=== PATIENT | male | born 1945 | race Caucasian/White ===

== ENCOUNTER 2024-10-30 15:54 | Inpatient (IN) | payer MEDICARE, OTHER ==
[2024-10-30 16:33] LABS: ALT 24 U/L (4-49); AST 26 U/L (17-59); African American GFR (CKD) 24 (>60 ml/min/1.73 sqM); Albumin 3.1 g/dL (3.5-5.0); Alkaline Phosphatase 131 U/L (38-126); Anion Gap 7 mmol/L; Blood Urea Nitrogen 99 mg/dL (9-20); Calcium 7.9 mg/dL (8.4-10.2); Carbon Dioxide 37 mmol/L (22-30); Chloride 87 mmol/L (98-107); Glucose 122 mg/dL (74-99); Non-African American GFR(CKD) 21 (>60 ml/min/1.73 sqM); Potassium 3.8 mmol/L (3.5-5.1); Sodium 131 mmol/L (137-145); Total Bilirubin 2.2 mg/dL (0.2-1.3); Total Protein 5.8 g/dL (6.3-8.2)
[2024-10-30 16:37] LABS: Anisocytosis Moderate; Basophils % (A) 0 %; Eosinophils # (A) 0.1 k/uL (0-0.7); Eosinophils % (A) 0 %; HCT 29.3 % (39.0-53.0); Hypochromasia Moderate; Lymphocytes # (A) 0.4 k/uL (1.0-4.8); Lymphocytes % (A) 2 %; MCH 24.5 pg (25.0-35.0); MCHC 30.7 g/dL (31.0-37.0); MCV 79.9 fL (80.0-100.0); Microcytosis Moderate; Monocytes # (A) 0.9 k/uL (0-1.0); Monocytes % (A) 5 %; Neutrophils % (A) 92 %; Platelet Count 148 k/uL (150-450); Poikilocytosis Slight; RBC 3.67 m/uL (4.30-5.90); RDW 22.6 % (11.5-15.5); WBC 19.7 k/uL (3.8-10.6)
--- NOTE | 2024-10-30 16:50 | XR ---
EXAMINATION TYPE: XR chest 2V DATE OF EXAM: 10/30/2024 4:45 PM COMPARISON: None TECHNIQUE: XR chest 2V Frontal and lateral views of the chest. CLINICAL INDICATION:Male, 79 years old with history of weakness; FINDINGS: Lungs/Pleura: There is no evidence of pleural effusion, focal consolidation, or pneumothorax. Pulmonary vascularity: Central pulmonary vascular prominence. Heart/mediastinum: Cardiomediastinal silhouette is enlarged. Atherosclerotic calcifications are seen in the aorta. Three lead cardiac conduction device overlying the left hemithorax with lead tips proj ecting over the right ventricle, right atrium and coronary sinus. Two lead cardiac conduction device overlying the right hemithorax with lead tips projecting over the right ventricle and right atrium. Musculoskeletal: Multiple level degenerative disc disease changes seen throughout the spine. IMPRESSION: Cardiomegaly and central pulmonary vascular congestion. No focal consolidation. Correlate with BNP fo r congestive heart failure. [facility], , 10/30/2024 4:48 PM
--- NOTE | 2024-10-30 16:58 | ED ---
Weakness HPI - General Chief complaint: Weakness Stated complaint: Failure to thrive Time Seen by Provider: 10/30/24 16:16 Source: patient, EMS, RN notes reviewed Mode of arrival: EMS Limitations: no limitations - History of Present Illness Initial comments: 79-year-old male with history of CHF, CAD with stents, pacemaker, COPD, stage IV renal disease and diabetes presenting via EMS for "not feeling well". Son is at bedside who explains that patient was recently discharged from [facility] 2 days ago for admission for diffuse swelling. States since discharge patient has refused to take any of his medications. Patient recently moved here from [facility] in August and lives with his son. Son reports he has had increasing weakness since discharge from [facility] and today was not able to walk due to weakness. Patient denies chest pain, flank pain, urinary symptoms. He does admit to a cough. Review of Systems ROS Statement: Those systems with pertinent positive or pertinent negative responses have been documented in the HPI. ROS Other: All systems not noted in ROS Statement are negative. General Exam Limitations: no limitations General appearance: alert, in no apparent distress Head exam: Present: atraumatic, normocephalic, normal inspection Eye exam: Present: normal appearance, PERRL, EOMI. Absent: scleral icterus, conjunctival injection, periorbital swelling ENT exam: Present: normal exam, mucous membranes moist Respiratory exam: Present: normal lung sounds bilaterally, wheezes, rhonchi. Absent: respiratory distress, rales, stridor, accessory muscle use Cardiovascular Exam: Present: regular rate, normal rhythm, normal heart sounds. Absent: systolic murmur, diastolic murmur, rubs, gallop, clicks GI/Abdominal exam: Present: soft, normal bowel sounds. Absent: distended, tenderness, guarding, rebound, rigid Extremities exam: Present: full ROM, normal capillary refill, pedal edema (2+ pitting edema in bilateral lower extremities). Absent: normal inspection, tenderness, joint swelling, calf tenderness Neurological exam: Present: alert, oriented X3 Psychiatric exam: Present: normal affect, normal mood Skin exam: Present: warm, dry, intact, normal color. Absent: rash Course Vital Signs 10/30/24 15:56 Temperature 99.3 F Pulse Rate 75 Respiratory 26 H Rate Blood Pressure 120/70 O2 Sat by Pulse 97 Oximetry EKG Findings - EKG Results: EKG: interpreted by ERMD (EKG reveals paced rhythm normal with no ischemic changes. Ventricular rate 75 bpm, PA interval 148, QRS duration 201, QT/QTc 518/547) Medical Decision Making - Medical Decision Making Was pt. sent in by a medical professional or institution (, PA, [facility], urgent care, hospital, or prison...) When possible be specific @ -No Did you speak to anyone other than the patient for history (EMS, parent, family, police, friend...)? What history was obtained from this source @ -No Did you review nursing and triage notes (agree or disagree)? Why? @ -I reviewed and agree with nursing and triage notes Were old charts reviewed (outside hosp., previous admission, EMS record, old EKG, old radiological studies, urgent care reports/EKG's, prison records)? Report findings @ -No old charts were reviewed Differential Diagnosis (chest pain, altered mental status, abdominal pain women, abdominal pain men, vaginal bleeding, weakness, fever, dyspnea, syncope, headache, dizziness, GI bleed, back pain, seizure, CVA, palpatations, mental health, musculoskeletal)? @ -Differential Weakness: Hypoglycemia, shock, sepsis, hyponatremia, anemia, infection, MA, ETOH, adverse medicine reaction, overdose, stroke, this is not meant to be an all-inclusive list. EKG interpreted by me (3pts min.). @ -As above X-rays interpreted by me (1pt min.). @ -Referrals cardiomegaly and central pulmonary vascular congestion, no focal consolidation, correlate with BNP for CHF CT interpreted by me (1pt min.). @ -None done U/S interpreted by me (1pt. min.). @ -None done What testing was considered but not performed or refused? (CT, X-rays, U/S, labs)? Why? @ -None What meds were considered but not given or refused? Why? @ -None Did you discuss the management of the patient with other professionals ( professionals i.e. , DRE, [facility] [employer], lab, RT, psych nurse, protective services social worker, boring machine operator production, teacher, community resource officer, comp field case manager)? Give summary @ -I spoke with Amee from [facility] who accepts admission for CHF exacerbation Was smoking cessation discussed for >3mins.? @ -No Was critical care preformed (if so, how long)? @ -No Were there social determinants of health that impacted care today? How? (Homelessness, low income, unemployed, alcoholism, drug addiction, transportation, low edu. Level, literacy, decrease access to med. care, intermediate, rehab)? @ -No Was there de-escalation of care discussed even if they declined (Discuss DNR or withdrawal of care, Hospice)? DNR status @ -No What co-morbidities impacted this encounter? (DM, HTN, Smoking, COPD, CAD, Cancer, CVA, ARF, Chemo, Hep., AIDS, mental health diagnosis, sleep apnea, morbid obesity)? @ -CHF Was patient admitted / discharged? Hospital course, mention meds given and route, prescriptions, significant lab abnormalities, going to OR and other pertinent info. @ -Admitted. 79-year-old male with history of CHF, stage IV renal disease, diabetes, CAD with stents, and pacemaker presenting for generalized weakness x 2 days. He was admitted at [facility] and discharged Monday for CHF exacerbation/renal failure. Has not been taking meds since yesterday morning. He was tachypneic otherwise vitals within acceptable limits. Denies chest pain. 2+ edema in lower extremities bilaterally. EKG revealed paced rhythm with no acute ischemic changes. Lab work remarkable for BNP 30,500, leukocytosis of 20, creatinine 2.78, BUN 99, troponin 0.165. Patient is RSV positive. Chest x-ray reveals cardiomegaly and central pulmonary vascular congestion with no focal consolidation consistent with CHF exacerbation. Urinalysis reveals large white blood cells consistent with UTI. Patient denies flank pain. I spoke with Amee from [facility] who accepts admission for CHF exacerbation. Blood cultures were taken and patient was given a gram of IV Rocephin. Case was discussed with my ED attending Dr. Walden. Undiagnosed new problem with uncertain prognosis? @ -No Drug Therapy requiring intensive monitoring for toxicity (Heparin, Nitro, Insulin, Cardizem)? @ -No Were any procedures done? @ -No Diagnosis/symptom? @ -CHF exacerbation Acute, or Chronic, or Acute on Chronic? @ -Acute Uncomplicated (without systemic symptoms) or Complicated (systemic symptoms)? @ -Complicated Side effects of treatment? @ -No Exacerbation, Progression, or Severe Exacerbation? @ -No Poses a threat to life or bodily function? How? (Chest pain, USA, MA, pneumonia, PE, COPD, DKA, ARF, appy, cholecystitis, CVA, Diverticulitis, Homicidal, Suicidal, threat to staff... and all critical care pts) @ -Yes - Lab Data Result diagrams: 10/30/24 16:10 10/30/24 16:10 Lab Results 10/30/24 10/30/24 10/30/24 Range/Units 16:10 16:10 16:10 WBC 19.7 H (3.8-10.6) k/uL RBC 3.67 L (4.30-5.90) m/uL Hgb 9.0 L (13.0-17.5) gm/dL Hct 29.3 L (39.0-53.0) % MCV 79.9 L (80.0-100.0) fL MCH 24.5 L (25.0-35.0) pg MCHC 30.7 L (31.0-37.0) g/dL RDW 22.6 H (11.5-15.5) % Plt Count 148 L (150-450) k/uL MPV 9.0 Neutrophils % 92 % Lymphocytes % 2 % Monocytes % 5 % Eosinophils % 0 % Basophils % 0 % Neutrophils # 18.0 H (1.3-7.7) k/uL Lymphocytes # 0.4 L (1.0-4.8) k/uL Monocytes # 0.9 (0-1.0) k/uL Eosinophils # 0.1 (0-0.7) k/uL Basophils # 0.0 (0-0.2) k/uL Hypochromasia Moderate Poikilocytosis Slight Anisocytosis Moderate Microcytosis Moderate Sodium 131 L (137-145) mmol/L Potassium 3.8 (3.5-5.1) mmol/L Chloride 87 L (98-107) mmol/L Carbon Dioxide 37 H (22-30) mmol/L Anion Gap 7 mmol/L BUN 99 H (9-20) mg/dL Creatinine 2.78 H (0.66-1.25) mg/dL Est GFR (CKD-EPI)AfAm 24 (>60 ml/min/1.73 sqM) Est GFR (CKD-EPI)NonAf 21 (>60 ml/min/1.73 sqM) Glucose 122 H (74-99) mg/dL Calcium 7.9 L (8.4-10.2) mg/dL Magnesium (1.6-2.3) mg/dL Total Bilirubin 2.2 H (0.2-1.3) mg/dL AST 26 (17-59) U/L ALT 24 (4-49) U/L Alkaline Phosphatase 131 H (38-126) U/L Troponin I (0.000-0.034) ng/mL NT-Pro-B Natriuret Pep pg/mL Total Protein 5.8 L (6.3-8.2) g/dL Albumin 3.1 L (3.5-5.0) g/dL Urine Color Urine Appearance (Clear) Urine pH (5.0-8.0) Ur Specific Ellinger (1.001-1.035) Urine Protein (Negative) Urine Glucose (UA) (Negative) Urine Ketones (Negative) Urine Blood (Negative) Urine Nitrite (Negative) Urine Bilirubin (Negative) Urine Urobilinogen (<2.0) mg/dL Ur Leukocyte Esterase (Negative) Urine RBC (0-5) /hpf Urine WBC (0-5) /hpf Ur Squamous Epith Cells (0-4) /hpf Urine Bacteria (None) /hpf Hyaline Casts (0-2) /lpf Urine Mucus (None) /hpf Influenza Type A (PCR) Not Detected (Not Detectd) Influenza Type B (PCR) Not Detected (Not Detectd) RSV (PCR) Detected A (Not Detectd) SARS-CoV-2 (PCR) Not Detected (Not Detectd) 10/30/24 10/30/24 10/30/24 Range/Units 16:58 16:58 18:01 WBC (3.8-10.6) k/uL RBC (4.30-5.90) m/uL Hgb (13.0-17.5) gm/dL Hct (39.0-53.0) % MCV (80.0-100.0) fL MCH (25.0-35.0) pg MCHC (31.0-37.0) g/dL RDW (11.5-15.5) % Plt Count (150-450) k/uL MPV Neutrophils % % Lymphocytes % % Monocytes % % Eosinophils % % Basophils % % Neutrophils # (1.3-7.7) k/uL Lymphocytes # (1.0-4.8) k/uL Monocytes # (0-1.0) k/uL Eosinophils # (0-0.7) k/uL Basophils # (0-0.2) k/uL Hypochromasia Poikilocytosis Anisocytosis Microcytosis Sodium (137-145) mmol/L Potassium (3.5-5.1) mmol/L Chloride (98-107) mmol/L Carbon Dioxide (22-30) mmol/L Anion Gap mmol/L BUN (9-20) mg/dL Creatinine (0.66-1.25) mg/dL Est GFR (CKD-EPI)AfAm (>60 ml/min/1.73 sqM) Est GFR (CKD-EPI)NonAf (>60 ml/min/1.73 sqM) Glucose (74-99) mg/dL Calcium (8.4-10.2) mg/dL Magnesium 2.2 (1.6-2.3) mg/dL Total Bilirubin (0.2-1.3) mg/dL AST (17-59) U/L ALT (4-49) U/L Alkaline Phosphatase (38-126) U/L Troponin I 0.165 H* (0.000-0.034) ng/mL NT-Pro-B Natriuret Pep 03849 pg/mL Total Protein (6.3-8.2) g/dL Albumin (3.5-5.0) g/dL Urine Color Yellow Urine Appearance Cloudy (Clear) Urine pH 7.0 (5.0-8.0) Ur Specific Ellinger 1.011 (1.001-1.035) Urine Protein 1+ H (Negative) Urine Glucose (UA) 1+ H (Negative) Urine Ketones Negative (Negative) Urine Blood Trace H (Negative) Urine Nitrite Negative (Negative) Urine Bilirubin Negative (Negative) Urine Urobilinogen 8.0 (<2.0) mg/dL Ur Leukocyte Esterase Large H (Negative) Urine RBC 3 (0-5) /hpf Urine WBC 167 H (0-5) /hpf Ur Squamous Epith Cells <1 (0-4) /hpf Urine Bacteria Moderate H (None) /hpf Hyaline Casts 1 (0-2) /lpf Urine Mucus Rare H (None) /hpf Influenza Type A (PCR) (Not Detectd) Influenza Type B (PCR) (Not Detectd) RSV (PCR) (Not Detectd) SARS-CoV-2 (PCR) (Not Detectd) Disposition Clinical Impression: CHF exacerbation Disposition: ADMITTED IP TO THIS HOSP Condition: Fair Referrals: Prema Tinsley MD [Primary Care Provider] - 1-2 days Time of Disposition: 18:53
[2024-10-30 17:00] LABS: Influenza A Not Detected (Not Detectd); Influenza B Not Detected (Not Detectd); RSV Detected (Not Detectd)
[2024-10-30 17:26] LABS: Magnesium 2.2 mg/dL (1.6-2.3)
[2024-10-30 18:13] LABS: Appearance,Urine Cloudy (Clear); Bacteria,Urine Moderate /hpf; Bilirubin,Urine Negative (Negative); Blood,Urine Trace (Negative); Color,Urine Yellow; Glucose,Urine (UA) 1+ (Negative); Hyaline Casts,Urine 1 /lpf (0-2); Ketones,Urine Negative (Negative); Leukocyte Esterase,Urine Large (Negative); Mucus,Urine Rare /hpf; Nitrite,Urine Negative (Negative); Protein,Urine 1+ (Negative); RBC,Urine 3 /hpf (0-5); Specific Gravity,Urine 1.011 (1.001-1.035); Squamous Epithelial Cell,Urine <1 /hpf (0-4); WBC,Urine 167 /hpf (0-5)
[2024-10-30] MEDS ORDERED: MORPHINE SULFATE 4 MG/ML SYRINGE IV PRN (18:47)
[2024-10-30] MEDS ORDERED: NALOXONE 0.4 MG/ML 1 ML VIAL IV PRN (18:47)
[2024-10-30] MEDS: HYDROcodone/APAP 5-325MG 1 EACH TAB PO PRN (20:30)
[2024-10-30] MEDS: FUROSEMIDE 10 MG/ML 4 ML VIAL IV STA (20:31)
[2024-10-30] MEDS: cefTRIAXone IN SWFI 1,000 MG/10 ML SYRINGE IVP STA (20:32)
[2024-10-31] MEDS: FUROSEMIDE 10 MG/ML 4 ML VIAL IV STA (02:13)
[2024-10-31] MEDS: IPRATROPIUM-ALBUTEROL 3 ML NEB INHALATION PRN (02:45)
[2024-10-31] MEDS: ACETAMINOPHEN TAB 325 MG TAB PO PRN ×2 (04:50→22:40)
[2024-10-31] MEDS ORDERED: ALBUTEROL NEBULIZED 2.5 MG/3 ML INHALATION PRN (09:34)
--- NOTE | 2024-10-31 10:42 | US ---
EXAMINATION TYPE: US kidneys/renal and bladder DATE OF EXAM: 10/31/2024 COMPARISON: NONE CLINICAL INDICATION: Male, 79 years old with history of Jean Paul; JEAN PAUL TECHNIQUE: Grayscale imaging of the bilateral kidneys and urinary bladder: FINDINGS: EXAM MEASUREMENTS: Right Kidney: 11.4 x 4.8 x 5.4 cm Left Kidney: 9.5 x 5.1 x 4.3 cm Right Kidney: No evidence of hydro, possible double collecting system Left Kidney: No evidence of hydro, lower pole gassed out, limited views due to immobile pt Bladder: Pt has cath in place There is no evidence for hydronephrosis at this point in time. No nephrolithiasis is seen. No anjali s are identified. The urinary bladder is anechoic. IMPRESSION: No evidence for obstructive uropathy. [facility], , 10/31/2024 10:39 AM
[2024-10-31] MEDS: ATORVASTATIN 80 MG TAB PO SCH (10:45)
[2024-10-31] MEDS: BUMETANIDE 0.25 MG/ML 10 ML VIAL IV SCH (10:46)
--- NOTE | 2024-10-31 12:02 | P.NPCON ---
History of Present Illness - Reason for Consult chronic renal failure - History of Present Illness Reason for consultation: Chronic kidney disease History of present illness: Patient is a 79-year-old male seen in new consultation for chronic kidney disease. Patient has chronic kidney disease stage IV with recent baseline creatinine in the range of 2.5-3 secondary to cardiorenal syndrome. Patient has a history of diabetes. Patient's kidney ultrasound from August 2024 showed no evidence of hydronephrosis. Patient does have history of systolic CHF ejection fraction of 20 to 25% with moderate mitral and tricuspid regurgitation. Patient was recently discharged from [facility] and at that time was admitted with CHF exacerbation. Patient was sent to the hospital due to generalized weakness and not feeling well. It is noted in the chart that patient refused to take his medications upon discharge. He was weak and unable to walk. Patient is a poor historian. Creatinine this admission was 2.78. Chest x-ray suggestive of fluid overload. BNP elevated at 30,500. He is curren tly on IV Bumex. Has an external catheter and has been making urine. Hemodynamically stable. Noted to have a fever of 100.7 F this morning. Tested positive for RSV. Vital signs are stable. General: Resting in bed. No acute distress. HEENT: Head exam is unremarkable. On nasal cannula. LUNGS: Scattered rhonchi. HEART: Rate and Rhythm are regular. ABDOMEN: Nontender. EXTREMITITES: 1+ edema. Medications and Allergies Home Medications Medication Instructions Recorded Confirmed Type Acetaminophen Tab [Tylenol] 650 mg PO Q6H PRN 10/30/24 10/30/24 History Albuterol Inhaler [Ventolin Hfa 2 puff INHALATION RT-Q6H PRN 10/30/24 10/30/24 History Inhaler] Amiodarone [Cordarone] 200 mg PO BID 10/30/24 10/30/24 History Aspirin 81 mg PO DAILY 10/30/24 10/30/24 History Atorvastatin [Lipitor] 80 mg PO DAILY 10/30/24 10/30/24 History Bumetanide [BUMEX] 2 mg PO BID 10/30/24 10/30/24 History Clopidogrel [Plavix] 75 mg PO DAILY 10/30/24 10/30/24 History Docusate [Colace] 100 mg PO BID PRN 10/30/24 10/30/24 History Empagliflozin [Jardiance] 10 mg PO DAILY 10/30/24 10/30/24 History Famotidine [Pepcid] 20 mg PO BID 10/30/24 10/30/24 History Fluticasone Nasal [place] [Flonase 1 spray EA NOSTRIL DAILY 10/30/24 10/30/24 History Nasal [place]] Levothyroxine Sodium [Synthroid] 25 mcg PO AC-BRKFST 10/30/24 10/30/24 History Nystatin 100,000 Unit/ml Susp 500,000 ml PO QID 10/30/24 10/30/24 History [Mycostatin Oral Susp] Potassium Chloride ER [K-Dur 10] 10 meq PO DAILY 10/30/24 10/30/24 History Tamsulosin [Flomax] 0.4 mg PO BID 10/30/24 10/30/24 History carvediloL [Coreg] 6.25 mg PO BID-W/MEALS 10/30/24 10/30/24 History guaiFENesin [Mucinex] 600 mg PO Q12H 10/30/24 10/30/24 History metOLazone [Zaroxolyn] 2.5 mg PO DAILY 10/30/24 10/30/24 History polyethylene glycoL 3350 [Miralax] 17 gm PO DAILY PRN 10/30/24 10/30/24 History predniSONE See Taper PO DAILY 10/30/24 10/30/24 History Allergies Allergy/AdvReac Type Severity Reaction Status Date / Time No Known Allergies Allergy Verified 10/30/24 21:07 Physical Exam Vitals: Vital Signs Temp Pulse Resp BP Pulse Ox 10/31/24 11:00 75 18 113/67 98 10/31/24 05:00 99.4 F 84 18 105/50 95 10/31/24 04:49 100.7 F H 10/31/24 03:10 117 H 35 H 153/89 99 10/31/24 03:08 75 18 112/53 99 10/31/24 02:54 71 20 10/31/24 02:47 75 20 10/31/24 02:07 75 18 118/58 99 10/31/24 00:07 76 18 99 10/30/24 15:56 99.3 F 75 26 H 120/70 97 Intake and Output 10/30/24 10/31/24 10/31/24 22:59 06:59 14:59 Other: Weight 87.997 kg Results - Lab Results Most recent lab results Calcium 7.9 mg/dL (8.4-10.2) L 10/30/24 16:10 Magnesium 2.2 mg/dL (1.6-2.3) 10/30/24 16:58 10/30/24 16:10 10/30/24 16:10 Assessment and Plan Plan: Assessment: 1. Chronic kidney disease stage IV baseline creatinine recently in the range of 2.5-3 secondary to cardiorenal syndrome. GFR near baseline. No hydronephrosis noted on kidney ultrasound done this admission. 2. Acute RSV infection. 3. Acute on chronic systolic CHF ejection fraction of 20 to 25% with moderate mitral and tricuspid regurgitation. 4. Acute hypoxic respiratory failure. 5. Volume overload. 6. Diabetes mellitus. 7. History of urinary retention. 8. Anemia of chronic kidney disease. 9. Hypervolemic hyponatremia. Plan: Maintain IV Bumex. Add Aranesp. Avoid nephrotoxins. Continue to monitor renal function and urine output. Check bladder scan to rule out urinary retention. Thank you for the consultation. I will continue to follow the patient with you during his hospital stay.
[2024-10-31] MEDS ORDERED: MORPHINE SULFATE 2 MG/ML SYRINGE IVP PRN (12:21)
[2024-10-31] MEDS: ALPRAZolam 0.25 MG TAB PO PRN (12:33)
[2024-10-31] MEDS: guaiFENesin 600 MG TABLET.ER PO SCH (12:33)
[2024-10-31] MEDS: DARBEPOETIN ALFA 40 MCG/0.4 ML SYRINGE SQ SCH (12:40)
[2024-10-31] MEDS: MEROPENEM 500 MG in SODIUM CHLORIDE 0.9% 100 ML IVPB SCH (13:37)
--- NOTE | 2024-10-31 13:51 | P.HPIM ---
History of Present Illness H&P Date: 10/31/24 History of present illness; patient 79-year-old gentleman with past medical history significant for CHF, coronary disease, COPD presented the ER with complaint of not feeling well. Patient was discharged from [facility] on and stated that he has not been taking his medications. Patient is accompanied by his son according to him patient has been having swelling of lower extremities. Patient also complaining of lethargy and weakness. Patient gets short of breath with minimal exertion. There is no complaint of fever or chills. Patient denies any orthopnea or PND. There is no complaint of nausea, vomiting or abdominal pain. Because of the symptoms, patient brought to the ER Initial lab work done in the ER showed WBC 19.7, hemoglobin 9, platelet count 148, sodium 131, potassium 3.8, BUN 19, creatinine 2.78, glucose 122, calcium 7.9, total bilirubin 2.2 troponin 0.165, proBNP 305 100 protein 5.8 UA done showing large amount of leukocyte Estrace urine WBC 167 Influenza A not detected Influenza B not detected RSV detected COVID-19 not detected EKG done in the ER showed heart rate of 75, paced rhythm Chest x-ray done in the ER showed cardiomegaly and central pulmonary vascular congestion Patient admitted to internal medicine service REVIEW OF SYSTEMS: CONSTITUTIONAL: No fever, no malaise, no fatigue. HEENT: No recent visual problems or hearing problems. Denied any sore throat. CARDIOVASCULAR: As mentioned above. PULMONARY: As mentioned above GASTROINTESTINAL: No diarrhea, no nausea, no vomiting, no abdominal pain. NEUROLOGICAL: No headaches, no weakness, no numbness. HEMATOLOGICAL: Denies any bleeding or petechiae. GENITOURINARY: Denies any burning micturition, frequency, or urgency. MUSCULOSKELETAL/RHEUMATOLOGICAL: Denies any joint pain, swelling, or any muscle pain. ENDOCRINE: Denies any polyuria or polydipsia. The rest of the 14-point review of systems is negative. PHYSICAL EXAMINATION: GENERAL: The patient is alert and oriented x3, ill looking HEENT: Pupils are round and equally reacting to light. EOMI. No scleral icterus. No conjunctival pallor. Normocephalic, atraumatic. No pharyngeal erythema. No thyromegaly. CARDIOVASCULAR: S1 and S2 present. No murmurs, rubs, or gallops. PULMONARY: Tachypneic, coarse breath sound bilaterally, crackles audible ABDOMEN: Soft, nontender, nondistended, normoactive bowel sounds. No palpable organomegaly. MUSCULOSKELETAL: No joint swelling or deformity. EXTREMITIES: No cyanosis, clubbing,2 plus pitting edema lower extremities bilaterally NEUROLOGICAL: Gross neurological examination did not reveal any focal deficits. SKIN: No rashes. Assessment and plan Acute on chronic systolic CHF acute hypoxemic respiratory failure Generalized weakness UTI ESBL bacteremia RSV infection Acute on chronic kidney disease Volume overload. Diabetes mellitus. History of urinary retention. Anemia of chronic kidney disease. Hypervolemic hyponatremia. Monitor vital signs Monitor CBC Monitor CMP Continue telemetry monitoring Blood cultures ordered Ordered urine cultures Trend troponin Strict I's and O's Daily weights Avoid nephrotoxic agents Start meropenem Start IV Bumex 1 mg twice daily Resume home meds Consult cardiology Consult nephrology Labs and medication were reviewed.. Continue same treatment. Continue with symptomatic treatment. Resume home medication. Monitor labs and vitals. DVT and GI prophylaxis. Further recommendations as per clinical course of the patient Dictation was produced using [employer] dictation software. please excuse any grammatical, word or spelling errors. Medications and Allergies Home Medications Medication Instructions Recorded Confirmed Type Acetaminophen Tab [Tylenol] 650 mg PO Q6H PRN 10/30/24 10/30/24 History Albuterol Inhaler [Ventolin Hfa 2 puff INHALATION RT-Q6H PRN 10/30/24 10/30/24 History Inhaler] Amiodarone [Cordarone] 200 mg PO BID 10/30/24 10/30/24 History Aspirin 81 mg PO DAILY 10/30/24 10/30/24 History Atorvastatin [Lipitor] 80 mg PO DAILY 10/30/24 10/30/24 History Bumetanide [BUMEX] 2 mg PO BID 10/30/24 10/30/24 History Clopidogrel [Plavix] 75 mg PO DAILY 10/30/24 10/30/24 History Docusate [Colace] 100 mg PO BID PRN 10/30/24 10/30/24 History Empagliflozin [Jardiance] 10 mg PO DAILY 10/30/24 10/30/24 History Famotidine [Pepcid] 20 mg PO BID 10/30/24 10/30/24 History Fluticasone Nasal [place] [Flonase 1 spray EA NOSTRIL DAILY 10/30/24 10/30/24 History Nasal [place]] Levothyroxine Sodium [Synthroid] 25 mcg PO AC-BRKFST 10/30/24 10/30/24 History Nystatin 100,000 Unit/ml Susp 500,000 ml PO QID 10/30/24 10/30/24 History [Mycostatin Oral Susp] Potassium Chloride ER [K-Dur 10] 10 meq PO DAILY 10/30/24 10/30/24 History Tamsulosin [Flomax] 0.4 mg PO BID 10/30/24 10/30/24 History carvediloL [Coreg] 6.25 mg PO BID-W/MEALS 10/30/24 10/30/24 History guaiFENesin [Mucinex] 600 mg PO Q12H 10/30/24 10/30/24 History metOLazone [Zaroxolyn] 2.5 mg PO DAILY 10/30/24 10/30/24 History polyethylene glycoL 3350 [Miralax] 17 gm PO DAILY PRN 10/30/24 10/30/24 History predniSONE See Taper PO DAILY 10/30/24 10/30/24 History Allergies Allergy/AdvReac Type Severity Reaction Status Date / Time No Known Allergies Allergy Verified 10/30/24 21:07 Physical Exam Vitals: Vital Signs Temp Pulse Resp BP Pulse Ox 10/31/24 05:00 99.4 F 84 18 105/50 95 10/31/24 04:49 100.7 F H 10/31/24 03:10 117 H 35 H 153/89 99 10/31/24 03:08 75 18 112/53 99 10/31/24 02:54 71 20 10/31/24 02:47 75 20 10/31/24 02:07 75 18 118/58 99 10/31/24 00:07 76 18 99 10/30/24 15:56 99.3 F 75 26 H 120/70 97 Intake and Output 10/30/24 10/31/24 10/31/24 22:59 06:59 14:59 Other: Weight 87.997 kg Results CBC & Chem 7: 10/30/24 16:10 10/30/24 16:10 Labs: Abnormal Lab Results - Last 24 Hours (Table) 10/30/24 10/30/24 10/30/24 Range/Units 16:10 16:10 16:10 WBC 19.7 H (3.8-10.6) k/uL RBC 3.67 L (4.30-5.90) m/uL Hgb 9.0 L (13.0-17.5) gm/dL Hct 29.3 L (39.0-53.0) % MCV 79.9 L (80.0-100.0) fL MCH 24.5 L (25.0-35.0) pg MCHC 30.7 L (31.0-37.0) g/dL RDW 22.6 H (11.5-15.5) % Plt Count 148 L (150-450) k/uL Neutrophils # 18.0 H (1.3-7.7) k/uL Lymphocytes # 0.4 L (1.0-4.8) k/uL Sodium 131 L (137-145) mmol/L Chloride 87 L (98-107) mmol/L Carbon Dioxide 37 H (22-30) mmol/L BUN 99 H (9-20) mg/dL Creatinine 2.78 H (0.66-1.25) mg/dL Glucose 122 H (74-99) mg/dL Calcium 7.9 L (8.4-10.2) mg/dL Total Bilirubin 2.2 H (0.2-1.3) mg/dL Alkaline Phosphatase 131 H (38-126) U/L Troponin I (0.000-0.034) ng/mL Total Protein 5.8 L (6.3-8.2) g/dL Albumin 3.1 L (3.5-5.0) g/dL Urine Protein (Negative) Urine Glucose (UA) (Negative) Urine Blood (Negative) Ur Leukocyte Esterase (Negative) Urine WBC (0-5) /hpf Urine Bacteria (None) /hpf Urine Mucus (None) /hpf RSV (PCR) Detected A (Not Detectd) 10/30/24 10/30/24 Range/Units 16:58 18:01 WBC (3.8-10.6) k/uL RBC (4.30-5.90) m/uL Hgb (13.0-17.5) gm/dL Hct (39.0-53.0) % MCV (80.0-100.0) fL MCH (25.0-35.0) pg MCHC (31.0-37.0) g/dL RDW (11.5-15.5) % Plt Count (150-450) k/uL Neutrophils # (1.3-7.7) k/uL Lymphocytes # (1.0-4.8) k/uL Sodium (137-145) mmol/L Chloride (98-107) mmol/L Carbon Dioxide (22-30) mmol/L BUN (9-20) mg/dL Creatinine (0.66-1.25) mg/dL Glucose (74-99) mg/dL Calcium (8.4-10.2) mg/dL Total Bilirubin (0.2-1.3) mg/dL Alkaline Phosphatase (38-126) U/L Troponin I 0.165 H* (0.000-0.034) ng/mL Total Protein (6.3-8.2) g/dL Albumin (3.5-5.0) g/dL Urine Protein 1+ H (Negative) Urine Glucose (UA) 1+ H (Negative) Urine Blood Trace H (Negative) Ur Leukocyte Esterase Large H (Negative) Urine WBC 167 H (0-5) /hpf Urine Bacteria Moderate H (None) /hpf Urine Mucus Rare H (None) /hpf RSV (PCR) (Not Detectd)
[2024-10-31 15:43] LABS: Creatinine,Urine Random 58.7 mg/dL
[2024-10-31] MEDS: TAMSULOSIN 0.4 MG CAP.ER.24H PO SCH (21:20)
[2024-10-31] MEDS: carvediloL 6.25 MG TAB PO SCH (21:26)
--- NOTE | 2024-10-31 23:12 | P.CONS ---
History of Present Illness - Reason for Consult Consult date: 10/31/24 ESBL bacteremia Requesting physician: Lon Alston - Chief Complaint Weakness and shortness of breath x days - History of Present Illness Patient is a 79-year-old male with a past medical history significant for CHF coronary artery disease COPD presented to hospital for evaluation of not feeling well increasing shortness of breath that apparently has been getting worse over the last few days the patient did have a cough moderate intensity and bring up some sputum no pleuritic chest pain did have some nausea but no vomiting no abdominal pain or any diarrhea not medically report any urinary symptoms patient on presentation to hospital did have a low-grade fever of 99.3 subsequently spiked a temperature of 100.7 F patient was tachycardic at 1 point but not hypotensive mildly hypoxic requiring 2 L nasal cannula oxygen patient did have a white count of 19.7 with a left shift did have elevated BUN/creatinine liver enzymes abnormal urine has been positive tested positive for RSV patient did have a chest x-ray cardiomegaly and central pulmonary vascular congestion no focal consolidation correlate with BNP for congestive heart failure also have abdominal bladder ultrasound no evidence for obstructive uropathy patient blood cultures came back positive with ESBL E. coli prompting this consultation Review of Systems Positive point and negatives has been mentioned in the HPI, complete review of systems was performed and all other systems are negative Medications and Allergies Home Medications Medication Instructions Recorded Confirmed Type Acetaminophen Tab [Tylenol] 650 mg PO Q6H PRN 10/30/24 10/30/24 History Albuterol Inhaler [Ventolin Hfa 2 puff INHALATION RT-Q6H PRN 10/30/24 10/30/24 History Inhaler] Amiodarone [Cordarone] 200 mg PO BID 10/30/24 10/30/24 History Aspirin 81 mg PO DAILY 10/30/24 10/30/24 History Atorvastatin [Lipitor] 80 mg PO DAILY 10/30/24 10/30/24 History Bumetanide [BUMEX] 2 mg PO BID 10/30/24 10/30/24 History Clopidogrel [Plavix] 75 mg PO DAILY 10/30/24 10/30/24 History Docusate [Colace] 100 mg PO BID PRN 10/30/24 10/30/24 History Empagliflozin [Jardiance] 10 mg PO DAILY 10/30/24 10/30/24 History Famotidine [Pepcid] 20 mg PO BID 10/30/24 10/30/24 History Fluticasone Nasal [place] [Flonase 1 spray EA NOSTRIL DAILY 10/30/24 10/30/24 History Nasal [place]] Levothyroxine Sodium [Synthroid] 25 mcg PO AC-BRKFST 10/30/24 10/30/24 History Nystatin 100,000 Unit/ml Susp 500,000 ml PO QID 10/30/24 10/30/24 History [Mycostatin Oral Susp] Potassium Chloride ER [K-Dur 10] 10 meq PO DAILY 10/30/24 10/30/24 History Tamsulosin [Flomax] 0.4 mg PO BID 10/30/24 10/30/24 History carvediloL [Coreg] 6.25 mg PO BID-W/MEALS 10/30/24 10/30/24 History guaiFENesin [Mucinex] 600 mg PO Q12H 10/30/24 10/30/24 History metOLazone [Zaroxolyn] 2.5 mg PO DAILY 10/30/24 10/30/24 History polyethylene glycoL 3350 [Miralax] 17 gm PO DAILY PRN 10/30/24 10/30/24 History predniSONE See Taper PO DAILY 10/30/24 10/30/24 History Allergies Allergy/AdvReac Type Severity Reaction Status Date / Time No Known Allergies Allergy Verified 10/30/24 21:07 Physical Exam Vitals: Vital Signs Temp Pulse Resp BP Pulse Ox 10/31/24 11:00 75 18 113/67 98 10/31/24 05:00 99.4 F 84 18 105/50 95 10/31/24 04:49 100.7 F H 10/31/24 03:10 117 H 35 H 153/89 99 10/31/24 03:08 75 18 112/53 99 10/31/24 02:54 71 20 10/31/24 02:47 75 20 10/31/24 02:07 75 18 118/58 99 10/31/24 00:07 76 18 99 10/30/24 15:56 99.3 F 75 26 H 120/70 97 Intake and Output 10/30/24 10/31/24 10/31/24 22:59 06:59 14:59 Other: Weight 87.997 kg GENERAL DESCRIPTION: Elderly male lying in bed, no distress. No tachypnea or accessory muscle of respiration use. HEENT: Shows Pallor , no scleral icterus. Oral mucous membrane is dry. No pharyngeal erythema or thrush NECK: Trachea central, no thyromegaly. LUNGS: Unlabored breathing. Coarse breath sounds bilaterally HEART: S1, S2, regular rate and rhythm. No loud murmur ABDOMEN: Soft, no tenderness , guarding or rigidity, no organomegaly EXTREMITIES: No edema of feet. SKIN: No rash, no masses palpable. NEUROLOGICAL: The patient is awake, alert, oriented x3, mood and affect normal. Results CBC & Chem 7: 10/30/24 16:10 10/30/24 16:10 Labs: Abnormal Lab Results - Last 24 Hours (Table) 10/30/24 10/30/24 10/30/24 Range/Units 16:10 16:10 16:10 WBC 19.7 H (3.8-10.6) k/uL RBC 3.67 L (4.30-5.90) m/uL Hgb 9.0 L (13.0-17.5) gm/dL Hct 29.3 L (39.0-53.0) % MCV 79.9 L (80.0-100.0) fL MCH 24.5 L (25.0-35.0) pg MCHC 30.7 L (31.0-37.0) g/dL RDW 22.6 H (11.5-15.5) % Plt Count 148 L (150-450) k/uL Neutrophils # 18.0 H (1.3-7.7) k/uL Lymphocytes # 0.4 L (1.0-4.8) k/uL Sodium 131 L (137-145) mmol/L Chloride 87 L (98-107) mmol/L Carbon Dioxide 37 H (22-30) mmol/L BUN 99 H (9-20) mg/dL Creatinine 2.78 H (0.66-1.25) mg/dL Glucose 122 H (74-99) mg/dL Calcium 7.9 L (8.4-10.2) mg/dL Total Bilirubin 2.2 H (0.2-1.3) mg/dL Alkaline Phosphatase 131 H (38-126) U/L Troponin I (0.000-0.034) ng/mL C-Reactive Protein (<1.0) mg/dL Total Protein 5.8 L (6.3-8.2) g/dL Albumin 3.1 L (3.5-5.0) g/dL Urine Protein (Negative) Urine Glucose (UA) (Negative) Urine Blood (Negative) Ur Leukocyte Esterase (Negative) Urine WBC (0-5) /hpf Urine Bacteria (None) /hpf Urine Mucus (None) /hpf RSV (PCR) Detected A (Not Detectd) 10/30/24 10/30/24 10/31/24 Range/Units 16:58 18:01 11:16 WBC (3.8-10.6) k/uL RBC (4.30-5.90) m/uL Hgb (13.0-17.5) gm/dL Hct (39.0-53.0) % MCV (80.0-100.0) fL MCH (25.0-35.0) pg MCHC (31.0-37.0) g/dL RDW (11.5-15.5) % Plt Count (150-450) k/uL Neutrophils # (1.3-7.7) k/uL Lymphocytes # (1.0-4.8) k/uL Sodium (137-145) mmol/L Chloride (98-107) mmol/L Carbon Dioxide (22-30) mmol/L BUN (9-20) mg/dL Creatinine (0.66-1.25) mg/dL Glucose (74-99) mg/dL Calcium (8.4-10.2) mg/dL Total Bilirubin (0.2-1.3) mg/dL Alkaline Phosphatase (38-126) U/L Troponin I 0.165 H* (0.000-0.034) ng/mL C-Reactive Protein 32.8 H (<1.0) mg/dL Total Protein (6.3-8.2) g/dL Albumin (3.5-5.0) g/dL Urine Protein 1+ H (Negative) Urine Glucose (UA) 1+ H (Negative) Urine Blood Trace H (Negative) Ur Leukocyte Esterase Large H (Negative) Urine WBC 167 H (0-5) /hpf Urine Bacteria Moderate H (None) /hpf Urine Mucus Rare H (None) /hpf RSV (PCR) (Not Detectd) Microbiology - Last 24 Hours (Table) 10/30/24 19:38 Blood Culture Gram Stain - Preliminary Blood Blood Culture - Preliminary Molecular ID Assessment and Plan (1) Sepsis Current Visit: Yes Status: Acute Code(s): A41.9 - SEPSIS, UNSPECIFIED ORGANISM SNOMED Code(s): 93152791 (2) Bacteremia Current Visit: Yes Status: Acute Code(s): R78.81 - BACTEREMIA SNOMED Code(s): 5984601 (3) ESBL (extended spectrum beta-lactamase) producing bacteria infection Current Visit: Yes Status: Acute Code(s): A49.9 - BACTERIAL INFECTION, UNSPECIFIED; Z16.12 - EXTENDED SPECTRUM BETA LACTAMASE (ESBL) RESISTANCE SNOMED Code(s): 735472727 (4) UTI (urinary tract infection) Current Visit: Yes Status: Acute Code(s): N39.0 - URINARY TRACT INFECTION, SITE NOT SPECIFIED SNOMED Code(s): 24773153 Plan: 1patient presented hospital with sepsis in this patient who did have fever ta chycardia elevated white count meeting criteria for SIRS source is urinary with significantly positive UA likely from enteric gram-negative pathogen. 2patient with ESBL bacteremia source is likely urinary. 3elevated creatinine high risk of nephrotoxicity. 4patient to be treated with the meropenem dosages to the kidney function and discontinue Rocephin we will follow on clinical condition and cultures to further adjust medication if needed Thank you for this consultation we will follow the patient along with you Dictation was produced using [employer] dictation software. please excuse any gramma tical, word or spelling errors. Time with Patient: Greater than 30
[2024-11-01 07:44] LABS: Anisocytosis Moderate; Basophils % (A) 0 %; Eosinophils # (A) 0.1 k/uL (0-0.7); Eosinophils % (A) 1 %; HCT 29.9 % (39.0-53.0); HGB 9.1 gm/dL (13.0-17.5); Hypochromasia Moderate; Lymphocytes # (A) 0.3 k/uL (1.0-4.8); Lymphocytes % (A) 3 %; MCH 24.7 pg (25.0-35.0); MCHC 30.5 g/dL (31.0-37.0); Mean Platelet Volume 8.1; Microcytosis Slight; Monocytes # (A) 0.4 k/uL (0-1.0); Monocytes % (A) 4 %; Neutrophils # (A) 8.9 k/uL (1.3-7.7); Neutrophils % (A) 91 %; Platelet Count 105 k/uL (150-450); Poikilocytosis Slight; RBC 3.69 m/uL (4.30-5.90); RDW 22.7 % (11.5-15.5); WBC 9.8 k/uL (3.8-10.6)
[2024-11-01 07:53] LABS: ALT 31 U/L (4-49); AST 51 U/L (17-59); African American GFR (CKD) 21 (>60 ml/min/1.73 sqM); Alkaline Phosphatase 153 U/L (38-126); Anion Gap 10 mmol/L; Carbon Dioxide 36 mmol/L (22-30); Chloride 84 mmol/L (98-107); Glucose 135 mg/dL (74-99); Magnesium 2.2 mg/dL (1.6-2.3); Non-African American GFR(CKD) 19 (>60 ml/min/1.73 sqM); Potassium 3.7 mmol/L (3.5-5.1); Sodium 130 mmol/L (137-145); Total Bilirubin 2.5 mg/dL (0.2-1.3); Total Protein 5.9 g/dL (6.3-8.2)
[2024-11-01 08:04] LABS: Blood Urea Nitrogen 102 mg/dL (9-20)
[2024-11-01] MEDS: ASPIRIN 81 MG PO SCH (09:27)
[2024-11-01] MEDS: CLOPIDOGREL 75 MG TAB PO SCH (09:27)
[2024-11-01] MEDS ORDERED: HEPARIN SODIUM 1,000 UN/ML (10ML VL) IV PRN (10:08)
--- NOTE | 2024-11-01 10:21 | P.PN ---
Subjective Patient is seen in follow-up for chronic kidney disease. Renal function little worse compared to yesterday. Nonoliguric. On 2 L nasal cannula. H emodynamically stable. Denies chest pain. Vital signs are stable. General: No acute distress. HEENT: Head exam is unremarkable. On nasal cannula. LUNGS: No audible rhonchi or wheezes. HEART: Rate and Rhythm are regular. ABDOMEN: Nontender. EXTREMITITES: 1+ edema. Objective - Vital Signs Vital signs: Vital Signs Temp 97.5 F L 11/01/24 03:26 Pulse 77 11/01/24 06:01 Resp 22 11/01/24 03:26 BP 136/75 11/01/24 06:01 Pulse Ox 95 11/01/24 08:22 FiO2 Intake & Output 10/31/24 11/01/24 11/01/24 18:59 06:59 18:59 Intake Total 1007 Output Total 1700 Balance -693 Weight 87.5 kg Intake: Intake, IV Titration 100 Amount Meropenem 500 mg In 100 Sodium Chloride 0.9% 100 ml @ 33.333 mls/hr IVPB Q12HR [facility] [place] Rx#:[id number] Oral 907 Output: Urine 1700 Other: Voiding Method External Catheter # Voids 2 - Labs CBC & Chem 7: 11/01/24 07:13 11/01/24 07:13 Labs: Abnormal Lab Results - Last 24 Hours (Table) 10/31/24 10/31/24 10/31/24 Range/Units 11:16 11:16 13:00 RBC (4.30-5.90) m/uL Hgb (13.0-17.5) gm/dL Hct (39.0-53.0) % MCH (25.0-35.0) pg MCHC (31.0-37.0) g/dL RDW (11.5-15.5) % Plt Count (150-450) k/uL Neutrophils # (1.3-7.7) k/uL Lymphocytes # (1.0-4.8) k/uL Sodium (137-145) mmol/L Chloride (98-107) mmol/L Carbon Dioxide (22-30) mmol/L BUN (9-20) mg/dL Creatinine (0.66-1.25) mg/dL Glucose (74-99) mg/dL Osmolality 311 H (275-295) mOsm/kg Calcium (8.4-10.2) mg/dL Total Bilirubin (0.2-1.3) mg/dL Alkaline Phosphatase (38-126) U/L Troponin I (0.000-0.034) ng/mL C-Reactive Protein 32.8 H (<1.0) mg/dL Total Protein (6.3-8.2) g/dL Albumin (3.5-5.0) g/dL Urine Osmolality 359 L (400-1100) mOsm/kg 11/01/24 11/01/24 11/01/24 Range/Units 07:13 07:13 07:13 RBC 3.69 L (4.30-5.90) m/uL Hgb 9.1 L (13.0-17.5) gm/dL Hct 29.9 L (39.0-53.0) % MCH 24.7 L (25.0-35.0) pg MCHC 30.5 L (31.0-37.0) g/dL RDW 22.7 H (11.5-15.5) % Plt Count 105 L (150-450) k/uL Neutrophils # 8.9 H (1.3-7.7) k/uL Lymphocytes # 0.3 L (1.0-4.8) k/uL Sodium 130 L (137-145) mmol/L Chloride 84 L (98-107) mmol/L Carbon Dioxide 36 H (22-30) mmol/L BUN 102 H* (9-20) mg/dL Creatinine 3.05 H (0.66-1.25) mg/dL Glucose 135 H (74-99) mg/dL Osmolality (275-295) mOsm/kg Calcium 8.0 L (8.4-10.2) mg/dL Total Bilirubin 2.5 H (0.2-1.3) mg/dL Alkaline Phosphatase 153 H (38-126) U/L Troponin I 0.271 H* (0.000-0.034) ng/mL C-Reactive Protein (<1.0) mg/dL Total Protein 5.9 L (6.3-8.2) g/dL Albumin 3.0 L (3.5-5.0) g/dL Urine Osmolality (400-1100) mOsm/kg Microbiology - Last 24 Hours (Table) 10/30/24 19:38 Blood Culture Gram Stain - Preliminary Blood Blood Culture - Preliminary Molecular ID Assessment and Plan Plan: Assessment: 1. Chronic kidney disease stage IV baseline creatinine recently in the range of 2.5-3 secondary to cardiorenal syndrome. GFR near baseline. No hydronephrosis noted on kidney ultrasound done this admission. 2. Acute RSV infection. 3. Acute on chronic systolic CHF ejection fraction of 20 to 25% with moderate mitral and tricuspid regurgitation. 4. Acute hypoxic respiratory failure. 5. Volume overload. Improving with diuresis. 6. Diabetes mellitus. 7. History of urinary retention. 8. Anemia of chronic kidney disease. On Aranesp. 9. Hypervolemic hyponatremia. 10. Gram-negative bacteremia on antibiotics. Plan: Transition to oral Bumex 1 mg twice daily. Encouraged oral intake. Avoid nephrotoxins. Continue to monitor renal function and urine output.
[2024-11-01] MEDS: POTASSIUM CHLORIDE ER 20 MEQ TAB.ER PO STA (11:35)
[2024-11-01] MEDS: HEPARIN SOD,PORK IN 0.45% NACL 25,000 UNIT in 0.45% NACL 1 250ML.BAG IV SCH (11:37)
[2024-11-01 11:46] LABS: Anisocytosis Moderate; Basophils % (A) 0 %; Eosinophils % (A) 0 %; HCT 25.4 % (39.0-53.0); Hypochromasia Moderate; Lymphocytes # (A) 0.2 k/uL (1.0-4.8); Lymphocytes % (A) 3 %; MCH 25.3 pg (25.0-35.0); MCHC 31.6 g/dL (31.0-37.0); Mean Platelet Volume 7.8; Microcytosis Moderate; Monocytes # (A) 0.5 k/uL (0-1.0); Monocytes % (A) 6 %; Neutrophils # (A) 7.6 k/uL (1.3-7.7); Neutrophils % (A) 88 %; Poikilocytosis Slight; RBC 3.17 m/uL (4.30-5.90); RDW 22.6 % (11.5-15.5); WBC 8.6 k/uL (3.8-10.6)
[2024-11-01 11:48] LABS: Platelet Count 101 k/uL (150-450)
[2024-11-01 11:49] VITALS: BMI 26.2
[2024-11-01 11:52] LABS: INR 1.2 (<1.2); Partial Thromboplastin Time 28.4 sec (22.0-30.0); Prothrombin Time 13.2 sec (10.0-12.5)
--- NOTE | 2024-11-01 13:32 | P.PN ---
Subjective Progress Note Date: 11/01/24 patient 79-year-old gentleman with past medical history significant for CHF, coronary disease, COPD presented the ER with complaint of not feeling well. Patient was discharged from [facility] on and stated that he has not been taking his medications. Patient is accompanied by his son according to him patient has been having swelling of lower extremities. Patient also complaining of lethargy and weakness. Patient gets short of breath with minimal exertion. There is no complaint of fever or chills. Patient denies any orthopnea or PND. There is no complaint of nausea, vomiting or abdominal pain. Because of the symptoms, patient brought to the ER Initial lab work done in the ER showed WBC 19.7, hemoglobin 9, platelet count 148, sodium 131, potassium 3.8, BUN 19, creatinine 2.78, glucose 122, calcium 7.9, total bilirubin 2.2 troponin 0.165, proBNP 305 100 protein 5.8 UA done showing large amount of leukocyte Estrace urine WBC 167 Influenza A not detected Influenza B not detected RSV detected COVID-19 not detected EKG done in the ER showed heart rate of 75, paced rhythm Chest x-ray done in the ER showed cardiomegaly and central pulmonary vascular congestion Patient admitted to internal medicine service 11/01. Patient seen and examined. Blood work done this morning showed WBC 9 vancomycin 9.1, platelet count 105, sodium 130, potassium 3.7, BUN 102, creatinine 3.05, troponin 0.271. Complaining of chest congestion. States he gets short of breath on minimal exertion REVIEW OF SYSTEMS: CONSTITUTIONAL: No fever, no malaise,. CARDIOVASCULAR: No chest pain, no palpitations, no syncope. PULMONARY: As mentioned above GASTROINTESTINAL: No diarrhea, no nausea, no vomiting, no abdominal pain. NEUROLOGICAL: No headaches, no weakness, PHYSICAL EXAMINATION: GENERAL: The patient is alert and oriented x3, ill looking HEENT: Pupils are round and equally reacting to light. EOMI. No scleral icterus. No conjunctival pallor. Normocephalic, atraumatic. No pharyngeal erythema. No thyromegaly. CARDIOVASCULAR: S1 and S2 present. No murmurs, rubs, or gallops. PULMONARY: Coarse breath sound bilaterally, bilateral expiratory rhonchi audible ABDOMEN: Soft, nontender, nondistended, normoactive bowel sounds. No palpable organomegaly. MUSCULOSKELETAL: No joint swelling or deformity. EXTREMITIES: No cyanosis, clubbing, or pedal edema. NEUROLOGICAL: Gross neurological examination did not reveal any focal deficits. SKIN: No rashes. Assessment and plan Acute on chronic systolic CHF acute hypoxemic respiratory failure Generalized weakness UTI ESBL bacteremia RSV infection Elevated troponin Acute on chronic kidney disease Volume overload. Diabetes mellitus. History of urinary retention. Anemia of chronic kidney disease. Hypervolemic hyponatremia. Monitor vital signs Monitor CBC Monitor CMP Continue telemetry monitoring Blood cultures growing E. coli Follow-up on urine cultures Trend troponin Strict I's and O's Daily weights Avoid nephrotoxic agents Continue meropenem Continue Bumex 1 mg twice daily Start heparin pharmacy to dose 2D echo ordered Cardiology following Nephrology following Labs and medication were reviewed.. Continue same treatment. Continue with symptomatic treatment. Resume home medication. Monitor labs and vitals. DVT and GI prophylaxis. Further recommendations as per clinical course of the patient Dictation was produced using [employer] dictation software. please excuse any grammatical, word or spelling errors. Objective - Vital Signs Vital signs: Vital Signs Temp 97.5 F L 11/01/24 03:26 Pulse 77 11/01/24 06:01 Resp 22 11/01/24 03:26 BP 136/75 11/01/24 06:01 Pulse Ox 95 11/01/24 08:22 FiO2 Intake & Output 10/31/24 11/01/24 11/01/24 18:59 06:59 18:59 Intake Total 1007 Output Total 1700 Balance -693 Weight 87.5 kg Intake: Intake, IV Titration 100 Amount Meropenem 500 mg In 100 Sodium Chloride 0.9% 100 ml @ 33.333 mls/hr IVPB Q12HR [facility] Rx#:[id number] Oral 907 Output: Urine 1700 Other: Voiding Method External Catheter # Voids 2 - Labs CBC & Chem 7: 11/01/24 10:52 11/01/24 07:13 Labs: Abnormal Lab Results - Last 24 Hours (Table) 10/31/24 10/31/24 10/31/24 Range/Units 11:16 11:16 13:00 RBC (4.30-5.90) m/uL Hgb (13.0-17.5) gm/dL Hct (39.0-53.0) % MCH (25.0-35.0) pg MCHC (31.0-37.0) g/dL RDW (11.5-15.5) % Plt Count (150-450) k/uL Neutrophils # (1.3-7.7) k/uL Lymphocytes # (1.0-4.8) k/uL Sodium (137-145) mmol/L Chloride (98-107) mmol/L Carbon Dioxide (22-30) mmol/L BUN (9-20) mg/dL Creatinine (0.66-1.25) mg/dL Glucose (74-99) mg/dL Osmolality 311 H (275-295) mOsm/kg Calcium (8.4-10.2) mg/dL Total Bilirubin (0.2-1.3) mg/dL Alkaline Phosphatase (38-126) U/L Troponin I (0.000-0.034) ng/mL C-Reactive Protein 32.8 H (<1.0) mg/dL Total Protein (6.3-8.2) g/dL Albumin (3.5-5.0) g/dL Urine Osmolality 359 L (400-1100) mOsm/kg 11/01/24 11/01/24 11/01/24 Range/Units 07:13 07:13 07:13 RBC 3.69 L (4.30-5.90) m/uL Hgb 9.1 L (13.0-17.5) gm/dL Hct 29.9 L (39.0-53.0) % MCH 24.7 L (25.0-35.0) pg MCHC 30.5 L (31.0-37.0) g/dL RDW 22.7 H (11.5-15.5) % Plt Count 105 L (150-450) k/uL Neutrophils # 8.9 H (1.3-7.7) k/uL Lymphocytes # 0.3 L (1.0-4.8) k/uL Sodium 130 L (137-145) mmol/L Chloride 84 L (98-107) mmol/L Carbon Dioxide 36 H (22-30) mmol/L BUN 102 H* (9-20) mg/dL Creatinine 3.05 H (0.66-1.25) mg/dL Glucose 135 H (74-99) mg/dL Osmolality (275-295) mOsm/kg Calcium 8.0 L (8.4-10.2) mg/dL Total Bilirubin 2.5 H (0.2-1.3) mg/dL Alkaline Phosphatase 153 H (38-126) U/L Troponin I 0.271 H* (0.000-0.034) ng/mL C-Reactive Protein (<1.0) mg/dL Total Protein 5.9 L (6.3-8.2) g/dL Albumin 3.0 L (3.5-5.0) g/dL Urine Osmolality (400-1100) mOsm/kg Microbiology - Last 24 Hours (Table) 10/30/24 19:38 Blood Culture Gram Stain - Preliminary Blood Blood Culture - Preliminary Molecular ID
--- NOTE | 2024-11-01 13:42 | P.CRDCN ---
History of Present Illness Consult date: 11/01/24 Consult reason: congestive heart failure History of present illness: This is a 79-year-old male patient of Dr. Rodrigues with past medical history of coronary artery disease, ischemic cardiomyopathy status post biventricular ICD, chronic systolic heart failure, chronic renal disease stage IV. We have been asked to evaluate the patient for CHF exacerbation. Patient presented to the hospital with complaints of not feeling well. Patient was recently at [facility] for swelling and was discharged 2 days ago. Patient apparently refused to take any of his home medications. He recently moved from [place] to in August lives with his son. He has increasing generalized weakness and not able to walk. Patient denies having chest pain. No significant shortness of breath noted. Blood pressure 136/75, heart rate 77, pulse ox 95% on 2 L nasal cannula. Temperature max 100.7. Patient is followed by ID for ESBL bacteremia. Nephrology is also following for chronic kidney disease stage IV. -EKG: Paced rhythm. -Renal ultrasound: No obstructive uropathy. -Chest x-ray: Cardiomegaly with central pulmonary vascular congestion. No focal consolidation. -Laboratory studies: Initial WBC 19.7 now 9.8, hemoglobin 9.1, platelet count 105. Sodium 130, potassium 3.7, CO2 36, BUN 102, creatinine 3.05. Troponin 0.165 and 0.271. -Home cardiac medications: Amiodarone 200 mg twice daily, aspirin 81 mg daily, atorvastatin 80 mg daily, Bumex 2 mg twice daily, Coreg 6.25 mg twice daily, Plavix 75 mg daily, Jardiance 10 mg daily, metolazone 2.5 mg daily, also on levothyroxine Review Of Systems: At the time of my exam: CONSTITUTIONAL: Denies fever or chills. Reports generalized weakness and fatigue. HEENT: Denies blurred vision, vision changes, or eye pain. Denies hemoptysis CARDIOVASCULAR: Denies chest pain. Denies orthopnea. Denies PND. Denies palpitations RESPIRATORY: Denies shortness of breath. GASTROINTESTINAL: Denies abdominal pain. Denies nausea or vomiting. HEMATOLOGIC: Denies bleeding disorders. GENITOURINARY: Denies any blood in urine. SKIN: Denies puritis. Denies rash. Physical examination: Gen: This is a 79-year-old frail appearing male in no acute respiratory distress. VS: reviewed HEENT: Head is atraumatic, normocephalic. Pupils equal, round. Sclerae is anicteric. NECK: Supple. No JVD. LUNGS: Bilateral wheezing. No intercostal retractions. HEART: Regular rate and rhythm. No murmur. ABDOMEN: Soft No tenderness. EXTREMITIES: No pedal edema. No calf tenderness. NEUROLOGICAL: Patient is awake, alert. Assessment: RSV Acute hypoxic respiratory failure ESBL bacteremia Elevated troponins most likely secondary to sepsis and acute kidney injury, RSV and bacteremia Chronic kidney disease stage IV Acute on chronic systolic heart failure History of coronary artery disease History of ischemic cardiomyopathy status post AICD Plan: Resume the following home cardiac medications: Amiodarone 200 mg twice daily, aspirin, statin, Plavix Hold Bumex and metolazone Diuretics per nephrology Obtain 2-D echocardiogram and Doppler study to assess cardiac structure and function Further recommendations to follow based upon clinical course Thank you kindly for this consultation. Nurse practitioner note has been reviewed, I agree with documented findings and plan of care. Patient was seen and examined. Past Medical History Past Medical History: Coronary Artery Disease (CAD), Heart Failure, COPD, Diabetes Mellitus, Myocardial Infarction (GA) Additional Past Medical History / Comment(s): GA 2001 Last Myocardial Infarction Date:: 2001 History of Any Multi-Drug Resistant Organisms: ESBL Date of last positivie culture/infection: 10/30/24 MDRO Source:: blood Past Surgical History: Pacemaker Past Anesthesia/Blood Transfusion Reactions: No Reported Reaction, Unable to Obtain Type of Cardiac Device: Unknown Device Placement Date:: 2001 Past Psychological History: Unable to Obtain Smoking Status: Former smoker Past Alcohol Use History: None Reported Past Drug Use History: None Reported - Past Family History Father Family Medical History: Congestive Heart Failure (CHF) Mother Family Medical History: Congestive Heart Failure (CHF) Medications and Allergies Home Medications Medication Instructions Recorded Confirmed Type Acetaminophen Tab [Tylenol] 650 mg PO Q6H PRN 10/30/24 10/30/24 History Albuterol Inhaler [Ventolin Hfa 2 puff INHALATION RT-Q6H PRN 10/30/24 10/30/24 History Inhaler] Amiodarone [Cordarone] 200 mg PO BID 10/30/24 10/30/24 History Aspirin 81 mg PO DAILY 10/30/24 10/30/24 History Atorvastatin [Lipitor] 80 mg PO DAILY 10/30/24 10/30/24 History Bumetanide [BUMEX] 2 mg PO BID 10/30/24 10/30/24 History Clopidogrel [Plavix] 75 mg PO DAILY 10/30/24 10/30/24 History Docusate [Colace] 100 mg PO BID PRN 10/30/24 10/30/24 History Empagliflozin [Jardiance] 10 mg PO DAILY 10/30/24 10/30/24 History Famotidine [Pepcid] 20 mg PO BID 10/30/24 10/30/24 History Fluticasone Nasal [place] [Flonase 1 spray EA NOSTRIL DAILY 10/30/24 10/30/24 History Nasal [place]] Levothyroxine Sodium [Synthroid] 25 mcg PO AC-BRKFST 10/30/24 10/30/24 History Nystatin 100,000 Unit/ml Susp 500,000 ml PO QID 10/30/24 10/30/24 History [Mycostatin Oral Susp] Potassium Chloride ER [K-Dur 10] 10 meq PO DAILY 10/30/24 10/30/24 History Tamsulosin [Flomax] 0.4 mg PO BID 10/30/24 10/30/24 History carvediloL [Coreg] 6.25 mg PO BID-W/MEALS 10/30/24 10/30/24 History guaiFENesin [Mucinex] 600 mg PO Q12H 10/30/24 10/30/24 History metOLazone [Zaroxolyn] 2.5 mg PO DAILY 10/30/24 10/30/24 History polyethylene glycoL 3350 [Miralax] 17 gm PO DAILY PRN 10/30/24 10/30/24 History predniSONE See Taper PO DAILY 10/30/24 10/30/24 History Allergies Allergy/AdvReac Type Severity Reaction Status Date / Time No Known Allergies Allergy Verified 10/30/24 21:07 Physical Exam Vitals: Vital Signs Temp Pulse Pulse Resp BP BP Pulse Ox 11/01/24 06:01 77 136/75 11/01/24 03:26 97.5 F L 75 22 112/61 96 10/31/24 23:10 75 28 H 10/31/24 22:23 98.2 F 75 28 H 119/57 100 10/31/24 21:50 98.5 F 75 21 117/54 100 10/31/24 16:32 100/50 10/31/24 16:28 98.6 F 75 20 94 L 10/31/24 11:00 75 18 113/67 98 Intake and Output 10/31/24 11/01/24 11/01/24 22:59 06:59 14:59 Intake Total 367 640 Output Total 1100 600 Balance -733 40 Intake: Intake, IV Titration 100 Amount Meropenem 500 mg In 100 Sodium Chloride 0.9% 100 ml @ 33.333 mls/hr IVPB Q12HR [facility] Rx#:[id number] Oral 367 540 Output: Urine 1100 600 Other: Voiding Method External Catheter # Voids 2 Weight 87.997 kg 87.5 kg Results 11/01/24 10:52 11/01/24 07:13 Cardiac Enzymes 11/01/24 Range/Units 07:13 AST 51 (17-59) U/L CBC 11/01/24 Range/Units 07:13 WBC 9.8 (3.8-10.6) k/uL RBC 3.69 L (4.30-5.90) m/uL Hgb 9.1 L (13.0-17.5) gm/dL Hct 29.9 L (39.0-53.0) % Plt Count 105 L (150-450) k/uL Comprehensive Metabolic Panel 11/01/24 Range/Units 07:13 Sodium 130 L (137-145) mmol/L Potassium 3.7 (3.5-5.1) mmol/L Chloride 84 L (98-107) mmol/L Carbon Dioxide 36 H (22-30) mmol/L BUN 102 H* (9-20) mg/dL Creatinine 3.05 H (0.66-1.25) mg/dL Glucose 135 H (74-99) mg/dL Calcium 8.0 L (8.4-10.2) mg/dL AST 51 (17-59) U/L ALT 31 (4-49) U/L Alkaline Phosphatase 153 H (38-126) U/L Total Protein 5.9 L (6.3-8.2) g/dL Albumin 3.0 L (3.5-5.0) g/dL Current Medications Generic Name Dose Route Start Last Admin Trade Name Freq PRN Reason Stop Dose Admin Acetaminophen 650 mg 10/31/24 09:34 10/31/24 22:40 Acetaminophen Tab 325 Mg Tab PO 650 mg Q6H PRN Administration Mild Pain (Scale 1 to 3) Hydrocodone Bitart/Acetaminophen 1 each 10/30/24 18:47 10/30/24 20:30 Hydrocodone/Apap 5-325mg 1 Each Tab PO 1 each Q4HR PRN Administration Moderate Pain (Scale 4 to 6) Albuterol/Ipratropium 3 ml 10/31/24 12:40 Ipratropium-Albuterol 3 Ml Neb INHALATION RT-Q4H PRN Shortness Of Breath Or Wheezing Alprazolam 0.25 mg 10/31/24 12:22 10/31/24 12:33 Alprazolam 0.25 Mg Tab PO 0.25 mg Q8H PRN Administration Agitation Aspirin 81 mg 11/01/24 09:00 Aspirin 81 Mg PO DAILY JORDEN Atorvastatin Calcium 80 mg 10/31/24 09:45 10/31/24 10:45 Atorvastatin 80 Mg Tab PO 80 mg DAILY JORDEN Administration Bumetanide 1 mg 10/31/24 10:00 10/31/24 23:53 Bumetanide 0.25 Mg/Ml 10 Ml Vial IV 1 mg Q12H JORDEN Administration Carvedilol 6.25 mg 10/31/24 17:30 11/01/24 05:57 Carvedilol 6.25 Mg Tab PO 6.25 mg BID-W/MEALS JORDEN Administration Clopidogrel Bisulfate 75 mg 11/01/24 09:00 Clopidogrel 75 Mg Tab PO DAILY JORDEN Darbepoetin Reilly 40 mcg 10/31/24 12:00 10/31/24 12:40 Darbepoetin Reilly 40 Mcg/0.4 Ml Syringe SQ 40 mcg Q7D JORDEN Administration Guaifenesin 600 mg 10/31/24 12:30 10/31/24 21:20 Guaifenesin 600 Mg Tablet.Er PO 600 mg Q12HR JORDEN Administration Meropenem 500 mg/ Sodium 100 mls @ 33.333 mls/hr 10/31/24 13:00 10/31/24 21:19 Chloride IVPB 33.333 mls/hr Q12HR JORDEN Administration Morphine Sulfate 4 mg 10/30/24 18:47 Morphine Sulfate 4 Mg/Ml Syringe IV Q4HR PRN Severe Pain (Scale 7 to 10) Morphine Sulfate 1 mg 10/31/24 12:21 Morphine Sulfate 2 Mg/Ml Syringe IVP Q4HR PRN Tachypena Naloxone HCl 0.2 mg 10/30/24 18:47 Naloxone 0.4 Mg/Ml 1 Ml Vial IV Q2M PRN Opioid Reversal Tamsulosin HCl 0.4 mg 10/31/24 21:00 10/31/24 21:20 Tamsulosin 0.4 Mg Cap.Er.24h PO 0.4 mg BID JORDEN Administration Intake and Output 10/31/24 11/01/24 11/01/24 22:59 06:59 14:59 Intake Total 367 640 Output Total 1100 600 Balance -733 40 Intake: Intake, IV Titration 100 Amount Meropenem 500 mg In 100 Sodium Chloride 0.9% 100 ml @ 33.333 mls/hr IVPB Q12HR [facility] Rx#:[id number] Oral 367 540 Output: Urine 1100 600 Other: Voiding Method External Catheter # Voids 2 Weight 87.997 kg 87.5 kg 11/01/24 07:13 11/01/24 07:13
--- NOTE | 2024-11-01 15:16 | CDI ---
Documentation Clarification Form Date: 11/01/2024 02:59:54 PM From: Kendra Orlando RN, CCDS Phone: [phone] Admit Date: 10/30/2024 06:25:00 PM Patient Name: Susy Mendoza Visit Number: [id number] Discharge Date: ATTENTION: The Clinical Documentation Specialists (CDI) and [facility] Coding Staff appreciate your assistance in clarifying documentation. Please respond to the clarification below the line at the bottom and electronically sign. The CDI & [facility] Coding staff will review the response and follow-up if needed. Please note: Queries are made part of the Legal Health Record. If you have any questions, please contact the author of this message via ITS. Doctor. Lon Alston The patient has sepsis documented in the ID consult and subsequent progress mote. Based on this information and the findings below, is there an additional diagnosis that is clinically appropriate for this patient? History/Risk Factors: CHF, CAD with stents, pacemaker, COPD, stage IV renal disease and diabetes 10/31 ID Consult: patient presented hospital with sepsis in this patient who did have fever tachycardia elevated white count meeting criteria for SIRS source is urinary. Clinical Indicators: 79-year-old with SOB, have a low-grade fever of 99.3 subsequently spiked a temperature of 100.7 F / WBC 19.7 Neutrophils 18.0 Lactic acid: 10/30 Blood cultures: Preliminary: Escherichia coli 312 Vital signs: 30365 75 26 97% 4/L Treatment: Warehouse Freight Handler/Telemetry Meropenem 500 MG IVPB Q 12 HRS Is there an additional diagnosis that is clinically appropriate for this patient? [ x] Sepsis, present on admission [ ] Severe Sepsis with organ failure present on admission [ ] No additional diagnosis/not clinically significant [ ] Other, please specify [ ] Unable to determine SIRS Criteria: 2 or more of the following may indicate SIRS Temperature < 96.8F (36C) or > 101.0F (38.3C) Heart Rate > 90 bpm Respiratory Rate > 20 breaths/min or PaCO2 < 32 mmHg White Blood Cell Count > 12,000 or < 4,000 cells/mm3 or > 10% bands (Template Last Reviewed: August 2022) MTDD
--- NOTE | 2024-11-01 15:49 | P.PN ---
Subjective Progress Note Date: 11/01/24 Principal diagnosis: Reason for follow-up is ESBL E. coli UTI and bacteremia Patient is a 79-year-old male with a past medical history significant for CHF coronary artery disease COPD presented to hospital for evaluation of not feeling well increasing shortness of breath did have a positive blood culture with ESBL E. coli prompting this consultation. On today's evaluation that is 11/01/2024, the patient did have a temperature of 100.4 F this morning patient is breathing comfortably requiring 2 L nasal cannula oxygen no chest pain or shortness with any worsening cough no abdominal pain or diarrhea. Patient white count is 8.6 creatinine 3.05 blood culture with an E. coli Objective - Vital Signs Vital signs: Vital Signs Temp 98.5 F 11/01/24 11:34 Pulse 75 11/01/24 11:34 Resp 16 11/01/24 11:34 BP 103/60 11/01/24 11:34 Pulse Ox 92 L 11/01/24 11:34 FiO2 Intake & Output 10/31/24 11/01/24 11/01/24 18:59 06:59 18:59 Intake Total 1007 Output Total 1700 550 Balance -693 -550 Weight 87.5 kg 87.5 kg Intake: Intake, IV Titration 100 Amount Meropenem 500 mg In 100 Sodium Chloride 0.9% 100 ml @ 33.333 mls/hr IVPB Q12HR [facility] Rx#:[id number] Oral 907 Output: Urine 1700 550 Other: Voiding Method External Catheter # Voids 2 - Exam GENERAL DESCRIPTION: An elderly male up in bed in no distress RESPIRATORY SYSTEM: Unlabored breathing , coarse breath sounds bilaterally HEART: S1 S2 regular rate and rhythm , ABDOMEN: Soft , no tenderness EXTREMITIES: No edema feet - Labs CBC & Chem 7: 11/01/24 10:52 11/01/24 07:13 Labs: Abnormal Lab Results - Last 24 Hours (Table) 10/31/24 10/31/24 11/01/24 Range/Units 11:16 13:00 07:13 RBC 3.69 L (4.30-5.90) m/uL Hgb 9.1 L (13.0-17.5) gm/dL Hct 29.9 L (39.0-53.0) % MCH 24.7 L (25.0-35.0) pg MCHC 30.5 L (31.0-37.0) g/dL RDW 22.7 H (11.5-15.5) % Plt Count 105 L (150-450) k/uL Neutrophils # 8.9 H (1.3-7.7) k/uL Lymphocytes # 0.3 L (1.0-4.8) k/uL PT (10.0-12.5) sec INR (<1.2) Sodium (137-145) mmol/L Chloride (98-107) mmol/L Carbon Dioxide (22-30) mmol/L BUN (9-20) mg/dL Creatinine (0.66-1.25) mg/dL Glucose (74-99) mg/dL Osmolality 311 H (275-295) mOsm/kg Calcium (8.4-10.2) mg/dL Total Bilirubin (0.2-1.3) mg/dL Alkaline Phosphatase (38-126) U/L Troponin I (0.000-0.034) ng/mL Total Protein (6.3-8.2) g/dL Albumin (3.5-5.0) g/dL Urine Osmolality 359 L (400-1100) mOsm/kg 11/01/24 11/01/24 11/01/24 Range/Units 07:13 07:13 10:52 RBC 3.17 L (4.30-5.90) m/uL Hgb 8.0 L (13.0-17.5) gm/dL Hct 25.4 L (39.0-53.0) % MCH (25.0-35.0) pg MCHC (31.0-37.0) g/dL RDW 22.6 H (11.5-15.5) % Plt Count 101 L (150-450) k/uL Neutrophils # (1.3-7.7) k/uL Lymphocytes # 0.2 L (1.0-4.8) k/uL PT (10.0-12.5) sec INR (<1.2) Sodium 130 L (137-145) mmol/L Chloride 84 L (98-107) mmol/L Carbon Dioxide 36 H (22-30) mmol/L BUN 102 H* (9-20) mg/dL Creatinine 3.05 H (0.66-1.25) mg/dL Glucose 135 H (74-99) mg/dL Osmolality (275-295) mOsm/kg Calcium 8.0 L (8.4-10.2) mg/dL Total Bilirubin 2.5 H (0.2-1.3) mg/dL Alkaline Phosphatase 153 H (38-126) U/L Troponin I 0.271 H* (0.000-0.034) ng/mL Total Protein 5.9 L (6.3-8.2) g/dL Albumin 3.0 L (3.5-5.0) g/dL Urine Osmolality (400-1100) mOsm/kg 11/01/24 Range/Units 10:52 RBC (4.30-5.90) m/uL Hgb (13.0-17.5) gm/dL Hct (39.0-53.0) % MCH (25.0-35.0) pg MCHC (31.0-37.0) g/dL RDW (11.5-15.5) % Plt Count (150-450) k/uL Neutrophils # (1.3-7.7) k/uL Lymphocytes # (1.0-4.8) k/uL PT 13.2 H (10.0-12.5) sec INR 1.2 H (<1.2) Sodium (137-145) mmol/L Chloride (98-107) mmol/L Carbon Dioxide (22-30) mmol/L BUN (9-20) mg/dL Creatinine (0.66-1.25) mg/dL Glucose (74-99) mg/dL Osmolality (275-295) mOsm/kg Calcium (8.4-10.2) mg/dL Total Bilirubin (0.2-1.3) mg/dL Alkaline Phosphatase (38-126) U/L Troponin I (0.000-0.034) ng/mL Total Protein (6.3-8.2) g/dL Albumin (3.5-5.0) g/dL Urine Osmolality (400-1100) mOsm/kg Microbiology - Last 24 Hours (Table) 10/30/24 19:38 Blood Culture Gram Stain - Preliminary Blood Blood Culture - Preliminary Escherichia coli Molecular ID Assessment and Plan (1) Sepsis Current Visit: Yes Status: Acute Code(s): A41.9 - SEPSIS, UNSPECIFIED ORGANISM SNOMED Code(s): 04507597 (2) Bacteremia Current Visit: Yes Status: Acute Code(s): R78.81 - BACTEREMIA SNOMED Code(s): 0902131 (3) ESBL (extended spectrum beta-lactamase) producing bacteria infection Current Visit: Yes Status: Acute Code(s): A49.9 - BACTERIAL INFECTION, UNSPECIFIED; Z16.12 - EXTENDED SPECTRUM BETA LACTAMASE (ESBL) RESISTANCE SNOMED Code(s): 261275156 (4) UTI (urinary tract infection) Current Visit: Yes Status: Acute Code(s): N39.0 - URINARY TRACT INFECTION, SITE NOT SPECIFIED SNOMED Code(s): 02594107 Plan: 1patient presented hospital with sepsis in this patient who did have fever tachycardia elevated white count meeting criteria for SIRS source is urinary with significantly positive UA likely from enteric gram-negative pathogen. 2patient with ESBL bacteremia source is likely urinary. 3elevated creatinine high risk of nephrotoxicity. 4patient abdominal bladder ultrasound was negative for any obstructive uropathy is currently on meropenem to continue and monitor clinical course closely Dictation was produced using [employer] dictation software. please excuse any grammatical, word or spelling errors.
[2024-11-01] MEDS: BUMETANIDE 1 MG TAB PO SCH (16:45)
[2024-11-01] MEDS: AMIODARONE 200 MG TAB PO SCH (19:56)
--- NOTE | 2024-11-01 20:43 | CA ---
Transthoracic Echo Report Name: Susy Mendoza Age: 79 Gender: M : 1945 Exam Date: 11/01/2024 14:43 Exam Location: [facility] Ht (in): 72 Wt (lb): 192 Ordering Physician: Lon Alston MD Attending/Referring Phys: Stress Test Technician Seda Guerrero RDCS Procedure CPT: Indications: SHORTNESS OF BREATH Cardiac Hx: pacemaker Technical Quality: Good Contrast 1: Total Dose (mL): Contrast 2: Total Dose (mL): MEASUREMENTS (Male / Female) Normal Values 2D ECHO LV Diastolic Diameter PLAX 5.9 cm 4.2 - 5.9 / 3.9 - 5.3 cm LV Systolic Diameter PLAX 5.4 cm IVS Diastolic Thickness 1.2 cm 0.6 - 1.0 / 0.6 - 0.9 cm LVPW Diastolic Thickness 1.2 cm 0.6 - 1.0 / 0.6 - 0.9 cm LV Relative Wall Thickness 0.4 RV Internal Dim ED PLAX 4.7 cm LVOT Diameter 2.4 cm LA Systolic Diameter LX 4.7 cm 3.0 - 4.0 / 2.7 - 3.8 cm LV Diastolic Volume MOD 4C 206.8 cm??? LV Systolic Volume MOD 4C 155.3 cm??? LV Ejection Fraction MOD 4C 24.9 % LV Cardiac Index MOD 4C 2097.6 cm???/min???m??? LV Diastolic Length 4C 8.8 cm LV Systolic Length 4C 9.0 cm LV Diastolic Volume MOD 2C 143.3 cm??? LV Systolic Volume MOD 2C 101.1 cm??? LV Ejection Fraction MOD 2C 29.4 % LV Cardiac Index MOD 2C 1717.5 cm???/min???m??? LV Diastolic Length 2C 11.0 cm LV Systolic Length 2C 9.5 cm M-MODE Aortic Root Diameter MM 3.6 cm DOPPLER AV Peak Velocity 170.2 cm/s AV Peak Gradient 11.6 mmHg AV Mean Velocity 117.7 cm/s AV Mean Gradient 6.5 mmHg AV Velocity Time Integral 33.7 cm AI Peak Velocity 315.9 cm/s AI Peak Gradient 39.9 mmHg AI Pressure Half Time 603.2 ms Mitral E Point Velocity 97.5 cm/s Mitral A Point Velocity 102.7 cm/s Mitral E to A Ratio 0.9 MV Deceleration Time 286.3 ms MV E' Velocity 2.8 cm/s Mitral E to MV E' Ratio 34.8 TR Peak Velocity 349.2 cm/s TR Peak Gradient 48.8 mmHg Right Ventricular Systolic Press 58.8 mmHg FINDINGS Left Ventricle Left ventricular ejection fraction is estimated at 20-25 %. Mildly increased septal wall thickness. Left ventricular cavity size normal. Severely reduced global left ventricular systolic function. Right Ventricle Severe right ventricular dilatation. Severe pulmonary hypertension. Right ventricular systolic pressure estimated at 59 mm hg. Right Atrium Right atrial dilatation. No right atrial thrombus or mass seen. Left Atrium Moderately increased left atrial diameter. No left atrial thrombus or mass present. Mitral Valve Structurally normal mitral valve. Mild to moderate mitral regurgitation. Aortic Valve Trileaflet aortic valve. Thickened aortic valve without stenosis. Mild to moderate aortic regurgitation. Tricuspid Valve Structurally normal tricuspid valve. [id number] tricuspid regurgitation. Pulmonic Valve Structurally normal pulmonic valve. Trace pulmonic regurgitation. Pericardium No pericardial effusion. Aorta Normal size aortic root and proximal ascending aorta. CONCLUSIONS Dilated LV. Severely impaired LV systolic function with EF between 20 to 25% Mild to moderate aortic and mitral regurgitation Severe pulmonary hypertension Dilated RV Moderate to severe tricuspid regurgitation Previewed by: Dr. Navarro Stanley MD (Electronically Signed) Final Date: 01 November 2024 20:42
[2024-11-02 06:21] LABS: Anisocytosis Moderate; HCT 26.5 % (39.0-53.0); HGB 8.1 gm/dL (13.0-17.5); Hypochromasia Moderate; MCH 24.5 pg (25.0-35.0); MCHC 30.6 g/dL (31.0-37.0); Mean Platelet Volume 10.4; Microcytosis Moderate; Platelet Count 113 k/uL (150-450); Poikilocytosis Slight; RBC 3.32 m/uL (4.30-5.90); RDW 22.8 % (11.5-15.5); WBC 8.5 k/uL (3.8-10.6)
[2024-11-02 06:35] LABS: INR 1.1 (<1.2); Prothrombin Time 12.1 sec (10.0-12.5)
[2024-11-02 06:52] LABS: Anisocytosis (M) Present; Band Neutrophils % 12 %; Crenated RBC Present; Eosinophils # (M) 0.09 k/uL (0-0.7); Lymphocytes # (M) 0.34 k/uL (1.0-4.8); Monocytes # (M) 0.43 k/uL (0-1.0); Neutrophils % (M) 78 %; Nucleated Red Blood Cells 0 /100 WBC (0-0); Poikilocytosis (M) Present; RBC Fragments Present; Target Cells Present; Total Cells Counted 100
[2024-11-02 06:53] LABS: African American GFR (CKD) 24 (>60 ml/min/1.73 sqM); Anion Gap 7 mmol/L; Blood Urea Nitrogen 100 mg/dL (9-20); Calcium 7.4 mg/dL (8.4-10.2); Carbon Dioxide 35 mmol/L (22-30); Chloride 87 mmol/L (98-107); Glucose 148 mg/dL (74-99); Magnesium 2.2 mg/dL (1.6-2.3); Non-African American GFR(CKD) 21 (>60 ml/min/1.73 sqM); Potassium 3.4 mmol/L (3.5-5.1); Sodium 129 mmol/L (137-145)
[2024-11-02] MEDS: POTASSIUM CHLORIDE ER 20 MEQ TAB.ER PO ONE (09:22)
--- NOTE | 2024-11-02 10:05 | P.PN ---
Subjective Patient is seen in follow-up for chronic kidney disease. Renal function better. Nonoliguric. Denies chest pain or shortness of breath. Vital signs are stable. General: No acute distress. HEENT: Head exam is unremarkable. On nasal cannula. LUNGS: No audible rhonchi or wheezes. HEART: Rate and Rhythm are regular. ABDOMEN: Nontender. EXTREMITITES: 1+ edema. Objective - Vital Signs Vital signs: Vital Signs Temp 98.1 F 11/02/24 09:00 Pulse 75 11/02/24 09:00 Resp 19 11/02/24 09:00 BP 121/73 11/02/24 09:00 Pulse Ox 99 11/02/24 09:00 FiO2 Intake & Output 11/01/24 11/02/24 11/02/24 18:59 06:59 18:59 Intake Total 240 120 118 Output Total 1500 400 500 Balance -1260 -280 -382 Weight 87.5 kg 87.6 kg Intake: Oral 240 120 118 Output: Urine 1500 400 500 Other: Voiding Method External Catheter External Catheter External Catheter # Bowel Movements 2 3 - Labs CBC & Chem 7: 11/02/24 05:58 11/02/24 05:58 Labs: Abnormal Lab Results - Last 24 Hours (Table) 11/01/24 11/01/24 11/01/24 Range/Units 10:52 10:52 16:29 RBC 3.17 L (4.30-5.90) m/uL Hgb 8.0 L (13.0-17.5) gm/dL Hct 25.4 L (39.0-53.0) % MCH (25.0-35.0) pg MCHC (31.0-37.0) g/dL RDW 22.6 H (11.5-15.5) % Plt Count 101 L (150-450) k/uL Lymphocytes # 0.2 L (1.0-4.8) k/uL Lymphocytes # (Manual) (1.0-4.8) k/uL PT 13.2 H (10.0-12.5) sec INR 1.2 H (<1.2) APTT 44.9 H (22.0-30.0) sec Sodium (137-145) mmol/L Potassium (3.5-5.1) mmol/L Chloride (98-107) mmol/L Carbon Dioxide (22-30) mmol/L BUN (9-20) mg/dL Creatinine (0.66-1.25) mg/dL Glucose (74-99) mg/dL Calcium (8.4-10.2) mg/dL 11/02/24 11/02/24 11/02/24 Range/Units 05:58 05:58 05:58 RBC 3.32 L (4.30-5.90) m/uL Hgb 8.1 L (13.0-17.5) gm/dL Hct 26.5 L (39.0-53.0) % MCH 24.5 L (25.0-35.0) pg MCHC 30.6 L (31.0-37.0) g/dL RDW 22.8 H (11.5-15.5) % Plt Count 113 L (150-450) k/uL Lymphocytes # (1.0-4.8) k/uL Lymphocytes # (Manual) 0.34 L (1.0-4.8) k/uL PT (10.0-12.5) sec INR (<1.2) APTT 47.9 H (22.0-30.0) sec Sodium 129 L (137-145) mmol/L Potassium 3.4 L (3.5-5.1) mmol/L Chloride 87 L (98-107) mmol/L Carbon Dioxide 35 H (22-30) mmol/L BUN 100 H (9-20) mg/dL Creatinine 2.75 H (0.66-1.25) mg/dL Glucose 148 H (74-99) mg/dL Calcium 7.4 L (8.4-10.2) mg/dL Microbiology - Last 24 Hours (Table) 10/30/24 19:38 Blood Culture Gram Stain - Preliminary Blood Blood Culture - Preliminary Escherichia coli Molecular ID Assessment and Plan Plan: Assessment: 1. Chronic kidney disease stage IV baseline creatinine recently in the range of 2.5-3 secondary to cardiorenal syndrome. GFR near baseline. No hydronephrosis noted on kidney ultrasound done this admission. 2. Acute RSV infection. 3. Acute on chronic systolic CHF ejection fraction of 20 to 25% with moderate mitral and tricuspid regurgitation. 4. Acute hypoxic respiratory failure. 5. Volume overload. Improved with diuresis. 6. Diabetes mellitus. 7. History of urinary retention. 8. Anemia of chronic kidney disease. On Aranesp. 9. Hypervolemic hyponatremia. 10. E. coli bacteremia on antibiotics. 11. Hypokalemia from diuresis. Plan: Maintain oral Bumex. Encouraged oral intake. Add 1500 cc fluid restriction. Replace potassium. Avoid nephrotoxins. Continue to monitor renal function and urine output.
--- NOTE | 2024-11-02 11:20 | P.PN ---
Subjective Progress Note Date: 11/02/24 Consult reason: congestive heart failure History of present illness: This is a 79-year-old male patient of Dr. Rodrigues with past medical history of coronary artery disease, ischemic cardiomyopathy status post biventricular ICD, chronic systolic heart failure, chronic renal disease stage IV. We have been asked to evaluate the patient for CHF exacerbation. Patient presented to the hospital with complaints of not feeling well. Patient was recently at [facility] for swelling and was discharged 2 days ago. Patient apparently refused to take any of his home medications. He recently moved from [place] to in August lives with his son. He has increasing generalized weakness and not able to walk. Patient denies having chest pain. No significant shortness of breath noted. Blood pressure 136/75, heart rate 77, pulse ox 95% on 2 L nasal cannula. Temperature max 100.7. Patient is followed by ID for ESBL bacteremia. Nephrology is also following for chronic kidney disease stage IV. -EKG: Paced rhythm. -Renal ultrasound: No obstructive uropathy. -Chest x-ray: Cardiomegaly with central pulmonary vascular congestion. No focal consolidation. -Laboratory studies: Initial WBC 19.7 now 9.8, hemoglobin 9.1, platelet count 105. Sodium 130, potassium 3.7, CO2 36, BUN 102, creatinine 3.05. Troponin 0.165 and 0.271. -Home cardiac medications: Amiodarone 200 mg twice daily, aspirin 81 mg daily, atorvastatin 80 mg daily, Bumex 2 mg twice daily, Coreg 6.25 mg twice daily, Plavix 75 mg daily, Jardiance 10 mg daily, metolazone 2.5 mg daily, also on levothyroxine 11/02 Patient seen and examined. Patient states he is not feeling very well today but he denies any chest pain or chest pressure. No shortness of breath. Blood pressure 127/75, heart rate 75, pulse ox 97% on 2 L nasal cannula. Repeat blood work reveals WBC 8.5, hemoglobin 8.1, sodium 129, potassium 3.4, BUN 100 and creatinine 2.75. Echocardiogram reveals EF of 20 to 25%, dilated LV, mild to moderate aortic and mitral regurgitation, severe pulmonary hypertension, dilated RV, moderate to severe tricuspid regurgitation. Attending started patient on heparin drip yesterday. Physical examination: Gen: This is a 79-year-old frail appearing male in no acute respiratory distress. VS: reviewed HEENT: Head is atraumatic, normocephalic. Pupils equal, round. Sclerae is anicteric. NECK: Supple. No JVD. LUNGS: Bilateral wheezing. No intercostal retractions. HEART: Regular rate and rhythm. No murmur. ABDOMEN: Soft No tenderness. EXTREMITIES: No pedal edema. No calf tenderness. NEUROLOGICAL: Patient is awake, alert. Assessment: RSV Acute hypoxic respiratory failure ESBL bacteremia Elevated troponins most likely secondary to sepsis and acute kidney injury, RSV and bacteremia Chronic kidney disease stage IV Acute on chronic systolic heart failure History of coronary artery disease History of ischemic cardiomyopathy status post AICD Valvular heart disease with mild to moderate aortic and mitral regurgitation, moderate to severe tricuspid regurgitation Severe pulmonary hypertension Plan: Continue the following home cardiac medications: Amiodarone 200 mg twice daily, aspirin, statin, Plavix Hold Bumex and metolazone Diuretics per nephrology Further recommendations to follow based upon clinical course Nurse practitioner note has been reviewed, I agree with documented findings and plan of care. Patient was seen and examined. Objective - Vital Signs Vital signs: Vital Signs Temp 98.1 F 11/02/24 09:00 Pulse 75 11/02/24 09:00 Resp 19 11/02/24 09:00 BP 121/73 11/02/24 09:00 Pulse Ox 99 11/02/24 09:00 FiO2 Intake & Output 11/01/24 11/02/24 11/02/24 18:59 06:59 18:59 Intake Total 240 120 118 Output Total 1500 400 500 Balance -1260 280 -382 Weight 87.5 kg 87.6 kg Intake: Oral 240 120 118 Output: Urine 1500 400 500 Other: Voiding Method External Catheter External Catheter External Catheter # Bowel Movements 2 3 - Labs CBC & Chem 7: 11/02/24 05:58 11/02/24 05:58 Labs: Abnormal Lab Results - Last 24 Hours (Table) 11/01/24 11/01/24 11/01/24 Range/Units 10:52 10:52 16:29 RBC 3.17 L (4.30-5.90) m/uL Hgb 8.0 L (13.0-17.5) gm/dL Hct 25.4 L (39.0-53.0) % MCH (25.0-35.0) pg MCHC (31.0-37.0) g/dL RDW 22.6 H (11.5-15.5) % Plt Count 101 L (150-450) k/uL Lymphocytes # 0.2 L (1.0-4.8) k/uL Lymphocytes # (Manual) (1.0-4.8) k/uL PT 13.2 H (10.0-12.5) sec INR 1.2 H (<1.2) APTT 44.9 H (22.0-30.0) sec Sodium (137-145) mmol/L Potassium (3.5-5.1) mmol/L Chloride (98-107) mmol/L Carbon Dioxide (22-30) mmol/L BUN (9-20) mg/dL Creatinine (0.66-1.25) mg/dL Glucose (74-99) mg/dL Calcium (8.4-10.2) mg/dL 11/02/24 11/02/24 11/02/24 Range/Units 05:58 05:58 05:58 RBC 3.32 L (4.30-5.90) m/uL Hgb 8.1 L (13.0-17.5) gm/dL Hct 26.5 L (39.0-53.0) % MCH 24.5 L (25.0-35.0) pg MCHC 30.6 L (31.0-37.0) g/dL RDW 22.8 H (11.5-15.5) % Plt Count 113 L (150-450) k/uL Lymphocytes # (1.0-4.8) k/uL Lymphocytes # (Manual) 0.34 L (1.0-4.8) k/uL PT (10.0-12.5) sec INR (<1.2) APTT 47.9 H (22.0-30.0) sec Sodium 129 L (137-145) mmol/L Potassium 3.4 L (3.5-5.1) mmol/L Chloride 87 L (98-107) mmol/L Carbon Dioxide 35 H (22-30) mmol/L BUN 100 H (9-20) mg/dL Creatinine 2.75 H (0.66-1.25) mg/dL Glucose 148 H (74-99) mg/dL Calcium 7.4 L (8.4-10.2) mg/dL Microbiology - Last 24 Hours (Table) 10/30/24 19:38 Blood Culture Gram Stain - Preliminary Blood Blood Culture - Preliminary Escherichia coli Molecular ID
--- NOTE | 2024-11-02 16:30 | P.PN ---
Subjective Progress Note Date: 11/02/24 patient 79-year-old gentleman with past medical history significant for CHF, coronary disease, COPD presented the ER with complaint of not feeling well. Patient was discharged from [facility] on and stated that he has not been taking his medications. Patient is accompanied by his son according to him patient has been having swelling of lower extremities. Patient also complaining of lethargy and weakness. Patient gets short of breath with minimal exertion. There is no complaint of fever or chills. Patient denies any orthopnea or PND. There is no complaint of nausea, vomiting or abdominal pain. Because of the symptoms, patient brought to the ER Initial lab work done in the ER showed WBC 19.7, hemoglobin 9, platelet count 148, sodium 131, potassium 3.8, BUN 19, creatinine 2.78, glucose 122, calcium 7.9, total bilirubin 2.2 troponin 0.165, proBNP 305 100 protein 5.8 UA done showing large amount of leukocyte Estrace urine WBC 167 Influenza A not detected Influenza B not detected RSV detected COVID-19 not detected EKG done in the ER showed heart rate of 75, paced rhythm Chest x-ray done in the ER showed cardiomegaly and central pulmonary vascular congestion Patient admitted to internal medicine service 11/01. Patient seen and examined. Blood work done this morning showed WBC 9 vancomycin 9.1, platelet count 105, sodium 130, potassium 3.7, BUN 102, creatinine 3.05, troponin 0.271. Complaining of chest congestion. States he gets short of breath on minimal exertion 11/02/2024 Patient is evaluated in follow-up sitting up in the bed. He continues to report shortness of breath. His lungs are significantly diminished with scattered wheezing throughout. He remains on IV merropenem on for ESBL E. coli bacteremia. He is continued on oral Bumex twice daily currently. Echocardiogram reveals an EF of 20 to 25% with mild to moderate aortic and mitral regurgitation and severe pulmonary hypertension moderate to severe tricuspid regurgitation and dilated right ventricle. REVIEW OF SYSTEMS: CONSTITUTIONAL: No fever, no malaise,. CARDIOVASCULAR: No chest pain, no palpitations, no syncope. PULMONARY: As mentioned above GASTROINTESTINAL: No diarrhea, no nausea, no vomiting, no abdominal pain. NEUROLOGICAL: No headaches, no weakness, PHYSICAL EXAMINATION: GENERAL: The patient is alert and oriented x3, ill looking HEENT: Pupils are round and equally reacting to light. EOMI. No scleral icterus. No conjunctival pallor. Normocephalic, atraumatic. No pharyngeal erythema. No thyromegaly. CARDIOVASCULAR: S1 and S2 present. No murmurs, rubs, or gallops. PULMONARY: Coarse breath sound bilaterally, bilateral expiratory rhonchi audible ABDOMEN: Soft, nontender, nondistended, normoactive bowel sounds. No palpable organomegaly. MUSCULOSKELETAL: No joint swelling or deformity. EXTREMITIES: No cyanosis, clubbing, or pedal edema. NEUROLOGICAL: Gross neurological examination did not reveal any focal deficits. SKIN: No rashes. Assessment and plan Acute on chronic systolic CHF acute hypoxemic respiratory failure Generalized weakness UTI ESBL bacteremia RSV infection Elevated troponin Acute on chronic kidney disease Volume overload. Diabetes mellitus. History of urinary retention. Anemia of chronic kidney disease. Hypervolemic hyponatremia. Monitor vital signs Monitor CBC Monitor CMP Continue telemetry monitoring Blood cultures are growing ESBL E. coli ID following. Trend troponin Strict I's and O's Daily weights Avoid nephrotoxic agents Continue meropenem Continue Bumex 1 mg twice daily Cardiology following Nephrology following Labs and medication were reviewed.. Continue same treatment. Continue with symptomatic treatment. Resume home medication. Monitor labs and vitals. DVT and GI prophylaxis. Further recommendations as per clinical course of the patient Dictation was produced using [employer] dictation software. please excuse any grammatical, word or spelling errors. The impression and plan of care has been dictated by Eileen Walters Nurse Practitioner as directed. Dr. Vega MD I have performed a history and physical examination and medical decision making of this patient, discussed the same with the dictator, and agree with the dictators assessment and plan as written, documented as a scribe. Based on total visit time, I have performed more than 50% of this visit. Objective - Vital Signs Vital signs: Vital Signs Temp 98.1 F 11/02/24 11:07 Pulse 75 11/02/24 12:54 Resp 19 11/02/24 12:54 BP 127/75 11/02/24 11:07 Pulse Ox 97 11/02/24 11:07 FiO2 Intake & Output 11/01/24 11/02/24 11/02/24 18:59 06:59 18:59 Intake Total 240 120 618 Output Total 8927 008 9032 Balance -1260 -280 -707 Weight 87.5 kg 87.6 kg Intake: Oral 240 120 618 Output: Urine 2923 558 6497 Other: Voiding Method External Catheter External Catheter External Catheter # Bowel Movements 2 3 - Labs CBC & Chem 7: 11/02/24 05:58 11/02/24 05:58 Labs: Abnormal Lab Results - Last 24 Hours (Table) 11/01/24 11/02/24 11/02/24 Range/Units 16:29 05:58 05:58 RBC 3.32 L (4.30-5.90) m/uL Hgb 8.1 L (13.0-17.5) gm/dL Hct 26.5 L (39.0-53.0) % MCH 24.5 L (25.0-35.0) pg MCHC 30.6 L (31.0-37.0) g/dL RDW 22.8 H (11.5-15.5) % Plt Count 113 L (150-450) k/uL Lymphocytes # (Manual) 0.34 L (1.0-4.8) k/uL APTT 44.9 H (22.0-30.0) sec Sodium 129 L (137-145) mmol/L Potassium 3.4 L (3.5-5.1) mmol/L Chloride 87 L (98-107) mmol/L Carbon Dioxide 35 H (22-30) mmol/L BUN 100 H (9-20) mg/dL Creatinine 2.75 H (0.66-1.25) mg/dL Glucose 148 H (74-99) mg/dL Calcium 7.4 L (8.4-10.2) mg/dL 11/02/24 Range/Units 05:58 RBC (4.30-5.90) m/uL Hgb (13.0-17.5) gm/dL Hct (39.0-53.0) % MCH (25.0-35.0) pg MCHC (31.0-37.0) g/dL RDW (11.5-15.5) % Plt Count (150-450) k/uL Lymphocytes # (Manual) (1.0-4.8) k/uL APTT 47.9 H (22.0-30.0) sec Sodium (137-145) mmol/L Potassium (3.5-5.1) mmol/L Chloride (98-107) mmol/L Carbon Dioxide (22-30) mmol/L BUN (9-20) mg/dL Creatinine (0.66-1.25) mg/dL Glucose (74-99) mg/dL Calcium (8.4-10.2) mg/dL Microbiology - Last 24 Hours (Table) 10/30/24 19:38 Blood Culture Gram Stain - Final Blood Blood Culture - Final Escherichia coli ESBL Molecular ID 11/01/24 07:13 Blood Culture - Preliminary Blood Assessment and Plan Time with Patient: Less than 30
--- NOTE | 2024-11-02 16:39 | P.PN ---
Subjective Progress Note Date: 11/02/24 Principal diagnosis: Reason for follow-up is ESBL E. coli UTI and bacteremia Patient is a 79-year-old male with a past medical history significant for CHF coronary artery disease COPD presented to hospital for evaluation of not feeling well increasing shortness of breath did have a positive blood culture with ESBL E. coli prompting this consultation. On today's evaluation that is 11/02/2024, patient did not have any fever and denies any chills, patient is breathing comfortably on 2 L current oxygen patient with no chest pain or any worsening cough patient did not have any abdominal pain nausea vomiting or any loose stools. Patient white count is 8.5 creatinine is 2.75 blood culture repeat currently pending Objective - Vital Signs Vital signs: Vital Signs Temp 98.1 F 11/02/24 11:07 Pulse 75 11/02/24 12:54 Resp 19 11/02/24 12:54 BP 127/75 11/02/24 11:07 Pulse Ox 97 11/02/24 11:07 FiO2 Intake & Output 11/01/24 11/02/24 11/02/24 18:59 06:59 18:59 Intake Total 240 120 618 Output Total 8730 350 1498 Balance -2015 -560 -137 Weight 87.5 kg 87.6 kg Intake: Oral 240 120 618 Output: Urine 8003 854 6806 Other: Voiding Method External Catheter External Catheter External Catheter # Bowel Movements 2 3 - Exam GENERAL DESCRIPTION: An elderly male up in bed in no distress RESPIRATORY SYSTEM: Unlabored breathing , coarse breath sounds bilaterally HEART: S1 S2 regular rate and rhythm , ABDOMEN: Soft , no tenderness EXTREMITIES: No edema feet - Labs CBC & Chem 7: 11/02/24 05:58 11/02/24 05:58 Labs: Abnormal Lab Results - Last 24 Hours (Table) 11/01/24 11/02/24 11/02/24 Range/Units 16:29 05:58 05:58 RBC 3.32 L (4.30-5.90) m/uL Hgb 8.1 L (13.0-17.5) gm/dL Hct 26.5 L (39.0-53.0) % MCH 24.5 L (25.0-35.0) pg MCHC 30.6 L (31.0-37.0) g/dL RDW 22.8 H (11.5-15.5) % Plt Count 113 L (150-450) k/uL Lymphocytes # (Manual) 0.34 L (1.0-4.8) k/uL APTT 44.9 H (22.0-30.0) sec Sodium 129 L (137-145) mmol/L Potassium 3.4 L (3.5-5.1) mmol/L Chloride 87 L (98-107) mmol/L Carbon Dioxide 35 H (22-30) mmol/L BUN 100 H (9-20) mg/dL Creatinine 2.75 H (0.66-1.25) mg/dL Glucose 148 H (74-99) mg/dL Calcium 7.4 L (8.4-10.2) mg/dL 11/02/24 Range/Units 05:58 RBC (4.30-5.90) m/uL Hgb (13.0-17.5) gm/dL Hct (39.0-53.0) % MCH (25.0-35.0) pg MCHC (31.0-37.0) g/dL RDW (11.5-15.5) % Plt Count (150-450) k/uL Lymphocytes # (Manual) (1.0-4.8) k/uL APTT 47.9 H (22.0-30.0) sec Sodium (137-145) mmol/L Potassium (3.5-5.1) mmol/L Chloride (98-107) mmol/L Carbon Dioxide (22-30) mmol/L BUN (9-20) mg/dL Creatinine (0.66-1.25) mg/dL Glucose (74-99) mg/dL Calcium (8.4-10.2) mg/dL Microbiology - Last 24 Hours (Table) 10/30/24 19:38 Blood Culture Gram Stain - Final Blood Blood Culture - Final Escherichia coli ESBL Molecular ID 11/01/24 07:13 Blood Culture - Preliminary Blood Assessment and Plan (1) Sepsis Current Visit: Yes Status: Acute Code(s): A41.9 - SEPSIS, UNSPECIFIED ORGANISM SNOMED Code(s): 14291079 (2) Bacteremia Current Visit: Yes Status: Acute Code(s): R78.81 - BACTEREMIA SNOMED Code(s): 0202556 (3) ESBL (extended spectrum beta-lactamase) producing bacteria infection Current Visit: Yes Status: Acute Code(s): A49.9 - BACTERIAL INFECTION, UNSPECIFIED; Z16.12 - EXTENDED SPECTRUM BETA LACTAMASE (ESBL) RESISTANCE SNOMED Code(s): 573433018 (4) UTI (urinary tract infection) Current Visit: Yes Status: Acute Code(s): N39.0 - URINARY TRACT INFECTION, SITE NOT SPECIFIED SNOMED Code(s): 77607483 Plan: 1patient presented hospital with sepsis in this patient who did have fever tachycardia elevated white count meeting criteria for SIRS source is urinary with significantly positive UA likely from enteric gram-negative pathogen. 2patient with ESBL bacteremia source is likely urinary. 3patient abdominal bladder ultrasound was negative for any obstructive uropathy 4patient is slowly clinically improving and currently on meropenem to continue and will need a midline for outpatient IV antibiotic on discharge Dictation was produced using [email or web address] dictation software. please excuse any grammatical, word or spelling errors. Time with Patient: Less than 30
[2024-11-02] MEDS: HEPARIN SODIUM,PORCINE 5,000 UNIT/ML 1 ML VIAL SQ SCH (20:09)
[2024-11-03 07:46] LABS: African American GFR (CKD) 28 (>60 ml/min/1.73 sqM); Anion Gap 9 mmol/L; Blood Urea Nitrogen 89 mg/dL (9-20); Calcium 7.7 mg/dL (8.4-10.2); Carbon Dioxide 35 mmol/L (22-30); Chloride 89 mmol/L (98-107); Glucose 145 mg/dL (74-99); Non-African American GFR(CKD) 24 (>60 ml/min/1.73 sqM); Potassium 3.7 mmol/L (3.5-5.1); Sodium 133 mmol/L (137-145)
--- NOTE | 2024-11-03 10:06 | P.PN ---
Subjective Patient is seen in follow-up for chronic kidney disease. Renal function better. Nonoliguric. Denies chest pain or shortness of breath. Per RN, not abiding by fluid restriction. Vital signs are stable. General: No acute distress. HEENT: Head exam is unremarkable. On nasal cannula. LUNGS: No audible rhonchi or wheezes. HEART: Rate and Rhythm are regular. ABDOMEN: Nontender. EXTREMITITES: 1+ edema. Objective - Vital Signs Vital signs: Vital Signs Temp 98.2 F 11/03/24 08:53 Pulse 75 11/03/24 08:54 Resp 19 11/03/24 08:54 BP 125/76 11/03/24 08:53 Pulse Ox 96 11/03/24 08:53 FiO2 Intake & Output 11/02/24 11/03/24 11/03/24 18:59 06:59 18:59 Intake Total 736 720 240 Output Total 1575 520 Balance -839 200 240 Weight 87.4 kg Intake: Oral 736 720 240 Output: Urine 1575 520 Other: Voiding Method External Catheter External Catheter External Catheter # Voids 2 # Bowel Movements 2 - Labs CBC & Chem 7: 11/02/24 05:58 11/03/24 06:50 Labs: Abnormal Lab Results - Last 24 Hours (Table) 11/03/24 Range/Units 06:50 Sodium 133 L (137-145) mmol/L Chloride 89 L (98-107) mmol/L Carbon Dioxide 35 H (22-30) mmol/L BUN 89 H (9-20) mg/dL Creatinine 2.48 H (0.66-1.25) mg/dL Glucose 145 H (74-99) mg/dL Calcium 7.7 L (8.4-10.2) mg/dL Microbiology - Last 24 Hours (Table) 10/30/24 19:38 Blood Culture Gram Stain - Final Blood Blood Culture - Final Escherichia coli ESBL Molecular ID 11/01/24 07:13 Blood Culture - Preliminary Blood Assessment and Plan Plan: Assessment: 1. Chronic kidney disease stage IV baseline creatinine recently in the range of 2.5-3 secondary to cardiorenal syndrome. GFR near baseline. No hydronephrosis noted on kidney ultrasound done this admission. 2. Acute RSV infection. 3. Acute on chronic systolic CHF ejection fraction of 20 to 25% with moderate mitral and tricuspid regurgitation. 4. Acute hypoxic respiratory failure. 5. Volume overload. Improved with diuresis. 6. Diabetes mellitus. 7. History of urinary retention. 8. Anemia of chronic kidney disease. On Aranesp. 9. Hypervolemic hyponatremia. Improved. 10. E. coli bacteremia on antibiotics. 11. Hypokalemia from diuresis. Replaced. Better. Plan: Maintain oral Bumex. Encouraged oral intake. Maintain fluid restriction. Replace potassium. Avoid nephrotoxins. Continue to monitor renal function and urine output.
--- NOTE | 2024-11-03 11:54 | P.PN ---
Subjective Progress Note Date: 11/03/24 Consult reason: congestive heart failure History of present illness: This is a 79-year-old male patient of Dr. Rodrigues with past medical history of coronary artery disease, ischemic cardiomyopathy status post biventricular ICD, chronic systolic heart failure, chronic renal disease stage IV. We have been asked to evaluate the patient for CHF exacerbation. Patient presented to the hospital with complaints of not feeling well. Patient was recently at [facility] for swelling and was discharged 2 days ago. Patient apparently refused to take any of his home medications. He recently moved from [place] to in August lives with his son. He has increasing generalized weakness and not able to walk. Patient denies having chest pain. No significant shortness of breath noted. Blood pressure 136/75, heart rate 77, pulse ox 95% on 2 L nasal cannula. Temperature max 100.7. Patient is followed by ID for ESBL bacteremia. Nephrology is also following for chronic kidney disease stage IV. -EKG: Paced rhythm. -Renal ultrasound: No obstructive uropathy. -Chest x-ray: Cardiomegaly with central pulmonary vascular congestion. No focal consolidation. -Laboratory studies: Initial WBC 19.7 now 9.8, hemoglobin 9.1, platelet count 105. Sodium 130, potassium 3.7, CO2 36, BUN 102, creatinine 3.05. Troponin 0.165 and 0.271. -Home cardiac medications: Amiodarone 200 mg twice daily, aspirin 81 mg daily, atorvastatin 80 mg daily, Bumex 2 mg twice daily, Coreg 6.25 mg twice daily, Plavix 75 mg daily, Jardiance 10 mg daily, metolazone 2.5 mg daily, also on levothyroxine 11/02 Patient seen and examined. Patient states he is not feeling very well today but he denies any chest pain or chest pressure. No shortness of breath. Blood pressure 127/75, heart rate 75, pulse ox 97% on 2 L nasal cannula. Repeat blood work reveals WBC 8.5, hemoglobin 8.1, sodium 129, potassium 3.4, BUN 100 and creatinine 2.75. Echocardiogram reveals EF of 20 to 25%, dilated LV, mild to moderate aortic and mitral regurgitation, severe pulmonary hypertension, dilated RV, moderate to severe tricuspid regurgitation. Attending started patient on heparin drip yesterday. 11/03 Patient seen and examined. Patient's vital signs have been stable. Blood press ure 125/76, heart rate 75, pulse ox 96% on 2 L nasal cannula. Patient has had improvement of his renal function and repeat blood work reveals BUN 89, creatinine 2.48, sodium 133, potassium 3.7. Patient has been noncompliant and refusing some of his medications as well as refusing to follow the fluid restrictions. He has verbalized to the nurse that he will not take his medications once he leaves the hospital. Physical examination: Gen: This is a 79-year-old frail appearing male in no acute respiratory distress. VS: reviewed HEENT: Head is atraumatic, normocephalic. Pupils equal, round. Sclerae is anicteric. NECK: Supple. No JVD. LUNGS: Bilateral wheezing. No intercostal retractions. HEART: Regular rate and rhythm. No murmur. ABDOMEN: Soft No tenderness. EXTREMITIES: No pedal edema. No calf tenderness. NEUROLOGICAL: Patient is awake. Assessment: RSV Acute hypoxic respiratory failure ESBL bacteremia Elevated troponins most likely secondary to sepsis and acute kidney injury, RSV and bacteremia Chronic kidney disease stage IV Acute on chronic systolic heart failure History of coronary artery disease History of ischemic cardiomyopathy status post AICD Valvular heart disease with mild to moderate aortic and mitral regurgitation, moderate to severe tricuspid regurgitation Severe pulmonary hypertension Noncompliance Plan: Continue the following home cardiac medications: Amiodarone 200 mg twice daily, aspirin, statin, Plavix, Coreg 6.25 mg twice daily Diuretics per nephrology, currently on Bumex 1 mg twice daily Further recommendations to follow based upon clinical course Nurse practitioner note has been reviewed, I agree with documented findings and plan of care. Patient was seen and examined. Objective - Vital Signs Vital signs: Vital Signs Temp 98.2 F 11/03/24 08:53 Pulse 75 11/03/24 08:54 Resp 19 11/03/24 08:54 BP 125/76 11/03/24 08:53 Pulse Ox 96 11/03/24 08:53 FiO2 Intake & Output 11/02/24 11/03/24 11/03/24 18:59 06:59 18:59 Intake Total 736 720 240 Output Total 1575 520 Balance -839 200 240 Weight 87.4 kg Intake: Oral 736 720 240 Output: Urine 1575 520 Other: Voiding Method External Catheter External Catheter External Catheter # Voids 2 # Bowel Movements 2 - Labs CBC & Chem 7: 03/15/25 05:58 11/03/24 06:50 Labs: Abnormal Lab Results - Last 24 Hours (Table) 11/03/24 Range/Units 06:50 Sodium 133 L (137-145) mmol/L Chloride 89 L (98-107) mmol/L Carbon Dioxide 35 H (22-30) mmol/L BUN 89 H (9-20) mg/dL Creatinine 2.48 H (0.66-1.25) mg/dL Glucose 145 H (74-99) mg/dL Calcium 7.7 L (8.4-10.2) mg/dL Microbiology - Last 24 Hours (Table) 10/30/24 19:38 Blood Culture Gram Stain - Final Blood Blood Culture - Final Escherichia coli ESBL Molecular ID 11/01/24 07:13 Blood Culture - Preliminary Blood
[2024-11-03] MEDS: POTASSIUM CHLORIDE ER 20 MEQ TAB.ER PO STA (12:20)
[2024-11-03] MEDS ORDERED: ZINC OXIDE PASTE (Z-GUARD) 1 APPLIC TOPICAL PRN (13:51)
--- NOTE | 2024-11-03 14:29 | P.PN ---
Subjective Progress Note Date: 11/03/24 patient 79-year-old gentleman with past medical history significant for CHF, coronary disease, COPD presented the ER with complaint of not feeling well. Patient was discharged from [facility] on and stated that he has not been taking his medications. Patient is accompanied by his son according to him patient has been having swelling of lower extremities. Patient also complaining of lethargy and weakness. Patient gets short of breath with minimal exertion. There is no complaint of fever or chills. Patient denies any orthopnea or PND. There is no complaint of nausea, vomiting or abdominal pain. Because of the symptoms, patient brought to the ER Initial lab work done in the ER showed WBC 19.7, hemoglobin 9, platelet count 148, sodium 131, potassium 3.8, BUN 19, creatinine 2.78, glucose 122, calcium 7.9, total bilirubin 2.2 troponin 0.165, proBNP 305 100 protein 5.8 UA done showing large amount of leukocyte Estrace urine WBC 167 Influenza A not detected Influenza B not detected RSV detected COVID-19 not detected EKG done in the ER showed heart rate of 75, paced rhythm Chest x-ray done in the ER showed cardiomegaly and central pulmonary vascular congestion Patient admitted to internal medicine service 11/01. Patient seen and examined. Blood work done this morning showed WBC 9 vancomycin 9.1, platelet count 105, sodium 130, potassium 3.7, BUN 102, creatinine 3.05, troponin 0.271. Complaining of chest congestion. States he gets short of breath on minimal exertion 11/02/2024 Patient is evaluated in follow-up sitting up in the bed. He continues to report shortness of breath. His lungs are significantly diminished with scattered wheezing throughout. He remains on IV merropenem on for ESBL E. coli bacteremia. He is continued on oral Bumex twice daily currently. Echocardiogram reveals an EF of 20 to 25% with mild to moderate aortic and mitral regurgitation and severe pulmonary hypertension moderate to severe tricuspid regurgitation and dilated right ventricle. 11/03/2024 Patient is eval seen in follow-up in the cardiac unit. Patient is seen ambulat ing at the bedside with a walker he is mostly able to turn and pivot to the bedside commode. He continues on IV meropenem for an ESBL E. coli bacteremia. He continues on oral Bumex twice daily. Repeat blood cultures are pending so far. His labs today reveal a sodium level of 133 potassium 3.7, BUN of 89 creatinine of 2.48. Is 96% on oxygen via 2 L of nasal cannula. REVIEW OF SYSTEMS: CONSTITUTIONAL: No fever, no malaise,. CARDIOVASCULAR: No chest pain, no palpitations, no syncope. PULMONARY: As mentioned above GASTROINTESTINAL: No diarrhea, no nausea, no vomiting, no abdominal pain. NEUROLOGICAL: No headaches, no weakness, PHYSICAL EXAMINATION: GENERAL: The patient is alert and oriented x3, ill looking HEENT: Pupils are round and equally reacting to light. EOMI. No scleral icterus. No conjunctival pallor. Normocephalic, atraumatic. No pharyngeal erythema. No thyromegaly. CARDIOVASCULAR: S1 and S2 present. No murmurs, rubs, or gallops. PULMONARY: Coarse breath sound bilaterally, bilateral expiratory rhonchi audible ABDOMEN: Soft, nontender, nondistended, normoactive bowel sounds. No palpable organomegaly. MUSCULOSKELETAL: No joint swelling or deformity. EXTREMITIES: No cyanosis, clubbing, or pedal edema. NEUROLOGICAL: Gross neurological examination did not reveal any focal deficits. SKIN: No rashes. Assessment and plan Acute on chronic systolic CHF acute hypoxemic respiratory failure Generalized weakness UTI ESBL bacteremia RSV infection Elevated troponin Acute on chronic kidney disease Volume overload. Diabetes mellitus. History of urinary retention. Anemia of chronic kidney disease. Hypervolemic hyponatremia. Monitor vital signs Monitor CBC Monitor CMP Continue telemetry monitoring Blood cultures are growing ESBL E. coli ID following. Trend troponin Strict I's and O's Daily weights Avoid nephrotoxic agents Continue meropenem Continue Bumex 1 mg twice daily Cardiology following Nephrology following Home with home care for subacute rehab on discharge. PT OT to follow-up with the patient on Monday. Labs and medication were reviewed.. Continue same treatment. Continue with symptomatic treatment. Resume home medication. Monitor labs and vitals. DVT and GI prophylaxis. Further recommendations as per clinical course of the patient Dictation was produced using [employer] dictation software. please excuse any grammatical, word or spelling errors. The impression and plan of care has been dictated by Eileen Walters, Nurse Practitioner as directed. Dr. Vega MD I have performed a history and physical examination and medical decision making of this patient, discussed the same with the dictator, and agree with the dictators assessment and plan as written, documented as a scribe. Based on total visit time, I have performed more than 50% of this visit. Objective - Vital Signs Vital signs: Vital Signs Temp 98.2 F 11/03/24 08:53 Pulse 75 11/03/24 08:54 Resp 19 11/03/24 08:54 BP 125/76 11/03/24 08:53 Pulse Ox 96 11/03/24 08:53 FiO2 Intake & Output 11/02/24 11/03/24 11/03/24 18:59 06:59 18:59 Intake Total 736 720 Output Total 1575 520 Balance -839 200 Weight 87.4 kg Intake: Oral 736 720 Output: Urine 1575 520 Other: Voiding Method External Catheter External Catheter External Catheter # Voids 2 # Bowel Movements 2 - Labs CBC & Chem 7: 11/02/24 05:58 11/03/24 06:50 Labs: Abnormal Lab Results - Last 24 Hours (Table) 11/03/24 Range/Units 06:50 Sodium 133 L (137-145) mmol/L Chloride 89 L (98-107) mmol/L Carbon Dioxide 35 H (22-30) mmol/L BUN 89 H (9-20) mg/dL Creatinine 2.48 H (0.66-1.25) mg/dL Glucose 145 H (74-99) mg/dL Calcium 7.7 L (8.4-10.2) mg/dL Microbiology - Last 24 Hours (Table) 10/30/24 19:38 Blood Culture Gram Stain - Final Blood Blood Culture - Final Escherichia coli ESBL Molecular ID 11/01/24 07:13 Blood Culture - Preliminary Blood Assessment and Plan Time with Patient: Less than 30
--- NOTE | 2024-11-03 15:55 | P.PN ---
Subjective Progress Note Date: 11/03/24 Principal diagnosis: Reason for follow-up is ESBL E. coli UTI and bacteremia Patient is a 79-year-old male with a past medical history significant for CHF coronary artery disease COPD presented to hospital for evaluation of not feeling well increasing shortness of breath did have a positive blood culture with ESBL E. coli prompting this consultation. On today's evaluation that is 11/03/2024, Patient is afebrile patient is currently on 2 L nasal oxygen and denies having any shortness of breath, the patient denies any chest pain or any worsening cough, the patient denies any nausea vomiting did not have any abdominal pain and no diarrhea. Patient did have a creatinine 2.48 blood culture repeat has been negative Objective - Vital Signs Vital signs: Vital Signs Temp 98.2 F 11/03/24 08:53 Pulse 75 11/03/24 13:45 Resp 19 11/03/24 13:45 BP 125/76 11/03/24 08:53 Pulse Ox 96 11/03/24 08:53 FiO2 Intake & Output 11/02/24 11/03/24 11/03/24 18:59 06:59 18:59 Intake Total 736 720 462 Output Total 1575 520 Balance -839 200 462 Weight 87.4 kg Intake: Oral 736 720 462 Output: Urine 1575 520 Other: Voiding Method External Catheter External Catheter External Catheter # Voids 2 1 # Bowel Movements 2 1 - Exam GENERAL DESCRIPTION: An elderly male up in bed in no distress RESPIRATORY SYSTEM: Unlabored breathing , coarse breath sounds bilaterally HEART: S1 S2 regular rate and rhythm , ABDOMEN: Soft , no tenderness EXTREMITIES: No edema feet - Labs CBC & Chem 7: 11/02/24 05:58 11/03/24 06:50 Labs: Abnormal Lab Results - Last 24 Hours (Table) 11/03/24 Range/Units 06:50 Sodium 133 L (137-145) mmol/L Chloride 89 L (98-107) mmol/L Carbon Dioxide 35 H (22-30) mmol/L BUN 89 H (9-20) mg/dL Creatinine 2.48 H (0.66-1.25) mg/dL Glucose 145 H (74-99) mg/dL Calcium 7.7 L (8.4-10.2) mg/dL Microbiology - Last 24 Hours (Table) 11/01/24 07:13 Blood Culture - Preliminary Blood 10/30/24 19:38 Blood Culture Gram Stain - Final Blood Blood Culture - Final Escherichia coli ESBL Molecular ID Assessment and Plan (1) Sepsis Current Visit: Yes Status: Acute Code(s): A41.9 - SEPSIS, UNSPECIFIED ORGANISM SNOMED Code(s): 83310188 (2) Bacteremia Current Visit: Yes Status: Acute Code(s): R78.81 - BACTEREMIA SNOMED Code(s): 6385997 (3) ESBL (extended spectrum beta-lactamase) producing bacteria infection Current Visit: Yes Status: Acute Code(s): A49.9 - BACTERIAL INFECTION, UNSPECIFIED; Z16.12 - EXTENDED SPECTRUM BETA LACTAMASE (ESBL) RESISTANCE SNOMED Code(s): 610245902 (4) UTI (urinary tract infection) Current Visit: Yes Status: Acute Code(s): N39.0 - URINARY TRACT INFECTION, SITE NOT SPECIFIED SNOMED Code(s): 97981247 Plan: 1patient presented hospital with sepsis in this patient who did have fever tachycardia elevated white count meeting criteria for SIRS source is urinary w ith significantly positive UA likely from enteric gram-negative pathogen. 2patient with ESBL bacteremia source is likely urinary. 3patient abdominal bladder ultrasound was negative for any obstructive uropathy 4patient is afebrile repeat blood culture has been negative so far currently on meropenem plan will be for a midline and IV Invanz on discharge Dictation was produced using [employer] dictation software. please excuse any grammatical, word or spelling errors. Time with Patient: Less than 30
[2024-11-04 05:57] LABS: Anisocytosis Moderate; Basophils % (A) 0 %; Eosinophils # (A) 0.1 k/uL (0-0.7); Eosinophils % (A) 2 %; HCT 27.6 % (39.0-53.0); HGB 8.2 gm/dL (13.0-17.5); Hypochromasia Moderate; Lymphocytes # (A) 0.5 k/uL (1.0-4.8); Lymphocytes % (A) 8 %; MCH 23.9 pg (25.0-35.0); MCHC 29.5 g/dL (31.0-37.0); MCV 80.9 fL (80.0-100.0); Mean Platelet Volume 7.7; Microcytosis Moderate; Monocytes # (A) 0.4 k/uL (0-1.0); Monocytes % (A) 5 %; Neutrophils # (A) 5.8 k/uL (1.3-7.7); Neutrophils % (A) 81 %; Platelet Count 123 k/uL (150-450); Poikilocytosis Slight; RBC 3.41 m/uL (4.30-5.90); RDW 23.1 % (11.5-15.5); WBC 7.2 k/uL (3.8-10.6)
[2024-11-04 06:21] LABS: African American GFR (CKD) 29 (>60 ml/min/1.73 sqM); Anion Gap 7 mmol/L; Blood Urea Nitrogen 90 mg/dL (9-20); Calcium 8.1 mg/dL (8.4-10.2); Carbon Dioxide 37 mmol/L (22-30); Chloride 88 mmol/L (98-107); Glucose 152 mg/dL (74-99); Non-African American GFR(CKD) 25 (>60 ml/min/1.73 sqM); Potassium 3.9 mmol/L (3.5-5.1); Sodium 132 mmol/L (137-145)
--- NOTE | 2024-11-04 12:10 | P.PN ---
Subjective HISTORY OF PRESENT ILLNESS: This is a 79-year-old male patient of Dr. Rodrigues with past medical history of coronary artery disease, ischemic cardiomyopathy status post biventricular ICD, chronic systolic heart failure, chronic renal disease stage IV. We have been asked to evaluate the patient for CHF exacerbation. Patient presented to the hospital with complaints of not feeling well. Patient was recently at [facility] for swelling and was discharged 2 days ago. Patient apparently refused to take any of his home medications. He recently moved from [place] to in August lives with his son. He has increasing generalized weakness and not able to walk. Patient denies having chest pain. No significant shortness of breath noted. Blood pressure 136/75, heart rate 77, pulse ox 95% on 2 L nasal cannula. Temperature max 100.7. Patient is followed by ID for ESBL bacteremia. Nephrology is also following for chronic kidney disease stage IV. -EKG: Paced rhythm. -Renal ultrasound: No obstructive uropathy. -Chest x-ray: Cardiomegaly with central pulmonary vascular congestion. No focal consolidation. -Laboratory studies: Initial WBC 19.7 now 9.8, hemoglobin 9.1, platelet count 105. Sodium 130, potassium 3.7, CO2 36, BUN 102, creatinine 3.05. Troponin 0.165 and 0.271. -Home cardiac medications: Amiodarone 200 mg twice daily, aspirin 81 mg daily, atorvastatin 80 mg daily, Bumex 2 mg twice daily, Coreg 6.25 mg twice daily, Plavix 75 mg daily, Jardiance 10 mg daily, metolazone 2.5 mg daily, also on levothyroxine 11/02 Patient seen and examined. Patient states he is not feeling very well today but he denies any chest pain or chest pressure. No shortness of breath. Blood pressure 127/75, heart rate 75, pulse ox 97% on 2 L nasal cannula. Repeat blood work reveals WBC 8.5, hemoglobin 8.1, sodium 129, potassium 3.4, BUN 100 and creatinine 2.75. Echocardiogram reveals EF of 20 to 25%, dilated LV, mild to m oderate aortic and mitral regurgitation, severe pulmonary hypertension, dilated RV, moderate to severe tricuspid regurgitation. Attending started patient on heparin drip yesterday. 11/03 Patient seen and examined. Patient's vital signs have been stable. Blood pressure 125/76, heart rate 75, pulse ox 96% on 2 L nasal cannula. Patient has had improvement of his renal function and repeat blood work reveals BUN 89, creatinine 2.48, sodium 133, potassium 3.7. Patient has been noncompliant and refusing some of his medications as well as refusing to follow the fluid restrictions. He has verbalized to the nurse that he will not take his medications once he leaves the hospital. 11/04/2024 Patient examined this morning. Patient is sitting up in the chair. He denies chest pain or pressure. He denies shortness of breath. Vital signs are stable. PHYSICAL EXAM: VITAL SIGNS: Reviewed. GENERAL: Well-developed in no acute distress. NECK: Supple. No JVD or thyromegaly LUNGS: Respirations even and unlabored. Lungs essentially clear to auscultation bilaterally. HEART: Regular rate and rhythm. S1 and S2 heard. EXTREMITIES: Normal range of motion. No clubbing or cyanosis. Peripheral puls es intact. No lower extremity edema ASSESSMENT: RSV Acute hypoxic respiratory failure ESBL bacteremia Elevated troponins most likely secondary to sepsis and acute kidney injury, RSV and bacteremia Chronic kidney disease stage IV Acute on chronic systolic heart failure History of coronary artery disease History of ischemic cardiomyopathy status post AICD Valvular heart disease with mild to moderate aortic and mitral regurgitation, moderate to severe tricuspid regurgitation Severe pulmonary hypertension Noncompliance PLAN: Continue current cardiac medications including amiodarone, aspirin, Lipitor, Bumex, carvedilol, and Plavix Patient is currently stable from a cardiac standpoint with no further inpatient recommendations We will sign off. Please reconsult if needed. Nurse practitioner note has been reviewed by physician. Signing provider agrees with the documented findings, assessment, and plan of care documented by ELEVATOR TECHNICIAN as a scribe. Objective - Vital Signs Vital signs: Vital Signs Temp 97.7 F 11/04/24 11:17 Pulse 75 11/04/24 11:17 Resp 16 11/04/24 11:17 BP 113/76 11/04/24 11:17 Pulse Ox 96 11/04/24 11:17 FiO2 Intake & Output 11/03/24 11/04/24 11/04/24 18:59 06:59 18:59 Intake Total 702 118 Output Total 200 425 Balance 502 -425 118 Weight 80 kg Intake: Oral 702 118 Output: Urine 200 425 Other: Voiding Method External Catheter External Catheter External Catheter # Voids 1 2 # Bowel Movements 1 - Labs CBC & Chem 7: 11/04/24 05:26 11/04/24 05:26 Labs: Abnormal Lab Results - Last 24 Hours (Table) 11/04/24 11/04/24 Range/Units 05:26 05:26 RBC 3.41 L (4.30-5.90) m/uL Hgb 8.2 L (13.0-17.5) gm/dL Hct 27.6 L (39.0-53.0) % MCH 23.9 L (25.0-35.0) pg MCHC 29.5 L (31.0-37.0) g/dL RDW 23.1 H (11.5-15.5) % Plt Count 123 L (150-450) k/uL Lymphocytes # 0.5 L (1.0-4.8) k/uL Sodium 132 L (137-145) mmol/L Chloride 88 L (98-107) mmol/L Carbon Dioxide 37 H (22-30) mmol/L BUN 90 H (9-20) mg/dL Creatinine 2.35 H (0.66-1.25) mg/dL Glucose 152 H (74-99) mg/dL Calcium 8.1 L (8.4-10.2) mg/dL Microbiology - Last 24 Hours (Table) 11/01/24 07:13 Blood Culture - Preliminary Blood
--- NOTE | 2024-11-04 14:23 | P.PN ---
Subjective Patient is seen for follow-up for chronic kidney disease and acute kidney injury. Renal function has been improving with serum creatinine down to 2.3 today. Maintained on oral Bumex. No complaints of shortness of breath. Feeling tired today. Objective - Vital Signs Vital signs: Vital Signs Temp 97.7 F 11/04/24 11:17 Pulse 75 11/04/24 13:46 Resp 16 11/04/24 13:46 BP 113/76 11/04/24 11:17 Pulse Ox 88 L 11/04/24 12:08 FiO2 Intake & Output 11/03/24 11/04/24 11/04/24 18:59 06:59 18:59 Intake Total 702 118 Output Total 200 425 Balance 502 -425 118 Weight 80 kg Intake: Oral 702 118 Output: Urine 200 425 Other: Voiding Method External Catheter External Catheter External Catheter # Voids 1 2 # Bowel Movements 1 - Exam Patient is awake, comfortable, no acute distress. 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 - Labs CBC & Chem 7: 11/04/24 05:26 11/04/24 05:26 Labs: Abnormal Lab Results - Last 24 Hours (Table) 11/04/24 11/04/24 Range/Units 05:26 05:26 RBC 3.41 L (4.30-5.90) m/uL Hgb 8.2 L (13.0-17.5) gm/dL Hct 27.6 L (39.0-53.0) % MCH 23.9 L (25.0-35.0) pg MCHC 29.5 L (31.0-37.0) g/dL RDW 23.1 H (11.5-15.5) % Plt Count 123 L (150-450) k/uL Lymphocytes # 0.5 L (1.0-4.8) k/uL Sodium 132 L (137-145) mmol/L Chloride 88 L (98-107) mmol/L Carbon Dioxide 37 H (22-30) mmol/L BUN 90 H (9-20) mg/dL Creatinine 2.35 H (0.66-1.25) mg/dL Glucose 152 H (74-99) mg/dL Calcium 8.1 L (8.4-10.2) mg/dL Microbiology - Last 24 Hours (Table) 11/01/24 07:13 Blood Culture - Preliminary Blood Assessment and Plan Assessment: 1. Chronic kidney disease stage IV baseline creatinine recently in the range of 2.5-3 secondary to cardiorenal syndrome. GFR near baseline. No hydronephrosis noted on kidney ultrasound done this admission. 2. Acute RSV infection. 3. Acute on chronic systolic CHF ejection fraction of 20 to 25% with moderate mitral and tricuspid regurgitation. 4. Acute hypoxic respiratory failure. 5. Volume overload. Improved with diuresis. 6. Diabetes mellitus. 7. History of urinary retention. 8. Anemia of chronic kidney disease. On Aranesp. 9. Hypervolemic hyponatremia. Improved. 10. E. coli bacteremia on antibiotics. 11. Hypokalemia from diuresis. Replaced. Better. Plan: Continue with current dose of oral Bumex Encouraged increased oral intake Repeat labs in a.m.
[2024-11-04] MEDS: MEROPENEM 500 MG in SODIUM CHLORIDE 0.9% 100 ML IVPB SCH (15:15)
--- NOTE | 2024-11-04 17:14 | P.PN ---
Subjective Progress Note Date: 11/04/24 Principal diagnosis: Reason for follow-up is ESBL E. coli UTI and bacteremia Patient is a 79-year-old male with a past medical history significant for CHF coronary artery disease COPD presented to hospital for evaluation of not feeling well increasing shortness of breath did have a positive blood culture with ESBL E. coli prompting this consultation. On today's evaluation that is 11/04/2024, patient has been afebrile, patient is breathing comfortably and is currently on 2 L nasal oxygen, patient in no distress eating his lunch no choking no vomiting or diarrhea reported by the family at the bedside. Patient white count 7.2 creatinine is 2.35 blood culture repeat has been negative Objective - Vital Signs Vital signs: Vital Signs Temp 97.7 F 11/04/24 11:17 Pulse 75 11/04/24 11:17 Resp 16 11/04/24 11:17 BP 113/76 11/04/24 11:17 Pulse Ox 96 11/04/24 11:17 FiO2 Intake & Output 11/03/24 11/04/24 11/04/24 18:59 06:59 18:59 Intake Total 702 118 Output Total 200 425 Balance 502 -425 118 Weight 80 kg Intake: Oral 702 118 Output: Urine 200 425 Other: Voiding Method External Catheter External Catheter External Catheter # Voids 1 2 # Bowel Movements 1 - Exam GENERAL DESCRIPTION: An elderly male up in bed in no distress RESPIRATORY SYSTEM: Unlabored breathing , coarse breath sounds bilaterally HEART: S1 S2 regular rate and rhythm , ABDOMEN: Soft , no tenderness EXTREMITIES: No edema feet - Labs CBC & Chem 7: 11/04/24 05:26 11/04/24 05:26 Labs: Abnormal Lab Results - Last 24 Hours (Table) 11/04/24 11/04/24 Range/Units 05:26 05:26 RBC 3.41 L (4.30-5.90) m/uL Hgb 8.2 L (13.0-17.5) gm/dL Hct 27.6 L (39.0-53.0) % MCH 23.9 L (25.0-35.0) pg MCHC 29.5 L (31.0-37.0) g/dL RDW 23.1 H (11.5-15.5) % Plt Count 123 L (150-450) k/uL Lymphocytes # 0.5 L (1.0-4.8) k/uL Sodium 132 L (137-145) mmol/L Chloride 88 L (98-107) mmol/L Carbon Dioxide 37 H (22-30) mmol/L BUN 90 H (9-20) mg/dL Creatinine 2.35 H (0.66-1.25) mg/dL Glucose 152 H (74-99) mg/dL Calcium 8.1 L (8.4-10.2) mg/dL Microbiology - Last 24 Hours (Table) 11/01/24 07:13 Blood Culture - Preliminary Blood Assessment and Plan (1) Sepsis Current Visit: Yes Status: Acute Code(s): A41.9 - SEPSIS, UNSPECIFIED ORGANISM SNOMED Code(s): 85415586 (2) Bacteremia Current Visit: Yes Status: Acute Code(s): R78.81 - BACTEREMIA SNOMED Code(s): 7221521 (3) ESBL (extended spectrum beta-lactamase) producing bacteria infection Current Visit: Yes Status: Acute Code(s): A49.9 - BACTERIAL INFECTION, UNSPECIFIED; Z16.12 - EXTENDED SPECTRUM BETA LACTAMASE (ESBL) RESISTANCE SNOMED Code(s): 674384105 (4) UTI (urinary tract infection) Current Visit: Yes Status: Acute Code(s): N39.0 - URINARY TRACT INFECTION, SITE NOT SPECIFIED SNOMED Code(s): 58781402 Plan: 1patient [facility] with sepsis in this patient who did have fever tachycardia elevated white count meeting criteria for SIRS source is urinary with significantly positive UA likely from enteric gram-negative pathogen. 2patient with ESBL bacteremia source is likely urinary. 3patient abdominal bladder ultrasound was negative for any obstructive uropathy 4patient is afebrile repeat blood culture has been negative so far 5patient should be able to get a midline currently on meropenem will transition to IV Invanz on discharge total duration of antibiotic will be 2 weeks including days of antibiotic he has received here Dictation was produced using [employer] dictation software. please excuse any grammatical, word or spelling errors. Time with Patient: Less than 30
[2024-11-04] MEDS: IPRATROPIUM-ALBUTEROL 3 ML NEB INHALATION PRN (21:34)
--- NOTE | 2024-11-04 22:41 | PN ---
PROGRESS NOTE DATE OF SERVICE: 11/04/2024 SUBJECTIVE: This is a 79-year-old gentleman, who was admitted with CHF with acute exacerbation as well as ESBL E coli bacteremia. He is also being on meropenem. The patient is also being evaluated for ECF by PT and OT. Hemoglobin is 8.2. Creatinine is 2.35. PAST MEDICAL HISTORY: Reviewed. REVIEW OF SYSTEMS: Fourteen-point review of systems negative except as mentioned earlier. CURRENT MEDICATIONS: Reviewed. PHYSICAL EXAMINATION: VITAL SIGNS: Pulse is 75, blood pressure 113/76, respirations 16. CHEST: A few scattered rhonchi. ABDOMEN: Soft. LEGS: No edema. NERVOUS SYSTEM: Diffusely weak. LABORATORY DATA: Reviewed as mentioned earlier. ASSESSMENT: 1. Congestive heart failure with acute exacerbation. 2. Extended-Spectrum Beta-Lactamase Escherichia coli bacteremia. 3. History of respiratory syncytial virus infection. 4. Generalized weakness and gait dysfunction. 5. Diabetes mellitus type 2. 6. Multiple complex medical issues. RECOMMENDATIONS: Recommended to continue current management and continue symptomatic treatment. Continue with PT/OT evaluation. Nutrition supplements. I would also recommend repeat labs. Closely follow with the multiple consultants. Avoid nephrotoxic medications. Prognosis is guarded. Discussed with family. Discussed with staff. Further recommendations to follow. MMODL / IJN: [id number] /
[2024-11-04] MEDS: ALPRAZolam 0.25 MG TAB PO STA (23:31)
[2024-11-04] MEDS: BUMETANIDE 0.25 MG/ML 4 ML VIAL IVP STA (23:31)
[2024-11-05 08:25] LABS: ALT 33 U/L (4-49); AST 50 U/L (17-59); African American GFR (CKD) 24 (>60 ml/min/1.73 sqM); Albumin 2.7 g/dL (3.5-5.0); Alkaline Phosphatase 268 U/L (38-126); Anion Gap 9 mmol/L; Blood Urea Nitrogen 88 mg/dL (9-20); Calcium 7.7 mg/dL (8.4-10.2); Carbon Dioxide 36 mmol/L (22-30); Chloride 89 mmol/L (98-107); Glucose 165 mg/dL (74-99); Non-African American GFR(CKD) 21 (>60 ml/min/1.73 sqM); Potassium 3.8 mmol/L (3.5-5.1); Sodium 134 mmol/L (137-145); Total Protein 5.6 g/dL (6.3-8.2)
[2024-11-05 08:58] LABS: Anisocytosis Moderate; Basophils % (A) 0 %; Eosinophils # (A) 0.2 k/uL (0-0.7); Eosinophils % (A) 3 %; HCT 26.5 % (39.0-53.0); Hypochromasia Moderate; Lymphocytes # (A) 0.7 k/uL (1.0-4.8); Lymphocytes % (A) 12 %; MCH 24.5 pg (25.0-35.0); MCHC 30.2 g/dL (31.0-37.0); MCV 81.2 fL (80.0-100.0); Mean Platelet Volume 8.3; Microcytosis Moderate; Monocytes # (A) 0.4 k/uL (0-1.0); Monocytes % (A) 7 %; Neutrophils # (A) 4.7 k/uL (1.3-7.7); Neutrophils % (A) 75 %; Platelet Count 125 k/uL (150-450); Poikilocytosis Slight; RBC 3.26 m/uL (4.30-5.90); RDW 23.1 % (11.5-15.5); WBC 6.2 k/uL (3.8-10.6)
--- NOTE | 2024-11-05 13:56 | XR ---
EXAMINATION TYPE: XR chest 1V DATE OF EXAM: 11/05/2024 1:49 PM COMPARISON: 10/30/2024 CLINICAL INDICATION: Male, 79 years old with history of CHF, TECHNIQUE: XR chest 1V views of the chest are obtained. FINDINGS: Demonstrated are scattered senescent parenchymal change. Pulmonary venous congestion and scattered infiltrates, cardiomegaly and small effusions could be on t he basis of congestive failure and pulmonary edema. Correlate with BNP. Pneumonia not excluded. Hilar and mediastinal structures are within normal limits. Degenerative changes are seen of the dorsal spine. IMPRESSION: 1. Pulmonary venous congestion and scattered infiltrates, cardiomegaly and small effusions could be on the basis of congestive failure and pulmonary edema. Correlate with BNP. Pneumonia not excluded. [facility], , 11/05/2024 1:54 PM
--- NOTE | 2024-11-05 15:32 | P.PN ---
Subjective Progress Note Date: 11/05/24 Principal diagnosis: Reason for follow-up is ESBL E. coli UTI and bacteremia Patient is a 79-year-old male with a past medical history significant for CHF coronary artery disease COPD presented to hospital for evaluation of not feeling well increasing shortness of breath did have a positive blood culture with ESBL E. coli prompting this consultation. On today's evaluation that is 11/05/2024, Patient is afebrile this morning patient denies having any chest pain shortness of breath or cough, the patient is currently on 2 L nasal oxygen, patient denies any abdominal pain no diarrhea no nausea no vomiting for more water. Patient white count 6.2, creatinine is 2.73 blood cultures been negative chest x-ray pulmonary vascular congestion and scattered infiltrates Objective - Vital Signs Vital signs: Vital Signs Temp 98.2 F 11/05/24 08:00 Pulse 76 11/05/24 12:25 Resp 16 11/05/24 12:25 BP 106/55 11/05/24 12:25 Pulse Ox 95 11/05/24 12:25 FiO2 Intake & Output 11/04/24 11/05/24 11/05/24 18:59 06:59 18:59 Intake Total 1074 Output Total 300 Balance 1074 -300 Weight 83.8 kg Intake: Oral 1074 Output: Urine 300 Other: Voiding Method External Catheter External Catheter External Catheter # Voids 1 3 - Exam GENERAL DESCRIPTION: An elderly male up in bed in no distress RESPIRATORY SYSTEM: Unlabored breathing , coarse breath sounds bilaterally HEART: S1 S2 regular rate and rhythm , ABDOMEN: Soft , no tenderness EXTREMITIES: No edema feet - Labs CBC & Chem 7: 11/05/24 06:57 11/05/24 06:57 Labs: Abnormal Lab Results - Last 24 Hours (Table) 11/05/24 11/05/24 Range/Units 06:57 06:57 RBC 3.26 L (4.30-5.90) m/uL Hgb 8.0 L (13.0-17.5) gm/dL Hct 26.5 L (39.0-53.0) % MCH 24.5 L (25.0-35.0) pg MCHC 30.2 L (31.0-37.0) g/dL RDW 23.1 H (11.5-15.5) % Plt Count 125 L (150-450) k/uL Lymphocytes # 0.7 L (1.0-4.8) k/uL Sodium 134 L (137-145) mmol/L Chloride 89 L (98-107) mmol/L Carbon Dioxide 36 H (22-30) mmol/L BUN 88 H (9-20) mg/dL Creatinine 2.73 H (0.66-1.25) mg/dL Glucose 165 H (74-99) mg/dL Calcium 7.7 L (8.4-10.2) mg/dL Total Bilirubin 2.0 H (0.2-1.3) mg/dL Alkaline Phosphatase 268 H (38-126) U/L Total Protein 5.6 L (6.3-8.2) g/dL Albumin 2.7 L (3.5-5.0) g/dL Microbiology - Last 24 Hours (Table) 11/01/24 07:13 Blood Culture - Preliminary Blood Assessment and Plan (1) Sepsis Current Visit: Yes Status: Acute Code(s): A41.9 - SEPSIS, UNSPECIFIED ORGANISM SNOMED Code(s): 62692813 (2) Bacteremia Current Visit: Yes Status: Acute Code(s): R78.81 - BACTEREMIA SNOMED Code(s): 8192790 (3) ESBL (extended spectrum beta-lactamase) producing bacteria infection Current Visit: Yes Status: Acute Code(s): A49.9 - BACTERIAL INFECTION, UNSPECIFIED; Z16.12 - EXTENDED SPECTRUM BETA LACTAMASE (ESBL) RESISTANCE SNOMED Code(s): 862075959 (4) UTI (urinary tract infection) Current Visit: Yes Status: Acute Code(s): N39.0 - URINARY TRACT INFECTION, SITE NOT SPECIFIED SNOMED Code(s): 45747204 Plan: 1patient [facility] with sepsis in this patient who did have fever tachycardia elevated white count meeting criteria for SIRS source is urinary with significantly positive UA likely from enteric gram-negative pathogen. 2patient with ESBL bacteremia source is likely urinary. 3patient abdominal bladder ultrasound was negative for any obstructive uropathy 4patient is afebrile repeat blood culture has been negative so far 5patient currently being treated with the meropenem waiting for improving his kidney function plan will be for IV Invanz on discharge Dictation was produced using [employer] software. please excuse any grammatical, word or spelling errors. Time with Patient: Less than 30
--- NOTE | 2024-11-05 17:05 | P.PN ---
Subjective Patient is seen for follow-up for chronic kidney disease and acute kidney injury. Serum creatinine has been fluctuating. It was down to 2.3 yesterday and today it is at 2.7 Maintained on oral Bumex. No complaints of shortness of breath. Feeling tired. Objective - Vital Signs Vital signs: Vital Signs Temp 98.2 F 11/05/24 08:00 Pulse 75 11/05/24 16:15 Resp 16 11/05/24 16:15 BP 107/51 11/05/24 16:15 Pulse Ox 95 11/05/24 16:15 FiO2 Intake & Output 11/04/24 11/05/24 11/05/24 18:59 06:59 18:59 Intake Total 1074 Output Total 300 Balance 1074 -300 Weight 83.8 kg Intake: Oral 1074 Output: Urine 300 Other: Voiding Method External Catheter External Catheter External Catheter # Voids 1 3 - Exam Patient is awake, comfortable, no acute distress. 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 - Labs CBC & Chem 7: 11/05/24 06:57 11/05/24 06:57 Labs: Abnormal Lab Results - Last 24 Hours (Table) 11/05/24 11/05/24 Range/Units 06:57 06:57 RBC 3.26 L (4.30-5.90) m/uL Hgb 8.0 L (13.0-17.5) gm/dL Hct 26.5 L (39.0-53.0) % MCH 24.5 L (25.0-35.0) pg MCHC 30.2 L (31.0-37.0) g/dL RDW 23.1 H (11.5-15.5) % Plt Count 125 L (150-450) k/uL Lymphocytes # 0.7 L (1.0-4.8) k/uL Sodium 134 L (137-145) mmol/L Chloride 89 L (98-107) mmol/L Carbon Dioxide 36 H (22-30) mmol/L BUN 88 H (9-20) mg/dL Creatinine 2.73 H (0.66-1.25) mg/dL Glucose 165 H (74-99) mg/dL Calcium 7.7 L (8.4-10.2) mg/dL Total Bilirubin 2.0 H (0.2-1.3) mg/dL Alkaline Phosphatase 268 H (38-126) U/L Total Protein 5.6 L (6.3-8.2) g/dL Albumin 2.7 L (3.5-5.0) g/dL Assessment and Plan Assessment: 1. Chronic kidney disease stage IV baseline creatinine recently in the range of 2.5-3 secondary to cardiorenal syndrome. GFR near baseline. No hydronephrosis noted on kidney ultrasound done this admission. 2. Acute RSV infection. 3. Acute on chronic systolic CHF ejection fraction of 20 to 25% with moderate mitral and tricuspid regurgitation. 4. Acute hypoxic respiratory failure. 5. Volume overload. Improved with diuresis. 6. Diabetes mellitus. 7. History of urinary retention. 8. Anemia of chronic kidney disease. On Aranesp. 9. Hypervolemic hyponatremia. Improved. 10. E. coli bacteremia on antibiotics. 11. Hypokalemia from diuresis. Replaced. Better. Plan: Continue with current dose of oral Bumex Encouraged increased oral intake Repeat labs in a.m.
--- NOTE | 2024-11-06 06:13 | P.PN ---
Subjective Progress Note Date: 11/05/24 This is a 79-year-old male who was recently admitted with CHF exacerbation and also noted to have ESBL E. coli bacteremia likely urinary tract infection maintained on antibiotics with infectious disease following. Patient is currently maintained on meropenem and per infectious disease recommendations, w ill transition to [facility] on discharge. Kidney functions worsening at 2.7 today with nephrology following maintained on Bumex. Patient also being treated with supportive care for acute RSV infection. Wean FiO2 as tolerated and encourage incentive spirometer. Patient is somewhat resistive to care and needs constant reencouragement. Patient reports to feeling agitated that he remains hospitalized. Patient would like to go home and initially family thought of bringing him home although with significant weakness and possible IV antibiotics, patient's family now agreeable to ECF. Case management following and authorization will be required and has submitted referrals. Review of systems: Constitutional: No reports of fatigue, fever, or chills Cardiovascular: No reports of chest pain or palpitations Respiratory: No reports of shortness of breath or cough GI: No reports of nausea, no reports of of vomiting, : No reports of dysuria or retention Neurovascular: reports of generalized weakness All medications have been reviewed Active Medications Acetaminophen (Acetaminophen Tab 325 Mg Tab) 650 mg PO Q6H PRN PRN Reason: Mild Pain (Scale 1 to 3) Last Admin: 11/05/24 23:11 Dose: 650 mg Hydrocodone Bitart/Acetaminophen (Hydrocodone/Apap 5-325mg 1 Each Tab) 1 each PO Q4HR PRN PRN Reason: Moderate Pain (Scale 4 to 6) Last Admin: 11/05/24 20:17 Dose: 1 each Albuterol/Ipratropium (Ipratropium-Albuterol 3 Ml Neb) 3 ml INHALATION RT-Q4H PRN PRN Reason: Shortness Of Breath Or Wheezing Last Admin: 11/04/24 21:34 Dose: 3 ml Alprazolam (Alprazolam 0.25 Mg Tab) 0.25 mg PO Q8H PRN PRN Reason: Agitation Last Admin: 11/05/24 20:17 Dose: 0.25 mg Amiodarone HCl (Amiodarone 200 Mg Tab) 200 mg PO BID [facility] Last Admin: 11/05/24 20:31 Dose: Not Given Aspirin (Aspirin 81 Mg) 81 mg PO DAILY [facility] Last Admin: 11/05/24 09:01 Dose: 81 mg Atorvastatin Calcium (Atorvastatin 80 Mg Tab) 80 mg PO DAILY [facility] Last Admin: 11/05/24 09:00 Dose: 80 mg Bumetanide (Bumetanide 1 Mg Tab) 1 mg PO BID@0900,1600 [facility] Last Admin: 11/05/24 16:11 Dose: 1 mg Carvedilol (Carvedilol 6.25 Mg Tab) 6.25 mg PO BID-W/MEALS [facility] Last Admin: 11/06/24 05:09 Dose: Not Given Clopidogrel Bisulfate (Clopidogrel 75 Mg Tab) 75 mg PO DAILY [facility] Last Admin: 11/05/24 09:00 Dose: 75 mg Darbepoetin Reilly (Darbepoetin Reilly 40 Mcg/0.4 Ml Syringe) 40 mcg SQ Q7D [facility] Last Admin: 10/31/24 12:40 Dose: 40 mcg Guaifenesin (Guaifenesin 600 Mg Tablet.Er) 600 mg PO Q12HR [facility] Last Admin: 11/05/24 20:31 Dose: Not Given Heparin Sodium (Porcine) (Heparin Sodium,Porcine 5,000 Unit/Ml 1 Ml Vial) 5,000 unit SQ Q12HR [facility] Last Admin: 11/05/24 20:32 Dose: Not Given Meropenem 500 mg/ Sodium (Chloride) 100 mls @ 33.333 mls/hr IVPB Q8HR [facility] Last Admin: 11/05/24 22:49 Dose: 33.333 mls/hr Naloxone HCl (Naloxone 0.4 Mg/Ml 1 Ml Vial) 0.2 mg IV Q2M PRN PRN Reason: Opioid Reversal Petrolatum (Zinc Oxide Paste (Z-Guard) 1 Applic) 1 applic TOPICAL BID PRN; Protocol PRN Reason: Wound Healing Tamsulosin HCl (Tamsulosin 0.4 Mg Cap.Er.24h) 0.4 mg PO BID [facility] Last Admin: 11/05/24 20:31 Dose: Not Given PHYSICAL EXAMINATION: GENERAL: The patient is alert and oriented x2, baseline well developed, elderly appearing, ill-appearing HEENT: Pupils are round and equally reacting to light. EOMI. no scleral icterus. No conjunctival pallor. Normocephalic, atraumatic. No pharyngeal erythema. No thyromegaly. CARDIOVASCULAR: S1 and S2 muffled PULMONARY: diminished breath sounds bilaterally with no wheezing or rhonchi noted. ABDOMEN: soft. Nontender on exam. obese. non-distended, normoactive bowel sounds. No palpable organomegaly. MUSCULOSKELETAL: No joint swelling or deformity. EXTREMITIES: No cyanosis, clubbing, or pedal edema. NEUROLOGICAL: Gross neurological examination did not reveal any focal deficits. Diffuse weakness SKIN: No rashes. Assessment: Congestive heart failure with acute exacerbation ESBL, E. coli bacteremia Acute hypoxic respiratory failure secondary to acute on chronic CHF exacerbation, systolic dysfunction with an EF of 20 to 25% Acute on chronic kidney disease, stage IV secondary to cardiorenal syndrome Acute urinary tract infection, present on admission with ESBL Acute RSV infection Generalized weakness and gait dysfunction Diabetes mellitus, type II History of urinary retention requiring indwelling Sevilla catheter previously, patient is voiding in a urinal Anemia of chronic kidney disease GI prophylaxis DVT prophylaxis Full code Plan: Recommend to continue with current medications and management with multiple consultations following Nephrology following maintained on Bumex although kidney functions are worse at 2.7. Will follow-up on repeat labs Recent blood cultures have been negative for 24 hours thus far although initial blood cultures positive for ESBL with E. coli bacteremia likely urine as the source per infectious disease Patient currently on meropenem and will continue for now and transition to IV Invanz. Patient is requiring antibiotics on discharge and family is now agreeable to ECF for continued IV antibiotic therapy. Patient is persistent he would like to go home. Recommend PT/OT therapy evaluation Will discuss with infectious disease if patient is requiring midline or PICC line and given patient's kidney functions will need to ask for nephrology clearance if patient is requiring a PICC line. Case management following making arrangements for discharge planning to ECF and referrals have been placed. Patient will also require insurance authorization. Will follow-up on repeat labs and continue to monitor closely Due to multiple complex medical issues, overall prognosis is guarded The impression and plan of care has been dictated by Amee Harding, nurse practitioner as directed. Dr. Nicholas MD I have performed a history and examination and MDM of this patient, discussed the same with the dictator, and agree with the dictator's assessment and plan as written ,documented as a scribe. Based on total visit time, I have performed more than 50% of the visit. Any additional findings or plans will be noted. Objective - Vital Signs Vital signs: Vital Signs Temp 98.1 F 11/06/24 03:33 Pulse 75 11/06/24 03:33 Resp 16 11/06/24 03:33 BP 129/80 11/06/24 03:33 Pulse Ox 96 11/06/24 03:33 FiO2 Intake & Output 11/05/24 11/05/24 11/06/24 06:59 18:59 06:59 Intake Total 716 240 Output Total 300 450 75 Balance -300 266 165 Weight 83.8 kg 82.1 kg Intake: Oral 716 240 Output: Urine 300 450 75 Other: Voiding Method External Catheter External Catheter External Catheter # Voids 3 - Labs CBC & Chem 7: 11/05/24 06:57 11/05/24 06:57 Labs: Abnormal Lab Results - Last 24 Hours (Table) 11/05/24 11/05/24 Range/Units 06:57 06:57 RBC 3.26 L (4.30-5.90) m/uL Hgb 8.0 L (13.0-17.5) gm/dL Hct 26.5 L (39.0-53.0) % MCH 24.5 L (25.0-35.0) pg MCHC 30.2 L (31.0-37.0) g/dL RDW 23.1 H (11.5-15.5) % Plt Count 125 L (150-450) k/uL Lymphocytes # 0.7 L (1.0-4.8) k/uL Sodium 134 L (137-145) mmol/L Chloride 89 L (98-107) mmol/L Carbon Dioxide 36 H (22-30) mmol/L BUN 88 H (9-20) mg/dL Creatinine 2.73 H (0.66-1.25) mg/dL Glucose 165 H (74-99) mg/dL Calcium 7.7 L (8.4-10.2) mg/dL Total Bilirubin 2.0 H (0.2-1.3) mg/dL Alkaline Phosphatase 268 H (38-126) U/L Total Protein 5.6 L (6.3-8.2) g/dL Albumin 2.7 L (3.5-5.0) g/dL
[2024-11-06 06:29] LABS: African American GFR (CKD) 25 (>60 ml/min/1.73 sqM); Anion Gap 7 mmol/L; Anisocytosis Moderate; Blood Urea Nitrogen 99 mg/dL (9-20); Calcium 8.1 mg/dL (8.4-10.2); Carbon Dioxide 34 mmol/L (22-30); Chloride 90 mmol/L (98-107); Glucose 180 mg/dL (74-99); HCT 24.5 % (39.0-53.0); HGB 7.6 gm/dL (13.0-17.5); Hypochromasia Marked; MCH 24.3 pg (25.0-35.0); MCHC 31.1 g/dL (31.0-37.0); MCV 78.3 fL (80.0-100.0); Magnesium 1.9 mg/dL (1.6-2.3); Mean Platelet Volume 7.2; Microcytosis Moderate; Non-African American GFR(CKD) 22 (>60 ml/min/1.73 sqM); Platelet Count 132 k/uL (150-450); Poikilocytosis Slight; Potassium 3.9 mmol/L (3.5-5.1); RBC 3.14 m/uL (4.30-5.90); RDW 23.1 % (11.5-15.5); Sodium 131 mmol/L (137-145); WBC 5.9 k/uL (3.8-10.6)
[2024-11-06 08:01] LABS: Anisocytosis (M) Present; Crenated RBC Present; Lymphocytes # (M) 0.41 k/uL (1.0-4.8); Monocytes # (M) 0.24 k/uL (0-1.0); Neutrophils # (M) 4.96 k/uL (1.3-7.7); Neutrophils % (M) 84 %; Nucleated Red Blood Cells 0 /100 WBC (0-0); Poikilocytosis (M) Present; Total Cells Counted 100
--- NOTE | 2024-11-06 11:03 | P.PN ---
Subjective Patient is seen for follow-up for chronic kidney disease and acute kidney injury. Serum creatinine has been fluctuating. It was down to 2.3 2 days ago, increased to 2.7 yesterday and is 2.6 today. Dose of diuretics has not been changed. Maintained on oral Bumex. No complaints of shortness of breath. Feeling tired. Objective - Vital Signs Vital signs: Vital Signs Temp 98.4 F 11/06/24 08:00 Pulse 55 L 11/06/24 08:00 Resp 16 11/06/24 08:00 BP 127/66 11/06/24 08:00 Pulse Ox 94 L 11/06/24 08:00 FiO2 Intake & Output 11/05/24 11/06/24 11/06/24 18:59 06:59 18:59 Intake Total 716 240 118 Output Total 450 75 Balance 266 165 118 Weight 82.1 kg Intake: Oral 716 240 118 Output: Urine 450 75 Other: Voiding Method External Catheter External Catheter External Catheter - Exam Patient is awake, comfortable, no acute distress. Examination of the heart S1 and S2 Examination of the lungs bilateral breath sounds are heard Abdomen is soft nontender Examination of lower extremity shows chronic skin changes, 1+ edema noted TIMBER CRUISER exam grossly intact - Labs CBC & Chem 7: 11/06/24 05:43 11/06/24 05:43 Labs: Abnormal Lab Results - Last 24 Hours (Table) 11/06/24 11/06/24 Range/Units 05:43 05:43 RBC 3.14 L (4.30-5.90) m/uL Hgb 7.6 L (13.0-17.5) gm/dL Hct 24.5 L (39.0-53.0) % MCV 78.3 L (80.0-100.0) fL MCH 24.3 L (25.0-35.0) pg RDW 23.1 H (11.5-15.5) % Plt Count 132 L (150-450) k/uL Lymphocytes # (Manual) 0.41 L (1.0-4.8) k/uL Sodium 131 L (137-145) mmol/L Chloride 90 L (98-107) mmol/L Carbon Dioxide 34 H (22-30) mmol/L BUN 99 H (9-20) mg/dL Creatinine 2.66 H (0.66-1.25) mg/dL Glucose 180 H (74-99) mg/dL Calcium 8.1 L (8.4-10.2) mg/dL Microbiology - Last 24 Hours (Table) 11/01/24 07:13 Blood Culture - Preliminary Blood Assessment and Plan Assessment: 1. Chronic kidney disease stage IV baseline creatinine recently in the range of 2.5-3 secondary to cardiorenal syndrome. GFR near baseline. No hydronephrosis noted on kidney ultrasound done this admission. 2. Acute RSV infection. 3. Acute on chronic systolic CHF ejection fraction of 20 to 25% with moderate mitral and tricuspid regurgitation. 4. Acute hypoxic respiratory failure. 5. Volume overload. Improved with diuresis. 6. Diabetes mellitus. 7. History of urinary retention. 8. Anemia of chronic kidney disease. On Aranesp. 9. Hypervolemic hyponatremia. Improved. 10. E. coli bacteremia on antibiotics. 11. Hypokalemia from diuresis. Replaced. Better. Plan: Continue with current dose of oral Bumex Encouraged increased oral intake Repeat labs in a.m.
--- NOTE | 2024-11-06 17:08 | P.PN ---
Subjective Progress Note Date: 11/06/24 Principal diagnosis: Reason for follow-up is ESBL E. coli UTI and bacteremia Patient is a 79-year-old male with a past medical history significant for CHF coronary artery disease COPD presented to hospital for evaluation of not feeling well increasing shortness of breath did have a positive blood culture with ESBL E. coli prompting this consultation. On today's evaluation that is 11/06/2024,the patient denies any fever or any chills, patient is breathing comfortably on 2 L nasal oxygen no chest pain occasional cough no abdominal pain or diarrhea. Patient white count is 5.9, creatinine is 2.66 blood culture from 314 came back positive as well Objective - Vital Signs Vital signs: Vital Signs Temp 98.4 F 11/06/24 08:00 Pulse 58 L 11/06/24 11:32 Resp 16 11/06/24 11:32 BP 108/53 11/06/24 11:32 Pulse Ox 91 L 11/06/24 11:32 FiO2 Intake & Output 11/05/24 11/06/24 11/06/24 18:59 06:59 18:59 Intake Total 716 240 118 Output Total 450 75 300 Balance 266 165 -182 Weight 82.1 kg Intake: Oral 716 240 118 Output: Urine 450 75 300 Other: Voiding Method External Catheter External Catheter External Catheter # Voids 2 - Exam GENERAL DESCRIPTION: An elderly male up in bed in no distress RESPIRATORY SYSTEM: Unlabored breathing , coarse breath sounds bilaterally HEART: S1 S2 regular rate and rhythm , ABDOMEN: Soft , no tenderness EXTREMITIES: No edema feet - Labs CBC & Chem 7: 11/06/24 05:43 11/06/24 05:43 Labs: Abnormal Lab Results - Last 24 Hours (Table) 11/06/24 11/06/24 Range/Units 05:43 05:43 RBC 3.14 L (4.30-5.90) m/uL Hgb 7.6 L (13.0-17.5) gm/dL Hct 24.5 L (39.0-53.0) % MCV 78.3 L (80.0-100.0) fL MCH 24.3 L (25.0-35.0) pg RDW 23.1 H (11.5-15.5) % Plt Count 132 L (150-450) k/uL Lymphocytes # (Manual) 0.41 L (1.0-4.8) k/uL Sodium 131 L (137-145) mmol/L Chloride 90 L (98-107) mmol/L Carbon Dioxide 34 H (22-30) mmol/L BUN 99 H (9-20) mg/dL Creatinine 2.66 H (0.66-1.25) mg/dL Glucose 180 H (74-99) mg/dL Calcium 8.1 L (8.4-10.2) mg/dL Microbiology - Last 24 Hours (Table) 11/01/24 07:13 Blood Culture - Preliminary Blood Assessment and Plan (1) Sepsis Current Visit: Yes Status: Acute Code(s): A41.9 - SEPSIS, UNSPECIFIED ORGANISM SNOMED Code(s): 60057401 (2) Bacteremia Current Visit: Yes Status: Acute Code(s): R78.81 - BACTEREMIA SNOMED Code(s): 3294929 (3) ESBL (extended spectrum beta-lactamase) producing bacteria infection Current Visit: Yes Status: Acute Code(s): A49.9 - BACTERIAL INFECTION, UNSPECIFIED; Z16.12 - EXTENDED SPECTRUM BETA LACTAMASE (ESBL) RESISTANCE SNOMED Code(s): 948305591 (4) UTI (urinary tract infection) Current Visit: Yes Status: Acute Code(s): N39.0 - URINARY TRACT INFECTION, SITE NOT SPECIFIED SNOMED Code(s): 69148651 Plan: 1patient [facility] with sepsis in this patient who did have fever tachycardia elevated white count meeting criteria for SIRS source is urinary with significantly positive UA likely from enteric gram-negative pathogen. 2patient with ESBL bacteremia source is likely urinary. 3patient abdominal bladder ultrasound was negative for any obstructive uropathy 4patient is afebrile however repeat blood culture from 11/01/2024 also came back positive to slightly concerning we will repeat his blood culture also check a CT of abdominal pelvis patient evidence of any abscess for now continue with the meropenem Dictation was produced using [employer] dictation software. please excuse any grammatical, word or spelling errors. Time with Patient: Less than 30
[2024-11-06] MEDS: MEROPENEM 500 MG in SODIUM CHLORIDE 0.9% 100 ML IVPB SCH (20:28)
--- NOTE | 2024-11-07 06:02 | P.PN ---
Subjective Progress Note Date: 11/06/24 This is a 79-year-old male who was recently admitted with CHF exacerbation and also noted to have ESBL E. coli bacteremia likely urinary tract infection maintained on antibiotics with infectious disease following. Patient is currently maintained on meropenem and per infectious disease recommendations, w ill transition to Invanz on discharge. Kidney functions worsening at 2.7 today with nephrology following maintained on Bumex. Patient also being treated with supportive care for acute RSV infection. Wean FiO2 as tolerated and encourage incentive spirometer. Patient is somewhat resistive to care and needs constant reencouragement. Patient reports to feeling agitated that he remains hospitalized. Patient would like to go home and initially family thought of bringing him home although with significant weakness and possible IV antibiotics, patient's family now agreeable to ECF. Case management following and authorization will be required and has submitted referrals. 11/07/2024 Patient is seen in follow-up today slightly more lethargic than yesterday currently sitting up in the chair. Apparently per nursing staff patient has been spitting his medications out. Patient reports he felt he was choking on them and spit them out. Patient is afebrile white count is normal hemoglobin is stable above 7.5 with no active bleeding noted. Kidney function slightly improved at 2.6 today creatinine with nephrology following. Infectious disease following and patient is maintained on antibiotics as blood cultures remain positive for ESBL. Awaiting clearance of bacteremia to determine appropriate antibiotics on discharge. Family will be unable to care for the patient with antibiotics and case management following making arrangements for discharge planning to ECF for continued IV antibiotic therapy. Patient is significantly weak and would recommend physical therapy daily is sitting in the chair more frequently. Review of systems: Constitutional: No reports of fatigue, fever, or chills Cardiovascular: No reports of chest pain or palpitations Respiratory: No reports of shortness of breath or cough GI: No reports of nausea, no reports of of vomiting, : No reports of dysuria or retention Neurovascular: reports of generalized weakness All medications have been reviewed PHYSICAL EXAMINATION: GENERAL: The patient is alert and oriented x2, baseline well developed, elderly appearing, ill-appearing HEENT: Pupils are round and equally reacting to light. EOMI. no scleral icterus. No conjunctival pallor. Normocephalic, atraumatic. No pharyngeal erythema. No thyromegaly. CARDIOVASCULAR: S1 and S2 muffled PULMONARY: diminished breath sounds bilaterally with no wheezing or rhonchi noted. ABDOMEN: soft. Nontender on exam. obese. non-distended, normoactive bowel soun ds. No palpable organomegaly. MUSCULOSKELETAL: No joint swelling or deformity. EXTREMITIES: No cyanosis, clubbing, or pedal edema. NEUROLOGICAL: Gross neurological examination did not reveal any focal deficits. Diffuse weakness SKIN: No rashes. Assessment: Congestive heart failure with acute exacerbation ESBL, E. coli bacteremia, persistent as repeat cultures remain positive Acute hypoxic respiratory failure secondary to acute on chronic CHF exacerbation, systolic dysfunction with an EF of 20 to 25% Acute on chronic kidney disease, stage IV secondary to cardiorenal syndrome Acute urinary tract infection, present on admission with ESBL Acute RSV infection Generalized weakness and gait dysfunction Diabetes mellitus, type II History of urinary retention requiring indwelling Sevilla catheter previously, patient is voiding in a urinal Anemia of chronic kidney disease GI prophylaxis DVT prophylaxis Full code Plan: Recommend to continue with current medications and management with multiple consultations following Nephrology following maintained on Bumex although kidney functions remain elevated, slightly improved today at 2.6 creatinine. Will follow-up on repeat labs Recent repeat blood cultures are now positive and new cultures ordered and pending Patient currently on meropenem and will continue for now and transition to IV Invanz. Patient is requiring antibiotics on discharge and family is now agreeable to ECF for continued IV antibiotic therapy. Patient is persistent he would like to go home although somewhat agreeable to rehab for IV antibiotics. Recommend PT/OT therapy evaluation Case management following making arrangements for discharge planning to ECF and referrals have been placed. Patient will also require insurance authorization. Will follow-up on repeat labs and continue to monitor closely Due to multiple complex medical issues, overall prognosis is guarded The impression and plan of care has been dictated by Amee Harding nurse pr actitioner as directed. Dr. Nicholas MD I have performed a history and examination and MDM of this patient, discussed the same with the dictator, and agree with the dictator's assessment and plan as written ,documented as a scribe. Based on total visit time, I have performed more than 50% of the visit. Any additional findings or plans will be noted. Objective - Vital Signs Vital signs: Vital Signs Temp 98.4 F 11/06/24 08:00 Pulse 55 L 11/06/24 08:00 Resp 16 11/06/24 08:00 BP 127/66 11/06/24 08:00 Pulse Ox 94 L 11/06/24 08:00 FiO2 Intake & Output 11/05/24 11/06/24 11/06/24 18:59 06:59 18:59 Intake Total 716 240 118 Output Total 450 75 Balance 266 165 118 Weight 82.1 kg Intake: Oral 716 240 118 Output: Urine 450 75 Other: Voiding Method External Catheter External Catheter - Labs CBC & Chem 7: 11/06/24 05:43 11/06/24 05:43 Labs: Abnormal Lab Results - Last 24 Hours (Table) 11/06/24 11/06/24 Range/Units 05:43 05:43 RBC 3.14 L (4.30-5.90) m/uL Hgb 7.6 L (13.0-17.5) gm/dL Hct 24.5 L (39.0-53.0) % MCV 78.3 L (80.0-100.0) fL MCH 24.3 L (25.0-35.0) pg RDW 23.1 H (11.5-15.5) % Plt Count 132 L (150-450) k/uL Lymphocytes # (Manual) 0.41 L (1.0-4.8) k/uL Sodium 131 L (137-145) mmol/L Chloride 90 L (98-107) mmol/L Carbon Dioxide 34 H (22-30) mmol/L BUN 99 H (9-20) mg/dL Creatinine 2.66 H (0.66-1.25) mg/dL Glucose 180 H (74-99) mg/dL Calcium 8.1 L (8.4-10.2) mg/dL
[2024-11-07 07:56] LABS: African American GFR (CKD) 24 (>60 ml/min/1.73 sqM); Anion Gap 10 mmol/L; Calcium 8.1 mg/dL (8.4-10.2); Carbon Dioxide 30 mmol/L (22-30); Chloride 89 mmol/L (98-107); Glucose 138 mg/dL (74-99); Magnesium 1.8 mg/dL (1.6-2.3); Non-African American GFR(CKD) 21 (>60 ml/min/1.73 sqM); Potassium 4.6 mmol/L (3.5-5.1); Sodium 129 mmol/L (137-145)
[2024-11-07 08:08] LABS: Blood Urea Nitrogen 113 mg/dL (9-20)
[2024-11-07 08:14] LABS: Anisocytosis Moderate; Basophils % (A) 0 %; Eosinophils # (A) 0.2 k/uL (0-0.7); Eosinophils % (A) 2 %; HCT 23.7 % (39.0-53.0); HGB 7.1 gm/dL (13.0-17.5); Hypochromasia Moderate; Lymphocytes # (A) 0.6 k/uL (1.0-4.8); Lymphocytes % (A) 9 %; MCHC 30.1 g/dL (31.0-37.0); MCV 79.6 fL (80.0-100.0); Mean Platelet Volume 7.6; Microcytosis Moderate; Monocytes # (A) 0.4 k/uL (0-1.0); Monocytes % (A) 5 %; Neutrophils % (A) 80 %; Platelet Count 160 k/uL (150-450); Poikilocytosis Slight; RBC 2.98 m/uL (4.30-5.90); RDW 23.5 % (11.5-15.5); WBC 7.5 k/uL (3.8-10.6)
[2024-11-07] MEDS: IOPAMIDOL CONTRAST (ORAL USE) VIAL PO PRN (10:24)
--- NOTE | 2024-11-07 13:27 | CT ---
EXAMINATION TYPE: CT abdomen pelvis wo con CT DLP: 584.5 mGycm, Automated exposure control for dose reduction was used. DATE OF EXAM: 11/07/2024 1:14 PM COMPARISON: Chest radiograph 11/05/2024, renal ultrasound 10/31/2024. CLINICAL INDICATION:Male, 79 years old with history of bacteremia; Bacteremia TECHNIQUE: Standard CT of the abdomen and pelvis following the administration of oral contrast. Cor onal and sagittal reformats were performed. FINDINGS: Evaluation is limited due to lack of intravenous contrast. LOWER CHEST: Small right pleural effusion. Patchy consolidative opacities within the visualized right lower lobe with some calcified granulomas. Additional scattered patchy groundglass opacities within the visualized left lower lobe, lingula and right middle lobe. Cardiomegaly with partial visualizatio n of cardiac pacemaking leads. No pericardial effusion. ABDOMEN LIVER: Unremarkable noncontrast appearance. GALLBLADDER AND BILE DUCTS: Unremarkable noncontrast appearance. PANCREAS: Unremarkable noncontrast appearance. SPLEEN: Unremarkable noncontrast appearance. ADRENAL GLANDS: Unremarkable noncontrast appearance.. KIDNEYS AND URETERS: No evidence of hydronephrosis or renal calculus. Mild bilateral nonspecific manuel nephric fat stranding. PELVIS BLADDER: Underdistended which limits evaluation. No surrounding inflammatory changes. REPRODUCTIVE: Unremarkable. ABDOMEN & PELVIS STOMACH AND BOWEL: Stomach and duodenum are unremarkable. Enteric contrast reaches the mid to distal small bowel. The appendix is within normal limits. No focal bowel wall thickening or surrounding infl ammatory changes. No evidence of bowel obstruction. PERITONEUM: No evidence of pneumoperitoneum. Small amount of ascites within the pelvis and left parac olic gutter. VASCULATURE: Mild atherosclerotic calcifications are present throughout the abdominal aorta and its b ranches. No evidence of aortic aneurysm. Right superficial femoral artery stent. MUSCULOSKELETAL: No acute osseous abnormalities. Advance multilevel degenerative disc disease of the visualized thoracolumbar spine. No significant paraspinal edema. LYMPH NODES: No pathologically enlarged lymph nodes greater than 1 cm short axis. SOFT TISSUE/ABDOMINAL WALL: Diffuse anasarca. IMPRESSION: Evaluation is limited due to lack of intravenous contrast. 1. Small volume ascites with mild diffuse anasarca suggesting volume overload. 2. Small right pleural effusion with right basilar patchy consolidative opacities and scattered groun dglass opacities throughout the visualized lower lungs. Findings may relate to pneumonia and/or pulmo nary edema. [facility], , 11/07/2024 1:24 PM
--- NOTE | 2024-11-07 15:26 | P.PN ---
Subjective Progress Note Date: 11/07/24 Principal diagnosis: Reason for follow-up is ESBL E. coli UTI and bacteremia Patient is a 79-year-old male with a past medical history significant for CHF coronary artery disease COPD presented to hospital for evaluation of not feeling well increasing shortness of breath did have a positive blood culture with ESBL E. coli prompting this consultation. On today's evaluation that is 11/07/2024,the patient remains to be afebrile, patient is on room air not requiring supplemental oxygen patient seen to be slightly weak and lethargic but denies any active symptom no other changes reported. Patient white count 7.5, creatinine is 2.[address] did not show any evidence of hydronephrosis or renal calculus or any acute abnormality to the abdominal Objective - Vital Signs Vital signs: Vital Signs Temp 98.6 F 11/07/24 12:00 Pulse 120 H 11/07/24 12:00 Resp 18 11/07/24 12:00 BP 117/65 11/07/24 12:00 Pulse Ox 98 11/07/24 12:00 FiO2 Intake & Output 11/06/24 11/07/24 11/07/24 18:59 06:59 18:59 Intake Total 336 296 Output Total 300 100 100 Balance 36 -100 196 Weight 82.4 kg Intake: Intake, IV Titration 100 Amount Meropenem 500 mg In 100 Sodium Chloride 0.9% 100 ml @ 33.333 mls/hr IVPB Q12H [facility] Rx#:[id number] Oral 236 296 Output: Urine 300 100 100 Other: Voiding Method External Catheter Bedside Commode Bedside Commode External Catheter External Catheter # Voids 2 1 # Bowel Movements 1 2 - Exam GENERAL DESCRIPTION: An elderly male up in bed in no distress RESPIRATORY SYSTEM: Unlabored breathing , coarse breath sounds bilaterally HEART: S1 S2 regular rate and rhythm , ABDOMEN: Soft , no tenderness EXTREMITIES: No edema feet - Labs CBC & Chem 7: 11/07/24 07:06 11/07/24 07:06 Labs: Abnormal Lab Results - Last 24 Hours (Table) 11/07/24 11/07/24 Range/Units 07:06 07:06 RBC 2.98 L (4.30-5.90) m/uL Hgb 7.1 L (13.0-17.5) gm/dL Hct 23.7 L (39.0-53.0) % MCV 79.6 L (80.0-100.0) fL MCH 24.0 L (25.0-35.0) pg MCHC 30.1 L (31.0-37.0) g/dL RDW 23.5 H (11.5-15.5) % Lymphocytes # 0.6 L (1.0-4.8) k/uL Sodium 129 L (137-145) mmol/L Chloride 89 L (98-107) mmol/L BUN 113 H* (9-20) mg/dL Creatinine 2.78 H (0.66-1.25) mg/dL Glucose 138 H (74-99) mg/dL Calcium 8.1 L (8.4-10.2) mg/dL Microbiology - Last 24 Hours (Table) 11/01/24 07:13 Blood Culture Gram Stain - Preliminary Blood Blood Culture - Preliminary Escherichia coli Molecular ID Assessment and Plan (1) Sepsis Current Visit: Yes Status: Acute Code(s): A41.9 - SEPSIS, UNSPECIFIED ORGANISM SNOMED Code(s): 86960409 (2) Bacteremia Current Visit: Yes Status: Acute Code(s): R78.81 - BACTEREMIA SNOMED Code(s): 0126059 (3) ESBL (extended spectrum beta-lactamase) producing bacteria infection Current Visit: Yes Status: Acute Code(s): A49.9 - BACTERIAL INFECTION, UNSPECIFIED; Z16.12 - EXTENDED SPECTRUM BETA LACTAMASE (ESBL) RESISTANCE SNOMED Code(s): 842904435 (4) UTI (urinary tract infection) Current Visit: Yes Status: Acute Code(s): N39.0 - URINARY TRACT INFECTION, SITE NOT SPECIFIED SNOMED Code(s): 33612958 Plan: 1patient [facility] with sepsis in this patient who did have fever tachycardia elevated white count meeting criteria for SIRS source is urinary with significantly positive UA likely from enteric gram-negative pathogen. 2patient with ESBL bacteremia source is likely urinary. 3patient abdominal bladder ultrasound was negative for any obstructive uropathy 4patient CT abdominal pelvis did not show any hydronephrosis or colitis patient remained to be switched over to Invanz if the blood cultures obtained yesterday are negative by tomorrow he can get a midline and recommended 10-day course of Invanz on discharge Dictation was produced using dragon dictation software. please excuse any g rammatical, word or spelling errors. Time with Patient: Less than 30
--- NOTE | 2024-11-07 17:01 | P.PN ---
Subjective Patient is seen for follow-up for chronic kidney disease and acute kidney injury. Serum creatinine has been fluctuating. It has increased over the last 2 days. Dose of diuretics has not been changed. Maintained on oral Bumex. No complaints of shortness of breath. Feeling tired. Objective - Vital Signs Vital signs: Vital Signs Temp 98.6 F 11/07/24 12:00 Pulse 120 H 11/07/24 12:00 Resp 18 11/07/24 12:00 BP 117/65 11/07/24 12:00 Pulse Ox 98 11/07/24 12:00 FiO2 Intake & Output 11/06/24 11/07/24 11/07/24 18:59 06:59 18:59 Intake Total 336 296 Output Total 300 100 100 Balance 36 -100 196 Weight 82.4 kg Intake: Intake, IV Titration 100 Amount Meropenem 500 mg In 100 Sodium Chloride 0.9% 100 ml @ 33.333 mls/hr IVPB Q12H [facility] Rx#:[id number] Oral 236 296 Output: Urine 300 100 100 Other: Voiding Method External Catheter Bedside Commode Bedside Commode External Catheter External Catheter # Voids 2 1 # Bowel Movements 1 2 - Exam Patient is awake, comfortable, no acute distress. Examination of the heart S1 and S2 Examination of the lungs bilateral breath sounds are heard Abdomen is soft nontender Examination of lower extremity shows chronic skin changes, 1+ edema noted, legs are wrapped PLASTIC MOLDER exam grossly intact - Labs CBC & Chem 7: 11/07/24 07:06 11/07/24 07:06 Labs: Abnormal Lab Results - Last 24 Hours (Table) 11/07/24 11/07/24 Range/Units 07:06 07:06 RBC 2.98 L (4.30-5.90) m/uL Hgb 7.1 L (13.0-17.5) gm/dL Hct 23.7 L (39.0-53.0) % MCV 79.6 L (80.0-100.0) fL MCH 24.0 L (25.0-35.0) pg MCHC 30.1 L (31.0-37.0) g/dL RDW 23.5 H (11.5-15.5) % Lymphocytes # 0.6 L (1.0-4.8) k/uL Sodium 129 L (137-145) mmol/L Chloride 89 L (98-107) mmol/L BUN 113 H* (9-20) mg/dL Creatinine 2.78 H (0.66-1.25) mg/dL Glucose 138 H (74-99) mg/dL Calcium 8.1 L (8.4-10.2) mg/dL Microbiology - Last 24 Hours (Table) 11/01/24 07:13 Blood Culture Gram Stain - Preliminary Blood Blood Culture - Preliminary Escherichia coli Molecular ID Assessment and Plan Assessment: 1. Chronic kidney disease stage IV baseline creatinine recently in the range of 2.5-3 secondary to cardiorenal syndrome. GFR near baseline. No hydronephrosis noted on kidney ultrasound done this admission. BUN disproportionately elevated. No active bleeding noted although hemoglobin has dropped slightly. Bumex dose will be decreased. 2. Acute RSV infection. 3. Acute on chronic systolic CHF ejection fraction of 20 to 25% with moderate mitral and tricuspid regurgitation. 4. Acute hypoxic respiratory failure. 5. Volume overload. Improved with diuresis. 6. Diabetes mellitus. 7. History of urinary retention. 8. Anemia of chronic kidney disease. On Aranesp. 9. Hypervolemic hyponatremia. Improved. 10. E. coli bacteremia on antibiotics. 11. Hypokalemia from diuresis. Replaced. Better. Plan: Decrease Bumex Check stool for occult blood Encouraged increased oral intake Repeat labs in a.m.
[2024-11-07] MEDS: ERTAPENEM 0.5 GM in SODIUM CHLORIDE 0.9% 50 ML IVPB SCH (17:08)
--- NOTE | 2024-11-08 06:16 | P.PN ---
Subjective Progress Note Date: 11/07/24 This is a 79-year-old male who was recently admitted with CHF exacerbation and also noted to have ESBL E. coli bacteremia likely urinary tract infection maintained on antibiotics with infectious disease following. Patient is currently maintained on meropenem and per infectious disease recommendations, w ill transition to Invanz on discharge. Kidney functions worsening at 2.7 today with nephrology following maintained on Bumex. Patient also being treated with supportive care for acute RSV infection. Wean FiO2 as tolerated and encourage incentive spirometer. Patient is somewhat resistive to care and needs constant reencouragement. Patient reports to feeling agitated that he remains hospitalized. Patient would like to go home and initially family thought of bringing him home although with significant weakness and possible IV antibiotics, patient's family now agreeable to ECF. Case management following and authorization will be required and has submitted referrals. 11/06/2024 Patient is seen in follow-up today slightly more lethargic than yesterday currently sitting up in the chair. Apparently per nursing staff patient has been spitting his medications out. Patient reports he felt he was choking on them and spit them out. Patient is afebrile white count is normal hemoglobin is stable above 7.5 with no active bleeding noted. Kidney function slightly improved at 2.6 today creatinine with nephrology following. Infectious disease following and patient is maintained on antibiotics as blood cultures remain positive for ESBL. Awaiting clearance of bacteremia to determine appropriate antibiotics on discharge. Family will be unable to care for the patient with antibiotics and case management following making arrangements for discharge planning to ECF for continued IV antibiotic therapy. Patient is significantly weak and would recommend physical therapy daily is sitting in the chair more frequently. 11/07/2024 Patient is seen in follow-up today continues to be significantly weak although has been getting up with a walker and assistance. Patient continues to have brandin teremia and repeat cultures have been ordered per infectious disease to determine clearance. Patient will require a midline and IV antibiotics in the form of Invanz on discharge. CT abdomen ordered at this time and pending for this afternoon. Will await report. Patient is afebrile and denies chest pain or shortness of breath. Patient is extremely high risk for readmission given significant comorbidities. Review of systems: Constitutional: No reports of fatigue, fever, or chills Cardiovascular: No reports of chest pain or palpitations Respiratory: No reports of shortness of breath or cough GI: No reports of nausea, no reports of vomiting, reports not much of an appetite : No reports of dysuria or retention Neurovascular: reports of generalized weakness All medications have been reviewed PHYSICAL EXAMINATION: GENERAL: The patient is alert and oriented x2, baseline well developed, elderly appearing, ill-appearing HEENT: Pupils are round and equally reacting to light. EOMI. no scleral icterus. No conjunctival pallor. Normocephalic, atraumatic. No pharyngeal erythema. No thyromegaly. CARDIOVASCULAR: S1 and S2 muffled PULMONARY: diminished breath sounds bilaterally with no wheezing or rhonchi noted. ABDOMEN: soft. Nontender on exam. obese. non-distended, normoactive bowel sounds. No palpable organomegaly. MUSCULOSKELETAL: No joint swelling or deformity. EXTREMITIES: No cyanosis, clubbing, or pedal edema. NEUROLOGICAL: Gross neurological examination did not reveal any focal deficits. Diffuse weakness SKIN: No rashes. Assessment: Congestive heart failure with acute exacerbation ESBL, E. coli bacteremia, persistent as repeat cultures remain positive Acute hypoxic respiratory failure secondary to acute on chronic CHF exacerbation, systolic dysfunction with an EF of 20 to 25% Acute on chronic kidney disease, stage IV secondary to cardiorenal syndrome Acute urinary tract infection, present on admission with ESBL Acute RSV infection Generalized weakness and gait dysfunction Diabetes mellitus, type II History of urinary retention requiring indwelling Sevilla catheter previously, patient is voiding in a urinal Anemia of chronic kidney disease GI prophylaxis DVT prophylaxis Full code Plan: Recommend to continue with current medications and management with multiple consultations following Nephrology following maintained on Bumex although kidney functions remain elevated, with no significant improvement. Will follow-up on repeat labs Recent repeat blood cultures were positive and new cultures ordered and pending and will await clearance from midline and IV Invanz on discharge CT abdomen pelvis ordered per infectious disease and pending at this time. Patient currently on IV Invanz. Patient is requiring antibiotics on discharge and family is now agreeable to ECF for continued IV antibiotic therapy. Patient is persistent he would like to go home although somewhat agreeable to rehab for IV antibiotics. Recommend PT/OT therapy evaluation Case management following making arrangements for discharge planning to ECF and referrals have been placed. Patient will also require insurance authorization. Will follow-up on repeat labs and continue to monitor closely Due to multiple complex medical issues, overall prognosis is guarded The impression and plan of care has been dictated by Amee Harding, nurse practitioner as directed. Dr. Nicholas MD I have performed a history and examination and MDM of this patient, discussed the same with the dictator, and agree with the dictator's assessment and plan as written ,documented as a scribe. Based on total visit time, I have performed more than 50% of the visit. Any additional findings or plans will be noted. Objective - Vital Signs Vital signs: Vital Signs Temp 98.6 F 11/07/24 12:00 Pulse 120 H 11/07/24 12:00 Resp 18 11/07/24 12:00 BP 117/65 11/07/24 12:00 Pulse Ox 98 11/07/24 12:00 FiO2 Intake & Output 11/06/24 11/07/24 11/07/24 18:59 06:59 18:59 Intake Total 336 296 Output Total 300 100 100 Balance 36 -100 196 Weight 82.4 kg Intake: Intake, IV Titration 100 Amount Meropenem 500 mg In 100 Sodium Chloride 0.9% 100 ml @ 33.333 mls/hr IVPB Q12H [facility] Rx#:[id number] Oral 236 296 Output: Urine 300 100 100 Other: Voiding Method External Catheter Bedside Commode Bedside Commode External Catheter External Catheter # Voids 2 1 # Bowel Movements 1 2 - Labs CBC & Chem 7: 11/07/24 07:06 11/07/24 07:06 Labs: Abnormal Lab Results - Last 24 Hours (Table) 11/07/24 11/07/24 Range/Units 07:06 07:06 RBC 2.98 L (4.30-5.90) m/uL Hgb 7.1 L (13.0-17.5) gm/dL Hct 23.7 L (39.0-53.0) % MCV 79.6 L (80.0-100.0) fL MCH 24.0 L (25.0-35.0) pg MCHC 30.1 L (31.0-37.0) g/dL RDW 23.5 H (11.5-15.5) % Lymphocytes # 0.6 L (1.0-4.8) k/uL Sodium 129 L (137-145) mmol/L Chloride 89 L (98-107) mmol/L BUN 113 H* (9-20) mg/dL Creatinine 2.78 H (0.66-1.25) mg/dL Glucose 138 H (74-99) mg/dL Calcium 8.1 L (8.4-10.2) mg/dL Microbiology - Last 24 Hours (Table) 11/01/24 07:13 Blood Culture Gram Stain - Preliminary Blood Blood Culture - Preliminary Escherichia coli Molecular ID
[2024-11-08 06:48] LABS: African American GFR (CKD) 23 (>60 ml/min/1.73 sqM); Anion Gap 12 mmol/L; Calcium 8.5 mg/dL (8.4-10.2); Carbon Dioxide 28 mmol/L (22-30); Chloride 91 mmol/L (98-107); Glucose 142 mg/dL (74-99); Non-African American GFR(CKD) 20 (>60 ml/min/1.73 sqM); Potassium 3.8 mmol/L (3.5-5.1); Sodium 131 mmol/L (137-145)
[2024-11-08 07:06] LABS: Blood Urea Nitrogen 116 mg/dL (9-20)
[2024-11-08] MEDS: BUMETANIDE 0.5 MG TABLET PO SCH (10:07)
--- NOTE | 2024-11-08 11:23 | XR ---
EXAMINATION TYPE: XR chest 1V portable DATE OF EXAM: 11/08/2024 11:19 AM COMPARISON: 11/05/2024 CLINICAL INDICATION: Male, 79 years old with history of chf, TECHNIQUE: XR chest 1V portable views of the chest are obtained. FINDINGS: Demonstrated are scattered senescent parenchymal change. Increasing pulmonary venous congestion with scattered interstitial and alveolar infiltrates compatibl e with congestive failure. Small effusions are present. Hilar and mediastinal structures are within n ormal limits. Degenerative changes are seen of the dorsal spine. IMPRESSION: 1. Increasing pulmonary venous congestion with scattered interstitial and alveolar infiltrates dexter tible with congestive failure. Small effusions are present. [facility], , 11/08/2024 11:20 AM
[2024-11-08 11:40] LABS: Anisocytosis Marked; Basophils % (A) 0 %; Eosinophils # (A) 0.2 k/uL (0-0.7); Eosinophils % (A) 3 %; HCT 23.2 % (39.0-53.0); Hypochromasia Moderate; Lymphocytes # (A) 0.6 k/uL (1.0-4.8); Lymphocytes % (A) 9 %; MCH 24.5 pg (25.0-35.0); MCHC 30.3 g/dL (31.0-37.0); MCV 81.1 fL (80.0-100.0); Mean Platelet Volume 9.7; Microcytosis Moderate; Monocytes # (A) 0.3 k/uL (0-1.0); Monocytes % (A) 4 %; Neutrophils # (A) 5.5 k/uL (1.3-7.7); Neutrophils % (A) 80 %; Platelet Count 195 k/uL (150-450); Poikilocytosis Slight; RBC 2.86 m/uL (4.30-5.90); WBC 6.9 k/uL (3.8-10.6)
[2024-11-08 11:50] LABS: ALT 24 U/L (4-49); AST 30 U/L (17-59); African American GFR (CKD) 23 (>60 ml/min/1.73 sqM); Albumin 2.8 g/dL (3.5-5.0); Alkaline Phosphatase 198 U/L (38-126); Anion Gap 11 mmol/L; Calcium 8.6 mg/dL (8.4-10.2); Carbon Dioxide 29 mmol/L (22-30); Chloride 92 mmol/L (98-107); Glucose 153 mg/dL (74-99); Non-African American GFR(CKD) 20 (>60 ml/min/1.73 sqM); Potassium 4.2 mmol/L (3.5-5.1); Sodium 132 mmol/L (137-145); Total Bilirubin 1.5 mg/dL (0.2-1.3); Total Protein 5.8 g/dL (6.3-8.2)
[2024-11-08 11:54] LABS: Blood Urea Nitrogen 115 mg/dL (9-20)
--- NOTE | 2024-11-08 14:55 | P.PN ---
Subjective Progress Note Date: 11/08/24 Principal diagnosis: Reason for follow-up is ESBL E. coli UTI and bacteremia Patient is a 79-year-old male with a past medical history significant for CHF coronary artery disease COPD presented to hospital for evaluation of not feeling well increasing shortness of breath did have a positive blood culture with ESBL E. coli prompting this consultation. On today's evaluation that is 11/08/2024, the patient continues to be afebrile, the patient is on 3 L nasal oxygen and breathing comfortably, the Pt sleepy today not a very good historian had vomiting diarrhea and the changes reported by the sitter at the bedside. Patient white count 6.9, creatinine is 2.91 blood culture repeat has been negative so far Objective - Vital Signs Vital signs: Vital Signs Temp 98.1 F 11/08/24 11:25 Pulse 79 11/08/24 11:25 Resp 16 11/08/24 11:25 BP 94/58 11/08/24 11:25 Pulse Ox 97 11/08/24 11:25 FiO2 Intake & Output 11/07/24 11/08/24 11/08/24 18:59 06:59 18:59 Intake Total 296 120 Output Total 100 300 Balance 196 -180 Intake: Oral 296 120 Output: Urine 100 300 Other: Voiding Method Bedside Commode Bedside Commode External Catheter External Catheter # Voids 2 # Bowel Movements 3 5 - Exam GENERAL DESCRIPTION: An elderly male up in bed in no distress RESPIRATORY SYSTEM: Unlabored breathing , coarse breath sounds bilaterally HEART: S1 S2 regular rate and rhythm , ABDOMEN: Soft , no tenderness EXTREMITIES: No edema feet - Labs CBC & Chem 7: 11/08/24 10:58 11/08/24 10:58 Labs: Abnormal Lab Results - Last 24 Hours (Table) 11/08/24 11/08/24 11/08/24 Range/Units 06:03 06:03 10:58 RBC (4.30-5.90) m/uL Hgb (13.0-17.5) gm/dL Hct (39.0-53.0) % MCH (25.0-35.0) pg MCHC (31.0-37.0) g/dL RDW (11.5-15.5) % Lymphocytes # (1.0-4.8) k/uL ESR 63 H (0-20) mm/Hr Sodium 131 L (137-145) mmol/L Chloride 91 L (98-107) mmol/L BUN 116 H* (9-20) mg/dL Creatinine 2.90 H (0.66-1.25) mg/dL Glucose 142 H (74-99) mg/dL Total Bilirubin (0.2-1.3) mg/dL Alkaline Phosphatase (38-126) U/L C-Reactive Protein 17.0 H (<1.0) mg/dL Total Protein (6.3-8.2) g/dL Albumin (3.5-5.0) g/dL Crossmatch See Detail 11/08/24 11/08/24 Range/Units 10:58 10:58 RBC 2.86 L (4.30-5.90) m/uL Hgb 7.0 L (13.0-17.5) gm/dL Hct 23.2 L (39.0-53.0) % MCH 24.5 L (25.0-35.0) pg MCHC 30.3 L (31.0-37.0) g/dL RDW 24.0 H (11.5-15.5) % Lymphocytes # 0.6 L (1.0-4.8) k/uL ESR (0-20) mm/Hr Sodium 132 L (137-145) mmol/L Chloride 92 L (98-107) mmol/L BUN 115 H* (9-20) mg/dL Creatinine 2.91 H (0.66-1.25) mg/dL Glucose 153 H (74-99) mg/dL Total Bilirubin 1.5 H (0.2-1.3) mg/dL Alkaline Phosphatase 198 H (38-126) U/L C-Reactive Protein (<1.0) mg/dL Total Protein 5.8 L (6.3-8.2) g/dL Albumin 2.8 L (3.5-5.0) g/dL Crossmatch Microbiology - Last 24 Hours (Table) 11/01/24 07:13 Blood Culture Gram Stain - Final Blood Blood Culture - Final Escherichia coli ESBL Molecular ID 11/06/24 18:35 Blood Culture - Preliminary Blood Assessment and Plan (1) Sepsis Current Visit: Yes Status: Acute Code(s): A41.9 - SEPSIS, UNSPECIFIED ORGANISM SNOMED Code(s): 34266831 (2) Bacteremia Current Visit: Yes Status: Acute Code(s): R78.81 - BACTEREMIA SNOMED Code(s): 3386371 (3) ESBL (extended spectrum beta-lactamase) producing bacteria infection Current Visit: Yes Status: Acute Code(s): A49.9 - BACTERIAL INFECTION, UNSPECIFIED; Z16.12 - EXTENDED SPECTRUM BETA LACTAMASE (ESBL) RESISTANCE SNOME D Code(s): 055183145 (4) UTI (urinary tract infection) Current Visit: Yes Status: Acute Code(s): N39.0 - URINARY TRACT INFECTION, SITE NOT SPECIFIED SNOMED Code(s): 40721244 Plan: 1patient presented hospital with sepsis in this patient who did have fever tachycardia elevated white count meeting criteria for SIRS source is urinary with significantly positive UA likely from enteric gram-negative pathogen. 2patient with ESBL bacteremia source is likely urinary. 3patient abdominal bladder ultrasound was negative for any obstructive uropathy 4patient CT abdominal pelvis did not show any hydronephrosis or colitis 5patient currently being treated with Invanz but the blood culture remains to be negative will be able to get a midline for outpatient IV Invanz on discharge Dictation was produced using [employer] dictation software. please excuse any grammatical, word or spelling errors.
[2024-11-08] MEDS: THIAMINE 100 MG TAB PO SCH (15:17)
[2024-11-08] MEDS: MULTIVITAMINS, THERA 1 EACH TAB PO SCH (15:17)
[2024-11-08] MEDS: FOLIC ACID 1 MG TAB PO SCH (15:17)
[2024-11-08] MEDS: FUROSEMIDE 10 MG/ML 2 ML VIAL IV ONE (18:37)
--- NOTE | 2024-11-08 18:59 | P.PN ---
Subjective Patient is seen for follow-up for chronic kidney disease and acute kidney injury. Serum creatinine has been fluctuating. It has increased over the last 2 days.Creatinine stable at 2.9 today. Bumex was decreased yesterday. No complaints of shortness of breath. Feeling tired. Objective - Vital Signs Vital signs: Vital Signs Temp 98.1 F 11/08/24 18:43 Pulse 74 11/08/24 18:41 Resp 18 11/08/24 18:41 BP 120/72 11/08/24 18:41 Pulse Ox 98 11/08/24 18:41 FiO2 Intake & Output 11/07/24 11/08/24 11/08/24 18:59 06:59 18:59 Intake Total 296 670 Output Total 100 700 Balance 196 -30 Intake: Oral 296 360 Blood Product 310 Rc As-1 Unit 310 [id number] Output: Urine 100 700 Other: Voiding Method Bedside Commode Bedside Commode Bedside Commode External Catheter External Catheter External Catheter # Voids 2 2 # Bowel Movements 3 5 - Exam Patient is awake, comfortable, no acute distress. Examination of the heart S1 and S2 Examination of the lungs bilateral breath sounds are heard Abdomen is soft nontender Examination of lower extremity shows chronic skin changes, 2+ edema noted, legs are wrapped EXPANDER exam grossly intact - Labs CBC & Chem 7: 11/08/24 10:58 11/08/24 10:58 Labs: Abnormal Lab Results - Last 24 Hours (Table) 11/08/24 11/08/24 11/08/24 Range/Units 06:03 06:03 10:58 RBC (4.30-5.90) m/uL Hgb (13.0-17.5) gm/dL Hct (39.0-53.0) % MCH (25.0-35.0) pg MCHC (31.0-37.0) g/dL RDW (11.5-15.5) % Lymphocytes # (1.0-4.8) k/uL ESR 63 H (0-20) mm/Hr Sodium 131 L (137-145) mmol/L Chloride 91 L (98-107) mmol/L BUN 116 H* (9-20) mg/dL Creatinine 2.90 H (0.66-1.25) mg/dL Glucose 142 H (74-99) mg/dL Total Bilirubin (0.2-1.3) mg/dL Alkaline Phosphatase (38-126) U/L C-Reactive Protein 17.0 H (<1.0) mg/dL Total Protein (6.3-8.2) g/dL Albumin (3.5-5.0) g/dL Crossmatch See Detail 11/08/24 11/08/24 Range/Units 10:58 10:58 RBC 2.86 L (4.30-5.90) m/uL Hgb 7.0 L (13.0-17.5) gm/dL Hct 23.2 L (39.0-53.0) % MCH 24.5 L (25.0-35.0) pg MCHC 30.3 L (31.0-37.0) g/dL RDW 24.0 H (11.5-15.5) % Lymphocytes # 0.6 L (1.0-4.8) k/uL ESR (0-20) mm/Hr Sodium 132 L (137-145) mmol/L Chloride 92 L (98-107) mmol/L BUN 115 H* (9-20) mg/dL Creatinine 2.91 H (0.66-1.25) mg/dL Glucose 153 H (74-99) mg/dL Total Bilirubin 1.5 H (0.2-1.3) mg/dL Alkaline Phosphatase 198 H (38-126) U/L C-Reactive Protein (<1.0) mg/dL Total Protein 5.8 L (6.3-8.2) g/dL Albumin 2.8 L (3.5-5.0) g/dL Crossmatch Microbiology - Last 24 Hours (Table) 11/01/24 07:13 Blood Culture Gram Stain - Final Blood Blood Culture - Final Escherichia coli ESBL Molecular ID 11/06/24 18:35 Blood Culture - Preliminary Blood Assessment and Plan Assessment: 1. Chronic kidney disease stage IV baseline creatinine recently in the range of 2.5-3 secondary to cardiorenal syndrome. GFR near baseline. No hydronephrosis noted on kidney ultrasound done this admission. BUN disproportionately elevated. No active bleeding noted although hemoglobin has dropped slightly. Bumex dose decreased. 2. Acute RSV infection. 3. Acute on chronic systolic CHF ejection fraction of 20 to 25% with moderate mitral and tricuspid regurgitation. 4. Acute hypoxic respiratory failure. 5. Volume overload. Improved with diuresis. 6. Diabetes mellitus. 7. History of urinary retention. 8. Anemia of chronic kidney disease. On Aranesp. 9. Hypervolemic hyponatremia. Improved. 10. E. coli bacteremia on antibiotics. 11. Hypokalemia from diuresis. Replaced. Better. Plan: Continue current dose of diuretics Follow-up on stool for occult blood Briefly discussed renal replacement therapy if renal function worsens and volume status does not improve. However patient is not an ideal candidate for outpatient renal replacement therapy. Encouraged increased oral intake Repeat labs in a.m.
[2024-11-08] MEDS: QUEtiapine 25 MG TAB PO SCH (19:52)
--- NOTE | 2024-11-09 07:25 | P.PN ---
Subjective Progress Note Date: 11/08/24 This is a 79-year-old male who was recently admitted with CHF exacerbation and also noted to have ESBL E. coli bacteremia likely urinary tract infection maintained on antibiotics with infectious disease following. Patient is currently maintained on meropenem and per infectious disease recommendations, w ill transition to Invanz on discharge. Kidney functions worsening at 2.7 today with nephrology following maintained on Bumex. Patient also being treated with supportive care for acute RSV infection. Wean FiO2 as tolerated and encourage incentive spirometer. Patient is somewhat resistive to care and needs constant reencouragement. Patient reports to feeling agitated that he remains hospitalized. Patient would like to go home and initially family thought of bringing him home although with significant weakness and possible IV antibiotics, patient's family now agreeable to ECF. Case management following and authorization will be required and has submitted referrals. 11/06/2024 Patient is seen in follow-up today slightly more lethargic than yesterday currently sitting up in the chair. Apparently per nursing staff patient has been spitting his medications out. Patient reports he felt he was choking on them and spit them out. Patient is afebrile white count is normal hemoglobin is stable above 7.5 with no active bleeding noted. Kidney function slightly improved at 2.6 today creatinine with nephrology following. Infectious disease following and patient is maintained on antibiotics as blood cultures remain positive for ESBL. Awaiting clearance of bacteremia to determine appropriate antibiotics on discharge. Family will be unable to care for the patient with antibiotics and case management following making arrangements for discharge planning to ECF for continued IV antibiotic therapy. Patient is significantly weak and would recommend physical therapy daily is sitting in the chair more frequently. 11/07/2024 Patient is seen in follow-up today continues to be significantly weak although has been getting up with a walker and assistance. Patient continues to have brandin teremia and repeat cultures have been ordered per infectious disease to determine clearance. Patient will require a midline and IV antibiotics in the form of Invanz on discharge. CT abdomen ordered at this time and pending for this afternoon. Will await report. Patient is afebrile and denies chest pain or shortness of breath. Patient is extremely high risk for readmission given significant comorbidities. 11/08/2024 Patient is seen in follow-up today multiple consultations following. Patient is maintained on IV antibiotics with infectious disease following blood cultures have been positive. Most recent repeat blood cultures positive for 48 hours and if remaining negative may be able to get a midline as patient will require IV antibiotics on discharge. Plan is for discharge for continued strength and mobility as well as IV antibiotic therapy. Patient is afebrile with no reports of chest pain or palpitations. Patient is maintained on diuretics and kidney functions showing a creatinine of 2.9 and nephrology following. Hemoglobin is 7.0 and will give 1 unit today. Recommend Lasix post infusion. Review of systems: Constitutional: No reports of fatigue, fever, or chills Cardiovascular: No reports of chest pain or palpitations Respiratory: No reports of shortness of breath or cough GI: No reports of nausea, no reports of vomiting, reports not much of an appetite although is eating : No reports of dysuria or retention Neurovascular: reports of generalized weakness All medications have been reviewed PHYSICAL EXAMINATION: GENERAL: The patient is alert and oriented x2, baseline well developed, elderly appearing, ill-appearing HEENT: Pupils are round and equally reacting to light. EOMI. no scleral icterus. No conjunctival pallor. Normocephalic, atraumatic. No pharyngeal erythema. No thyromegaly. CARDIOVASCULAR: S1 and S2 muffled PULMONARY: diminished breath sounds bilaterally with no wheezing or rhonchi noted. ABDOMEN: soft. Nontender on exam. Thin. non-distended, normoactive bowel sounds. No palpable organomegaly. MUSCULOSKELETAL: No joint swelling or deformity. EXTREMITIES: No cyanosis, clubbing, or pedal edema. NEUROLOGICAL: Gross neurological examination did not reveal any focal deficits. Diffuse weakness SKIN: No rashes. Assessment: Congestive heart failure with acute exacerbation ESBL, E. coli bacteremia, source is likely urinary, persistent repeat blood cultures thus far negative Acute hypoxic respiratory failure secondary to acute on chronic CHF exacerbation, systolic dysfunction with an EF of 20 to 25% Acute on chronic kidney disease, stage IV secondary to cardiorenal syndrome Acute urinary tract infection, present on admission with ESBL Acute RSV infection Generalized weakness and gait dysfunction Diabetes mellitus, type II History of urinary retention requiring indwelling Sevilla catheter previously, patient is voiding in a urinal Anemia of chronic kidney disease, hemoglobin is 7.0 today and will give 1 unit of PRBC GI prophylaxis DVT prophylaxis Full code Plan: Recommend to continue with current medications and management with multiple consultations following Nephrology following maintained on Bumex although kidney functions remain elevated, with no significant improvement. Will follow-up on repeat labs, c reatinine is 2.9 today per nephrology continue current regimen Hemoglobin noted to be 7.0 today and will transfuse 1 unit of PRBC. Recommend IV Lasix post transfusion Recent repeat blood cultures are negative for 48 hours and will need a midline and will be going with IV Invanz on discharge CT abdomen pelvis ordered per infectious disease and showing no hydronephrosis or abdominal source Patient currently on IV Invanz. Patient is requiring antibiotics on discharge and family is now agreeable to ECF for continued IV antibiotic therapy. Patient is persistent he would like to go home although somewhat agreeable to rehab for IV antibiotics. Recommend PT/OT therapy daily for continued strength and mobility. Patient has had prolonged hospitalization and will benefit from aggressive PT as well as continued IV antibiotics at [facility]. Patient will require insurance authorization with case management following Will follow-up on repeat labs and continue to monitor closely Due to multiple complex medical issues, overall prognosis is guarded The impression and plan of care has been dictated by Amee Harding, nurse practitioner as directed. Dr. Nicholas MD I have performed a history and examination and MDM of this patient, discussed the same with the dictator, and agree with the dictator's assessment and plan as written ,documented as a scribe. Based on total visit time, I have performed more than 50% of the visit. Any additional findings or plans will be noted. Objective - Vital Signs Vital signs: Vital Signs Temp 98.1 F 11/08/24 11:25 Pulse 79 11/08/24 11:25 Resp 16 11/08/24 11:25 BP 94/58 11/08/24 11:25 Pulse Ox 97 11/08/24 11:25 FiO2 Intake & Output 11/07/24 11/08/24 11/08/24 18:59 06:59 18:59 Intake Total 296 120 Output Total 100 300 Balance 196 -180 Intake: Oral 296 120 Output: Urine 100 300 Other: Voiding Method Bedside Commode Bedside Commode External Catheter External Catheter # Voids 2 # Bowel Movements 3 5 - Labs CBC & Chem 7: 11/08/24 10:58 11/08/24 10:58 Labs: Abnormal Lab Results - Last 24 Hours (Table) 11/08/24 11/08/24 11/08/24 Range/Units 06:03 06:03 10:58 RBC (4.30-5.90) m/uL Hgb (13.0-17.5) gm/dL Hct (39.0-53.0) % MCH (25.0-35.0) pg MCHC (31.0-37.0) g/dL RDW (11.5-15.5) % Lymphocytes # (1.0-4.8) k/uL ESR 63 H (0-20) mm/Hr Sodium 131 L (137-145) mmol/L Chloride 91 L (98-107) mmol/L BUN 116 H* (9-20) mg/dL Creatinine 2.90 H (0.66-1.25) mg/dL Glucose 142 H (74-99) mg/dL Total Bilirubin (0.2-1.3) mg/dL Alkaline Phosphatase (38-126) U/L C-Reactive Protein 17.0 H (<1.0) mg/dL Total Protein (6.3-8.2) g/dL Albumin (3.5-5.0) g/dL Crossmatch See Detail 11/08/24 11/08/24 Range/Units 10:58 10:58 RBC 2.86 L (4.30-5.90) m/uL Hgb 7.0 L (13.0-17.5) gm/dL Hct 23.2 L (39.0-53.0) % MCH 24.5 L (25.0-35.0) pg MCHC 30.3 L (31.0-37.0) g/dL RDW 24.0 H (11.5-15.5) % Lymphocytes # 0.6 L (1.0-4.8) k/uL ESR (0-20) mm/Hr Sodium 132 L (137-145) mmol/L Chloride 92 L (98-107) mmol/L BUN 115 H* (9-20) mg/dL Creatinine 2.91 H (0.66-1.25) mg/dL Glucose 153 H (74-99) mg/dL Total Bilirubin 1.5 H (0.2-1.3) mg/dL Alkaline Phosphatase 198 H (38-126) U/L C-Reactive Protein (<1.0) mg/dL Total Protein 5.8 L (6.3-8.2) g/dL Albumin 2.8 L (3.5-5.0) g/dL Crossmatch Microbiology - Last 24 Hours (Table) 11/01/24 07:13 Blood Culture Gram Stain - Final Blood Blood Culture - Final Escherichia coli ESBL Molecular ID 11/06/24 18:35 Blood Culture - Preliminary Blood
[2024-11-09 11:08] LABS: Anisocytosis Moderate; Basophils % (A) 0 %; Eosinophils # (A) 0.1 k/uL (0-0.7); Eosinophils % (A) 2 %; HCT 25.8 % (39.0-53.0); Hypochromasia Marked; Lymphocytes # (A) 0.6 k/uL (1.0-4.8); Lymphocytes % (A) 7 %; MCH 25.5 pg (25.0-35.0); MCHC 30.9 g/dL (31.0-37.0); MCV 82.4 fL (80.0-100.0); Mean Platelet Volume 9.2; Microcytosis Slight; Monocytes # (A) 0.4 k/uL (0-1.0); Monocytes % (A) 5 %; Neutrophils # (A) 6.3 k/uL (1.3-7.7); Neutrophils % (A) 83 %; Platelet Count 199 k/uL (150-450); Poikilocytosis Slight; RBC 3.14 m/uL (4.30-5.90); RDW 23.2 % (11.5-15.5); WBC 7.6 k/uL (3.8-10.6)
[2024-11-09 11:36] LABS: ALT 23 U/L (4-49); AST 30 U/L (17-59); African American GFR (CKD) 24 (>60 ml/min/1.73 sqM); Albumin 2.9 g/dL (3.5-5.0); Alkaline Phosphatase 190 U/L (38-126); Anion Gap 10 mmol/L; Calcium 8.7 mg/dL (8.4-10.2); Carbon Dioxide 28 mmol/L (22-30); Chloride 94 mmol/L (98-107); Glucose 140 mg/dL (74-99); Non-African American GFR(CKD) 21 (>60 ml/min/1.73 sqM); Sodium 132 mmol/L (137-145); Total Bilirubin 1.5 mg/dL (0.2-1.3); Total Protein 5.7 g/dL (6.3-8.2)
--- NOTE | 2024-11-09 11:45 | P.PN ---
Subjective Patient is seen for follow-up for chronic kidney disease and acute kidney injury. Serum creatinine has been fluctuating. It has increased over the last 2 days. Creatinine stable at 2.9 yesterday. Baseline creatinine 2.5 to 3 mg/dL No complaints of shortness of breath. Feeling tired. Objective - Vital Signs Vital signs: Vital Signs Temp 98.5 F 11/09/24 08:43 Pulse 75 11/09/24 08:43 Resp 19 11/09/24 08:43 BP 132/81 11/09/24 08:43 Pulse Ox 96 11/09/24 08:43 FiO2 Intake & Output 11/08/24 11/09/24 11/09/24 18:59 06:59 18:59 Intake Total 670 Output Total 700 Balance -30 Weight 82.5 kg Intake: Oral 360 Blood Product 310 Rc As-1 Unit 310 [id number] Output: Urine 700 Other: Voiding Method Bedside Commode Bedside Commode Bedside Commode External Catheter # Voids 2 2 2 # Bowel Movements 2 2 - Exam Patient is awake, comfortable, no acute distress. 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 - Labs CBC & Chem 7: 11/09/24 10:41 11/08/24 10:58 Labs: Abnormal Lab Results - Last 24 Hours (Table) 11/08/24 11/08/24 11/09/24 Range/Units 10:58 10:58 10:41 RBC 3.14 L (4.30-5.90) m/uL Hgb 8.0 L (13.0-17.5) gm/dL Hct 25.8 L (39.0-53.0) % MCHC 30.9 L (31.0-37.0) g/dL RDW 23.2 H (11.5-15.5) % Lymphocytes # 0.6 L (1.0-4.8) k/uL Sodium 132 L (137-145) mmol/L Chloride 92 L (98-107) mmol/L BUN 115 H* (9-20) mg/dL Creatinine 2.91 H (0.66-1.25) mg/dL Glucose 153 H (74-99) mg/dL Total Bilirubin 1.5 H (0.2-1.3) mg/dL Alkaline Phosphatase 198 H (38-126) U/L Total Protein 5.8 L (6.3-8.2) g/dL Albumin 2.8 L (3.5-5.0) g/dL Crossmatch See Detail Microbiology - Last 24 Hours (Table) 11/06/24 18:35 Blood Culture - Preliminary Blood 11/01/24 07:13 Blood Culture Gram Stain - Final Blood Blood Culture - Final Escherichia coli ESBL Molecular ID Assessment and Plan Assessment: 1. Chronic kidney disease stage IV baseline creatinine recently in the range of 2.5-3 secondary to cardiorenal syndrome. GFR near baseline. No hydronephrosis noted on kidney ultrasound done this admission. BUN disproportionately elevated. No active bleeding noted although hemoglobin has dropped slightly. Bumex dose decreased to 0.5 mg twice daily. It will be increased back to 1 mg twice daily today. 2. Acute RSV infection. 3. Acute on chronic systolic CHF ejection fraction of 20 to 25% with moderate mitral and tricuspid regurgitation. 4. Acute hypoxic respiratory failure. 5. Volume overload. Improved with diuresis. 6. Diabetes mellitus. 7. History of urinary retention. 8. Anemia of chronic kidney disease. On Aranesp. 9. Hypervolemic hyponatremia. Improved. 10. E. coli bacteremia on antibiotics. 11. Hypokalemia from diuresis. Replaced. Better. Plan: Change Bumex back to 1 mg twice a day Follow-up on stool for occult blood Briefly discussed renal replacement therapy if renal function worsens and volume status does not improve. However patient is not an ideal candidate for outpatient renal replacement therapy. Overall poor prognosis Encouraged increased oral intake Repeat labs in a.m.
[2024-11-09 11:54] LABS: Blood Urea Nitrogen 117 mg/dL (9-20)
[2024-11-09] MEDS: BUMETANIDE 1 MG TAB PO SCH (16:44)
--- NOTE | 2024-11-09 19:53 | PN ---
PROGRESS NOTE DATE OF SERVICE: 11/09/2024 SUBJECTIVE: This is a 79-year-old gentleman, who was admitted with CHF and ESBL bacteremia, is awaiting for the ECF rehab. Mildly confused. No chest pain. No palpitation. PHYSICAL EXAMINATION: VITAL SIGNS: Pulse 75, blood pressure 110/70, respirations 17. CHEST: A few scattered rhonchi. ABDOMEN: Soft. NERVOUS SYSTEM: Diffusely weak. LABORATORY DATA: Reviewed. Hemoglobin 8. ASSESSMENT: 1. Congestive heart failure with acute exacerbation. 2. Extended-Spectrum Beta-Lactamase Escherichia coli bacteremia. 3. Acute on chronic kidney disease. 4. Multiple complex medical issues. 5. Gait dysfunction. RECOMMENDATIONS: Recommended to continue current management and continue symptomatic treatment. Otherwise, I would recommend repeat labs. Continue the antibiotics. Possible ECF rehab on Monday. Prognosis guarded. CAROLL / ROBERTN: [id number] /
[2024-11-10 11:00] LABS: Anisocytosis Marked; Basophils % (A) 0 %; Eosinophils # (A) 0.1 k/uL (0-0.7); Eosinophils % (A) 2 %; HCT 27.3 % (39.0-53.0); HGB 8.3 gm/dL (13.0-17.5); Hypochromasia Moderate; Lymphocytes # (A) 0.8 k/uL (1.0-4.8); Lymphocytes % (A) 10 %; MCH 25.6 pg (25.0-35.0); MCHC 30.3 g/dL (31.0-37.0); MCV 84.4 fL (80.0-100.0); Mean Platelet Volume 9.3; Microcytosis Slight; Monocytes # (A) 0.4 k/uL (0-1.0); Monocytes % (A) 6 %; Neutrophils # (A) 6.4 k/uL (1.3-7.7); Neutrophils % (A) 80 %; Platelet Count 229 k/uL (150-450); Poikilocytosis Slight; RBC 3.24 m/uL (4.30-5.90); RDW 24.1 % (11.5-15.5); WBC 7.9 k/uL (3.8-10.6)
[2024-11-10 11:10] LABS: African American GFR (CKD) 24 (>60 ml/min/1.73 sqM); Anion Gap 10 mmol/L; Calcium 8.6 mg/dL (8.4-10.2); Carbon Dioxide 29 mmol/L (22-30); Chloride 94 mmol/L (98-107); Glucose 165 mg/dL (74-99); Non-African American GFR(CKD) 20 (>60 ml/min/1.73 sqM); Sodium 133 mmol/L (137-145)
[2024-11-10 11:18] LABS: Blood Urea Nitrogen 115 mg/dL (9-20)
--- NOTE | 2024-11-10 12:05 | P.PN ---
Subjective Patient is seen for follow-up for chronic kidney disease and acute kidney injury. Serum creatinine has been fluctuating at 2.7 to 2.9 mg/dL. Baseline creatinine 2.5 to 3 mg/dL No complaints of shortness of breath. Feeling tired. Objective - Vital Signs Vital signs: Vital Signs Temp 98.2 F 11/10/24 08:20 Pulse 75 11/10/24 08:20 Resp 18 11/10/24 08:20 BP 116/63 11/10/24 08:20 Pulse Ox 96 11/10/24 08:20 FiO2 Intake & Output 11/09/24 11/10/24 11/10/24 18:59 06:59 18:59 Intake Total 240 540 Balance 240 540 Intake: Oral 240 540 Other: Voiding Method Bedside Commode Bedside Commode Bedside Commode # Voids 3 5 # Bowel Movements 3 4 - Exam Patient is awake, comfortable, no acute distress. 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 - Labs CBC & Chem 7: 11/10/24 10:36 11/10/24 10:36 Labs: Abnormal Lab Results - Last 24 Hours (Table) 11/10/24 11/10/24 Range/Units 10:36 10:36 RBC 3.24 L (4.30-5.90) m/uL Hgb 8.3 L (13.0-17.5) gm/dL Hct 27.3 L (39.0-53.0) % MCHC 30.3 L (31.0-37.0) g/dL RDW 24.1 H (11.5-15.5) % Lymphocytes # 0.8 L (1.0-4.8) k/uL Sodium 133 L (137-145) mmol/L Chloride 94 L (98-107) mmol/L BUN 115 H* (9-20) mg/dL Creatinine 2.81 H (0.66-1.25) mg/dL Glucose 165 H (74-99) mg/dL Microbiology - Last 24 Hours (Table) 11/06/24 18:35 Blood Culture - Preliminary Blood 11/08/24 10:58 Blood Culture - Preliminary Blood Assessment and Plan Assessment: 1. Chronic kidney disease stage IV baseline creatinine recently in the range of 2.5-3 secondary to cardiorenal syndrome. GFR near baseline. No hydronephrosis noted on kidney ultrasound done this admission. BUN disproportionately elevated. No active bleeding noted although hemoglobin has dropped slightly. Bumex dose decreased to 0.5 mg twice daily. It will be increased back to 1 mg twice daily today. 2. Acute RSV infection. 3. Acute on chronic systolic CHF ejection fraction of 20 to 25% with moderate mitral and tricuspid regurgitation. 4. Acute hypoxic respiratory failure. 5. Volume overload. Improved with diuresis. 6. Diabetes mellitus. 7. History of urinary retention. 8. Anemia of chronic kidney disease. On Aranesp. 9. Hypervolemic hyponatremia. Improved. 10. E. coli bacteremia on antibiotics. 11. Hypokalemia from diuresis. Replaced. Better. Plan: Continue with current dose of Bumex Stool for occult blood is positive Briefly discussed renal replacement therapy if renal function worsens and volume status does not improve. However patient is not an ideal candidate for outpatient renal replacement therapy. Overall poor prognosis Encouraged increased oral intake Repeat labs in a.m.
--- NOTE | 2024-11-10 15:46 | P.PN ---
Subjective Progress Note Date: 11/09/24 Principal diagnosis: Reason for follow-up is ESBL E. coli UTI and bacteremia Patient is a 79-year-old male with a past medical history significant for CHF coronary artery disease COPD presented to hospital for evaluation of not feeling well increasing shortness of breath did have a positive blood culture with ESBL E. coli prompting this consultation. On today's evaluation that is 11/09/2024 patient has been afebrile seem to be breathing comfortably currently on 3 L nasal oxygen in no distress and elevated good historian no vomiting diarrhea changes reported. Patient white count 7.6 creatinine 2.74 Objective - Vital Signs Vital signs: Vital Signs Temp 98.2 F 11/09/24 12:00 Pulse 75 11/09/24 12:00 Resp 17 11/09/24 12:00 BP 126/70 11/09/24 12:00 Pulse Ox 98 11/09/24 12:00 FiO2 Intake & Output 11/08/24 11/09/24 11/09/24 18:59 06:59 18:59 Intake Total 670 Output Total 700 Balance -30 Weight 82.5 kg Intake: Oral 360 Blood Product 310 Rc As-1 Unit 310 [id number] Output: Urine 700 Other: Voiding Method Bedside Commode Bedside Commode Bedside Commode External Catheter # Voids 2 2 2 # Bowel Movements 2 2 - Exam GENERAL DESCRIPTION: An elderly male up in bed in no distress RESPIRATORY SYSTEM: Unlabored breathing , coarse breath sounds bilaterally HEART: S1 S2 regular rate and rhythm , ABDOMEN: Soft , no tenderness EXTREMITIES: No edema feet - Labs CBC & Chem 7: 11/10/24 10:36 11/10/24 10:36 Labs: Abnormal Lab Results - Last 24 Hours (Table) 11/08/24 11/09/24 11/09/24 Range/Units 10:58 10:41 10:41 RBC 3.14 L (4.30-5.90) m/uL Hgb 8.0 L (13.0-17.5) gm/dL Hct 25.8 L (39.0-53.0) % MCHC 30.9 L (31.0-37.0) g/dL RDW 23.2 H (11.5-15.5) % Lymphocytes # 0.6 L (1.0-4.8) k/uL Sodium 132 L (137-145) mmol/L Chloride 94 L (98-107) mmol/L BUN 117 H* (9-20) mg/dL Creatinine 2.74 H (0.66-1.25) mg/dL Glucose 140 H (74-99) mg/dL Total Bilirubin 1.5 H (0.2-1.3) mg/dL Alkaline Phosphatase 190 H (38-126) U/L Total Protein 5.7 L (6.3-8.2) g/dL Albumin 2.9 L (3.5-5.0) g/dL Crossmatch See Detail Microbiology - Last 24 Hours (Table) 11/06/24 18:35 Blood Culture - Preliminary Blood 11/01/24 07:13 Blood Culture Gram Stain - Final Blood Blood Culture - Final Escherichia coli ESBL Molecular ID Assessment and Plan (1) Sepsis Current Visit: Yes Status: Acute Code(s): A41.9 - SEPSIS, UNSPECIFIED ORGANISM SNOMED Code(s): 19023534 (2) Bacteremia Current Visit: Yes Status: Acute Code(s): R78.81 - BACTEREMIA SNOMED Code(s): 2866415 (3) ESBL (extended spectrum beta-lactamase) producing bacteria infection Current Visit: Yes Status: Acute Code(s): A49.9 - BACTERIAL INFECTION, UNSPECIFIED; Z16.12 - EXTENDED SPECTRUM BETA LACTAMASE (ESBL) RESISTANCE SNOMED Code(s): 626864274 (4) UTI (urinary tract infection) Current Visit: Yes Status: Acute Code(s): N39.0 - URINARY TRACT INFECTION, SITE NOT SPECIFIED SNOMED Code(s): 92983269 Plan: 1patient presented hospital with sepsis in this patient who did have fever tachycardia elevated white count meeting criteria for SIRS source is urinary with significantly positive UA likely from enteric gram-negative pathogen. 2patient with ESBL bacteremia source is likely urinary. 3patient abdominal bladder ultrasound was negative for any obstructive uropathy 4patient CT abdominal pelvis did not show any hydronephrosis or colitis 5patient has cleared his bacteremic continue with Invanz Dictation was produced using [employer] dictation software. please excuse any grammatical, word or spelling errors. Time with Patient: Less than 30
--- NOTE | 2024-11-10 15:47 | P.PN ---
Subjective Progress Note Date: 11/10/24 Principal diagnosis: Reason for follow-up is ESBL E. coli UTI and bacteremia Patient is a 79-year-old male with a past medical history significant for CHF coronary artery disease COPD presented to hospital for evaluation of not feeling well increasing shortness of breath did have a positive blood culture with ESBL E. coli prompting this consultation. On today's evaluation that is 11/10/2024, Patient is afebrile patient is currently on 2 L nasal oxygen and breathing comfortably patient is up in the chair covered with a sheet did not answer any question no significant changes reported by the sitter at the bedside. Patient white count 7.9, platelets 2.81 blood culture repeat has been negative Objective - Vital Signs Vital signs: Vital Signs Temp 98.2 F 11/10/24 08:20 Pulse 75 11/10/24 08:20 Resp 18 11/10/24 08:20 BP 116/63 11/10/24 08:20 Pulse Ox 96 11/10/24 08:20 FiO2 Intake & Output 11/09/24 11/10/24 11/10/24 18:59 06:59 18:59 Intake Total 240 540 Balance 240 540 Intake: Oral 240 540 Other: Voiding Method Bedside Commode Bedside Commode Bedside Commode # Voids 3 5 # Bowel Movements 3 4 - Exam GENERAL DESCRIPTION: An elderly male up in bed in no distress RESPIRATORY SYSTEM: Unlabored breathing , coarse breath sounds bilaterally HEART: S1 S2 regular rate and rhythm , ABDOMEN: Soft , no tenderness EXTREMITIES: No edema feet - Labs CBC & Chem 7: 11/10/24 10:36 11/10/24 10:36 Labs: Abnormal Lab Results - Last 24 Hours (Table) 11/10/24 11/10/24 Range/Units 10:36 10:36 RBC 3.24 L (4.30-5.90) m/uL Hgb 8.3 L (13.0-17.5) gm/dL Hct 27.3 L (39.0-53.0) % MCHC 30.3 L (31.0-37.0) g/dL RDW 24.1 H (11.5-15.5) % Lymphocytes # 0.8 L (1.0-4.8) k/uL Sodium 133 L (137-145) mmol/L Chloride 94 L (98-107) mmol/L BUN 115 H* (9-20) mg/dL Creatinine 2.81 H (0.66-1.25) mg/dL Glucose 165 H (74-99) mg/dL Microbiology - Last 24 Hours (Table) 11/06/24 18:35 Blood Culture - Preliminary Blood 11/08/24 10:58 Blood Culture - Preliminary Blood Assessment and Plan (1) Sepsis Current Visit: Yes Status: Acute Code(s): A41.9 - SEPSIS, UNSPECIFIED ORGANISM SNOMED Code(s): 26325057 (2) Bacteremia Current Visit: Yes Status: Acute Code(s): R78.81 - BACTEREMIA SNOMED Code(s): 6875298 (3) ESBL (extended spectrum beta-lactamase) producing bacteria infection Current Visit: Yes Status: Acute Code(s): A49.9 - BACTERIAL INFECTION, UNSPECIFIED; Z16.12 - EXTENDED SPECTRUM BETA LACTAMASE (ESBL) RESISTANCE SNOMED Code(s): 240095709 (4) UTI (urinary tract infection) Current Visit: Yes Status: Acute Code(s): N39.0 - URINARY TRACT INFECTION, SITE NOT SPECIFIED SNOMED Code(s): 05397830 Plan: 1patient [facility] with sepsis in this patient who did have fever tachycardia elevated white count meeting criteria for SIRS source is urinary with significantly positive UA likely from enteric gram-negative pathogen. 2patient with ESBL bacteremia source is likely urinary. 3patient abdominal bladder ultrasound was negative for any obstructive uropathy 4patient CT abdominal pelvis did not show any hydronephrosis or colitis 5patient has cleared his bacteremic and is currently being treated with Invanz, plan will be a total of 2 weeks from his negative blood culture Dictation was produced using [employer] dictation software. please excuse any grammatical, word or spelling errors. Time with Patient: Less than 30
--- NOTE | 2024-11-10 22:38 | PN ---
PROGRESS NOTE DATE OF SERVICE: 11/10/2024 SUBJECTIVE: This is a 79-year-old gentleman, admitted with CHF acute exacerbation, also had ESBL bacteremia. No chest pain. No palpitation. The patient is confused. OBJECTIVE: VITAL SIGNS: Pulse 75, blood pressure 116/63, respirations 18. CHEST: A few scattered rhonchi and crackles. ABDOMEN: Soft. NERVOUS SYSTEM: Diffusely weak. LABORATORY DATA: Hemoglobin 8.3, rest of the labs are noted. ASSESSMENT: 1. Congestive heart failure acute exacerbation. 2. Extended-Spectrum Beta-Lactamase Escherichia coli bacteremia. 3. Acute on chronic kidney disease. 4. Multiple complex medical issues. RECOMMENDATIONS: Recommend to continue current management and continue symptomatic treatment. Continue with antibiotics. PT, OT evaluation. I would recommend repeat labs. Once the patient is stable, could be sent to F. AARON / SARA: [id number] /
[2024-11-11 10:04] LABS: African American GFR (CKD) 24 (>60 ml/min/1.73 sqM); Anion Gap 12 mmol/L; Anisocytosis Marked; Basophils % (A) 0 %; Calcium 8.3 mg/dL (8.4-10.2); Carbon Dioxide 29 mmol/L (22-30); Chloride 94 mmol/L (98-107); Eosinophils # (A) 0.1 k/uL (0-0.7); Eosinophils % (A) 1 %; Glucose 150 mg/dL (74-99); HCT 25.8 % (39.0-53.0); HGB 7.9 gm/dL (13.0-17.5); Hypochromasia Marked; Lymphocytes # (A) 0.7 k/uL (1.0-4.8); Lymphocytes % (A) 8 %; MCH 25.3 pg (25.0-35.0); MCHC 30.5 g/dL (31.0-37.0); MCV 82.7 fL (80.0-100.0); Mean Platelet Volume 9.7; Microcytosis Moderate; Monocytes # (A) 0.5 k/uL (0-1.0); Monocytes % (A) 5 %; Neutrophils # (A) 7.6 k/uL (1.3-7.7); Neutrophils % (A) 83 %; Non-African American GFR(CKD) 20 (>60 ml/min/1.73 sqM); Platelet Count 249 k/uL (150-450); Potassium 4.3 mmol/L (3.5-5.1); RBC 3.12 m/uL (4.30-5.90); RDW 24.2 % (11.5-15.5); Sodium 135 mmol/L (137-145); WBC 9.1 k/uL (3.8-10.6)
[2024-11-11 10:13] LABS: Blood Urea Nitrogen 115 mg/dL (9-20)
[2024-11-11] MEDS: HALOPERIDOL LACTATE 5 MG/ML 1 ML VIAL IM STA (11:16)
--- NOTE | 2024-11-11 11:26 | P.PN ---
Subjective Patient is seen in follow-up for chronic kidney disease. Renal function stable. Nonoliguric. Denies chest pain or shortness of breath. Vital signs are stable. General: No acute distress. HEENT: Head exam is unremarkable. On nasal cannula. LUNGS: No audible rhonchi or wheezes. HEART: Rate and Rhythm are regular. ABDOMEN: Nontender. EXTREMITITES: 1+ edema. Objective - Vital Signs Vital signs: Vital Signs Temp 98.0 F 11/11/24 07:30 Pulse 75 11/11/24 07:30 Resp 16 11/11/24 07:30 BP 124/57 11/11/24 07:30 Pulse Ox 94 L 11/11/24 07:30 FiO2 Intake & Output 11/10/24 11/11/24 11/11/24 18:59 06:59 18:59 Intake Total 500 Balance 500 Intake: Oral 500 Other: Voiding Method Bedside Commode Bedside Commode # Voids 3 1 1 # Bowel Movements 3 - Labs CBC & Chem 7: 11/11/24 08:45 11/11/24 08:45 Labs: Abnormal Lab Results - Last 24 Hours (Table) 11/11/24 11/11/24 Range/Units 08:45 08:45 RBC 3.12 L (4.30-5.90) m/uL Hgb 7.9 L (13.0-17.5) gm/dL Hct 25.8 L (39.0-53.0) % MCHC 30.5 L (31.0-37.0) g/dL RDW 24.2 H (11.5-15.5) % Lymphocytes # 0.7 L (1.0-4.8) k/uL Sodium 135 L (137-145) mmol/L Chloride 94 L (98-107) mmol/L BUN 115 H* (9-20) mg/dL Creatinine 2.81 H (0.66-1.25) mg/dL Glucose 150 H (74-99) mg/dL Calcium 8.3 L (8.4-10.2) mg/dL Microbiology - Last 24 Hours (Table) 11/08/24 10:58 Blood Culture - Preliminary Blood Assessment and Plan Plan: Assessment: 1. Chronic kidney disease stage IV baseline creatinine recently in the range of 2.5-3 secondary to cardiorenal syndrome. GFR near baseline. No hydronephrosis noted on kidney ultrasound done this admission. 2. Acute RSV infection. 3. Acute on chronic systolic CHF ejection fraction of 20 to 25% with moderate mitral and tricuspid regurgitation. 4. Acute hypoxic respiratory failure. 5. Volume overload. Improved with diuresis. 6. Diabetes mellitus. 7. History of urinary retention. Currently does not have a Sevilla catheter. 8. Anemia of chronic kidney disease. On Aranesp. Stool for occult blood positive. 9. Hypervolemic hyponatremia. Improved. 10. E. coli bacteremia on antibiotics. 11. Hypokalemia from diuresis. Replaced. Better. Plan: Maintain oral Bumex. Encouraged oral intake. Maintain fluid restriction. Avoid nephrotoxins. Continue to monitor renal function and urine output. Prognosis guarded. Poor candidate for long-term renal replacement therapy.
--- NOTE | 2024-11-11 15:30 | P.DS ---
Providers Date of admission: 10/30/24 18:25 Expected date of discharge: 11/11/24 Attending physician: Orlando Peterson Consults: 10/31/24 09:36 Consult Physician Routine Consulting Provider: Tiffanie Peoples Consult Reason/Comments: Acute on chronic kidney disease Do you want consulting provider notified?: Yes 10/31/24 13:46 Consult Physician Routine Consulting Provider: Aquiles Walker Consult Reason/Comments: ESBL bacteremia Do you want consulting provider notified?: Yes Primary care physician: Prema Tinsley [facility] Course: Final diagnosis Congestive heart failure with acute exacerbation ESBL, E. coli bacteremia, source is likely urinary, persistent repeat blood cultures thus far negative Acute hypoxic respiratory failure secondary to acute on chronic CHF exacerbation, systolic dysfunction with an EF of 20 to 25% Acute on chronic kidney disease, stage IV secondary to cardiorenal syndrome Acute urinary tract infection, present on admission with ESBL Acute RSV infection Generalized weakness and gait dysfunction Diabetes mellitus, type II History of urinary retention requiring indwelling Sevilla catheter previously, patient is voiding Anemia of chronic kidney disease GI prophylaxis DVT prophylaxis Full code Discharge disposition Patient is being discharged in a stable condition with guarded prognosis to [facility]. Patient will follow-up with Dr. Jorge Peterson in the outpatient setting upon discharge. Patient is to continue with IV Invanz daily for the next 10 days to complete the course. Patient to follow-up with cardiology as well as nephrology outpatient as scheduled. Recommend repeat CBC, CMP, magnesium in 2 to 3 days. Total time taken is greater than 35 minutes. Hospital course This is a 79-year-old male who was recently admitted with CHF exacerbation and also noted to have ESBL E. coli bacteremia likely urinary tract infection maintained on antibiotics with infectious disease following. Patient is currently maintained on meropenem and per infectious disease recommendations, will transition to Invanz on discharge. Kidney functions worsening at 2.7 today with nephrology following maintained on Bumex. Patient also being treated with supportive care for acute RSV infection. Wean FiO2 as tolerated and encourage incentive spirometer. Patient is somewhat resistive to care and needs constant reencouragement. Patient reports to feeling agitated that he remains hospitalized. Patient would like to go home and initially family thought of bringing him home although with significant weakness and possible IV antibiotics, patient's family now agreeable to ECF. Case management following and authorization will be required and has submitted referrals. 11/06/2024 Patient is seen in follow-up today slightly more lethargic than yesterday currently sitting up in the chair. Apparently per nursing staff patient has been spitting his medications out. Patient reports he felt he was choking on them and spit them out. Patient is afebrile white count is normal hemoglobin is stable above 7.5 with no active bleeding noted. Kidney function slightly improved at 2.6 today creatinine with nephrology following. Infectious disease following and patient is maintained on antibiotics as blood cultures remain positive for ESBL. Awaiting clearance of bacteremia to determine appropriate antibiotics on discharge. Family will be unable to care for the patient with antibiotics and case management following making arrangements for discharge planning to [facility] for continued IV antibiotic therapy. Patient is significantly weak and would recommend physical therapy daily is sitting in the chair more frequently. 11/07/2024 Patient is seen in follow-up today continues to be significantly weak although has been getting up with a walker and assistance. Patient continues to have bacteremia and repeat cultures have been ordered per infectious disease to determine clearance. Patient will require a midline and IV antibiotics in the form of Invanz on discharge. CT abdomen ordered at this time and pending for this afternoon. Will await report. Patient is afebrile and denies chest pain or shortness of breath. Patient is extremely high risk for readmission given significant comorbidities. 11/08/2024 Patient is seen in follow-up today multiple consultations following. Patient is maintained on IV antibiotics with infectious disease following blood cultures have been positive. Most recent repeat blood cultures positive for 48 hours and if remaining negative may be able to get a midline as patient will require IV antibiotics on discharge. Plan is for discharge for continued strength and mobility as well as IV antibiotic therapy. Patient is afebrile with no reports of chest pain or palpitations. Patient is maintained on diuretics and kidney functions showing a creatinine of 2.9 and nephrology following. Hemoglobin is 7.0 and will give 1 unit today. Recommend Lasix post infusion. 11/11/2024 Patient is seen in follow-up today has been maintained on IV antibiotics with infectious disease following. Repeat blood cultures from 06 November are negative and patient has received a midline and will continue on 10 more days of Invanz for ID recommendations to complete the course. Patient with chronic kidney disease with cardiorenal syndrome being evaluated by nephrology recommend to continue with fluid restrictions and Bumex 1 mg twice daily. Patient with worsening kidney functions although somewhat stable. Patient was having some urinary retention requiring indwelling Sevilla catheter and is voiding post although it is a concern for ongoing retention. Patient did have kidney ultrasound as well as repeat CT abdomen showing no hydronephrosis noted. Patient did have persistent bacteremia with ESBL E. coli with urinary tract being the source. Most recent blood cultures have been negative and patient has been cleared by consultations for discharge. Patient is quite weak and has had prolonged hospitalization and will require IV antibiotic maintenance which family cannot help within the home and is being discharged to [facility] for continued IV antibiotic therapy. Please refer to other [facility] notes for further HPI. Currently no reports of chest pain, shortness of breath, or palpitations. Patient is afebrile. No reports of nausea or vomiting and patient is tolerating diet. Patient will be going to [facility] today. PHYSICAL EXAMINATION: GENERAL: The patient is alert and oriented x2, baseline well developed, elderly appearing, ill-appearing HEENT: Pupils are round and equally reacting to light. EOMI. no scleral icterus. No conjunctival pallor. Normocephalic, atraumatic. No pharyngeal erythema. No thyromegaly. CARDIOVASCULAR: S1 and S2 muffled PULMONARY: diminished breath sounds bilaterally with no wheezing or rhonchi noted. ABDOMEN: soft. Nontender on exam. Thin. non-distended, normoactive bowel sounds. No palpable organomegaly. MUSCULOSKELETAL: No joint swelling or deformity. EXTREMITIES: No cyanosis, clubbing, or pedal edema. NEUROLOGICAL: Gross neurological examination did not reveal any focal deficits. Diffuse weakness SKIN: No rashes. Please refer to medication reconciliation sheet for a list of medications. The impression and plan of care has been dictated by Amee Harding, Nurse Practitioner as directed. Dr. Marek MD I have performed a history and examination and MDM of this patient, discussed the same with the dictator, and agree with the dictator's assessment and plan as written ,documented as a scribe. Based on total visit time, I have performed more than 50% of the visit Patient Condition at Discharge: Fair Plan - Discharge Summary Discharge Rx Participant: No New Discharge Prescriptions: New Bumetanide [BUMEX] 1 mg PO BID@0900,1600 tab Folic Acid 1 mg PO DAILY #0 tab HYDROcodone/APAP 5-325MG [Enterprise 5-325] 1 each PO Q6H PRN #4 tab PRN Reason: Moderate Pain (Scale 4 To 6) QUEtiapine [SEROquel] 12.5 mg PO HS tab Thiamine [Vitamin B-1] 100 mg PO DAILY tab Darbepoetin Reilly [Aranesp] 40 mcg SQ Q7D each Ipratropium-Albuterol Nebulize [Duoneb 0.5 mg-3 mg/3 ml Soln] 3 ml INHALATION RT-Q4H PRN each PRN Reason: Shortness Of Breath Or Wheezing Heparin Sodium,Porcine (1 ml) [Heparin Sodium] 5,000 unit SQ Q12HR each Ertapenem [INVanz] 0.5 gm IVPB DAILY 10 Days #10 each guaiFENesin [Mucinex] 600 mg PO Q12HR tab Multivitamins, Thera [Multivitamin (formulary)] 1 each PO DAILY tab ALPRAZolam [Xanax] 0.25 mg PO Q8H PRN #4 tab PRN Reason: Agitation Continue Atorvastatin [Lipitor] 80 mg PO DAILY Aspirin 81 mg PO DAILY Amiodarone [Cordarone] 200 mg PO BID Tamsulosin [Flomax] 0.4 mg PO BID Albuterol Inhaler [Ventolin Hfa Inhaler] 2 puff INHALATION RT-Q6H PRN PRN Reason: Wheezing Potassium Chloride ER [K-Dur 10] 10 meq PO DAILY Acetaminophen Tab [Tylenol] 650 mg PO Q6H PRN PRN Reason: Mild Pain (Scale 1 To 3) Levothyroxine Sodium [Synthroid] 25 mcg PO AC-BRKFST Fluticasone Nasal Edwards [Flonase Nasal Edwards] 1 spray EA NOSTRIL DAILY carvediloL [Coreg] 6.25 mg PO BID-W/MEALS Clopidogrel [Plavix] 75 mg PO DAILY polyethylene glycoL 3350 [Miralax] 17 gm PO DAILY PRN PRN Reason: Constipation Nystatin 100,000 Unit/ml Susp [Mycostatin Oral Susp] 500,000 ml PO QID Docusate [Colace] 100 mg PO BID PRN PRN Reason: Constipation Discontinued Famotidine [Pepcid] 20 mg PO BID Bumetanide [BUMEX] 2 mg PO BID metOLazone [Zaroxolyn] 2.5 mg PO DAILY predniSONE See Taper PO DAILY guaiFENesin [Mucinex] 600 mg PO Q12H Empagliflozin [Jardiance] 10 mg PO DAILY Discharge Medication List Acetaminophen Tab [Tylenol] 650 mg PO Q6H PRN 10/30/24 [History] Albuterol Inhaler [Ventolin Hfa Inhaler] 2 puff INHALATION RT-Q6H PRN 10/30/24 [History] Amiodarone [Cordarone] 200 mg PO BID 10/30/24 [History] Aspirin 81 mg PO DAILY 10/30/24 [History] Atorvastatin [Lipitor] 80 mg PO DAILY 10/30/24 [History] Clopidogrel [Plavix] 75 mg PO DAILY 10/30/24 [History] Docusate [Colace] 100 mg PO BID PRN 10/30/24 [History] Fluticasone Nasal Edwards [Flonase Nasal Edwards] 1 spray EA NOSTRIL DAILY 10/30/24 [History] Levothyroxine Sodium [Synthroid] 25 mcg PO AC-BRKFST 10/30/24 [History] Nystatin 100,000 Unit/ml Susp [Mycostatin Oral Susp] 500,000 ml PO QID 10/30/24 [History] Potassium Chloride ER [K-Dur 10] 10 meq PO DAILY 10/30/24 [History] Tamsulosin [Flomax] 0.4 mg PO BID 10/30/24 [History] carvediloL [Coreg] 6.25 mg PO BID-W/MEALS 10/30/24 [History] polyethylene glycoL 3350 [Miralax] 17 gm PO DAILY PRN 10/30/24 [History] ALPRAZolam [Xanax] 0.25 mg PO Q8H PRN #4 tab 11/11/24 [Rx] Bumetanide [BUMEX] 1 mg PO BID@0900,1600 tab 11/11/24 [Rx] Darbepoetin Reilly [Aranesp] 40 mcg SQ Q7D each 11/11/24 [Rx] Ertapenem [INVanz] 0.5 gm IVPB DAILY 10 Days #10 each 11/11/24 [Rx] Folic Acid 1 mg PO DAILY #0 tab 11/11/24 [Rx] HYDROcodone/APAP 5-325MG [Enterprise 5-325] 1 each PO Q6H PRN #4 tab 11/11/24 [Rx] Heparin Sodium,Porcine (1 ml) [Heparin Sodium] 5,000 unit SQ Q12HR each 11/11/24 [Rx] Ipratropium-Albuterol Nebulize [Duoneb 0.5 mg-3 mg/3 ml Soln] 3 ml INHALATION RT-Q4H PRN each 11/11/24 [Rx] Multivitamins, Thera [Multivitamin (formulary)] 1 each PO DAILY tab 11/11/24 [Rx] QUEtiapine [SEROquel] 12.5 mg PO HS tab 11/11/24 [Rx] Thiamine [Vitamin B-1] 100 mg PO DAILY tab 11/11/24 [Rx] guaiFENesin [Mucinex] 600 mg PO Q12HR tab 11/11/24 [Rx] Follow up Appointment(s)/Referral(s): Prema Tinsley MD [Primary Care Provider] - 1-2 days Maximo Stallings DO [STAFF PHYSICIAN] - 1 Week Robert Mariano MD [STAFF PHYSICIAN] - 1 Week Activity/Diet/Wound Care/Special Instructions: Patient is going to [facility] [facility] as tolerated Patient will continue on IV antibiotics in the form of Invanz daily for the next 10 days to complete the course Follow-up with cardiology outpatient Patient to continue with 1 mg of Bumex twice daily and close outpatient follow- up with nephrology in 1 week Patient to continue a renal diet with low potassium, low phosphorus, low sodium with fluid restrictions of 2000 mL daily and Ensure compact supplements 3 times daily between meals Recommend repeat CBC, CMP, magnesium in 2 to 3 days Discharge Disposition: TRANSFER TO SNF/ECF
--- NOTE | 2024-11-11 17:06 | P.PN ---
Subjective Progress Note Date: 11/11/24 Principal diagnosis: Reason for follow-up is ESBL E. coli UTI and bacteremia Patient is a 79-year-old male with a past medical history significant for CHF coronary artery disease COPD presented to hospital for evaluation of not feeling well increasing shortness of breath did have a positive blood culture with ESBL E. coli prompting this consultation. On today's evaluation that is 11/11/2024, patient has been afebrile, patient is breathing comfortably and is currently on 2 L nasal cannula oxygen the patient is sleepy in no distress no issues reported by the sitter at the bedside patient did not provide any history. Patient white count is 9.1, creatinine is 2.81 blood culture repeat has been negative Objective - Vital Signs Vital signs: Vital Signs Temp 98.0 F 11/11/24 07:30 Pulse 75 11/11/24 07:30 Resp 16 11/11/24 07:30 BP 124/57 11/11/24 07:30 Pulse Ox 94 L 11/11/24 07:30 FiO2 Intake & Output 11/10/24 11/11/24 11/11/24 18:59 06:59 18:59 Intake Total 500 Balance 500 Intake: Oral 500 Other: Voiding Method Bedside Commode Bedside Commode # Voids 3 1 1 # Bowel Movements 3 - Exam GENERAL DESCRIPTION: An elderly male up in bed in no distress RESPIRATORY SYSTEM: Unlabored breathing , coarse breath sounds bilaterally HEART: S1 S2 regular rate and rhythm , ABDOMEN: Soft , no tenderness EXTREMITIES: No edema feet - Labs CBC & Chem 7: 11/11/24 08:45 11/11/24 08:45 Labs: Abnormal Lab Results - Last 24 Hours (Table) 11/11/24 11/11/24 Range/Units 08:45 08:45 RBC 3.12 L (4.30-5.90) m/uL Hgb 7.9 L (13.0-17.5) gm/dL Hct 25.8 L (39.0-53.0) % MCHC 30.5 L (31.0-37.0) g/dL RDW 24.2 H (11.5-15.5) % Lymphocytes # 0.7 L (1.0-4.8) k/uL Sodium 135 L (137-145) mmol/L Chloride 94 L (98-107) mmol/L BUN 115 H* (9-20) mg/dL Creatinine 2.81 H (0.66-1.25) mg/dL Glucose 150 H (74-99) mg/dL Calcium 8.3 L (8.4-10.2) mg/dL Microbiology - Last 24 Hours (Table) 11/08/24 10:58 Blood Culture - Preliminary Blood Assessment and Plan (1) Sepsis Current Visit: Yes Status: Acute Code(s): A41.9 - SEPSIS, UNSPECIFIED ORGANISM SNOMED Code(s): 84359278 (2) Bacteremia Current Visit: Yes Status: Acute Code(s): R78.81 - BACTEREMIA SNOMED Code(s): 9678614 (3) ESBL (extended spectrum beta-lactamase) producing bacteria infection Current Visit: Yes Status: Acute Code(s): A49.9 - BACTERIAL INFECTION, UNSPECIFIED; Z16.12 - EXTENDED SPECTRUM BETA LACTAMASE (ESBL) RESISTANCE SNOMED Code(s): 264619115 (4) UTI (urinary tract infection) Current Visit: Yes Status: Acute Code(s): N39.0 - URINARY TRACT INFECTION, SITE NOT SPECIFIED SNOMED Code(s): 39826373 Plan: 1patient presented hospital with sepsis in this patient who did have fever tachycardia elevated white count meeting criteria for SIRS source is urinary with significantly positive UA likely from enteric gram-negative pathogen. 2patient with ESBL bacteremia source is likely urinary. 3patient abdominal bladder ultrasound was negative for any obstructive uropathy 4patient CT abdominal pelvis did not show any hydronephrosis or colitis 5patient has cleared his bacteremic and is currently being treated with Invanz, 6plan is to finish a total of 2 weeks course of Invanz 500 mg daily from his negative blood cultures were discussed with CATTLE SORTER for admitting team Dictation was produced using [employer] dictation software. please excuse any grammatical, word or spelling errors. Time with Patient: Less than 30
[2024-11-12 08:46] LABS: BUN/Creat Ratio 35.26 Ratio (12.00-20.00); Blood Urea Nitrogen 95.2 mg/dL (9.0-27.0); Calcium 8.2 mg/dL (8.7-10.3); Carbon Dioxide 27.7 mmol/L (21.6-31.8); Chloride 102 mmol/L (96-109); Glucose 100 mg/dL (70-110); Magnesium 1.9 mg/dL (1.5-2.4); Potassium 3.7 mmol/L (3.5-5.5); Sodium 140 mmol/L (135-145)
--- NOTE | 2024-11-12 10:54 | P.PN ---
Subjective Patient is seen in follow-up for chronic kidney disease. Renal function stable. Nonoliguric. Denies chest pain or shortness of breath. Vital signs are stable. General: No acute distress. HEENT: Head exam is unremarkable. On nasal cannula. LUNGS: No audible rhonchi or wheezes. HEART: Rate and Rhythm are regular. ABDOMEN: Nontender. EXTREMITITES: 1+ edema. Lower extremities wrapped. Objective - Vital Signs Vital signs: Vital Signs Temp 99.3 F 11/12/24 07:53 Pulse 75 11/12/24 07:53 Resp 17 11/12/24 07:53 BP 118/63 11/12/24 07:53 Pulse Ox 94 L 11/12/24 07:53 FiO2 Intake & Output 11/11/24 11/12/24 11/12/24 18:59 06:59 18:59 Intake Total 500 Output Total 900 700 Balance -400 -700 Intake: Oral 500 Output: Urine 900 700 Straight 700 Other: Voiding Method Bedside Commode # Voids 2 # Bowel Movements 1 2 1 - Labs CBC & Chem 7: 11/11/24 08:45 11/12/24 03:33 Labs: Abnormal Lab Results - Last 24 Hours (Table) 11/12/24 Range/Units 03:33 BUN 95.2 H (9.0-27.0) mg/dL Creatinine 2.7 H (0.6-1.5) mg/dL Est GFR (CKD-EPI) 23 L (>=60) BUN/Creatinine Ratio 35.26 H (12.00-20.00) Ratio Calcium 8.2 L (8.7-10.3) mg/dL Microbiology - Last 24 Hours (Table) 11/06/24 18:35 Blood Culture - Final Blood 11/08/24 10:58 Blood Culture - Preliminary Blood Assessment and Plan Plan: Assessment: 1. Chronic kidney disease stage IV baseline creatinine recently in the range of 2.5-3 secondary to cardiorenal syndrome. GFR near baseline. No hydronephrosis noted on kidney ultrasound done this admission. 2. Acute RSV infection. 3. Acute on chronic systolic CHF ejection fraction of 20 to 25% with moderate mitral and tricuspid regurgitation. 4. Acute hypoxic respiratory failure. 5. Volume overload. Improved with diuresis. 6. Diabetes mellitus. 7. History of urinary retention. Currently does not have a Sevilla catheter. 8. Anemia of chronic kidney disease. On Aranesp. Stool for occult blood positive. 9. Hypervolemic hyponatremia. Improved. 10. E. coli bacteremia on antibiotics. 11. Hypokalemia from diuresis. Replaced. Plan: Maintain oral Bumex. Replace potassium. Encouraged oral intake. Maintain fluid restriction. Avoid nephrotoxins. Continue to monitor renal function and urine output. Prognosis guarded. Poor candidate for long-term renal replacement therapy.
[2024-11-12] MEDS: POTASSIUM CHLORIDE ER 20 MEQ TAB.ER PO STA (11:25)
--- NOTE | 2024-11-12 15:11 | P.PN ---
Subjective Progress Note Date: 11/12/24 Principal diagnosis: Reason for follow-up is ESBL E. coli UTI and bacteremia Patient is a 79-year-old male with a past medical history significant for CHF coronary artery disease COPD presented to hospital for evaluation of not feeling well increasing shortness of breath did have a positive blood culture with ESBL E. coli prompting this consultation. On today's evaluation that is 11/12/2024, Patient is afebrile this morning patient seen to be slightly awake up in the chair currently on 2 L current oxygen has been complaining of not feeling well but no other symptoms reported. Patient white count normal as of yesterday creatinine is 2.7, blood culture from 11/06/2024 has been negative Objective - Vital Signs Vital signs: Vital Signs Temp 97.7 F 11/12/24 14:00 Pulse 75 11/12/24 14:00 Resp 17 11/12/24 14:00 BP 107/55 11/12/24 14:00 Pulse Ox 95 11/12/24 14:00 FiO2 Intake & Output 11/11/24 11/12/24 11/12/24 18:59 06:59 18:59 Intake Total 500 Output Total 900 700 200 Balance -400 -700 -200 Intake: Oral 500 Output: Urine 900 700 200 Straight 700 100 Other: Voiding Method Bedside Commode # Voids 2 # Bowel Movements 1 2 1 - Exam GENERAL DESCRIPTION: An elderly male up in bed in no distress RESPIRATORY SYSTEM: Unlabored breathing , coarse breath sounds bilaterally HEART: S1 S2 regular rate and rhythm , ABDOMEN: Soft , no tenderness EXTREMITIES: No edema feet - Labs CBC & Chem 7: 11/11/24 08:45 11/12/24 03:33 Labs: Abnormal Lab Results - Last 24 Hours (Table) 11/12/24 Range/Units 03:33 BUN 95.2 H (9.0-27.0) mg/dL Creatinine 2.7 H (0.6-1.5) mg/dL Est GFR (CKD-EPI) 23 L (>=60) BUN/Creatinine Ratio 35.26 H (12.00-20.00) Ratio Calcium 8.2 L (8.7-10.3) mg/dL Microbiology - Last 24 Hours (Table) 11/06/24 18:35 Blood Culture - Final Blood 11/08/24 10:58 Blood Culture - Preliminary Blood Assessment and Plan (1) Sepsis Current Visit: Yes Status: Acute Code(s): A41.9 - SEPSIS, UNSPECIFIED ORGANISM SNOMED Code(s): 02231687 (2) Bacteremia Current Visit: Yes Status: Acute Code(s): R78.81 - BACTEREMIA SNOMED Code(s): 7355715 (3) ESBL (extended spectrum beta-lactamase) producing bacteria infection Current Visit: Yes Status: Acute Code(s): A49.9 - BACTERIAL INFECTION, UNSPECIFIED; Z16.12 - EXTENDED SPECTRUM BETA LACTAMASE (ESBL) RESISTANCE SNOMED Code(s): 911832263 (4) UTI (urinary tract infection) Current Visit: Yes Status: Acute Code(s): N39.0 - URINARY TRACT INFECTION, SITE NOT SPECIFIED SNOMED Code(s): 99182656 Plan: 1patient presented hospital with sepsis in this patient who did have fever tachycardia elevated white count meeting criteria for SIRS source is urinary with significantly positive UA likely from enteric gram-negative pathogen. 2patient with ESBL bacteremia source is likely urinary. 3patient abdominal bladder ultrasound was negative for any obstructive uropathy 4patient CT abdominal pelvis did not show any hydronephrosis or colitis 5patient has cleared his bacteremic and is currently being treated with Invanz, 6plan is to finish a total of 2 weeks course of Invanz 500 mg daily from his negative blood cultures, last day of antibiotic should be November 20, 2024 Dictation was produced using [employer] dictation software. please excuse any grammatical, word or spelling errors. Time with Patient: Less than 30
--- NOTE | 2024-11-13 07:24 | P.PN ---
Subjective Progress Note Date: 11/12/24 This is a 79-year-old male who was recently admitted with CHF exacerbation and also noted to have ESBL E. coli bacteremia likely urinary tract infection maintained on antibiotics with infectious disease following. Patient is currently maintained on meropenem and per infectious disease recommendations, w ill transition to Invanz on discharge. Kidney functions worsening at 2.7 today with nephrology following maintained on Bumex. Patient also being treated with supportive care for acute RSV infection. Wean FiO2 as tolerated and encourage incentive spirometer. Patient is somewhat resistive to care and needs constant reencouragement. Patient reports to feeling agitated that he remains hospitalized. Patient would like to go home and initially family thought of bringing him home although with significant weakness and possible IV antibiotics, patient's family now agreeable to ECF. Case management following and authorization will be required and has submitted referrals. 11/06/2024 Patient is seen in follow-up today slightly more lethargic than yesterday currently sitting up in the chair. Apparently per nursing staff patient has been spitting his medications out. Patient reports he felt he was choking on them and spit them out. Patient is afebrile white count is normal hemoglobin is stable above 7.5 with no active bleeding noted. Kidney function slightly improved at 2.6 today creatinine with nephrology following. Infectious disease following and patient is maintained on antibiotics as blood cultures remain positive for ESBL. Awaiting clearance of bacteremia to determine appropriate antibiotics on discharge. Family will be unable to care for the patient with antibiotics and case management following making arrangements for discharge planning to ECF for continued IV antibiotic therapy. Patient is significantly weak and would recommend physical therapy daily is sitting in the chair more frequently. 11/07/2024 Patient is seen in follow-up today continues to be significantly weak although has been getting up with a walker and assistance. Patient continues to have brandin teremia and repeat cultures have been ordered per infectious disease to determine clearance. Patient will require a midline and IV antibiotics in the form of Invanz on discharge. CT abdomen ordered at this time and pending for this afternoon. Will await report. Patient is afebrile and denies chest pain or shortness of breath. Patient is extremely high risk for readmission given significant comorbidities. 11/08/2024 Patient is seen in follow-up today multiple consultations following. Patient is maintained on IV antibiotics with infectious disease following blood cultures have been positive. Most recent repeat blood cultures positive for 48 hours and if remaining negative may be able to get a midline as patient will require IV antibiotics on discharge. Plan is for discharge for continued strength and mobility as well as IV antibiotic therapy. Patient is afebrile with no reports of chest pain or palpitations. Patient is maintained on diuretics and kidney functions showing a creatinine of 2.9 and nephrology following. Hemoglobin is 7.0 and will give 1 unit today. Recommend Lasix post infusion. 11/11/2024 Patient is seen in follow-up today has been maintained on IV antibiotics with infectious disease following. Repeat blood cultures from 06 November are negative and patient has received a midline and will continue on 10 more days of Invanz for ID recommendations to complete the course. Patient with chronic kidney disease with cardiorenal syndrome being evaluated by nephrology recommend to continue with fluid restrictions and Bumex 1 mg twice daily. Patient with wors ening kidney functions although somewhat stable. Patient was having some urinary retention requiring indwelling Sevilla catheter and is voiding post although it is a concern for ongoing retention. Patient did have kidney ultrasound as well as repeat CT abdomen showing no hydronephrosis noted. Patie nt did have persistent bacteremia with ESBL E. coli with urinary tract being the source. Most recent blood cultures have been negative and patient has been cleared by consultations for discharge. Patient is quite weak and has had prolonged hospitalization and will require IV antibiotic maintenance which family cannot help within the home and is being discharged to [facility] for continued IV antibiotic therapy. Please refer to other consultation notes for further HPI. Currently no reports of chest pain, shortness of breath, or palpitations. Patient is afebrile. No reports of nausea or vomiting and patient is tolerating diet. Patient will be going to [facility] today. 11/12/2024 Patient is seen in follow-up this morning as apparently patient was scheduled to go to [facility] although sitter was left at bedside and needs to be 24 hours without a sitter before discharging to [facility]. Sitter is for safety as patient is extremely independent and feels he can get up and walk although is unsteady hence the reason going to [facility] for continued PT/OT therapy as well as IV antibiotic therapy. Patient retaining per nursing staff and initially refusing Sevilla catheter although was agreeable and urine is clear and yellow. Patient needs encouragement with avoiding fidgeting with the Sevilla catheter. Patient is afebrile denies chest pain or shortness of breath. Patient is maintained on oral Bumex with nephrology following. Kidney functions remain elevated and will continue to monitor. Review of systems: Constitutional: No reports of fatigue, fever, or chills Cardiovascular: No reports of chest pain or palpitations Respiratory: No reports of shortness of breath or cough GI: No reports of nausea, no reports of vomiting, reports not much of an appetite although is eating : No reports of dysuria or retention Neurovascular: reports of generalized weakness All medications have been reviewed PHYSICAL EXAMINATION: GENERAL: The patient is alert and oriented x2, baseline well developed, elderly appearing, ill-appearing HEENT: Pupils are round and equally reacting to light. EOMI. no scleral icterus. No conjunctival pallor. Normocephalic, atraumatic. No pharyngeal erythema. No thyromegaly. CARDIOVASCULAR: S1 and S2 muffled PULMONARY: diminished breath sounds bilaterally with no wheezing or rhonchi noted. ABDOMEN: soft. Nontender on exam. Thin. non-distended, normoactive bowel sounds. No palpable organomegaly. MUSCULOSKELETAL: No joint swelling or deformity. EXTREMITIES: No cyanosis, clubbing, or pedal edema. NEUROLOGICAL: Gross neurological examination did not reveal any focal deficits. Diffuse weakness SKIN: No rashes. Assessment: Congestive heart failure with acute exacerbation ESBL, E. coli bacteremia, source is likely urinary, persistent repeat blood cultures thus far negative Acute hypoxic respiratory failure secondary to acute on chronic CHF exacerbation, systolic dysfunction with an EF of 20 to 25% Acute on chronic kidney disease, stage IV secondary to cardiorenal syndrome Acute urinary tract infection, present on admission with ESBL Acute RSV infection Generalized weakness and gait dysfunction Diabetes mellitus, type II History of urinary retention requiring indwelling Sevilla catheter previously, patient is retaining again and will require indwelling Sevilla catheter 11/12/2024 Anemia of chronic kidney disease, hemoglobin is 7.0 today and will give 1 unit of PRBC GI prophylaxis DVT prophylaxis Full code Plan: Recommend to continue with current medications and management with multiple consultations following Nephrology following maintained on Bumex although kidney functions remain elevated, with no significant improvement. Will follow-up on repeat labs, creatinine is 2.9 today per nephrology continue current regimen Patient requiring indwelling Sevilla catheter due to retention and there is some p enile swelling noted although patient is needing reencouragement on avoiding touching and pulling on the Sevilla catheter Recent repeat blood cultures are negative for 48 hours and has received a midlin e and will be going with IV Invanz on discharge Recommend PT/OT therapy daily for continued strength and mobility. Patient has had prolonged hospitalization and will benefit from aggressive PT as well as continued IV antibiotics at ECF. Patient will require insurance authorization with case management following Will follow-up on repeat labs and continue to monitor closely Patient has a sitter for safety as he likes to get up frequently and is somewhat unsteady although per ECF needs to be without a sitter for over 24 hours. Patient was scheduled to be discharged and will remove sitter and monitor closely Possible discharge planning to [facility] in 24 hours Due to multiple complex medical issues, overall prognosis is guarded The impression and plan of care has been dictated by Amee Harding, nurse practitioner as directed. Dr. Marek MD I have performed a history and examination and MDM of this patient, discussed the same with the dictator, and agree with the dictator's assessment and plan as written ,documented as a scribe. Based on total visit time, I have performed more than 50% of the visit. Any additional findings or plans will be noted. Objective - Vital Signs Vital signs: Vital Signs Temp 99.3 F 11/12/24 07:53 Pulse 75 11/12/24 07:53 Resp 17 11/12/24 07:53 BP 118/63 11/12/24 07:53 Pulse Ox 94 L 11/12/24 07:53 FiO2 Intake & Output 11/11/24 11/12/24 11/12/24 18:59 06:59 18:59 Intake Total 500 Output Total 900 700 Balance -400 -700 Intake: Oral 500 Output: Urine 900 700 Straight 700 Other: Voiding Method Bedside Commode # Voids 2 # Bowel Movements 1 2 1 - Labs CBC & Chem 7: 11/11/24 08:45 11/12/24 03:33 Labs: Abnormal Lab Results - Last 24 Hours (Table) 11/12/24 Range/Units 03:33 BUN 95.2 H (9.0-27.0) mg/dL Creatinine 2.7 H (0.6-1.5) mg/dL Est GFR (CKD-EPI) 23 L (>=60) BUN/Creatinine Ratio 35.26 H (12.00-20.00) Ratio Calcium 8.2 L (8.7-10.3) mg/dL Microbiology - Last 24 Hours (Table) 11/06/24 18:35 Blood Culture - Final Blood 11/08/24 10:58 Blood Culture - Preliminary Blood
[2024-11-13 08:30] VITALS: PULSE 86; RESP 17
[2024-11-13 08:40] LABS: BUN/Creat Ratio 33.48 Ratio (12.00-20.00); Blood Urea Nitrogen 83.7 mg/dL (9.0-27.0); Calcium 8.4 mg/dL (8.7-10.3); Carbon Dioxide 27.3 mmol/L (21.6-31.8); Chloride 102 mmol/L (96-109); Glucose 134 mg/dL (70-110); Potassium 3.8 mmol/L (3.5-5.5); Sodium 140 mmol/L (135-145)
--- NOTE | 2024-11-13 10:23 | P.PN ---
Subjective Patient is seen in follow-up for chronic kidney disease. Renal function slightly better. Nonoliguric. Denies chest pain or shortness of breath. States he wants to go home today and refusing to take meds. Vital signs are stable. General: No acute distress. HEENT: Head exam is unremarkable. On nasal cannula. LUNGS: No audible rhonchi or wheezes. HEART: Rate and Rhythm are regular. ABDOMEN: Nontender. EXTREMITITES: 1+ edema. Lower extremities wrapped. Objective - Vital Signs Vital signs: Vital Signs Temp 97.6 F 11/13/24 07:05 Pulse 86 11/13/24 07:05 Resp 17 11/13/24 07:05 BP 124/53 11/13/24 07:05 Pulse Ox 96 11/13/24 07:05 FiO2 Intake & Output 11/12/24 11/13/24 11/13/24 18:59 06:59 18:59 Intake Total 500 300 Output Total 900 Balance -400 300 Weight 85.5 kg Intake: Oral 500 300 Output: Urine 900 Straight 100 Other: # Bowel Movements 1 1 - Labs CBC & Chem 7: 11/11/24 08:45 11/13/24 05:33 Labs: Abnormal Lab Results - Last 24 Hours (Table) 11/13/24 Range/Units 05:33 BUN 83.7 H (9.0-27.0) mg/dL Creatinine 2.5 H (0.6-1.5) mg/dL Est GFR (CKD-EPI) 26 L (>=60) BUN/Creatinine Ratio 33.48 H (12.00-20.00) Ratio Glucose 134 H (70-110) mg/dL Calcium 8.4 L (8.7-10.3) mg/dL Assessment and Plan Plan: Assessment: 1. Chronic kidney disease stage IV baseline creatinine recently in the range of 2.5-3 secondary to cardiorenal syndrome. GFR near baseline. No hydronephrosis noted on kidney ultrasound done this admission. 2. Acute RSV infection. 3. Acute on chronic systolic CHF ejection fraction of 20 to 25% with moderate mitral and tricuspid regurgitation. 4. Acute hypoxic respiratory failure. 5. Volume overload. Improved with diuresis. 6. Diabetes mellitus. 7. History of urinary retention. Currently does not have a Sevilla catheter. 8. Anemia of chronic kidney disease. On Aranesp. Stool for occult blood positive. 9. Hypervolemic hyponatremia. Improved. 10. E. coli bacteremia on antibiotics. 11. Hypokalemia from diuresis. Replaced. Plan: Maintain oral Bumex. Add maintenance potassium supplementation. Encouraged oral intake. Maintain fluid restriction. Avoid nephrotoxins. Continue to monitor renal function and urine output. Prognosis guarded. Poor candidate for long-term renal replacement therapy. Repeat BMP and magnesium level 2 to 3 days postdischarge. Follow-up outpatient 1 week postdischarge.
[2024-11-13] MEDS: POTASSIUM CHLORIDE ER 20 MEQ TAB.ER PO SCH (11:20)
[2024-11-13 14:29] VITALS: BP 119/68; TEMP 98
--- NOTE | 2024-11-13 14:40 | P.DS ---
Providers Date of admission: 10/30/24 18:25 Expected date of discharge: 11/13/24 Attending physician: Orlando Peterson Consults: 10/31/24 09:36 Consult Physician Routine Consulting Provider: Tiffanie Peoples Consult Reason/Comments: Acute on chronic kidney disease Do you want consulting provider notified?: Yes 10/31/24 13:46 Consult Physician Routine Consulting Provider: Aquiles Walker Consult Reason/Comments: ESBL bacteremia Do you want consulting provider notified?: Yes Primary care physician: Prema Tinsley [facility] Course: Final diagnosis Congestive heart failure with acute exacerbation ESBL, E. coli bacteremia, source is likely urinary, persistent repeat blood cultures thus far negative Acute hypoxic respiratory failure secondary to acute on chronic CHF exacerbatio n, systolic dysfunction with an EF of 20 to 25% Acute on chronic kidney disease, stage IV secondary to cardiorenal syndrome Acute urinary tract infection, present on admission with ESBL Acute RSV infection Generalized weakness and gait dysfunction Diabetes mellitus, type II History of urinary retention requiring indwelling [place] catheter previously, patient is retaining requiring indwelling Sevilla catheter and will need outpatient follow-up with urology Anemia of chronic kidney disease GI prophylaxis DVT prophylaxis Full code Discharge disposition Patient is being discharged in a stable condition with guarded prognosis to [facility]. Patient will follow-up with Dr. Jorge Peterson in the outpatient setting upon discharge. Patient is to continue with IV Invanz daily for the next 10 days to complete the course. Patient to follow-up with cardiology as well as nephrology outpatient as scheduled. Recommend repeat CBC, CMP, magnesium in 2 to 3 days. Total time taken is greater than 35 minutes. Hospital course This is a 79-year-old male who was recently admitted with CHF exacerbation and also noted to have ESBL E. coli bacteremia likely urinary tract infection maintained on antibiotics with infectious disease following. Patient is currently maintained on meropenem and per infectious disease recommendations, will transition to Invanz on discharge. Kidney functions worsening at 2.7 today with nephrology following maintained on Bumex. Patient also being treated with supportive care for acute RSV infection. Wean FiO2 as tolerated and encourage incentive spirometer. Patient is somewhat resistive to care and needs constant reencouragement. Patient reports to feeling agitated that he remains hospitalized. Patient would like to go home and initially family thought of bringing him home although with significant weakness and possible IV antibiotics, patient's family now agreeable to ECF. Case management following and authorization will be required and has submitted referrals. 11/06/2024 Patient is seen in follow-up today slightly more lethargic than yesterday currently sitting up in the chair. Apparently per nursing staff patient has been spitting his medications out. Patient reports he felt he was choking on them and spit them out. Patient is afebrile white count is normal hemoglobin is stable above 7.5 with no active bleeding noted. Kidney function slightly improved at 2.6 today creatinine with nephrology following. Infectious disease following and patient is maintained on antibiotics as blood cultures remain positive for ESBL. Awaiting clearance of bacteremia to determine appropriate antibiotics on discharge. Family will be unable to care for the patient with antibiotics and case management following making arrangements for discharge planning to ECF for continued IV antibiotic therapy. Patient is significantly weak and would recommend physical therapy daily is sitting in the chair more frequently. 11/07/2024 Patient is seen in follow-up today continues to be significantly weak although has been getting up with a walker and assistance. Patient continues to have bacteremia and repeat cultures have been ordered per infectious disease to determine clearance. Patient will require a midline and IV antibiotics in the form of Invanz on discharge. CT abdomen ordered at this time and pending for this afternoon. Will await report. Patient is afebrile and denies chest pain or shortness of breath. Patient is extremely high risk for readmission given significant comorbidities. 11/08/2024 Patient is seen in follow-up today multiple consultations following. Patient is maintained on IV antibiotics with infectious disease following blood cultures have been positive. Most recent repeat blood cultures positive for 48 hours and if remaining negative may be able to get a midline as patient will require IV antibiotics on discharge. Plan is for discharge for continued strength and mobility as well as IV antibiotic therapy. Patient is afebrile with no reports of chest pain or palpitations. Patient is maintained on diuretics and kidney functions showing a creatinine of 2.9 and nephrology following. Hemoglobin is 7.0 and will give 1 unit today. Recommend Lasix post infusion. 11/11/2024 Patient is seen in follow-up today has been maintained on IV antibiotics with infectious disease following. Repeat blood cultures from 06 November are negative and patient has received a midline and will continue on 10 more days of Invanz for ID recommendations to complete the course. Patient with chronic kidney disease with cardiorenal syndrome being evaluated by nephrology recommend to continue with fluid restrictions and Bumex 1 mg twice daily. Patient with worsening kidney functions although somewhat stable. Patient was having some urinary retention requiring indwelling Sevilla catheter and is voiding post although it is a concern for ongoing retention. Patient did have kidney ultrasound as well as repeat CT abdomen showing no hydronephrosis noted. Patient did have persistent bacteremia with ESBL E. coli with urinary tract being the source. Most recent blood cultures have been negative and patient has been cleared by consultations for discharge. Patient is quite weak and has had prolonged hospitalization and will require IV antibiotic maintenance which family cannot help within the home and is being discharged to [facility] for continued IV antibiotic therapy. Please refer to other consultation notes for further HPI. Currently no reports of chest pain, shortness of breath, or palpitations. Patient is afebrile. No reports of nausea or vomiting and patient is tolerating diet. Patient will be going to [facility] today. 11/13/2024 Patient is seen in follow-up today continues on the same current regimen with nephrology following recommend to continue with indwelling Sevilla catheter as patient was retaining and is maintained on Flomax. Patient to follow-up with urology outpatient and trial void in the outpatient setting. Patient has been accepted at [facility] and has received insurance authorization and will be discharging today. Patient is afebrile with no reports of chest pain or shortness of breath. Patient's potassium today is 3.8 and recommend following up closely with repeat labs in the next few days of BMP and magnesium as well as CBC. Creatinine today is 2.5 which is improved from previous. Patient to follow-up with nephrology outpatient as well. Patient has been cleared by consultations and will be discharged today. PHYSICAL EXAMINATION: GENERAL: The patient is alert and oriented x2, baseline well developed, elderly appearing, ill-appearing HEENT: Pupils are round and equally reacting to light. EOMI. no scleral icterus. No conjunctival pallor. Normocephalic, atraumatic. No pharyngeal erythema. No thyromegaly. CARDIOVASCULAR: S1 and S2 muffled PULMONARY: diminished breath sounds bilaterally with no wheezing or rhonchi noted. ABDOMEN: soft. Nontender on exam. Thin. non-distended, normoactive bowel sounds. No palpable organomegaly. MUSCULOSKELETAL: No joint swelling or deformity. EXTREMITIES: No cyanosis, clubbing, or pedal edema. NEUROLOGICAL: Gross neurological examination did not reveal any focal deficits. Diffuse weakness SKIN: No rashes. Please refer to medication reconciliation sheet for a list of medications. The impression and plan of care has been dictated by Amee Harding, Nurse Practitioner as directed. Dr. Marek MD I have performed a history and examination and MDM of this patient, discussed the same with the dictator, and agree with the dictator's assessment and plan as written ,documented as a scribe. Based on total visit time, I have performed more than 50% of the visit Patient Condition at Discharge: Fair Plan - Discharge Summary Discharge Rx Participant: No New Discharge Prescriptions: New Bumetanide [BUMEX] 1 mg PO BID@0900,1600 tab Folic Acid 1 mg PO DAILY #0 tab HYDROcodone/APAP 5-325MG [[place] 5-325] 1 each PO Q6H PRN #4 tab PRN Reason: Moderate Pain (Scale 4 To 6) QUEtiapine [SEROquel] 12.5 mg PO HS tab Thiamine [Vitamin B-1] 100 mg PO DAILY tab Potassium Chloride ER [K-Dur 20] 20 meq PO DAILY tab Darbepoetin Reilly [Aranesp] 40 mcg SQ Q7D each Ipratropium-Albuterol Nebulize [Duoneb 0.5 mg-3 mg/3 ml Soln] 3 ml INHALATION RT-Q4H PRN each PRN Reason: Shortness Of Breath Or Wheezing Heparin Sodium,Porcine (1 ml) [Heparin Sodium] 5,000 unit SQ Q12HR each Ertapenem [INVanz] 0.5 gm IVPB DAILY 10 Days #10 each guaiFENesin [Mucinex] 600 mg PO Q12HR tab Multivitamins, Thera [Multivitamin (formulary)] 1 each PO DAILY tab ALPRAZolam [Xanax] 0.25 mg PO Q8H PRN #4 tab PRN Reason: Agitation Continue Atorvastatin [Lipitor] 80 mg PO DAILY Aspirin 81 mg PO DAILY Amiodarone [Cordarone] 200 mg PO BID Tamsulosin [Flomax] 0.4 mg PO BID Albuterol Inhaler [Ventolin Hfa Inhaler] 2 puff INHALATION RT-Q6H PRN PRN Reason: Wheezing Acetaminophen Tab [Tylenol] 650 mg PO Q6H PRN PRN Reason: Mild Pain (Scale 1 To 3) Levothyroxine Sodium [Synthroid] 25 mcg PO AC-BRKFST Fluticasone Nasal [place] [Flonase Nasal [place]] 1 spray EA NOSTRIL DAILY carvediloL [Coreg] 6.25 mg PO BID-W/MEALS Clopidogrel [Plavix] 75 mg PO DAILY polyethylene glycoL 3350 [Miralax] 17 gm PO DAILY PRN PRN Reason: Constipation Nystatin 100,000 Unit/ml Susp [Mycostatin Oral Susp] 500,000 ml PO QID Docusate [Colace] 100 mg PO BID PRN PRN Reason: Constipation Discontinued Famotidine [Pepcid] 20 mg PO BID Bumetanide [BUMEX] 2 mg PO BID Potassium Chloride ER [K-Dur 10] 10 meq PO DAILY metOLazone [Zaroxolyn] 2.5 mg PO DAILY predniSONE See Taper PO DAILY guaiFENesin [Mucinex] 600 mg PO Q12H Empagliflozin [Jardiance] 10 mg PO DAILY Discharge Medication List Acetaminophen Tab [Tylenol] 650 mg PO Q6H PRN 10/30/24 [History] Albuterol Inhaler [Ventolin Hfa Inhaler] 2 puff INHALATION RT-Q6H PRN 10/30/24 [History] Amiodarone [Cordarone] 200 mg PO BID 10/30/24 [History] Aspirin 81 mg PO DAILY 10/30/24 [History] Atorvastatin [Lipitor] 80 mg PO DAILY 10/30/24 [History] Clopidogrel [Plavix] 75 mg PO DAILY 10/30/24 [History] Docusate [Colace] 100 mg PO BID PRN 10/30/24 [History] Fluticasone Nasal [place] [Flonase Nasal [place]] 1 spray EA NOSTRIL DAILY 10/30/24 [History] Levothyroxine Sodium [Synthroid] 25 mcg PO AC-BRKFST 10/30/24 [History] Nystatin 100,000 Unit/ml Susp [Mycostatin Oral Susp] 500,000 ml PO QID 10/30/24 [History] Tamsulosin [Flomax] 0.4 mg PO BID 10/30/24 [History] carvediloL [Coreg] 6.25 mg PO BID-W/MEALS 10/30/24 [History] polyethylene glycoL 3350 [Miralax] 17 gm PO DAILY PRN 10/30/24 [History] ALPRAZolam [Xanax] 0.25 mg PO Q8H PRN #4 tab 11/11/24 [Rx] Bumetanide [BUMEX] 1 mg PO BID@0900,1600 tab 11/11/24 [Rx] Darbepoetin Reilly [Aranesp] 40 mcg SQ Q7D each 11/11/24 [Rx] Ertapenem [INVanz] 0.5 gm IVPB DAILY 10 Days #10 each 11/11/24 [Rx] Folic Acid 1 mg PO DAILY #0 tab 11/11/24 [Rx] HYDROcodone/APAP 5-325MG [[place] 5-325] 1 each PO Q6H PRN #4 tab 11/11/24 [Rx] Heparin Sodium,Porcine (1 ml) [Heparin Sodium] 5,000 unit SQ Q12HR each 11/11/24 [Rx] Ipratropium-Albuterol Nebulize [Duoneb 0.5 mg-3 mg/3 ml Soln] 3 ml INHALATION RT-Q4H PRN each 11/11/24 [Rx] Multivitamins, Thera [Multivitamin (formulary)] 1 each PO DAILY tab 11/11/24 [Rx] QUEtiapine [SEROquel] 12.5 mg PO HS tab 11/11/24 [Rx] Thiamine [Vitamin B-1] 100 mg PO DAILY tab 11/11/24 [Rx] guaiFENesin [Mucinex] 600 mg PO Q12HR tab 11/11/24 [Rx] Potassium Chloride ER [K-Dur 20] 20 meq PO DAILY tab 11/13/24 [Rx] Follow up Appointment(s)/Referral(s): Iain Singh MD [STAFF PHYSICIAN] - 1 Week Prema Tinsley MD [Primary Care Provider] - 1-2 days Maximo Stallings DO [STAFF PHYSICIAN] - 1 Week Robert Mariano MD [STAFF PHYSICIAN] - 1 Week Activity/Diet/Wound Care/Special Instructions: Patient is going to [facility] as tolerated Patient will continue on IV antibiotics in the form of Invanz daily for the next 10 days to complete the course Follow-up with cardiology outpatient Patient to continue with 1 mg of Bumex twice daily and close outpatient follow- up with nephrology in 1 week Patient to continue a renal diet with low potassium, low phosphorus, low sodium with fluid restrictions of 2000 mL daily and Ensure compact supplements 3 times daily between meals Recommend repeat CBC, CMP, magnesium in 2 to 3 days Discharge Disposition: TRANSFER TO SNF/ECF
--- NOTE | 2024-11-14 13:08 | P.PN ---
Subjective Progress Note Date: 11/13/24 Principal diagnosis: Reason for follow-up is ESBL E. coli UTI and bacteremia Patient is a 79-year-old male with a past medical history significant for CHF coronary artery disease COPD presented to hospital for evaluation of not feeling well increasing shortness of breath did have a positive blood culture with ESBL E. coli prompting this consultation. On today's evaluation that is 11/13/2024,the patient denies any fever or any chills, patient is breathing comfortably on room air, the patient denies chest pain shortness of breath and no significant cough, patient denies abdominal pain, no nausea vomiting or diarrhea. Patient did have a creatinine 2.5 no CBC was done today Objective - Vital Signs Vital signs: Vital Signs Temp 97.6 F 11/13/24 07:05 Pulse 86 11/13/24 07:05 Resp 17 11/13/24 07:05 BP 124/53 11/13/24 07:05 Pulse Ox 96 11/13/24 07:05 FiO2 Intake & Output 11/12/24 11/13/24 11/13/24 18:59 06:59 18:59 Intake Total 500 300 Output Total 900 Balance -400 300 Weight 85.5 kg Intake: Oral 500 300 Output: Urine 900 Straight 100 Other: # Bowel Movements 1 1 - Exam GENERAL DESCRIPTION: An elderly male up in bed in no distress RESPIRATORY SYSTEM: Unlabored breathing , coarse breath sounds bilaterally HEART: S1 S2 regular rate and rhythm , ABDOMEN: Soft , no tenderness EXTREMITIES: No edema feet - Labs CBC & Chem 7: 11/11/24 08:45 11/13/24 05:33 Labs: Abnormal Lab Results - Last 24 Hours (Table) 11/13/24 Range/Units 05:33 BUN 83.7 H (9.0-27.0) mg/dL Creatinine 2.5 H (0.6-1.5) mg/dL Est GFR (CKD-EPI) 26 L (>=60) BUN/Creatinine Ratio 33.48 H (12.00-20.00) Ratio Glucose 134 H (70-110) mg/dL Calcium 8.4 L (8.7-10.3) mg/dL Assessment and Plan (1) Sepsis Status: Acute Code(s): A41.9 - SEPSIS, UNSPECIFIED ORGANISM SNOMED Code(s): 69055127 (2) Bacteremia Status: Acute Code(s): R78.81 - BACTEREMIA SNOMED Code(s): 8589703 (3) ESBL (extended spectrum beta-lactamase) producing bacteria infection Status: Acute Code(s): A49.9 - BACTERIAL INFECTION, UNSPECIFIED; Z16.12 - EXTENDED SPECTRUM BETA LACTAMASE (ESBL) RESISTANCE SNOMED Code(s): 467330675 (4) UTI (urinary tract infection) Status: Acute Code(s): N39.0 - URINARY TRACT INFECTION, SITE NOT SPECIFIED SNOMED Code(s): 60264910 Plan: 1patient presented hospital with sepsis in this patient who did have fever tachycardia elevated white count meeting criteria for SIRS source is urinary with significantly positive UA likely from enteric gram-negative pathogen. 2patient with ESBL bacteremia source is likely urinary. 3patient abdominal bladder ultrasound was negative for any obstructive uropathy 4patient CT abdominal pelvis did not show any hydronephrosis or colitis 5patient has cleared his bacteremic and is currently being treated with Invanz, 6patient to continue with Invanz for having updated daily November 20, 2024 to finish his course of therapy Dictation was produced using [employer] dictation software. please excuse any grammatical, word or spelling errors. Time with Patient: Less than 30
== END 2024-11-13 16:38 | DRG 871 ==
LOC: EC 15:54 → 4SSUR 18:25 → 3SCARD 21:34 → 4SSUR 11-09 22:51
PROVIDERS: ADMIT Hospitalist; ATTEND Hospitalist
PROC: 05HD33Z Insertion of Infusion Device into Right Cephalic Vein, Percutaneous Approach (ICD-10-PCS; principal; 2024-11-06 17:25)
PROC: 30233N1 Transfusion of Nonautologous Red Blood Cells into Peripheral Vein, Percutaneous Approach (ICD-10-PCS; 2024-11-08)
DX: A41.51 Sepsis due to Escherichia coli [E. coli] (principal); I50.23 Acute on chronic systolic (congestive) heart failure; J96.01 Acute respiratory failure with hypoxia; I27.20 Pulmonary hypertension, unspecified; D63.1 Anemia in chronic kidney disease; R62.7 Adult failure to thrive; I13.0 Hypertensive heart and chronic kidney disease with heart failure and stage 1 through stage 4 chronic kidney disease, or unspecified chronic kidney disease; N18.4 Chronic kidney disease, stage 4 (severe); E11.22 Type 2 diabetes mellitus with diabetic chronic kidney disease; J44.9 Chronic obstructive pulmonary disease, unspecified; I08.3 Combined rheumatic disorders of mitral, aortic and tricuspid valves; N17.9 Acute kidney failure, unspecified; Z16.12 Extended spectrum beta lactamase (ESBL) resistance; E87.1 Hypo-osmolality and hyponatremia; N39.0 Urinary tract infection, site not specified; R65.20 Severe sepsis without septic shock; I25.5 Ischemic cardiomyopathy; R79.89 Other specified abnormal findings of blood chemistry; R26.9 Unspecified abnormalities of gait and mobility; R45.1 Restlessness and agitation; R33.9 Retention of urine, unspecified; B97.4 Respiratory syncytial virus as the cause of diseases classified elsewhere; E87.6 Hypokalemia; I25.2 Old myocardial infarction; Z20.822 Contact with and (suspected) exposure to COVID-19; I25.10 Atherosclerotic heart disease of native coronary artery without angina pectoris; Z79.02 Long term (current) use of antithrombotics/antiplatelets; Z79.82 Long term (current) use of aspirin; Z79.84 Long term (current) use of oral hypoglycemic drugs; Z79.890 Hormone replacement therapy; Z79.899 Other long term (current) drug therapy; Z87.891 Personal history of nicotine dependence; Z91.148 Patient's other noncompliance with medication regimen for other reason; Z91.199 Patient's noncompliance with other medical treatment and regimen due to unspecified reason; Z95.5 Presence of coronary angioplasty implant and graft; Z95.810 Presence of automatic (implantable) cardiac defibrillator
CPT/HCPCS: 36410; 36415; 51798; 71045; 71046; 74176; 76770; 76937; 80048; 80053; 81001; 82272; 82570; 83735; 83880; 83930; 83935; 84300; 84484; 85025; 85610; 85652; 85730; 86140; 86850; 86900; 86901; 86920; 87040; 87077; 87186; 87636; 93005; 93306; 94640; 94760; 96365; 96366; 96367; 96372; 96375; 96376; 99285

== ENCOUNTER 2025-03-08 02:16 | Inpatient (IN) | payer MEDICARE, OTHER ==
--- NOTE | 2025-03-08 02:28 | ED ---
SOB HPI - General Chief Complaint: Shortness of Breath Stated Complaint: VU Time Seen by Provider: 03/08/25 02:20 Source: patient, EMS Mode of arrival: EMS - History of Present Illness Initial Comments: 79-year-old male with past medical history of COPD, CHF who presents emergency department reporting shortness of breath. Patient has been short of breath for the past couple of days. He called EMS who found him to be saturating in the 80s with significant work of breathing. He does not have oxygen at home. He was given 324 mg of aspirin, CPAP. Patient takes Bumex as a diuretic. Denies any fevers. Does admit to some chest pain. No calf pain or swelling. No other alleviating, precipitating modifying factors - Related Data Home Medications Medication Instructions Recorded Confirmed Acetaminophen Tab [Tylenol] 650 mg PO Q6H PRN 10/30/24 03/08/25 Albuterol Inhaler [Ventolin Hfa 2 puff INHALATION RT-Q6H PRN 10/30/24 03/08/25 Inhaler] Aspirin 81 mg PO DAILY 10/30/24 03/08/25 Atorvastatin [Lipitor] 80 mg PO DAILY 10/30/24 03/08/25 Docusate [Colace] 100 mg PO BID PRN 10/30/24 03/08/25 Fluticasone Nasal [place] [Flonase 1 spray EA NOSTRIL DAILY 10/30/24 03/08/25 Nasal [place]] Levothyroxine Sodium [Synthroid] 25 mcg PO AC-BRKFST 10/30/24 03/08/25 Tamsulosin [Flomax] 0.4 mg PO BID 10/30/24 03/08/25 polyethylene glycoL 3350 [Miralax] 17 gm PO DAILY PRN 10/30/24 03/08/25 Famotidine 20 mg PO BID 03/08/25 03/08/25 Multivitamins, Thera [Multivitamin 1 tab PO DAILY 03/08/25 03/08/25 (formulary)] Previous Rx's Medication Instructions Recorded ALPRAZolam [Xanax] 0.25 mg PO Q8H PRN #4 tab 11/11/24 Darbepoetin Reilly [Aranesp] 40 mcg SQ Q7D each 11/11/24 Folic Acid 1 mg PO DAILY #0 tab 11/11/24 Potassium Chloride ER [K-Dur 20] 20 meq PO DAILY tab 11/13/24 Amiodarone [Cordarone] 200 mg PO DAILY #0 03/17/25 Dapagliflozin Propanediol [Farxiga] 10 mg PO DAILY #30 tab 03/17/25 Furosemide [Lasix] 40 mg PO DAILY #30 tab 03/17/25 Ipratropium-Albuterol Nebulize 3 ml INHALATION RT-Q4H PRN #100 03/17/25 [Duoneb 0.5 mg-3 mg/3 ml Soln] each Isosorbide Dinitrate [Isordil] 20 mg PO TID #90 tab 03/17/25 Pantoprazole [Protonix] 40 mg PO AC-BRKFST #15 tab 03/17/25 carvediloL [Coreg] 6.25 mg PO BID-W/MEALS #60 tab 03/17/25 cefuroxime axetiL [Ceftin] 500 mg PO BID 3 Days #6 tab 03/17/25 metFORMIN HCL [Glucophage] 500 mg PO BID-W/MEALS #60 tab 03/17/25 metroNIDAZOLE [Flagyl] 500 mg PO TID 3 Days #9 tab 03/17/25 Allergies Allergy/AdvReac Type Severity Reaction Status Date / Time No Known Allergies Allergy Verified 03/08/25 13:48 Review of Systems ROS Statement: Those systems with pertinent positive or pertinent negative responses have been documented in the HPI. ROS Other: All systems not noted in ROS Statement are negative. Past Medical History Past Medical History: Coronary Artery Disease (CAD), Heart Failure, COPD, Diabetes Mellitus, Myocardial Infarction ([place]) Additional Past Medical History / Comment(s): [place] 2001 Last Myocardial Infarction Date:: 2001 History of Any Multi-Drug Resistant Organisms: ESBL Date of last positivie culture/infection: 10/30/24 MDRO Source:: blood Past Surgical History: Pacemaker Past Anesthesia/Blood Transfusion Reactions: No Reported Reaction, Unable to Ob tain Type of Cardiac Device: Unknown Device Placement Date:: 2001 Past Psychological History: Unable to Obtain Smoking Status: Former smoker Past Alcohol Use History: None Reported Past Drug Use History: None Reported - Past Family History Father Family Medical History: Congestive Heart Failure (CHF) Mother Family Medical History: Congestive Heart Failure (CHF) General Exam General appearance: alert, in distress Head exam: Present: atraumatic, normocephalic, normal inspection Eye exam: Present: normal appearance, PERRL, EOMI. Absent: scleral icterus, conjunctival injection, periorbital swelling ENT exam: Present: normal exam, mucous membranes moist Neck exam: Present: normal inspection. Absent: tenderness, meningismus, lymphadenopathy Respiratory exam: Present: respiratory distress, accessory muscle use, decreased breath sounds. Absent: wheezes, rales, rhonchi, stridor Cardiovascular Exam: Present: regular rate, normal rhythm, normal heart sounds. Absent: systolic murmur, diastolic murmur, rubs, gallop, clicks GI/Abdominal exam: Present: soft, normal bowel sounds. Absent: distended, tenderness, guarding, rebound, rigid Extremities exam: Present: normal inspection, full ROM, normal capillary refill. Absent: tenderness, pedal edema, joint swelling, calf tenderness Back exam: Present: normal inspection Neurological exam: Present: alert, oriented X3, CN II-XII intact Psychiatric exam: Present: normal affect, normal mood Skin exam: Present: warm, dry, intact, normal color. Absent: rash Course Vital Signs 03/08/25 03/08/25 03/08/25 02:19 02:29 02:44 Temperature 97.6 F Pulse Rate 62 65 Respiratory 22 24 Rate Blood Pressure 184/95 99/69 O2 Sat by Pulse 100 100 Oximetry Fraction of 35 Inspired Oxygen (FIO2) 03/08/25 03/08/25 03/08/25 04:50 05:00 07:48 Temperature Pulse Rate 64 60 Respiratory 16 Rate Blood Pressure 128/71 O2 Sat by Pulse 100 99 Oximetry Fraction of Inspired Oxygen (FIO2) 03/08/25 03/08/25 03/08/25 07:49 07:53 07:57 Temperature 97.8 F Pulse Rate 60 60 Respiratory 18 Rate Blood Pressure 115/53 O2 Sat by Pulse 100 98 Oximetry Fraction of Inspired Oxygen (FIO2) Medical Decision Making - Medical Decision Making Was pt. sent in by a medical professional or institution (DRE Barajas, FENCE MACHINE OPERATOR, urgent care, hospital, or detention...) When possible be specific @ -No Did you speak to anyone other than the patient for history (EMS, parent, family, police, friend...)? What history was obtained from this source @ -Spoke with EMS for history Did you review nursing and triage notes (agree or disagree)? Why? @ -I reviewed and agree with nursing and triage notes Were old charts reviewed (outside hosp., previous admission, EMS record, old EKG, old radiological studies, urgent care reports/EKG's, detention records)? Report findings @ -No old charts were reviewed Differential Diagnosis (chest pain, altered mental status, abdominal pain women, abdominal pain men, vaginal bleeding, weakness, fever, dyspnea, syncope, headache, dizziness, GI bleed, back pain, seizure, CVA, palpatations, mental health, musculoskeletal)? @ -Differential Dyspnea: Coronary syndrome, arrhythmia, tamponade, asthma, COPD, pulmonary embolism, pneumonia, pneumothorax, pulmonary effusion, anaphylaxis, diabetic ketoacidosis, flailed chest, pulmonary contusion, diaphragmatic rupture, anemia, neuromuscular, this is not meant to be an all-inclusive list. EKG interpreted by me (3pts min.). @ -Yes which demonstrates electronic AV pacemaker with a rate of 61. OR interval 144. QRS 216. QTc of 518. No acute ST segment elevations or depressions X-rays interpreted by me (1pt min.). @ -Yes which demonstrate congestive heart failure CT interpreted by me (1pt min.). @ -None done U/S interpreted by me (1pt. min.). @ -None done What testing was considered but not performed or refused? (CT, X-rays, U/S, labs)? Why? @ -None What meds were considered but not given or refused? Why? @ -None Did you discuss the management of the patient with other professionals (professionals i.e. , PA, FENCE MACHINE OPERATOR, lab, RT, psych nurse, social staff worker, supervisor files, teacher, space operations officer, case resource manager)? Give summary @ -Spoke with Eileen from [facility] for admission Was smoking cessation discussed for >3mins.? @ -No Was critical care preformed (if so, how long)? @ -Yes, 40 minutes for management of BiPAP respiratory failure Were there social determinants of health that impacted care today? How? (Homelessness, low income, unemployed, alcoholism, drug addiction, transportatio n, low edu. Level, literacy, decrease access to med. care, fci, rehab)? @ -No Was there de-escalation of care discussed even if they declined (Discuss DNR or withdrawal of care, Hospice)? DNR status @ -No What co-morbidities impacted this encounter? (DM, HTN, Smoking, COPD, CAD, Cancer, CVA, ARF, Chemo, Hep., AIDS, mental health diagnosis, sleep apnea, morbid obesity)? @ -Congestive heart failure, COPD Was patient admitted / discharged? Hospital course, mention meds given and route, prescriptions, significant lab abnormalities, going to OR and other pertinent info. @ -Upon arrival patient seen and evaluated in trauma 2. He is changed from EMS CPAP to a BiPAP. Laboratory studies were conducted. Chest x-ray was performed which demonstrates volume overload. Patient was given a dose of diuretics. He is weaned off of the BiPAP. I recommended admission for which the patient was agreeable. Spoke with Eileen from [facility] for the admission Undiagnosed new problem with uncertain prognosis? @ -No Drug Therapy requiring intensive monitoring for toxicity (Heparin, Nitro, Insulin, Cardizem)? @ -No Were any procedures done? @ -No Diagnosis/symptom? @ -Acute BiPAP dependent respiratory failure, acute exacerbation of CHF Acute, or Chronic, or Acute on Chronic? @ -Acute on chronic Uncomplicated (without systemic symptoms) or Complicated (systemic symptoms)? @ -Complicated Side effects of treatment? @ -No Exacerbation, Progression, or Severe Exacerbation? @ -Yes Poses a threat to life or bodily function? How? (Chest pain, [place], [place], pneumonia, PE, COPD, DKA, ARF, appy, cholecystitis, CVA, Diverticulitis, Homicidal, Suicidal, threat to staff... and all critical care pts) @ -Yes this patient required BiPAP for respiratory failure - Lab Data Result diagrams: 03/17/25 06:42 03/17/25 06:42 Lab Results 03/08/25 03/08/25 03/08/25 Range/Units 02:28 02:28 02:28 WBC 11.32 H (4.50-10.00) 10*3/uL RBC 4.23 L (4.40-5.60) 10*6/uL Hgb 12.5 L (13.0-17.0) g/dL Hct 39.9 (39.6-50.0) % MCV 94.3 (80.0-97.0) fL MCH 29.6 (27.0-32.0) pg MCHC 31.3 L (32.0-37.0) g/dL Plt Count 253 (140-440) 10*3/uL MPV 10.3 (9.5-12.2) fL Immature Gran % (Auto) 0.4 % Neutrophils % 77.3 % Lymphocytes % 13.8 % Monocytes % 7.6 % Eosinophils % 0.5 % Basophils % 0.4 % Immature Gran # 0.04 (0.00-0.04) 10*3/uL Neutrophils # 8.75 H (1.80-7.70) 10*3/uL Lymphocytes # 1.56 (0.90-5.00) 10*3/uL Monocytes # 0.86 (0.20-1.00) 10*3/uL Eosinophils # 0.06 (0.04-0.35) 10*3/uL Basophils # 0.05 (0.00-0.10) 10*3/uL PT 11.4 (10.0-12.5) sec INR 1.0 (<1.2) APTT 22.3 (22.0-30.0) sec Sodium 139 (137-145) mmol/L Potassium 4.9 (3.5-5.1) mmol/L Chloride 101 (98-107) mmol/L Carbon Dioxide 24 (22-30) mmol/L Anion Gap 14 mmol/L BUN 33 H (9-20) mg/dL Creatinine 2.01 H (0.66-1.25) mg/dL Est GFR (CKD-EPI)AfAm 35 (>60 ml/min/1.73 sqM) Est GFR (CKD-EPI)NonAf 31 (>60 ml/min/1.73 sqM) Glucose 257 H (74-99) mg/dL Plasma Lactic Acid Jj (0.7-2.0) mmol/L Calcium 9.6 (8.4-10.2) mg/dL Magnesium (1.6-2.3) mg/dL Total Bilirubin 1.2 (0.2-1.3) mg/dL AST 20 (17-59) U/L ALT 14 (4-49) U/L Alkaline Phosphatase 114 (38-126) U/L Troponin I (0.000-0.034) ng/mL NT-Pro-B Natriuret Pep 92468 pg/mL Total Protein 7.7 (6.3-8.2) g/dL Albumin 4.5 (3.5-5.0) g/dL 03/08/25 03/08/25 03/08/25 Range/Units 02:28 02:28 02:28 WBC (4.50-10.00) 10*3/uL RBC (4.40-5.60) 10*6/uL Hgb (13.0-17.0) g/dL Hct (39.6-50.0) % MCV (80.0-97.0) fL MCH (27.0-32.0) pg MCHC (32.0-37.0) g/dL Plt Count (140-440) 10*3/uL MPV (9.5-12.2) fL Immature Gran % (Auto) % Neutrophils % % Lymphocytes % % Monocytes % % Eosinophils % % Basophils % % Immature Gran # (0.00-0.04) 10*3/uL Neutrophils # (1.80-7.70) 10*3/uL Lymphocytes # (0.90-5.00) 10*3/uL Monocytes # (0.20-1.00) 10*3/uL Eosinophils # (0.04-0.35) 10*3/uL Basophils # (0.00-0.10) 10*3/uL PT (10.0-12.5) sec INR (<1.2) APTT (22.0-30.0) sec Sodium (137-145) mmol/L Potassium (3.5-5.1) mmol/L Chloride (98-107) mmol/L Carbon Dioxide (22-30) mmol/L Anion Gap mmol/L BUN (9-20) mg/dL Creatinine (0.66-1.25) mg/dL Est GFR (CKD-EPI)AfAm (>60 ml/min/1.73 sqM) Est GFR (CKD-EPI)NonAf (>60 ml/min/1.73 sqM) Glucose (74-99) mg/dL Plasma Lactic Acid Jj 3.3 H* (0.7-2.0) mmol/L Calcium (8.4-10.2) mg/dL Magnesium 2.0 (1.6-2.3) mg/dL Total Bilirubin (0.2-1.3) mg/dL AST (17-59) U/L ALT (4-49) U/L Alkaline Phosphatase (38-126) U/L Troponin I 0.069 H* (0.000-0.034) ng/mL NT-Pro-B Natriuret Pep pg/mL Total Protein (6.3-8.2) g/dL Albumin (3.5-5.0) g/dL Disposition Clinical Impression: CHF exacerbation, BiPAP (biphasic positive airway pressure) dependence Disposition: ADMITTED IP TO THIS HOSP Condition: Stable Is patient prescribed a controlled substance at d/c from ED?: No Time of Disposition: 04:06 Decision to Admit Reason: Admit from EC Decision Date: 03/08/25 Decision Time: 04:06
[2025-03-08 03:04] LABS: Basophils # (A) 0.05 10*3/uL (0.00-0.10); Basophils % (A) 0.4 %; Eosinophils # (A) 0.06 10*3/uL (0.04-0.35); Eosinophils % (A) 0.5 %; HCT 39.9 % (39.6-50.0); HGB 12.5 g/dL (13.0-17.0); Lymphocytes # (A) 1.56 10*3/uL (0.90-5.00); Lymphocytes % (A) 13.8 %; MCH 29.6 pg (27.0-32.0); MCHC 31.3 g/dL (32.0-37.0); MCV 94.3 fL (80.0-97.0); Monocytes # (A) 0.86 10*3/uL (0.20-1.00); Monocytes % (A) 7.6 %; Neutrophils # (A) 8.75 10*3/uL (1.80-7.70); Neutrophils % (A) 77.3 %; Platelet Count 253 10*3/uL (140-440); RBC 4.23 10*6/uL (4.40-5.60); RDW 15.8 % (11.5-14.5); WBC 11.32 10*3/uL (4.50-10.00)
[2025-03-08 03:17] LABS: INR 1.0 (<1.2); Partial Thromboplastin Time 22.3 sec (22.0-30.0); Prothrombin Time 11.4 sec (10.0-12.5)
[2025-03-08 03:18] LABS: ALT 14 U/L (4-49); AST 20 U/L (17-59); African American GFR (CKD) 35 (>60 ml/min/1.73 sqM); Albumin 4.5 g/dL (3.5-5.0); Alkaline Phosphatase 114 U/L (38-126); Anion Gap 14 mmol/L; Blood Urea Nitrogen 33 mg/dL (9-20); Calcium 9.6 mg/dL (8.4-10.2); Carbon Dioxide 24 mmol/L (22-30); Chloride 101 mmol/L (98-107); Glucose 257 mg/dL (74-99); Non-African American GFR(CKD) 31 (>60 ml/min/1.73 sqM); Potassium 4.9 mmol/L (3.5-5.1); Sodium 139 mmol/L (137-145); Total Protein 7.7 g/dL (6.3-8.2)
[2025-03-08 03:27] LABS: NT-Pro-B-Type Natriuretic Pept 16200 pg/mL
--- NOTE | 2025-03-08 03:36 | XR ---
EXAM: XR Chest, 1 View CLINICAL HISTORY: ITS.REASON XR Reason: syncope TECHNIQUE: Frontal view of the chest. COMPARISON: No relevant prior studies available. IMPRESSION: Cardiomegaly. Mild vascular congestion.
[2025-03-08] MEDS ORDERED: NALOXONE 0.4 MG/ML 1 ML VIAL IV PRN (04:06)
[2025-03-08] MEDS: FUROSEMIDE 10 MG/ML 10 ML VIAL IV STA (04:50)
[2025-03-08] MEDS: methylPREDNISolone SOD SUCCI 125 MG/2 ML VIAL IV STA (04:51)
[2025-03-08] MEDS: IPRATROPIUM-ALBUTEROL 3 ML NEB INHALATION SCH (07:48)
[2025-03-08] MEDS: ASPIRIN 81 MG PO SCH (09:14)
[2025-03-08] MEDS: DAPAGLIFLOZIN PROPANEDIOL 10 MG TABLET PO SCH (09:14)
[2025-03-08] MEDS: CLOPIDOGREL 75 MG TAB PO SCH (09:14)
[2025-03-08] MEDS: ATORVASTATIN 80 MG TAB PO SCH (09:14)
[2025-03-08] MEDS: FUROSEMIDE 10 MG/ML 4 ML VIAL IV SCH (09:14)
[2025-03-08] MEDS: AMIODARONE 200 MG TAB PO SCH (09:49)
[2025-03-08 11:25] LABS: Glucose,Whole Blood 290 mg/dL (70-110)
[2025-03-08] MEDS: ISOSORBIDE DINITRATE 20 MG TAB PO SCH (11:26)
--- NOTE | 2025-03-08 11:27 | P.CRDCN ---
History of Present Illness History of present illness: HISTORY OF PRESENT ILLNESS: This is a 79-year-old male with a past medical history significant for coronary artery disease, ischemic cardiomyopathy, AICD implantation, ventricular tachyca rdia, congestive heart failure, hyperlipidemia, and hypothyroidism. Patient follows in the office with Dr. Rodrigues. We have been asked to see the patient in consultation for congestive heart failure. Patient examined at the bedside. Patient presented to the hospital for chief complaint of shortness of breath. Patient states he has been feeling short of breath for the past 24 to 48 hours. He denied having any chest pain or pressure. He denies having any weight gain and states he actually has lost weight recently. He states he is not able to walk very far without being short of breath. He does report a history of COPD as well. He states he smokes about 5 cigarettes/day. It is noted that the patient was here in October 2024 for congestive heart failure. Additionally he was hospitalized at [facility] in November for congestive heart failure. He was found to have pleural effusion at that time and underwent thoracentesis during that admission. DIAGNOSTICS: - EKG reveals paced rhythm. - Chest xray cardiomegaly. Mild vascular congestion. - Laboratory data: WBC 11.32. Hemoglobin 12.5. Platelet count 253. Sodium 139. Potassium 4.9. BUN 33. Creatinine 2.01. Troponin 0.069. proBNP 16,200. - Current home cardiac medication list has not been updated at the time of dictation - Most recent echocardiogram obtained in October 2024 revealing ejection fraction 20 to 25%, severe pulmonary hypertension, mild to moderate aortic and mitral regurgitation, moderate to severe tricuspid regurgitation - Cardiac catheterization history: Unknown REVIEW OF SYSTEMS: At the time of my exam: CONSTITUTIONAL: Denies fever or chills. HEENT: Denies blurred vision, vision changes, or eye pain. Denies hemoptysis CARDIOVASCULAR: Denies chest pain. Reports orthopnea. Denies PND. Denies palpitations RESPIRATORY: Reports shortness of breath. GASTROINTESTINAL: Denies abdominal pain. Denies nausea or vomiting. HEMATOLOGIC: Denies bleeding disorders. GENITOURINARY: Denies any blood in urine. SKIN: Denies pruitis. Denies rash. PHYSICAL EXAM: VITAL SIGNS: Reviewed. GENERAL: Well-developed in no acute distress. HEENT: Head is normocephalic. Pupils are equal, round. Sclerae anicteric. Mucous membranes of the mouth are moist. Neck supple. No JVD or thyromegaly LUNGS: Respirations even and unlabored. Lungs essentially clear to auscultation bilaterally. HEART: Regular rate and rhythm. S1 and S2 heard. ABDOMEN: Soft. Nondistended. Nontender. EXTREMITIES: Normal range of motion. No clubbing or cyanosis. Peripheral pulses intact. Trace bilateral lower extremity edema NEUROLOGIC: Awake and alert. Oriented x 3. ASSESSMENT: Shortness of breath Acute on chronic heart failure with reduced EF, 20 to 25% Recurrent hospitalizations for congestive heart failure Elevated troponin secondary to chronic kidney disease, no evidence of myocardial injury or ischemia Coronary artery disease Ischemic cardiomyopathy status post AICD implantation Chronic kidney disease Severe pulmonary hypertension Valvular heart disease including mild to moderate aortic and mitral regurgitati on, moderate to severe tricuspid regurgitation History of ventricular tachycardia Hyperlipidemia Hypothyroidism PLAN: No need to repeat echocardiogram as this was performed in October 2024 Begin IV Lasix 40 mg every 12 hours Daily weights, accurate intake and output, monitoring of kidney function Resume home cardiac medications Increase carvedilol to 12.5 mg twice a day Add hydralazine 25 mg twice a day Add Isordil 20 mg 3 times daily Decrease amiodarone to 200 mg daily Reinforced low-sodium diet with patient who verbalized understanding Smoking cessation recommended Further recommendations pending patient course Nurse practitioner note has been reviewed by physician. Signing provider agrees with the documented findings, assessment, and plan of care documented by ORTHO RN as a scribe. Past Medical History Past Medical History: Coronary Artery Disease (CAD), Heart Failure, COPD, Diabetes Mellitus, Myocardial Infarction ([place]) Additional Past Medical History / Comment(s): [place] 2001 Last Myocardial Infarction Date:: 2001 History of Any Multi-Drug Resistant Organisms: C-DIFF, ESBL Date of last positivie culture/infection: 10/30/24 MDRO Source:: blood Past Surgical History: Pacemaker Additional Past Surgical History / Comment(s): pacemaker and optimizer. Pacer battery changed in july Past Anesthesia/Blood Transfusion Reactions: No Reported Reaction, Unable to Obtain Type of Cardiac Device: Unknown Device Placement Date:: 2001 Past Psychological History: Unable to Obtain Smoking Status: Former smoker Past Alcohol Use History: None Reported Past Drug Use History: None Reported - Past Family History Father Family Medical History: Congestive Heart Failure (CHF) Mother Family Medical History: Congestive Heart Failure (CHF) Medications and Allergies Home Medications Medication Instructions Recorded Confirmed Type Acetaminophen Tab [Tylenol] 650 mg PO Q6H PRN 10/30/24 10/30/24 History Albuterol Inhaler [Ventolin Hfa 2 puff INHALATION RT-Q6H PRN 10/30/24 10/30/24 History Inhaler] Amiodarone [Cordarone] 200 mg PO BID 10/30/24 10/30/24 History Aspirin 81 mg PO DAILY 10/30/24 10/30/24 History Atorvastatin [Lipitor] 80 mg PO DAILY 10/30/24 10/30/24 History Clopidogrel [Plavix] 75 mg PO DAILY 10/30/24 10/30/24 History Docusate [Colace] 100 mg PO BID PRN 10/30/24 10/30/24 History Fluticasone Nasal [place] [Flonase 1 spray EA NOSTRIL DAILY 10/30/24 10/30/24 History Nasal [place]] Levothyroxine Sodium [Synthroid] 25 mcg PO AC-BRKFST 10/30/24 10/30/24 History Nystatin 100,000 Unit/ml Susp 500,000 ml PO QID 10/30/24 10/30/24 History [Mycostatin Oral Susp] Tamsulosin [Flomax] 0.4 mg PO BID 10/30/24 10/30/24 History carvediloL [Coreg] 6.25 mg PO BID-W/MEALS 10/30/24 10/30/24 History polyethylene glycoL 3350 [Miralax] 17 gm PO DAILY PRN 10/30/24 10/30/24 History ALPRAZolam [Xanax] 0.25 mg PO Q8H PRN #4 tab 11/11/24 Rx Bumetanide [BUMEX] 1 mg PO BID@0900,1600 tab 11/11/24 Rx Darbepoetin Reilly [Aranesp] 40 mcg SQ Q7D each 11/11/24 Rx Ertapenem [INVanz] 0.5 gm IVPB DAILY 10 Days #10 each 11/11/24 Rx Folic Acid 1 mg PO DAILY #0 tab 11/11/24 Rx HYDROcodone/APAP 5-325MG [[place] 1 each PO Q6H PRN #4 tab 11/11/24 Rx 5-325] Heparin Sodium,Porcine (1 ml) 5,000 unit SQ Q12HR each 11/11/24 Rx [Heparin Sodium] Ipratropium-Albuterol Nebulize 3 ml INHALATION RT-Q4H PRN each 11/11/24 Rx [Duoneb 0.5 mg-3 mg/3 ml Soln] Multivitamins, Thera [Multivitamin 1 each PO DAILY tab 11/11/24 Rx (formulary)] QUEtiapine [SEROquel] 12.5 mg PO HS tab 11/11/24 Rx Thiamine [Vitamin B-1] 100 mg PO DAILY tab 11/11/24 Rx guaiFENesin [Mucinex] 600 mg PO Q12HR tab 11/11/24 Rx Potassium Chloride ER [K-Dur 20] 20 meq PO DAILY tab 11/13/24 Rx Allergies Allergy/AdvReac Type Severity Reaction Status Date / Time No Known Allergies Allergy Verified 03/08/25 02:24 Physical Exam Vitals: Vital Signs Temp Pulse Pulse Resp BP BP Pulse Ox 03/08/25 08:33 98.0 F 60 16 134/61 98 03/08/25 08:30 98.2 F 60 16 134/61 98 03/08/25 07:57 60 03/08/25 07:53 98 03/08/25 07:49 97.8 F 60 18 115/53 100 03/08/25 07:48 60 03/08/25 05:00 99 03/08/25 04:50 64 16 128/71 100 03/08/25 02:44 65 24 99/69 100 03/08/25 02:29 03/08/25 02:19 97.6 F 62 22 184/95 100 FiO2 03/08/25 08:33 03/08/25 08:30 03/08/25 07:57 03/08/25 07:53 03/08/25 07:49 03/08/25 07:48 03/08/25 05:00 03/08/25 04:50 03/08/25 02:44 03/08/25 02:29 35 03/08/25 02:19 Intake and Output 03/07/25 03/08/25 03/08/25 22:59 06:59 14:59 Other: Voiding Method Toilet Urinal Weight 75.75 kg 75.75 kg Results 03/08/25 02:28 03/08/25 02:28 Cardiac Enzymes 03/08/25 03/08/25 Range/Units 02:28 02:28 AST 20 (17-59) U/L Troponin I 0.069 H* (0.000-0.034) ng/mL Coagulation 03/08/25 Range/Units 02:28 PT 11.4 (10.0-12.5) sec APTT 22.3 (22.0-30.0) sec CBC 03/08/25 Range/Units 02:28 WBC 11.32 H (4.50-10.00) 10*3/uL RBC 4.23 L (4.40-5.60) 10*6/uL Hgb 12.5 L (13.0-17.0) g/dL Hct 39.9 (39.6-50.0) % Plt Count 253 (140-440) 10*3/uL Comprehensive Metabolic Panel 03/08/25 Range/Units 02:28 Sodium 139 (137-145) mmol/L Potassium 4.9 (3.5-5.1) mmol/L Chloride 101 (98-107) mmol/L Carbon Dioxide 24 (22-30) mmol/L BUN 33 H (9-20) mg/dL Creatinine 2.01 H (0.66-1.25) mg/dL Glucose 257 H (74-99) mg/dL Calcium 9.6 (8.4-10.2) mg/dL AST 20 (17-59) U/L ALT 14 (4-49) U/L Alkaline Phosphatase 114 (38-126) U/L Total Protein 7.7 (6.3-8.2) g/dL Albumin 4.5 (3.5-5.0) g/dL Current Medications Generic Name Dose Route Start Last Admin Trade Name Freq PRN Reason Stop Dose Admin Albuterol/Ipratropium 3 ml 03/08/25 08:00 03/08/25 07:48 Ipratropium-Albuterol 3 Ml Neb INHALATION 3 ml RT-Q4H JORDEN Administration Amiodarone HCl 200 mg 03/08/25 09:01 Amiodarone 200 Mg Tab PO DAILY JORDEN Aspirin 81 mg 03/08/25 09:00 03/08/25 09:14 Aspirin 81 Mg PO 81 mg DAILY JORDEN Administration Atorvastatin Calcium 80 mg 03/08/25 09:00 03/08/25 09:14 Atorvastatin 80 Mg Tab PO 80 mg DAILY JORDEN Administration Carvedilol 12.5 mg 03/08/25 17:30 Carvedilol 6.25 Mg Tab PO BID-W/MEALS [facility] Clopidogrel Bisulfate 75 mg 03/08/25 09:00 03/08/25 09:14 Clopidogrel 75 Mg Tab PO 75 mg DAILY [facility] Administration Dapagliflozin 10 mg 03/08/25 09:00 03/08/25 09:14 Dapagliflozin Propanediol 10 Mg Tablet PO 10 mg DAILY [facility] Administration Furosemide 40 mg 03/08/25 09:00 03/08/25 09:14 Furosemide 10 Mg/Ml 4 Ml Vial IV 40 mg Q12HR [facility] Administration Hydralazine HCl 25 mg 03/08/25 09:15 Hydralazine Hcl 25 Mg Tab PO BID [facility] Isosorbide Dinitrate 20 mg 03/08/25 09:15 Isosorbide Dinitrate 20 Mg Tab PO TID [facility] Naloxone HCl 0.2 mg 03/08/25 04:06 Naloxone 0.4 Mg/Ml 1 Ml Vial IV Q2M PRN Opioid Reversal Intake and Output 03/07/25 03/08/25 03/08/25 22:59 06:59 14:59 Other: Voiding Method Toilet Urinal Weight 75.75 kg 75.75 kg Patient Weight 03/09/25 06:59 Weight 75.75 kg 03/08/25 02:28 03/08/25 02:28
[2025-03-08] MEDS: INSULIN LISPRO (HumaLOG) 100 UNIT/ML 10 mL VL SQ SCH (12:12)
[2025-03-08] MEDS ORDERED: IPRATROPIUM-ALBUTEROL 3 ML NEB INHALATION PRN (16:09)
[2025-03-08] MEDS ORDERED: ALPRAZolam 0.25 MG TAB PO PRN (16:09)
[2025-03-08] MEDS ORDERED: NON FORMULARY DRUG (Albuterol Inhaler 90 MCG Puff) INHALATION PRN (16:09)
--- NOTE | 2025-03-08 16:15 | P.HPIM ---
History of Present Illness H&P Date: 03/08/25 Chief Complaint: Shortness of breath 79-year-old male with past medical history of COPD, CHF who presents emergency department reporting shortness of breath. Patient has been short of breath for the past couple of days. He called EMS who found him to be saturating in the 80s with significant work of breathing. He does not have oxygen at home. He was given 324 mg of aspirin, CPAP. Patient takes Bumex as a diuretic. Denies any fevers. Does admit to some chest pain. No calf pain or swelling. No other alleviating, precipitating modifying factors Review of Systems REVIEW OF SYSTEMS: CONSTITUTIONAL: No fever, no malaise, no fatigue. HEENT: No recent visual problems or hearing problems. Denied any sore throat. CARDIOVASCULAR: No chest pain, orthopnea, PND, no palpitations, no syncope. PULMONARY: Complains shortness of breath, no cough, no hemoptysis. GASTROINTESTINAL: No diarrhea, no nausea, no vomiting, no abdominal pain. NEUROLOGICAL: No headaches, no weakness, no numbness. HEMATOLOGICAL: Denies any bleeding or petechiae. GENITOURINARY: Denies any burning micturition, frequency, or urgency. MUSCULOSKELETAL/RHEUMATOLOGICAL: Denies any joint pain, swelling, or any muscle pain. ENDOCRINE: Denies any polyuria or polydipsia. The rest of the 14-point review of systems is negative. Past Medical History Past Medical History: Coronary Artery Disease (CAD), Heart Failure, COPD, Diabetes Mellitus, Myocardial Infarction ([place]) Additional Past Medical History / Comment(s): [place] 2001 Last Myocardial Infarction Date:: 2001 History of Any Multi-Drug Resistant Organisms: C-DIFF, ESBL Date of last positivie culture/infection: 10/30/24 MDRO Source:: blood Past Surgical History: Pacemaker Additional Past Surgical History / Comment(s): pacemaker and optimizer. Pacer battery changed in july Past Anesthesia/Blood Transfusion Reactions: No Reported Reaction, Unable to Obtain Type of Cardiac Device: Unknown Device Placement Date:: 2001 Past Psychological History: Unable to Obtain Smoking Status: Former smoker Past Alcohol Use History: None Reported Past Drug Use History: None Reported - Past Family History Father Family Medical History: Congestive Heart Failure (CHF) Mother Family Medical History: Congestive Heart Failure (CHF) Medications and Allergies Home Medications Medication Instructions Recorded Confirmed Type Acetaminophen Tab [Tylenol] 650 mg PO Q6H PRN 10/30/24 03/08/25 History Albuterol Inhaler [Ventolin Hfa 2 puff INHALATION RT-Q6H PRN 10/30/24 03/08/25 History Inhaler] Amiodarone [Cordarone] 200 mg PO BID 10/30/24 03/08/25 History Aspirin 81 mg PO DAILY 10/30/24 03/08/25 History Atorvastatin [Lipitor] 80 mg PO DAILY 10/30/24 03/08/25 History Clopidogrel [Plavix] 75 mg PO DAILY 10/30/24 03/08/25 History Docusate [Colace] 100 mg PO BID PRN 10/30/24 03/08/25 History Fluticasone Nasal [place] [Flonase 1 spray EA NOSTRIL DAILY 10/30/24 03/08/25 History Nasal [place]] Levothyroxine Sodium [Synthroid] 25 mcg PO AC-BRKFST 10/30/24 03/08/25 History Tamsulosin [Flomax] 0.4 mg PO BID 10/30/24 03/08/25 History polyethylene glycoL 3350 [Miralax] 17 gm PO DAILY PRN 10/30/24 03/08/25 History ALPRAZolam [Xanax] 0.25 mg PO Q8H PRN #4 tab 11/11/24 03/08/25 Rx Darbepoetin Reilly [Aranesp] 40 mcg SQ Q7D each 11/11/24 03/08/25 Rx Folic Acid 1 mg PO DAILY #0 tab 11/11/24 03/08/25 Rx Ipratropium-Albuterol Nebulize 3 ml INHALATION RT-Q4H PRN each 11/11/24 03/08/25 Rx [Duoneb 0.5 mg-3 mg/3 ml Soln] Potassium Chloride ER [K-Dur 20] 20 meq PO DAILY tab 11/13/24 03/08/25 Rx Bumetanide [BUMEX] 1 mg PO TID 03/08/25 03/08/25 History Famotidine 20 mg PO BID 03/08/25 03/08/25 History Multivitamins, Thera [Multivitamin 1 tab PO DAILY 03/08/25 03/08/25 History (formulary)] carvediloL [Coreg] 12.5 mg PO BID-W/MEALS 03/08/25 03/08/25 History Allergies Allergy/AdvReac Type Severity Reaction Status Date / Time No Known Allergies Allergy Verified 03/08/25 13:48 Physical Exam Vitals: Vital Signs Temp Pulse Pulse Resp BP BP Pulse Ox 03/08/25 08:33 98.0 F 60 16 134/61 98 03/08/25 08:30 98.2 F 60 16 134/61 98 03/08/25 07:57 60 03/08/25 07:53 98 03/08/25 07:49 97.8 F 60 18 115/53 100 03/08/25 07:48 60 03/08/25 05:00 99 03/08/25 04:50 64 16 128/71 100 03/08/25 02:44 65 24 99/69 100 03/08/25 02:29 03/08/25 02:19 97.6 F 62 22 184/95 100 FiO2 03/08/25 08:33 03/08/25 08:30 03/08/25 07:57 03/08/25 07:53 03/08/25 07:49 03/08/25 07:48 03/08/25 05:00 03/08/25 04:50 03/08/25 02:44 03/08/25 02:29 35 03/08/25 02:19 Intake and Output 03/07/25 03/08/25 03/08/25 22:59 06:59 14:59 Other: Voiding Method Toilet Urinal Weight 75.75 kg 75.75 kg VITAL SIGNS: Reviewed. GENERAL: Well-developed in no acute distress. HEENT: Head is normocephalic. Pupils are equal, round. Sclerae anicteric. Mucous membranes of the mouth are moist. Neck supple. No JVD or thyromegaly LUNGS: Respirations even and unlabored. Lungs essentially clear to auscultation bilaterally. HEART: Regular rate and rhythm. S1 and S2 heard. ABDOMEN: Soft. Nondistended. Nontender. EXTREMITIES: Normal range of motion. No clubbing or cyanosis. Peripheral pulses intact. Trace bilateral lower extremity edema NEUROLOGIC: Awake and alert. Oriented x 3. Results CBC & Chem 7: 03/08/25 02:28 03/08/25 02:28 Labs: Abnormal Lab Results - Last 24 Hours (Table) 03/08/25 03/08/25 03/08/25 Range/Units 02:28 02:28 02:28 WBC 11.32 H (4.50-10.00) 10*3/uL RBC 4.23 L (4.40-5.60) 10*6/uL Hgb 12.5 L (13.0-17.0) g/dL MCHC 31.3 L (32.0-37.0) g/dL Neutrophils # 8.75 H (1.80-7.70) 10*3/uL BUN 33 H (9-20) mg/dL Creatinine 2.01 H (0.66-1.25) mg/dL Glucose 257 H (74-99) mg/dL Plasma Lactic Acid Jj 3.3 H* (0.7-2.0) mmol/L Troponin I (0.000-0.034) ng/mL 03/08/25 Range/Units 02:28 WBC (4.50-10.00) 10*3/uL RBC (4.40-5.60) 10*6/uL Hgb (13.0-17.0) g/dL MCHC (32.0-37.0) g/dL Neutrophils # (1.80-7.70) 10*3/uL BUN (9-20) mg/dL Creatinine (0.66-1.25) mg/dL Glucose (74-99) mg/dL Plasma Lactic Acid Jj (0.7-2.0) mmol/L Troponin I 0.069 H* (0.000-0.034) ng/mL Thrombosis Risk Factor Assmnt - Choose All That Apply Any of the Below Risk Factors Present?: Yes Each Risk Factor Represents 3 Points: Age 75 years or older Thrombosis Risk Factor Assessment Total Risk Factor Score: 3 Thrombosis Risk Factor Assessment Level: Moderate Risk Assessment and Plan Assessment: Acute hypoxic respiratory failure; related to acute on chronic CHF - Patient placed on BiPAP upon arrival to ED - Patient is currently on O2 at 3 L per nasal cannula; plan to titrate or wean as able Acute on chronic CHF; LVEF of 20 to 25% on last echo - Patient has been placed on Lasix 40 mg IV every 12 hours; will monitor strict TANYA's, daily weights, low-salt and fluid restricted diet - Patient has been recommended to be placed on Farxiga - 2D echo Elevated troponin; likely related to chronic kidney disease; rule out acute coronary syndrome -We will trend to rule out acute coronary syndrome - 2D echo showed; await further recommendations from etiology Hyperglycemia; likely new onset diabetes mellitus - Blood glucose markedly elevated upon arrival to ED; monitor Accu-Cheks q. CHS with insulin sliding scale; change diet to a consistent carbohydrate diet - Patient has been placed on Farxi; will make further recommendations pending clinical course - Will order HbA1c Ischemic cardiomyopathy; patient is status post AICD implantation Valvular heart disease; patient has mild to moderate aortic and mitral regurgitation with severe tricuspid regurgitation - Follow-up with valvular disease clinic Hypertension; cardiology recommending to increase Coreg up to 12.5 mg twice daily; add hydralazine 25 mg twice daily; add Isordil 20 mg 3 times daily Hyperlipidemia; Lipitor 80 mg p.o. nightly Hypothyroidism; levothyroxine 25 mcg daily Anxiety; Xanax 0.5 mg every 8 hours as needed BPH; Flomax 0.4 mg daily
[2025-03-08 16:27] LABS: Glucose,Whole Blood 312 mg/dL (70-110)
--- NOTE | 2025-03-08 18:00 | P.CNPUL ---
History of Present Illness Consult date: 03/08/25 Reason for consult: dyspnea History of present illness: This is a 79-year-old male patient, hospitalized for shortness of breath. The patient is a chronic smoker is known to have COPD. At the same time, the patient is known to have coronary artery disease, chronic systolic heart failure with impaired LV function and the patient has an AICD in place. The patient has been followed up with cardiology on outpatient basis. Patient presented with worsening shortness of breath over 48 hours. Limited cough. No significant sputum production. He has exertional dyspnea without any chest pain. He continues to smoke about 5 cigarettes a day. No pleurisy. No hemoptysis. No significant edema lower extremities. EKG showed a paced rhythm and the patient's chest x-ray showed cardiomegaly with mild pulm vascular ingestion. The white cell count was 11.3 with a hemoglobin 12.5 with a platelet count of 253. The rest of the blood work showed a sodium level of 139 with a potassium level of 4.9, BUN is 33 with a creatinine of 2.01. proBNP level was 16,200 and troponin was at 0.06 The patient's most recent echocardiogram from October 2024 showed systolic heart failure with an ejection fraction of 2024% with severe pulm hypertension and m ild to moderate aortic regurgitation and mitral regurgitation with moderate to severe tricuspid regurgitation. The patient was started on diuretics. The patient is currently on IV Lasix 40 mg every 12 hours. The patient remains on aspirin and Plavix. The patient remains on Coreg 12.5 mg p.o. twice a day, amiodarone 200 mg p.o. daily and hydralazine 25 mg 3 times daily and Imdur 20 mg p.o. 3 times daily. Fluid balance has been negative. The patient is currently off the BiPAP and he has been transitioned to 3 L of oxygen by nasal cannula. He states that utilization of BiPAP overnight has helped quite a bit. Currently, feeling better. Free of any chest pain. Lactic acid level initially was at 3.3, dropped to one 1.2. Review of Systems Constitutional: Reports as per HPI Eyes: denies as per HPI, denies blurred vision, denies bulging eye, denies decreased vision, denies diplopia, denies discharge, denies dry eye, denies irritation, denies itching, denies pain, denies photophobia, denies loss of peripheral vision, denies loss of vision, denies tunnel vision/blind spots Ears: deny: decreased hearing, ear discharge, earache, tinnitus Ears, nose, mouth and throat: Reports as per HPI Breasts: absent: as per HPI, gynecomastia Cardiovascular: Reports decreased exercise tolerance, Reports dyspnea on exertion, Reports shortness of breath Respiratory: Reports dyspnea Gastrointestinal: Reports as per HPI Genitourinary: Reports as per HPI Musculoskeletal: Reports as per HPI Musculoskeletal: absent: ankle pain, ankle stiffness, ankle swelling, as per HPI, elbow pain, elbow stiffness, elbow swelling, foot pain, foot stiffness, foot swelling, hand pain, hand stiffness, hand swelling, hip pain, hip stiffness, hip swelling, knee pain, knee stiffness, knee swelling, shoulder pain, shoulder stiffness, shoulder swelling, wrist pain, wrist stiffness, wrist swelling Integumentary: Reports as per HPI Neurological: Reports aphasia Psychiatric: Reports as per HPI Hematologic/Lymphatic: Reports as per HPI Allergic/Immunologic: Reports as per HPI Past Medical History Past Medical History: Coronary Artery Disease (CAD), Heart Failure, COPD, Diabetes Mellitus, Myocardial Infarction ([place]) Additional Past Medical History / Comment(s): [place] 2001 Last Myocardial Infarction Date:: 2001 History of Any Multi-Drug Resistant Organisms: C-DIFF, ESBL Date of last positivie culture/infection: 10/30/24 MDRO Source:: blood Past Surgical History: Pacemaker Additional Past Surgical History / Comment(s): pacemaker and optimizer. Pacer battery changed in july Past Anesthesia/Blood Transfusion Reactions: No Reported Reaction, Unable to Obtain Type of Cardiac Device: Unknown Device Placement Date:: 2001 Past Psychological History: Unable to Obtain Smoking Status: Former smoker Past Alcohol Use History: None Reported Past Drug Use History: None Reported - Past Family History Father Family Medical History: Congestive Heart Failure (CHF) Mother Family Medical History: Congestive Heart Failure (CHF) Medications and Allergies Home Medications Medication Instructions Recorded Confirmed Type Acetaminophen Tab [Tylenol] 650 mg PO Q6H PRN 10/30/24 03/08/25 History Albuterol Inhaler [Ventolin Hfa 2 puff INHALATION RT-Q6H PRN 10/30/24 03/08/25 History Inhaler] Amiodarone [Cordarone] 200 mg PO BID 10/30/24 03/08/25 History Aspirin 81 mg PO DAILY 10/30/24 03/08/25 History Atorvastatin [Lipitor] 80 mg PO DAILY 10/30/24 03/08/25 History Clopidogrel [Plavix] 75 mg PO DAILY 10/30/24 03/08/25 History Docusate [Colace] 100 mg PO BID PRN 10/30/24 03/08/25 History Fluticasone Nasal [place] [Flonase 1 spray EA NOSTRIL DAILY 10/30/24 03/08/25 History Nasal [place]] Levothyroxine Sodium [Synthroid] 25 mcg PO AC-BRKFST 10/30/24 03/08/25 History Tamsulosin [Flomax] 0.4 mg PO BID 10/30/24 03/08/25 History polyethylene glycoL 3350 [Miralax] 17 gm PO DAILY PRN 10/30/24 03/08/25 History ALPRAZolam [Xanax] 0.25 mg PO Q8H PRN #4 tab 11/11/24 03/08/25 Rx Darbepoetin [place] [Aranesp] 40 mcg SQ Q7D each 11/11/24 03/08/25 Rx Folic Acid 1 mg PO DAILY #0 tab 11/11/24 03/08/25 Rx Ipratropium-Albuterol Nebulize 3 ml INHALATION RT-Q4H PRN each 11/11/24 03/08/25 Rx [Duoneb 0.5 mg-3 mg/3 ml Soln] Potassium Chloride ER [K-Dur 20] 20 meq PO DAILY tab 11/13/24 03/08/25 Rx Bumetanide [BUMEX] 1 mg PO TID 03/08/25 03/08/25 History Famotidine 20 mg PO BID 03/08/25 03/08/25 History Multivitamins, Thera [Multivitamin 1 tab PO DAILY 03/08/25 03/08/25 History (formulary)] carvediloL [Coreg] 12.5 mg PO BID-W/MEALS 03/08/25 03/08/25 History Allergies Allergy/AdvReac Type Severity Reaction Status Date / Time No Known Allergies Allergy Verified 03/08/25 13:48 Physical Exam Vitals: Vital Signs Temp Pulse Pulse Resp BP BP Pulse Ox 03/08/25 08:33 98.0 F 60 16 134/61 98 03/08/25 08:30 98.2 F 60 16 134/61 98 03/08/25 07:57 60 03/08/25 07:53 98 03/08/25 07:49 97.8 F 60 18 115/53 100 03/08/25 07:48 60 03/08/25 05:00 99 03/08/25 04:50 64 16 128/71 100 03/08/25 02:44 65 24 99/69 100 03/08/25 02:29 03/08/25 02:19 97.6 F 62 22 184/95 100 FiO2 03/08/25 08:33 03/08/25 08:30 03/08/25 07:57 03/08/25 07:53 03/08/25 07:49 03/08/25 07:48 03/08/25 05:00 03/08/25 04:50 03/08/25 02:44 03/08/25 02:29 35 03/08/25 02:19 Intake and Output 03/07/25 03/08/25 03/08/25 22:59 06:59 14:59 Other: Voiding Method Toilet Urinal Weight 75.75 kg 75.75 kg The patient appeared well nourished and normally developed. Vital signs as documented. Body mass index is 22.7. The patient is currently on 2 L of oxygen by nasal cannula. Head exam is unremarkable. No scleral icterus or corneal arcus noted. Neck is without jugular venous distension, thyromegaly, or carotid bruits. Carotid upstrokes are brisk bilaterally. Lungs reveal diminished breath sounds bilaterally along with some diminished breath sounds lung bases on through crackles and rales in the lung bases. Patient has a pacemaker/AICD generator over the anterior chest. Cardiac exam reveals the PMI to be normally sized and situated. Rhythm is regular. First and second heart sounds normal. No murmurs, rubs or gallops. Abdominal exam reveals normal bowel sounds, no masses, no organomegaly and no aortic enlargement. Extremities are nonedematous and both femoral and pedal pulses are normal. Examination of the skin revealed no evidence of significant rashes, suspicious appearing nevi or other concerning lesions. Neurologically, the patient is awake and alert and the patient does not have any focal neurological deficit. Cranial nerves are essentially intact. Results - Laboratory Findings CBC and BMP: 03/08/25 02:28 03/08/25 02:28 PT/INR, D-dimer PT 11.4 sec (10.0-12.5) 03/08/25 02:28 INR 1.0 (<1.2) 03/08/25 02:28 Abnormal lab findings: Abnormal Labs 03/08/25 03/08/25 03/08/25 02:28 02:28 02:28 WBC 11.32 H RBC 4.23 L Hgb 12.5 L MCHC 31.3 L Neutrophils # 8.75 H BUN 33 H Creatinine 2.01 H Glucose 257 H Plasma Lactic Acid Jj 3.3 H* Troponin I 03/08/25 02:28 WBC RBC Hgb MCHC Neutrophils # BUN Creatinine Glucose Plasma Lactic Acid Jj Troponin I 0.069 H* - Diagnostic Findings Chest x-ray: image reviewed Assessment and Plan Plan: Acute on chronic dyspnea, essentially attributed to CHF exacerbation will along with a component of COPD which is essentially chronic problem. Presentation is most consistent with CHF exacerbation. Acute hypoxic respiratory failure, initially on BiPAP therapy and currently transition to treatment of oxygen by nasal cannula Chronic systolic heart failure with impaired LV function with an ejection f raction of 20 to 25% and severe pulmonary hypertension COPD Coronary artery disease Chronic kidney disease with a GFR of 31 consistent with chronic stage IIIb kidney disease. Valvular heart disease with mild to moderate aortic regurgitation and mitral regurgitation with moderate to severe tricuspid regurgitation Pulmonary hypertension, likely a combination of group 2/3 History of ventricular tachycardia History of AICD placement Hypothyroidism Hyperlipidemia Previous hospitalization for ESBL producing E. coli urinary tract infection and bacteremia Previous RSV infection Diabetes mellitus type 2 Chronic debility and generalized weakness and gait dysfunction Plan The patient is currently on 3 Suboxone by nasal cannula. BiPAP has been discontinued Continue Lasix 40 mg IV every 12 hours Continue Coreg 12.5 mg p.o. twice a day The patient was started on a combination of hydralazine and nitrates. Hydralazine 25 mg p.o. twice a day and is ordered 20 mg p.o. 3 times daily. Monitor renal function Repeat echocardiogram Smoking cessation counseling was done Continue DuoNeb nebulizer treatments [id number] Monitor blood sugars Cardiology consultation is appreciated Will continue to follow Time with Patient: Greater than 30
--- NOTE | 2025-03-08 19:36 | XR ---
EXAMINATION TYPE: XR KUB DATE OF EXAM: 03/08/2025 7:23 PM COMPARISON: CT abdomen/pelvis 11/07/2024. CLINICAL INDICATION: Male, 79 years old with history of abdominal pain; PHH, pain TECHNIQUE: One radiographic view of the abdomen was obtained. FINDINGS: The bowel gas pattern is nonspecific without dilated loops of small or large bowel. . Fecal material and gas are demonstrated throughout the colon and rectum. There is no evidence for organomegaly or pneumoperitoneum. The osseous structures are intact. No ab normal calcifications are present. Partially visualized AICD leads overlying the cardiac silhouette. IMPRESSION: Nonspecific bowel gas pattern without radiographic evidence for acute process. [facility], , 03/08/2025 7:34 PM
[2025-03-08 20:00] LABS: Glucose,Whole Blood 255 mg/dL (70-110)
[2025-03-08] MEDS: TAMSULOSIN 0.4 MG CAP.ER.24H PO SCH (20:17)
[2025-03-08] MEDS: FAMOTIDINE 20 MG TAB PO SCH (20:21)
[2025-03-09 06:03] LABS: Glucose,Whole Blood 297 mg/dL (70-110)
[2025-03-09] MEDS: LEVOTHYROXINE 25 MCG TAB PO SCH (06:24)
[2025-03-09 06:55] LABS: Basophils # (A) 0.02 10*3/uL (0.00-0.10); Basophils % (A) 0.1 %; Eosinophils # (A) 0.00 10*3/uL (0.04-0.35); Eosinophils % (A) 0.0 %; HCT 29.9 % (39.6-50.0); Lymphocytes # (A) 0.60 10*3/uL (0.90-5.00); Lymphocytes % (A) 4.3 %; MCH 30.4 pg (27.0-32.0); MCHC 32.8 g/dL (32.0-37.0); MCV 92.9 fL (80.0-97.0); Monocytes # (A) 0.64 10*3/uL (0.20-1.00); Monocytes % (A) 4.5 %; Neutrophils # (A) 12.74 10*3/uL (1.80-7.70); Neutrophils % (A) 90.4 %; Platelet Count 202 10*3/uL (140-440); RBC 3.22 10*6/uL (4.40-5.60); RDW 15.5 % (11.5-14.5); WBC 14.10 10*3/uL (4.50-10.00)
[2025-03-09 07:12] LABS: HGB 9.8 g/dL (13.0-17.0)
[2025-03-09 07:23] LABS: African American GFR (CKD) 28 (>60 ml/min/1.73 sqM); Anion Gap 11 mmol/L; Blood Urea Nitrogen 52 mg/dL (9-20); Calcium 9.0 mg/dL (8.4-10.2); Carbon Dioxide 24 mmol/L (22-30); Chloride 102 mmol/L (98-107); Glucose 235 mg/dL (74-99); Non-African American GFR(CKD) 24 (>60 ml/min/1.73 sqM); Potassium 4.4 mmol/L (3.5-5.1); Sodium 137 mmol/L (137-145)
[2025-03-09] MEDS: MULTIVITAMINS, THERA 1 EACH TAB PO SCH (08:02)
[2025-03-09] MEDS: FOLIC ACID 1 MG TAB PO SCH (08:02)
[2025-03-09] MEDS: FLUTICASONE NASAL 50MCG/SPRAY 16GM BTL EA NOSTRIL SCH (08:02)
[2025-03-09] MEDS: POTASSIUM CHLORIDE ER 20 MEQ TAB.ER PO SCH (08:03)
[2025-03-09] MEDS: AMIODARONE 200 MG TAB PO SCH (08:03)
[2025-03-09 11:05] LABS: Glucose,Whole Blood 182 mg/dL (70-110)
[2025-03-09] MEDS: metFORMIN 500 MG TAB PO SCH (11:33)
--- NOTE | 2025-03-09 11:35 | P.PN ---
Subjective HISTORY OF PRESENT ILLNESS: This is a 79-year-old male with a past medical history significant for coronary artery disease, ischemic cardiomyopathy, AICD implantation, ventricular tachycardia, congestive heart failure, hyperlipidemia, and hypothyroidism. Patient follows in the office with Dr. Rodrigues. We have been asked to see the patient in consultation for congestive heart failure. Patient examined at the bedside. Patient presented to the hospital for chief complaint of shortness of breath. Patient states he has been feeling short of breath for the past 24 to 48 hours. He denied having any chest pain or pressure. He denies having any weight gain and states he actually has lost weight recently. He states he is not able to walk very far without being short of breath. He does report a history of COPD as well. He states he smokes about 5 cigarettes/day. It is noted that the patient was here in October 2024 for congestive heart failure. Additionally he was hospitalized at [facility] in November for congestive heart failure. He was found to have pleural effusion at that time and underwent thoracentesis during that admission. DIAGNOSTICS: - EKG reveals paced rhythm. - Chest xray cardiomegaly. Mild vascular congestion. - Laboratory data: WBC 11.32. Hemoglobin 12.5. Platelet count 253. Sodium 139. Potassium 4.9. BUN 33. Creatinine 2.01. Troponin 0.069. proBNP 16,200. - Current home cardiac medication list has not been updated at the time of dictation - Most recent echocardiogram obtained in October 2024 revealing ejection fraction 20 to 25%, severe pulmonary hypertension, mild to moderate aortic and mitral regurgitation, moderate to severe tricuspid regurgitation - Cardiac catheterization history: Unknown 03/09/2025 Patient examined this morning at the bedside. Patient currently denies chest pain or pressure. He denies shortness of breath. Blood pressure borderline at 101/44. Creatinine worsened today at 2.46. PHYSICAL EXAM: VITAL SIGNS: Reviewed. GENERAL: Well-developed in no acute distress. HEENT: Head is normocephalic. Pupils are equal, round. Sclerae anicteric. Mucous membranes of the mouth are moist. Neck supple. No JVD or thyromegaly LUNGS: Respirations even and unlabored. Lungs essentially clear to auscultation bilaterally. HEART: Regular rate and rhythm. S1 and S2 heard. ABDOMEN: Soft. Nondistended. Nontender. EXTREMITIES: Normal range of motion. No clubbing or cyanosis. Peripheral pulses intact. Trace bilateral lower extremity edema NEUROLOGIC: Awake and alert. Oriented x 3. ASSESSMENT: Shortness of breath Acute on chronic heart failure with reduced EF, 20 to 25% Recurrent hospitalizations for congestive heart failure Elevated troponin secondary to chronic kidney disease, no evidence of myocardial injury or ischemia Coronary artery disease Ischemic cardiomyopathy status post AICD implantation Chronic kidney disease Severe pulmonary hypertension Valvular heart disease including mild to moderate aortic and mitral regurgitation, moderate to severe tricuspid regurgitation History of ventricular tachycardia Hyperlipidemia Hypothyroidism PLAN: No need to repeat echocardiogram as this was performed in October 2024 Discontinue IV Lasix. Begin oral Lasix 40 mg daily Repeat BMP in a.m. Decrease carvedilol to 6.25 mg twice a day Continue additional cardiac medications Continue to monitor blood pressure Reinforced low-sodium diet with patient who verbalized understanding Smoking cessation recommended Further recommendations pending patient course Nurse practitioner note has been reviewed by physician. Signing provider agrees with the documented findings, assessment, and plan of care documented by [employer] as a scribe. Objective - Vital Signs Vital signs: Vital Signs Temp 97.9 F 03/09/25 08:01 Pulse 63 03/09/25 08:43 Resp 18 03/09/25 08:01 BP 101/44 03/09/25 08:01 Pulse Ox 94 L 03/09/25 08:01 FiO2 35 03/08/25 02:29 Intake & Output 03/08/25 03/09/25 03/09/25 18:59 06:59 18:59 Intake Total 900 340 Output Total 1000 375 Balance -100 -375 340 Weight 77.9 kg 78.1 kg Intake: IV 10 Invasive Line 1 10 Oral 900 330 Output: Urine 1000 375 Other: Voiding Method Toilet Toilet Toilet Urinal Urinal Urinal # Voids 1 - Labs CBC & Chem 7: 03/09/25 06:36 03/09/25 06:36 Labs: Abnormal Lab Results - Last 24 Hours (Table) 03/08/25 03/08/25 03/08/25 Range/Units 11:21 16:25 19:58 WBC (4.50-10.00) 10*3/uL RBC (4.40-5.60) 10*6/uL Hgb (13.0-17.0) g/dL Hct (39.6-50.0) % Immature Gran # (0.00-0.04) 10*3/uL Neutrophils # (1.80-7.70) 10*3/uL Lymphocytes # (0.90-5.00) 10*3/uL Eosinophils # (0.04-0.35) 10*3/uL BUN (9-20) mg/dL Creatinine (0.66-1.25) mg/dL Glucose (74-99) mg/dL POC Glucose (mg/dL) 290 H 312 H 255 H (70-110) mg/dL 03/09/25 03/09/25 03/09/25 Range/Units 06:02 06:36 06:36 WBC 14.10 H (4.50-10.00) 10*3/uL RBC 3.22 L (4.40-5.60) 10*6/uL Hgb 9.8 L D (13.0-17.0) g/dL Hct 29.9 L (39.6-50.0) % Immature Gran # 0.10 H (0.00-0.04) 10*3/uL Neutrophils # 12.74 H (1.80-7.70) 10*3/uL Lymphocytes # 0.60 L (0.90-5.00) 10*3/uL Eosinophils # 0.00 L (0.04-0.35) 10*3/uL BUN 52 H (9-20) mg/dL Creatinine 2.46 H (0.66-1.25) mg/dL Glucose 235 H (74-99) mg/dL POC Glucose (mg/dL) 297 H (70-110) mg/dL 03/09/25 Range/Units 11:04 WBC (4.50-10.00) 10*3/uL RBC (4.40-5.60) 10*6/uL Hgb (13.0-17.0) g/dL Hct (39.6-50.0) % Immature Gran # (0.00-0.04) 10*3/uL Neutrophils # (1.80-7.70) 10*3/uL Lymphocytes # (0.90-5.00) 10*3/uL Eosinophils # (0.04-0.35) 10*3/uL BUN (9-20) mg/dL Creatinine (0.66-1.25) mg/dL Glucose (74-99) mg/dL POC Glucose (mg/dL) 182 H (70-110) mg/dL
--- NOTE | 2025-03-09 11:59 | P.PN ---
Subjective Progress Note Date: 03/09/25 This is a 79-year-old male patient, hospitalized for shortness of breath. The patient is a chronic smoker is known to have COPD. At the same time, the patient is known to have coronary artery disease, chronic systolic heart failure with impaired LV function and the patient has an AICD in place. The patient has been followed up with cardiology on outpatient basis. Patient presented with worsening shortness of breath over 48 hours. Limited cough. No significant sputum production. He has exertional dyspnea without any chest pain. He continues to smoke about 5 cigarettes a day. No pleurisy. No hemoptysis. No significant edema lower extremities. EKG showed a paced rhythm and the patient's chest x-ray showed cardiomegaly with mild pulm vascular ingestion. The white cell count was 11.3 with a hemoglobin 12.5 with a platelet count of 253. The rest of the blood work showed a sodium level of 139 with a potassium level of 4.9, BUN is 33 with a creatinine of 2.01. proBNP level was 16,200 and troponin was at 0.06 The patient's most recent echocardiogram from October 2024 showed systolic heart failure with an ejection fraction of 2024% with severe pulm hypertension and mild to moderate aortic regurgitation and mitral regurgitation with moderate to severe tricuspid regurgitation. The patient was started on diuretics. The patient is currently on IV Lasix 40 mg every 12 hours. The patient remains on aspirin and Plavix. The patient remains on Coreg 12.5 mg p.o. twice a day, amiodarone 200 mg p.o. daily and hydralazine 25 mg 3 times daily and Imdur 20 mg p.o. 3 times daily. Fluid balance has been negative. The patient is currently off the BiPAP and he has been transitioned to 3 L of oxygen by nasal cannula. He states that utilization of BiPAP overnight has helped quite a bit. Currently, feeling better. Free of any chest pain. Lactic acid level initially was at 3.3, dropped to one 1.2. On 03/09/2025, the patient is comfortable and he seems to be less short of waqas th. He has been diuresed adequately and on today's blood work, the patient has a rise in the creatinine up to 2.46 with a BUN of 52. Based on that, IV Lasix was discontinued and the patient was started on oral Lasix 40 mg p.o. daily. Remains on bronchodilators. Rest of the medications are essentially unchanged. The white cell count is 14.1 with a hemoglobin 9.8 and a platelet count of 202. Sodium is at 137 and potassium level is at 3.7. The patient is hemodynamically stable. The patient is currently on room air oxygen with a pulse ox of 98%. Objective - Vital Signs Vital signs: Vital Signs Temp 97.9 F 03/09/25 08:01 Pulse 60 03/09/25 08:01 Resp 18 03/09/25 08:01 BP 101/44 03/09/25 08:01 Pulse Ox 94 L 03/09/25 08:01 FiO2 35 03/08/25 02:29 Intake & Output 03/08/25 03/09/25 03/09/25 18:59 06:59 18:59 Intake Total 900 340 Output Total 1000 375 Balance -100 -375 340 Weight 77.9 kg 78.1 kg Intake: IV 10 Invasive Line 1 10 Oral 900 330 Output: Urine 1000 375 Other: Voiding Method Toilet Toilet Toilet Urinal Urinal Urinal # Voids 1 - Exam The patient appeared well nourished and normally developed. Vital signs as documented. Body mass index is 22.7. The patient is currently on room air oxygen. Head exam is unremarkable. No scleral icterus or corneal arcus noted. Neck is without jugular venous distension, thyromegaly, or carotid bruits. Carotid upstrokes are brisk bilaterally. Lungs reveal diminished breath sounds bilaterally along with some diminished breath sounds lung bases on through crackles and rales in the lung bases. Patient has a pacemaker/AICD generator over the anterior chest. Cardiac exam reveals the PMI to be normally sized and situated. Rhythm is regular. First and second heart sounds normal. No murmurs, rubs or gallops. Abdominal exam reveals normal bowel sounds, no masses, no organomegaly and no aortic enlargement. Extremities are nonedematous and both femoral and pedal pulses are normal. Examination of the skin revealed no evidence of significant rashes, suspicious appearing nevi or other concerning lesions. Neurologically, the patient is awake and alert and the patient does not have any focal neurological deficit. Cranial nerves are essentially intact. - Labs CBC & Chem 7: 03/09/25 06:36 03/09/25 06:36 Labs: Abnormal Lab Results - Last 24 Hours (Table) 03/08/25 03/08/25 03/08/25 Range/Units 11:21 16:25 19:58 WBC (4.50-10.00) 10*3/uL RBC (4.40-5.60) 10*6/uL Hgb (13.0-17.0) g/dL Hct (39.6-50.0) % Immature Gran # (0.00-0.04) 10*3/uL Neutrophils # (1.80-7.70) 10*3/uL Lymphocytes # (0.90-5.00) 10*3/uL Eosinophils # (0.04-0.35) 10*3/uL BUN (9-20) mg/dL Creatinine (0.66-1.25) mg/dL Glucose (74-99) mg/dL POC Glucose (mg/dL) 290 H 312 H 255 H (70-110) mg/dL 03/09/25 03/09/25 03/09/25 Range/Units 06:02 06:36 06:36 WBC 14.10 H (4.50-10.00) 10*3/uL RBC 3.22 L (4.40-5.60) 10*6/uL Hgb 9.8 L D (13.0-17.0) g/dL Hct 29.9 L (39.6-50.0) % Immature Gran # 0.10 H (0.00-0.04) 10*3/uL Neutrophils # 12.74 H (1.80-7.70) 10*3/uL Lymphocytes # 0.60 L (0.90-5.00) 10*3/uL Eosinophils # 0.00 L (0.04-0.35) 10*3/uL BUN 52 H (9-20) mg/dL Creatinine 2.46 H (0.66-1.25) mg/dL Glucose 235 H (74-99) mg/dL POC Glucose (mg/dL) 297 H (70-110) mg/dL Assessment and Plan Plan: Acute on chronic dyspnea, essentially attributed to CHF exacerbation will along with a component of COPD which is essentially chronic problem. Presentation is most consistent with CHF exacerbation. Acute hypoxic respiratory failure, initially on BiPAP therapy and currently transition to treatment of oxygen by nasal cannula and this morning the patient is on room air oxygen. Chronic systolic heart failure with impaired LV function with an ejection fraction of 20 to 25% and severe pulmonary hypertension COPD Coronary artery disease Chronic kidney disease with a GFR of 31 consistent with chronic stage IIIb kidney disease. There is also interval worsening of kidney function related to diuresis Valvular heart disease with mild to moderate aortic regurgitation and mitral regurgitation with moderate to severe tricuspid regurgitation Pulmonary hypertension, likely a combination of group 2/3 History of ventricular tachycardia History of AICD placement Hypothyroidism Hyperlipidemia Previous hospitalization for ESBL producing E. coli urinary tract infection and bacteremia Previous RSV infection Diabetes mellitus type 2 Chronic debility and generalized weakness and gait dysfunction Plan The patient is currently on room air oxygen Continue Lasix 40 mg p.o. daily monitor renal function Continue Coreg 12.5 mg p.o. twice a day The patient was started on a combination of hydralazine and nitrates. Hydralazine 25 mg p.o. twice a day and is ordered 20 mg p.o. 3 times daily. Monitor renal function Repeat echocardiogram Smoking cessation counseling was done Continue DuoNeb nebulizer treatments [id number] Monitor blood sugars Cardiology consultation is appreciated Will continue to follow
--- NOTE | 2025-03-09 13:41 | P.GSCN ---
History of Present Illness History of present illness: Patient is a 79-year-old male presenting with chest pain and abdominal pain admits to epigastric pain for the last several days with no associated nausea or vomiting. He has been able to tolerate some foods but states that his pain has been severe preventing him from eating further. He currently denies nausea, vomiting, fevers, chills, shortness of breath or chest pain denies recent weight loss states that he has had never had a colonoscopy and was supposed to get a colonoscopy tomorrow 721. Denies history of Motrin use or chronic alcohol use denies previous history of pancreatitis Past Medical History Past Medical History: Coronary Artery Disease (CAD), Heart Failure, COPD, Diabetes Mellitus, Myocardial Infarction ([place]) Additional Past Medical History / Comment(s): [place] 2001 Last Myocardial Infarction Date:: 2001 History of Any Multi-Drug Resistant Organisms: C-DIFF, ESBL Year Discovered:: 10/30/24 MDRO Source:: blood Past Surgical History: Pacemaker Additional Past Surgical History / Comment(s): pacemaker and optimizer. Pacer battery changed in july Past Anesthesia/Blood Transfusion Reactions: No Reported Reaction, Unable to Ob tain Type of Cardiac Device: Unknown Device Placement Date:: 2001 Past Psychological History: Unable to Obtain Smoking Status: Former smoker Past Alcohol Use History: None Reported Past Drug Use History: None Reported - Past Family History Father Family Medical History: Congestive Heart Failure (CHF) Mother Family Medical History: Congestive Heart Failure (CHF) Medications and Allergies Home Medications Medication Instructions Recorded Confirmed Type Acetaminophen Tab [Tylenol] 650 mg PO Q6H PRN 10/30/24 03/08/25 History Albuterol Inhaler [Ventolin Hfa 2 puff INHALATION RT-Q6H PRN 10/30/24 03/08/25 History Inhaler] Amiodarone [Cordarone] 200 mg PO BID 10/30/24 03/08/25 History Aspirin 81 mg PO DAILY 10/30/24 03/08/25 History Atorvastatin [Lipitor] 80 mg PO DAILY 10/30/24 03/08/25 History Clopidogrel [Plavix] 75 mg PO DAILY 10/30/24 03/08/25 History Docusate [Colace] 100 mg PO BID PRN 10/30/24 03/08/25 History Fluticasone Nasal [place] [Flonase 1 spray EA NOSTRIL DAILY 10/30/24 03/08/25 History Nasal [place]] Levothyroxine Sodium [Synthroid] 25 mcg PO AC-BRKFST 10/30/24 03/08/25 History Tamsulosin [Flomax] 0.4 mg PO BID 10/30/24 03/08/25 History polyethylene glycoL 3350 [Miralax] 17 gm PO DAILY PRN 10/30/24 03/08/25 History ALPRAZolam [Xanax] 0.25 mg PO Q8H PRN #4 tab 11/11/24 03/08/25 Rx Darbepoetin Reilly [Aranesp] 40 mcg SQ Q7D each 11/11/24 03/08/25 Rx Folic Acid 1 mg PO DAILY #0 tab 11/11/24 03/08/25 Rx Ipratropium-Albuterol Nebulize 3 ml INHALATION RT-Q4H PRN each 11/11/24 03/08/25 Rx [Duoneb 0.5 mg-3 mg/3 ml Soln] Potassium Chloride ER [K-Dur 20] 20 meq PO DAILY tab 11/13/24 03/08/25 Rx Bumetanide [BUMEX] 1 mg PO TID 03/08/25 03/08/25 History Famotidine 20 mg PO BID 03/08/25 03/08/25 History Multivitamins, Thera [Multivitamin 1 tab PO DAILY 03/08/25 03/08/25 History (formulary)] carvediloL [Coreg] 12.5 mg PO BID-W/MEALS 03/08/25 03/08/25 History Allergies Allergy/AdvReac Type Severity Reaction Status Date / Time No Known Allergies Allergy Verified 03/08/25 13:48 Surgical - Exam Osteopathic Statement: *. No significant issues noted on an osteopathic structural exam other than those noted in the History and Physical/Consult. Vital Signs Temp Pulse Resp BP Pulse Ox 97.6 F 62 22 184/95 100 03/08/25 02:19 03/08/25 02:19 03/08/25 02:19 03/08/25 02:19 03/08/25 02:19 General No acute distress alert and oriented x 3 Cardiovascular regular rhythm Pulmonary nonlabored breathing Abdomen is soft, minimally distended, tender to palpation in the epigastric region only no guarding or rebound tenderness not peritoneal Results - Labs 03/09/25 06:36 03/09/25 06:36 Abnormal Lab Results - Last 24 Hours (Table) 03/08/25 03/08/25 03/08/25 Range/Units 02:28 02:28 02:28 WBC 11.32 H (4.50-10.00) 10*3/uL RBC 4.23 L (4.40-5.60) 10*6/uL Hgb 12.5 L (13.0-17.0) g/dL MCHC 31.3 L (32.0-37.0) g/dL Neutrophils # 8.75 H (1.80-7.70) 10*3/uL BUN 33 H (9-20) mg/dL Creatinine 2.01 H (0.66-1.25) mg/dL Glucose 257 H (74-99) mg/dL POC Glucose (mg/dL) (70-110) mg/dL Plasma Lactic Acid Jj 3.3 H* (0.7-2.0) mmol/L Troponin I (0.000-0.034) ng/mL 03/08/25 03/08/25 03/08/25 Range/Units 02:28 11:21 16:25 WBC (4.50-10.00) 10*3/uL RBC (4.40-5.60) 10*6/uL Hgb (13.0-17.0) g/dL MCHC (32.0-37.0) g/dL Neutrophils # (1.80-7.70) 10*3/uL BUN (9-20) mg/dL Creatinine (0.66-1.25) mg/dL Glucose (74-99) mg/dL POC Glucose (mg/dL) 290 H 312 H (70-110) mg/dL Plasma Lactic Acid Jj (0.7-2.0) mmol/L Troponin I 0.069 H* (0.000-0.034) ng/mL Diabetes panel 03/08/25 Range/Units 02:28 Sodium 139 (137-145) mmol/L Potassium 4.9 (3.5-5.1) mmol/L Chloride 101 (98-107) mmol/L Carbon Dioxide 24 (22-30) mmol/L BUN 33 H (9-20) mg/dL Creatinine 2.01 H (0.66-1.25) mg/dL Glucose 257 H (74-99) mg/dL Calcium 9.6 (8.4-10.2) mg/dL AST 20 (17-59) U/L ALT 14 (4-49) U/L Alkaline Phosphatase 114 (38-126) U/L Total Protein 7.7 (6.3-8.2) g/dL Albumin 4.5 (3.5-5.0) g/dL Calcium panel 03/08/25 Range/Units 02:28 Calcium 9.6 (8.4-10.2) mg/dL Albumin 4.5 (3.5-5.0) g/dL Pituitary panel 03/08/25 Range/Units 02:28 Sodium 139 (137-145) mmol/L Potassium 4.9 (3.5-5.1) mmol/L Chloride 101 (98-107) mmol/L Carbon Dioxide 24 (22-30) mmol/L BUN 33 H (9-20) mg/dL Creatinine 2.01 H (0.66-1.25) mg/dL Glucose 257 H (74-99) mg/dL Calcium 9.6 (8.4-10.2) mg/dL Adrenal panel 03/08/25 Range/Units 02:28 Sodium 139 (137-145) mmol/L Potassium 4.9 (3.5-5.1) mmol/L Chloride 101 (98-107) mmol/L Carbon Dioxide 24 (22-30) mmol/L BUN 33 H (9-20) mg/dL Creatinine 2.01 H (0.66-1.25) mg/dL Glucose 257 H (74-99) mg/dL Calcium 9.6 (8.4-10.2) mg/dL Total Bilirubin 1.2 (0.2-1.3) mg/dL AST 20 (17-59) U/L ALT 14 (4-49) U/L Alkaline Phosphatase 114 (38-126) U/L Total Protein 7.7 (6.3-8.2) g/dL Albumin 4.5 (3.5-5.0) g/dL Assessment and Plan Assessment: chart reveals no imaging regarding abdominal pain will order kub, if creatinine improves will order ct abd/pelv w/ iv contrast. Addendum 79-year-old male with epigastric pain Given patient is brought symptoms I will start with a CT scan of the abdomen and pelvis without IV contrast but with p.o. contrast given that his creatinine function is elevated although I would prefer IV and p.o. Also can try Protonix to see if he improves clinically Time with Patient: Greater than 30
[2025-03-09] MEDS: IOPAMIDOL CONTRAST (ORAL USE) VIAL PO PRN (13:47)
--- NOTE | 2025-03-09 14:39 | P.PN ---
Subjective Progress Note Date: 03/09/25 79-year-old male with past medical history of COPD, CHF who presents emergency department reporting shortness of breath. Patient has been short of breath for the past couple of days. He called EMS who found him to be saturating in the 80s with significant work of breathing. He does not have oxygen at home. He was given 324 mg of aspirin, CPAP. Patient takes Bumex as a diuretic. Denies any fevers. Does admit to some chest pain. No calf pain or swelling. No other alleviating, precipitating modifying factors -- Patient remains hemodynamically stable Vital signs are reviewed Lab reviewed indicates worsening creatinine which is up to 2.46 this morning, up from 2.01 yesterday; patient is currently on IV Lasix 40 mg every 12 hours and Farxiga; cardiology has added hydralazine and Isordil; amiodarone is decreased to 200 mg daily - Will consult nephrology Objective - Vital Signs Vital signs: Vital Signs Temp 97.9 F 03/09/25 08:01 Pulse 63 03/09/25 08:43 Resp 18 03/09/25 08:01 BP 101/44 03/09/25 08:01 Pulse Ox 94 L 03/09/25 08:01 FiO2 35 03/08/25 02:29 Intake & Output 03/08/25 03/09/25 03/09/25 18:59 06:59 18:59 Intake Total 900 340 Output Total 1000 375 Balance -100 -375 340 Weight 77.9 kg 78.1 kg Intake: IV 10 Invasive Line 1 10 Oral 900 330 Output: Urine 1000 375 Other: Voiding Method Toilet Toilet Toilet Urinal Urinal Urinal # Voids 1 - Exam VITAL SIGNS: Reviewed. GENERAL: Well-developed in no acute distress. HEENT: Head is normocephalic. Pupils are equal, round. Sclerae anicteric. Mucous membranes of the mouth are moist. Neck supple. No JVD or thyromegaly LUNGS: Respirations even and unlabored. Lungs essentially clear to auscultation bilaterally. HEART: Regular rate and rhythm. S1 and S2 heard. ABDOMEN: Soft. Nondistended. Nontender. EXTREMITIES: Normal range of motion. No clubbing or cyanosis. Peripheral pulses intact. Trace bilateral lower extremity edema NEUROLOGIC: Awake and alert. Oriented x 3. - Labs CBC & Chem 7: 03/09/25 06:36 03/09/25 06:36 Labs: Abnormal Lab Results - Last 24 Hours (Table) 03/08/25 03/08/25 03/08/25 Range/Units 11:21 16:25 19:58 WBC (4.50-10.00) 10*3/uL RBC (4.40-5.60) 10*6/uL Hgb (13.0-17.0) g/dL Hct (39.6-50.0) % Immature Gran # (0.00-0.04) 10*3/uL Neutrophils # (1.80-7.70) 10*3/uL Lymphocytes # (0.90-5.00) 10*3/uL Eosinophils # (0.04-0.35) 10*3/uL BUN (9-20) mg/dL Creatinine (0.66-1.25) mg/dL Glucose (74-99) mg/dL POC Glucose (mg/dL) 290 H 312 H 255 H (70-110) mg/dL 03/09/25 03/09/25 03/09/25 Range/Units 06:02 06:36 06:36 WBC 14.10 H (4.50-10.00) 10*3/uL RBC 3.22 L (4.40-5.60) 10*6/uL Hgb 9.8 L D (13.0-17.0) g/dL Hct 29.9 L (39.6-50.0) % Immature Gran # 0.10 H (0.00-0.04) 10*3/uL Neutrophils # 12.74 H (1.80-7.70) 10*3/uL Lymphocytes # 0.60 L (0.90-5.00) 10*3/uL Eosinophils # 0.00 L (0.04-0.35) 10*3/uL BUN 52 H (9-20) mg/dL Creatinine 2.46 H (0.66-1.25) mg/dL Glucose 235 H (74-99) mg/dL POC Glucose (mg/dL) 297 H (70-110) mg/dL Assessment and Plan Assessment: Acute hypoxic respiratory failure; related to acute on chronic CHF - Patient placed on BiPAP upon arrival to ED - Patient is currently on O2 at 3 L per nasal cannula; plan to titrate or wean as able Acute on chronic CHF; LVEF of 20 to 25% on last echo - Patient has been placed on Lasix 40 mg IV every 12 hours; will monitor strict TANYA's, daily weights, low-salt and fluid restricted diet - Patient has been recommended to be placed on Farxiga - 2D echo Elevated troponin; likely related to chronic kidney disease; rule out acute coronary syndrome -We will trend to rule out acute coronary syndrome - 2D echo showed; await further recommendations from etiology Hyperglycemia; likely new onset diabetes mellitus - Blood glucose markedly elevated upon arrival to ED; monitor Accu-Cheks q. CHS with insulin sliding scale; change diet to a consistent carbohydrate diet - Patient has been placed on Farxiga; will make further recommendations pending clinical course - Will order HbA1c Ischemic cardiomyopathy; patient is status post AICD implantation Valvular heart disease; patient has mild to moderate aortic and mitral regurgitation with severe tricuspid regurgitation - Follow-up with valvular disease clinic Hypertension; cardiology recommending to increase Coreg up to 12.5 mg twice daily; add hydralazine 25 mg twice daily; add Isordil 20 mg 3 times daily Hyperlipidemia; Lipitor 80 mg p.o. nightly Hypothyroidism; levothyroxine 25 mcg daily Anxiety; Xanax 0.5 mg every 8 hours as needed BPH; Flomax 0.4 mg daily
--- NOTE | 2025-03-09 15:26 | CT ---
EXAMINATION TYPE: CT abdomen pelvis wo con DATE OF EXAM: 03/09/2025 3:19 PM COMPARISON: CT abdomen/pelvis 11/07/2024. CLINICAL INDICATION: Male, 79 years old with history of abdominal pain; adbominal pain TECHNIQUE: Axial CT abdomen pelvis wo con;Sagittal and coronal reformats were created on a separate workstation. Oral contrast used: with Oral Contrast (none if empty) CT DLP: 578.9 mGycm, Automated exposure control for dose reduction was used. FINDINGS: LOWER CHEST: Small right pleural effusion. ABDOMEN LIVER: Unremarkable GALLBLADDER AND BILE DUCTS: Layering increased densities within the lumen consistent with gallstones are present. PANCREAS: Unremarkable. SPLEEN: Unremarkable. ADRENAL GLANDS: Unremarkable. KIDNEYS AND URETERS: No evidence of hydronephrosis or renal calculus. The ureters are unremarkable. PELVIS BLADDER: No evidence for wall thickening or mass given limitations of exam. REPRODUCTIVE: Unremarkable. ABDOMEN & PELVIS STOMACH AND BOWEL: Stomach and duodenum are unremarkable. No evidence of bowel obstruction. PERITONEUM/RETROPERITONEUM: No evidence of pneumoperitoneum or free fluid. VASCULATURE: No evidence of aortic aneurysm. Vascular stent graft in the partially visualized right s uperficial femoral artery. MUSCULOSKELETAL: No acute osseous abnormalities LYMPH NODES: No gross evidence for lymphadenopathy. SOFT TISSUE/ABDOMINAL WALL: Unremarkable IMPRESSION: 1. No acute abnormality in the abdomen/pelvis. 2. Small right pleural effusion. [facility], , 03/09/2025 3:24 PM
[2025-03-09 16:21] LABS: Glucose,Whole Blood 181 mg/dL (70-110)
[2025-03-09] MEDS: PANTOPRAZOLE 40 MG TABLET PO SCH (16:37)
[2025-03-09 20:10] LABS: Glucose,Whole Blood 154 mg/dL (70-110)
--- NOTE | 2025-03-09 20:31 | P.PN ---
Subjective Patient seen and evaluated bedside patient still complaining of epigastric abdominal pain with no nausea or vomiting at this time. Admits to passing flatus and had bowel movements Objective - Vital Signs Vital signs: Vital Signs Temp 97.8 F 03/09/25 11:35 Pulse 64 03/09/25 15:40 Resp 16 03/09/25 14:48 BP 120/51 03/09/25 14:48 Pulse Ox 98 03/09/25 14:48 FiO2 35 03/08/25 02:29 Intake & Output 03/09/25 03/09/25 03/10/25 06:59 18:59 06:59 Intake Total 1035 Output Total 375 1100 Balance -375 -65 Weight 78.1 kg Intake: IV 20 Invasive Line 1 20 Oral 1015 Output: Urine 375 1100 Other: Voiding Method Toilet Toilet Urinal Urinal # Voids 1 - Exam No acute distress alert and oriented x 3 Cardiovascular regular rhythm Pulmonary nonlabored breathing Abdomen is soft, tender to palpation epigastric region, no rebound tenderness not a surgical abdomen not peritoneal - Labs CBC & Chem 7: 03/09/25 06:36 03/09/25 06:36 Labs: Abnormal Lab Results - Last 24 Hours (Table) 03/09/25 03/09/25 03/09/25 Range/Units 06:02 06:36 06:36 WBC 14.10 H (4.50-10.00) 10*3/uL RBC 3.22 L (4.40-5.60) 10*6/uL Hgb 9.8 L D (13.0-17.0) g/dL Hct 29.9 L (39.6-50.0) % Immature Gran # 0.10 H (0.00-0.04) 10*3/uL Neutrophils # 12.74 H (1.80-7.70) 10*3/uL Lymphocytes # 0.60 L (0.90-5.00) 10*3/uL Eosinophils # 0.00 L (0.04-0.35) 10*3/uL BUN 52 H (9-20) mg/dL Creatinine 2.46 H (0.66-1.25) mg/dL Glucose 235 H (74-99) mg/dL POC Glucose (mg/dL) 297 H (70-110) mg/dL Hemoglobin A1c (<=6.0) % 03/09/25 03/09/25 03/09/25 Range/Units 06:36 11:04 16:19 WBC (4.50-10.00) 10*3/uL RBC (4.40-5.60) 10*6/uL Hgb (13.0-17.0) g/dL Hct (39.6-50.0) % Immature Gran # (0.00-0.04) 10*3/uL Neutrophils # (1.80-7.70) 10*3/uL Lymphocytes # (0.90-5.00) 10*3/uL Eosinophils # (0.04-0.35) 10*3/uL BUN (9-20) mg/dL Creatinine (0.66-1.25) mg/dL Glucose (74-99) mg/dL POC Glucose (mg/dL) 182 H 181 H (70-110) mg/dL Hemoglobin A1c 6.4 H (<=6.0) % 03/09/25 Range/Units 20:07 WBC (4.50-10.00) 10*3/uL RBC (4.40-5.60) 10*6/uL Hgb (13.0-17.0) g/dL Hct (39.6-50.0) % Immature Gran # (0.00-0.04) 10*3/uL Neutrophils # (1.80-7.70) 10*3/uL Lymphocytes # (0.90-5.00) 10*3/uL Eosinophils # (0.04-0.35) 10*3/uL BUN (9-20) mg/dL Creatinine (0.66-1.25) mg/dL Glucose (74-99) mg/dL POC Glucose (mg/dL) 154 H (70-110) mg/dL Hemoglobin A1c (<=6.0) % Assessment and Plan Assessment: 79-year-old male with nonspecific epigastric pain Recent CT of the abdomen pelvis demonstrates no significant acute process Patient is having pain out of proportion to exam once cleared from a medicine/nephro standpoint may benefit from CT angio of the abdomen mesenteric ischemia Continue pain management Keep n.p.o. Time with Patient: Less than 30
[2025-03-10 05:37] LABS: African American GFR (CKD) 27 (>60 ml/min/1.73 sqM); Anion Gap 9 mmol/L; Blood Urea Nitrogen 63 mg/dL (9-20); Calcium 9.0 mg/dL (8.4-10.2); Carbon Dioxide 26 mmol/L (22-30); Chloride 100 mmol/L (98-107); Glucose 166 mg/dL (74-99); Non-African American GFR(CKD) 23 (>60 ml/min/1.73 sqM); Potassium 5.1 mmol/L (3.5-5.1); Sodium 135 mmol/L (137-145)
[2025-03-10 05:50] LABS: Glucose,Whole Blood 208 mg/dL (70-110)
--- NOTE | 2025-03-10 08:13 | P.PN ---
Subjective HISTORY OF PRESENT ILLNESS: This is a 79-year-old male with a past medical history significant for coronary artery disease, ischemic cardiomyopathy, AICD implantation, ventricular tachycardia, congestive heart failure, hyperlipidemia, and hypothyroidism. Patient follows in the office with Dr. Rodrigues. We have been asked to see the patient in consultation for congestive heart failure. Patient examined at the bedside. Patient presented to the hospital for chief complaint of shortness of breath. Patient states he has been feeling short of breath for the past 24 to 48 hours. He denied having any chest pain or pressure. He denies having any weight gain and states he actually has lost weight recently. He states he is not able to walk very far without being short of breath. He does report a history of COPD as well. He states he smokes about 5 cigarettes/day. It is noted that the patient was here in October 2024 for congestive heart failure. Additionally he was hospitalized at [facility] in November for congestive heart failure. He was found to have pleural effusion at that time and underwent thoracentesis during that admission. DIAGNOSTICS: - EKG reveals paced rhythm. - Chest xray cardiomegaly. Mild vascular congestion. - Laboratory data: WBC 11.32. Hemoglobin 12.5. Platelet count 253. Sodium 139. Potassium 4.9. BUN 33. Creatinine 2.01. Troponin 0.069. proBNP 16,200. - Current home cardiac medication list has not been updated at the time of dictation - Most recent echocardiogram obtained in October 2024 revealing ejection fraction 20 to 25%, severe pulmonary hypertension, mild to moderate aortic and mitral regurgitation, moderate to severe tricuspid regurgitation - Cardiac catheterization history: Unknown 03/09/2025 Patient examined this morning at the bedside. Patient currently denies chest pain or pressure. He denies shortness of breath. Blood pressure borderline at 101/44. Creatinine worsened today at 2.46. 03/10 Patient seen and examined. Patient admits to some more shortness of breath this morning however mostly improved. He admits the inhalers/nebulizers are helping. Denies any chest pain or pressure. He admits to episodes of black/dark stool for the last few days as well as continued epigastric discomfort. He admits he did have scopes scheduled with GI previously this week however has been on hold while he has been in the hospital. PHYSICAL EXAM: VITAL SIGNS: Reviewed. GENERAL: Well-developed in no acute distress. HEENT: Head is normocephalic. Pupils are equal, round. Sclerae anicteric. Mucous membranes of the mouth are moist. Neck supple. No JVD or thyromegaly LUNGS: Respirations even and unlabored. Lungs essentially clear to auscultation bilaterally. HEART: Regular rate and rhythm. S1 and S2 heard. ABDOMEN: Soft. Nondistended. Nontender. EXTREMITIES: Normal range of motion. No clubbing or cyanosis. Peripheral pulses intact. Trace bilateral lower extremity edema NEUROLOGIC: Awake and alert. Oriented x 3. ASSESSMENT: Shortness of breath Acute on chronic respiratory failure, likely in part related to heart failure however additional cough and wheezing as well as anemia. Likely multifactorial Acute on chronic heart failure with reduced EF, 20 to 25% Recurrent hospitalizations for congestive heart failure Elevated troponin secondary to chronic kidney disease, no evidence of myocardial injury or ischemia Coronary artery disease Ischemic cardiomyopathy status post AICD implantation Chronic kidney disease Severe pulmonary hypertension Valvular heart disease including mild to moderate aortic and mitral regurgitation, moderate to severe tricuspid regurgitation History of ventricular tachycardia Hyperlipidemia Hypothyroidism PLAN: No need to repeat echocardiogram as this was performed in October 2024 Continue oral Lasix 40 mg daily. Patient currently does not appear significantly volume overloaded Continue carvedilol to 6.25 mg twice a day Continue additional cardiac medications Patient with some reported dark/black stools and epigastric discomfort as well as some anemia with hemoglobin decreasing. Recommend GI workup. Recommend PPI. Hold Plavix given anemia and concern of GI bleed. Objective - Vital Signs Vital signs: Vital Signs Temp 98.4 F 03/10/25 03:03 Pulse 62 03/10/25 04:31 Resp 18 03/10/25 03:03 BP 125/65 03/10/25 03:03 Pulse Ox 99 03/10/25 03:03 FiO2 35 03/08/25 02:29 Intake & Output 03/09/25 03/10/25 03/10/25 18:59 06:59 18:59 Intake Total 1035 340 Output Total 1100 Balance -65 340 Weight 78.3 kg Intake: IV 20 20 Invasive Line 1 20 20 Oral 1015 320 Output: Urine 1100 Other: Voiding Method Toilet Toilet Urinal Urinal # Voids 1 1 - Labs CBC & Chem 7: 03/09/25 06:36 03/10/25 04:46 Labs: Abnormal Lab Results - Last 24 Hours (Table) 07/20/25 07/20/25 07/20/25 Range/Units 06:36 11:04 16:19 Sodium (137-145) mmol/L BUN (9-20) mg/dL Creatinine (0.66-1.25) mg/dL Glucose (74-99) mg/dL POC Glucose (mg/dL) 182 H 181 H (70-110) mg/dL Hemoglobin A1c 6.4 H (<=6.0) % 03/09/25 03/10/25 03/10/25 Range/Units 20:07 04:46 05:49 Sodium 135 L (137-145) mmol/L BUN 63 H (9-20) mg/dL Creatinine 2.52 H (0.66-1.25) mg/dL Glucose 166 H (74-99) mg/dL POC Glucose (mg/dL) 154 H 208 H (70-110) mg/dL Hemoglobin A1c (<=6.0) %
[2025-03-10] MEDS: ACETAMINOPHEN TAB 325 MG TAB PO PRN (09:25)
[2025-03-10] MEDS: FUROSEMIDE 40 MG TAB PO SCH (09:26)
[2025-03-10] MEDS ORDERED: Potassium Replacement Protocol 1 EACH MISC MISCELLANE PRN (09:35)
--- NOTE | 2025-03-10 11:16 | P.NPCON ---
History of Present Illness - Reason for Consult chronic renal failure - History of Present Illness Patient is a 79-year-old male with history of coronary artery disease, ischemic cardiomyopathy with EF of 20 to 25%, chronic kidney disease stage IV with baseline creatinine around 2 to 2.5 mg/dL. He is admitted to the hospital with complaints of abdominal pain and shortness of breath. Chest x-ray showed pulmonary vascular congestion and patient has been diuresed. CT of the abdomen was unremarkable. Serum creatinine was 2.0 on admission and it is 2.5 today. Respiratory status has improved significantly. No significant hypotension noted recently except for 1 low reading at 99 mmHg for systolic blood pressure on initial admission. Patient is voiding on his own. 24-hour urine output documented at 1.1 L. Past Medical History Past Medical History: Coronary Artery Disease (CAD), Heart Failure, COPD, Diabetes Mellitus, Myocardial Infarction (NV) Additional Past Medical History / Comment(s): NV 2001 Last Myocardial Infarction Date:: 2001 History of Any Multi-Drug Resistant Organisms: C-DIFF, ESBL Date of last positivie culture/infection: 10/30/24 MDRO Source:: blood Past Surgical History: Pacemaker Additional Past Surgical History / Comment(s): pacemaker and optimizer. Pacer battery changed in july Past Anesthesia/Blood Transfusion Reactions: No Reported Reaction, Unable to Obtain Type of Cardiac Device: Unknown Device Placement Date:: 2001 Past Psychological History: Unable to Obtain Smoking Status: Former smoker Past Alcohol Use History: None Reported Past Drug Use History: None Reported - Past Family History Father Family Medical History: Congestive Heart Failure (CHF) Mother Family Medical History: Congestive Heart Failure (CHF) Medications and Allergies Home Medications Medication Instructions Recorded Confirmed Type Acetaminophen Tab [Tylenol] 650 mg PO Q6H PRN 10/30/24 03/08/25 History Albuterol Inhaler [Ventolin Hfa 2 puff INHALATION RT-Q6H PRN 10/30/24 03/08/25 History Inhaler] Amiodarone [Cordarone] 200 mg PO BID 10/30/24 03/08/25 History Aspirin 81 mg PO DAILY 10/30/24 03/08/25 History Atorvastatin [Lipitor] 80 mg PO DAILY 10/30/24 03/08/25 History Clopidogrel [Plavix] 75 mg PO DAILY 10/30/24 03/08/25 History Docusate [Colace] 100 mg PO BID PRN 10/30/24 03/08/25 History Fluticasone Nasal Badin [Flonase 1 spray EA NOSTRIL DAILY 10/30/24 03/08/25 History Nasal Badin] Levothyroxine Sodium [Synthroid] 25 mcg PO AC-BRKFST 10/30/24 03/08/25 History Tamsulosin [Flomax] 0.4 mg PO BID 10/30/24 03/08/25 History polyethylene glycoL 3350 [Miralax] 17 gm PO DAILY PRN 10/30/24 03/08/25 History ALPRAZolam [Xanax] 0.25 mg PO Q8H PRN #4 tab 11/11/24 03/08/25 Rx Darbepoetin Reilly [Aranesp] 40 mcg SQ Q7D each 11/11/24 03/08/25 Rx Folic Acid 1 mg PO DAILY #0 tab 11/11/24 03/08/25 Rx Ipratropium-Albuterol Nebulize 3 ml INHALATION RT-Q4H PRN each 11/11/24 03/08/25 Rx [Duoneb 0.5 mg-3 mg/3 ml Soln] Potassium Chloride ER [K-Dur 20] 20 meq PO DAILY tab 11/13/24 03/08/25 Rx Bumetanide [BUMEX] 1 mg PO TID 03/08/25 03/08/25 History Famotidine 20 mg PO BID 03/08/25 03/08/25 History Multivitamins, Thera [Multivitamin 1 tab PO DAILY 03/08/25 03/08/25 History (formulary)] carvediloL [Coreg] 12.5 mg PO BID-W/MEALS 03/08/25 03/08/25 History Allergies Allergy/AdvReac Type Severity Reaction Status Date / Time No Known Allergies Allergy Verified 03/08/25 13:48 Physical Exam Vitals: Vital Signs Temp Pulse Pulse Resp BP Pulse Ox 03/10/25 09:20 97.7 F 57 L 18 121/62 99 03/10/25 08:54 68 03/10/25 08:41 64 98 03/10/25 04:31 62 03/10/25 04:21 60 03/10/25 03:03 98.4 F 60 18 125/65 99 03/10/25 01:38 71 03/10/25 01:27 73 03/09/25 23:08 76 20 111/63 97 03/09/25 20:46 64 18 129/67 97 03/09/25 15:40 64 03/09/25 15:33 62 03/09/25 14:48 60 16 120/51 98 03/09/25 11:53 63 03/09/25 11:42 62 03/09/25 11:35 97.8 F 60 16 101/43 98 Intake and Output 03/09/25 03/10/25 03/10/25 22:59 06:59 14:59 Intake Total 795 10 100 Output Total 1100 Balance -305 10 100 Intake: IV 10 10 Invasive Line 1 10 10 Oral 785 100 Output: Urine 1100 Other: Voiding Method Toilet Toilet Urinal Urinal # Voids 1 Weight 78.3 kg Patient is awake, comfortable, no acute distress Examination of the heart S1 and S2 Examination of the lungs show decreased breath sounds at the bases Abdomen is soft nontender Examination of lower extremities shows no significant edema [employer] exam grossly intact Results - Lab Results Most recent lab results Calcium 9.0 mg/dL (8.4-10.2) 03/10/25 04:46 Magnesium 2.0 mg/dL (1.6-2.3) 03/08/25 02:28 03/09/25 06:36 03/10/25 04:46 Assessment and Plan Assessment: 1. CKD stage IV secondary to nephrosclerosis with fluctuation in creatinine related to episodes of acute kidney injury and cardiorenal syndrome. Serum creatinine close to baseline of 2 to 2.5 mg/dL. No obstruction noted on CT scan. Check UA 2. Ischemic cardiomyopathy with EF of 20 to 25% 3. Acute on chronic CHF with reduced ejection fraction 4. Acute hypoxic respiratory failure secondary to acute on chronic CHF, improved 5. Valvular heart disease with mild to moderate aortic and mitral regurgitation with severe tricuspid regurgitation Plan: Continue with Farxiga Continue with current dose of oral Lasix Continue with accurate I's and O's Repeat labs in a.m. Thank you for the consultation. We will continue to follow the patient with you during his hospitalization.
[2025-03-10 11:44] LABS: Glucose,Whole Blood 127 mg/dL (70-110)
--- NOTE | 2025-03-10 13:23 | P.PN ---
Subjective Progress Note Date: 03/10/25 Principal diagnosis: Acute hypoxic respiratory failure secondary to acute on chronic systolic congestive heart failure This is a 79-year-old male patient, hospitalized for shortness of breath. The patient is a chronic smoker is known to have COPD. At the same time, the patien t is known to have coronary artery disease, chronic systolic heart failure with impaired LV function and the patient has an AICD in place. The patient has been followed up with cardiology on outpatient basis. Patient presented with worsening shortness of breath over 48 hours. Limited cough. No significant sputum production. He has exertional dyspnea without any chest pain. He continues to smoke about 5 cigarettes a day. No pleurisy. No hemoptysis. No significant edema lower extremities. EKG showed a paced rhythm and the patient's chest x-ray showed cardiomegaly with mild pulm vascular ingestion. The white cell count was 11.3 with a hemoglobin 12.5 with a platelet count of 253. The rest of the blood work showed a sodium level of 139 with a potassium level of 4.9, BUN is 33 with a creatinine of 2.01. proBNP level was 16,200 and troponin was at 0.06 The patient's most recent echocardiogram from October 2024 showed systolic heart failure with an ejection fraction of 2024% with severe pulm hypertension and mild to moderate aortic regurgitation and mitral regurgitation with moderate to severe tricuspid regurgitation. The patient was started on diuretics. The patient is currently on IV Lasix 40 mg every 12 hours. The patient remains on aspirin and Plavix. The patient rem ains on Coreg 12.5 mg p.o. twice a day, amiodarone 200 mg p.o. daily and hydralazine 25 mg 3 times daily and Imdur 20 mg p.o. 3 times daily. Fluid balance has been negative. The patient is currently off the BiPAP and he has been transitioned to 3 L of oxygen by nasal cannula. He states that utilization of BiPAP overnight has helped quite a bit. Currently, feeling better. Free of any chest pain. Patient was seen today on lactic acid level initially was at 3.3, dropped to one 1.2. On 03/09/2025, the patient is comfortable and he seems to be less short of breath. He has been diuresed adequately and on today's blood work, the patient has a rise in the creatinine up to 2.46 with a BUN of 52. Based on that, IV Lasix was discontinued and the patient was started on oral Lasix 40 mg p.o. daily. Remains on bronchodilators. Rest of the medications are essentially unchanged. The white cell count is 14.1 with a hemoglobin 9.8 and a platelet count of 202. Sodium is at 137 and potassium level is at 3.7. The patient is hemodynamically stable. The patient is currently on room air oxygen with a pulse ox of 98 Patient was seen today on 03/10/2025, seems to be fairly comfortable, not in distress. Patient does have history of ischemic cardiomyopathy with ejection fraction of 20 to 25%, clinically however his congestive heart failure has been improving with diuresis. In addition to his cardiomyopathy, patient has valvular heart disease with mild to moderate aortic and mitral regurgitation with severe tricuspid regurgitation and secondary pulmonary hypertension. Patient is being followed by cardiology as well as nephrology for his renal failure. Remains on oral Lasix. Patient continues to have some nonspecific epigastric pain, being followed by surgery recommending ultrasound, also recommending CT angio of the abdomen to rule out mesenteric ischemia. Objective - Vital Signs Vital signs: Vital Signs Temp 97.7 F 03/10/25 09:20 Pulse 72 03/10/25 12:16 Resp 18 03/10/25 09:20 BP 121/62 03/10/25 09:20 Pulse Ox 99 03/10/25 09:20 FiO2 35 03/08/25 02:29 Intake & Output 03/09/25 03/10/25 03/10/25 18:59 06:59 18:59 Intake Total 1035 340 100 Output Total 1100 Balance -65 340 100 Weight 78.3 kg Intake: IV 20 20 Invasive Line 1 20 20 Oral 1015 320 100 Output: Urine 1100 Other: Voiding Method Toilet Toilet Urinal Urinal # Voids 1 1 - Exam Physical exam revealed a 79year-old, in no distress, on room air Head: Atraumatic, normocephalic EENT: PERRLA, EOMI, nonicteric, no neck masses, no JVD, no stridor, moist mucous membranes Chest: Symmetrical chest expansion Lungs: Crackles at the bases no rhonchi no wheezes Cardiac: Normal S1-S2, no S3 gallop, 2/6 systolic murmur throughout the precordium. Abdomen: Soft nontender no megaly no rebound no guarding good bowel sounds Extremities: No clubbing 1+ bipedal edema, nocyanosis, good pulses bilaterally Musculoskeletal: No deformities and no limitation range of motion Neurologic: Alert oriented x 3 no gross focal neurologic deficit Psychiatric: Normal mood and affect and no mental status examination Skin: No rashes. - Labs CBC & Chem 7: 03/09/25 06:36 03/10/25 04:46 Labs: Abnormal Lab Results - Last 24 Hours (Table) 03/09/25 03/09/25 03/10/25 Range/Units 16:19 20:07 04:46 Sodium 135 L (137-145) mmol/L BUN 63 H (9-20) mg/dL Creatinine 2.52 H (0.66-1.25) mg/dL Glucose 166 H (74-99) mg/dL POC Glucose (mg/dL) 181 H 154 H (70-110) mg/dL 03/10/25 03/10/25 Range/Units 05:49 11:42 Sodium (137-145) mmol/L BUN (9-20) mg/dL Creatinine (0.66-1.25) mg/dL Glucose (74-99) mg/dL POC Glucose (mg/dL) 208 H 127 H (70-110) mg/dL Assessment and Plan Assessment: Impression: Acute hypoxic respiratory failure secondary to acute on chronic systolic congestive heart failure Severe pulmonary hypertension with valvular heart disease including aortic and mitral regurgitation Underlying COPD Coronary artery disease Chronic systolic congestive heart failure with ejection fraction of 20 to 25% Chronic kidney disease stage IIIb History of ventricular tachycardia History of AICD placement Hypothyroidism Dyslipidemia History of ESBL E. coli UTI and bacteremia Type 2 diabetes Chronic medical debility and generalized weakness Recommendation: Continue Lasix 40 mg daily Continue Coreg 12.5 twice daily Continue to monitor renal function Continue updrafts for underlying COPD Patient is being followed by many consultants including cardiology nephrology and general surgery Will continue to follow. Prognosis is guarded considering his cardiomyopathy LV dysfunction and acute on chronic kidney disease. Time with Patient: Less than 30
--- NOTE | 2025-03-10 13:39 | P.PN ---
Subjective Progress Note Date: 03/10/25 SURGICAL PROGRESS NOTE CHIEF COMPLAINT: Respiratory failure HISTORY OF PRESENT ILLNESS: Surgical service following regards to abdominal pain. Patient does complain of epigastric and right upper quadrant abdominal pain. CAT scan did note gallstones. He does report overall pain is decreasing. Also note he is being treated for CHF exacerbation and COPD. Note cardiology discontinued the Plavix on March 10. Hemoglobin 12.5 down to 9.8 as of yesterday. Per cardiology's note Black stools were reported. PHYSICAL EXAM: VITAL SIGNS: Reviewed. GENERAL: Well-developed in no acute distress. HEENT: No sclera icterus. Extraocular movements grossly intact. Moist buccal mucosa. Head is atraumatic, normocephalic. ABDOMEN: Soft. Nondistended. Tenderness palpation right upper quadrant epigastric area NEUROLOGIC: Alert and oriented. Cranial nerves II through XII grossly intact. ASSESSMENT: 1. Epigastric and right upper quadrant abdominal pain 2. Anemia with melanotic stools 3. Gallstones PLAN: -Check gallbladder ultrasound to evaluate for right upper quadrant abdominal pain -Agree with holding Plavix due to anemia with black stools -Continue to monitor hemoglobin -Continue to monitor for any signs or symptoms of bleeding -Continue PPI Physician [employer] note has been reviewed by physician. Signing provider agrees with the documented findings, assessment, and plan of care. Attestation Patient seen and examined at bedside. Present with chief complaint of respiratory failure, however surgery service consulted secondary to abdominal pain. He states that this pain is in the epigastric and right upper quadrant region. CT of the abdomen pelvis was performed with no acute findings, however incidental gallstones were noted. Ultrasound is ordered for further evaluation at this time. Continue to hold anticoagulation. Further recommendations based on imaging. Alexsander Sandoval DO Objective - Vital Signs Vital signs: Vital Signs Temp 97.7 F 03/10/25 09:20 Pulse 72 03/10/25 12:16 Resp 18 03/10/25 09:20 BP 121/62 03/10/25 09:20 Pulse Ox 99 03/10/25 09:20 FiO2 35 03/08/25 02:29 Intake & Output 03/09/25 03/10/25 03/10/25 18:59 06:59 18:59 Intake Total 1035 340 100 Output Total 1100 Balance -65 340 100 Weight 78.3 kg Intake: IV 20 20 Invasive Line 1 20 20 Oral 1015 320 100 Output: Urine 1100 Other: Voiding Method Toilet Toilet Urinal Urinal # Voids 1 1 - Labs CBC & Chem 7: 03/10/25 04:46 03/10/25 04:46 Labs: Abnormal Lab Results - Last 24 Hours (Table) 03/09/25 03/09/25 03/10/25 Range/Units 16:19 20:07 04:46 Sodium 135 L (137-145) mmol/L BUN 63 H (9-20) mg/dL Creatinine 2.52 H (0.66-1.25) mg/dL Glucose 166 H (74-99) mg/dL POC Glucose (mg/dL) 181 H 154 H (70-110) mg/dL 03/10/25 03/10/25 Range/Units 05:49 11:42 Sodium (137-145) mmol/L BUN (9-20) mg/dL Creatinine (0.66-1.25) mg/dL Glucose (74-99) mg/dL POC Glucose (mg/dL) 208 H 127 H (70-110) mg/dL
[2025-03-10 13:54] LABS: HCT 30.1 % (39.6-50.0); HGB 9.9 g/dL (13.0-17.0); MCH 31.0 pg (27.0-32.0); MCHC 32.9 g/dL (32.0-37.0); MCV 94.4 fL (80.0-97.0); Platelet Count 195 10*3/uL (140-440); RBC 3.19 10*6/uL (4.40-5.60); RDW 16.0 % (11.5-14.5); WBC 11.86 10*3/uL (4.50-10.00)
[2025-03-10 16:45] LABS: Glucose,Whole Blood 130 mg/dL (70-110)
--- NOTE | 2025-03-10 17:09 | US ---
EXAMINATION TYPE: US gallbladder DATE OF EXAM: 03/10/2025 COMPARISON: CT 03-09-25 CLINICAL INDICATION: Male, 79 years old with history of RUQ abdominal pain; RUQ abdominal pain x a co uple weeks TECHNIQUE: Grayscale and color Doppler imaging of the right upper quadrant. FINDINGS: EXAM MEASUREMENTS: Liver Length: 13.5 cm Gallbladder Wall: 0.45 cm CBD: 0.56 cm, color Doppler imaging was utilized to isolate the common bile duct for measurement. Right Kidney: 11.8 x 5.2 x 5.0 cm [employer] MECH[employer]IC NOTES: Exam is limited due to gas Pancreas: *Appears hyperechoic. Portions of head and tail were obscured. Liver: *Appears coarse in echotexture/heterogeneous. *Complex area seen in the right lobe: 1.9 x 1.5 x 1.6 cm. Gallbladder: *Appears partially contracted. Thickened wall measurement could be due to contraction. Hyperechoic focus seen within the GB: 0.8 x 0.7 x 0.4 cm. Evidence for sonographic Bullard's sign: No CBD: Portions seen appear wnl Right Kidney: No hydronephrosis or masses seen IMPRESSION: 1. Complex cyst right lobe liver. Monitoring recommended. 2. Cholelithiasis. Some thickened gallbladder wall is present. Correlate for acute cholecystitis. [facility], Workstation: [facility], 03/10/2025 5:07 PM
--- NOTE | 2025-03-10 18:29 | P.PN ---
Subjective 79-year-old male with past medical history of COPD, CHF who presents emergency department reporting shortness of breath. Patient has been short of breath for the past couple of days. He called EMS who found him to be saturating in the 80s with significant work of breathing. He does not have oxygen at home. He was given 324 mg of aspirin, CPAP. Patient takes Bumex as a diuretic. Denies any fevers. Does admit to some chest pain. No calf pain or swelling. No other alleviating, precipitating modifying factors -- Patient remains hemodynamically stable Vital signs are reviewed Lab reviewed indicates worsening creatinine which is up to 2.46 this morning, up from 2.01 yesterday; patient is currently on IV Lasix 40 mg every 12 hours and Farxiga; cardiology has added hydralazine and Isordil; amiodarone is decreased to 200 mg daily - Will consult nephrology 03/10 Patient still wheezing and feels congested He complains from exertional dyspnea no chest pain He has epigastric pain tenderness about 6/10 no vomiting. Appetite feels good Bowel movement no bowel movement for 2 days but he is passing gas He has little crepitation on exam and little wheezing but no leg edema pt is been followed by pulmonary and cardiology service and nephrology service. Currently mildly hypervolemic kept on oral Lasix and Farxiga Surgery team following closely for epigastric pain and anemia, anemia looks chronic with baseline 7-8 currently 9.9 and stable. Surgery team also monitoring for any evidence of GI bleed. Currently I could not see any. Plavix remains on hold per surgery team Patient had ultrasound of the liver showing complex cyst of the right lobe of the liver that needs outpatient follow-up with cholelithiasis with some thickening of the gallbladder wall suspicious for acute cholecystitis Active Medications Generic Name Dose Route Start Last Admin Trade Name Freq PRN Reason Stop Dose Admin Acetaminophen 650 mg 03/08/25 16:09 03/10/25 09:25 Acetaminophen Tab 325 Mg Tab PO 650 mg Q6H PRN Administration Mild Pain (Scale 1 to 3) Albuterol/Ipratropium 3 ml 03/08/25 08:00 03/10/25 15:27 Ipratropium-Albuterol 3 Ml Neb INHALATION 3 ml RT-Q4H JORDEN Administration Albuterol/Ipratropium 3 ml 03/08/25 16:09 Ipratropium-Albuterol 3 Ml Neb INHALATION RT-Q4H PRN Shortness Of Breath Or Wheezing Alprazolam 0.25 mg 03/08/25 16:09 Alprazolam 0.25 Mg Tab PO Q8H PRN Agitation Amiodarone HCl 200 mg 03/08/25 09:01 03/10/25 09:26 Amiodarone 200 Mg Tab PO 200 mg DAILY JORDEN Administration Aspirin 81 mg 03/08/25 09:00 03/10/25 09:26 Aspirin 81 Mg PO 81 mg DAILY JORDEN Administration Atorvastatin Calcium 80 mg 03/08/25 09:00 03/10/25 09:26 Atorvastatin 80 Mg Tab PO 80 mg DAILY JORDEN Administration Carvedilol 6.25 mg 03/09/25 17:30 03/10/25 16:39 Carvedilol 6.25 Mg Tab PO 6.25 mg BID-W/MEALS JORDEN Administration Dapagliflozin 10 mg 03/08/25 09:00 03/10/25 09:26 Dapagliflozin Propanediol 10 Mg Tablet PO 10 mg DAILY JORDEN Administration Docusate Sodium 100 mg 03/08/25 16:09 Docusate 100 Mg Cap PO BID PRN Constipation Famotidine 20 mg 03/08/25 21:00 03/10/25 09:26 Famotidine 20 Mg Tab PO 20 mg DAILY JORDEN Administration Fluticasone Propionate 1 spray 03/09/25 09:00 03/10/25 09:26 Fluticasone Nasal 50mcg/[place] 16gm Btl EA NOSTRIL 1 spray DAILY JORDEN Administration Folic Acid 1 mg 03/09/25 09:00 03/10/25 09:26 Folic Acid 1 Mg Tab PO 1 mg DAILY JORDEN Administration Furosemide 40 mg 03/10/25 09:00 03/10/25 09:26 Furosemide 40 Mg Tab PO 40 mg DAILY JORDEN Administration Hydralazine HCl 25 mg 03/08/25 09:15 03/10/25 09:26 Hydralazine Hcl 25 Mg Tab PO 25 mg BID JORDEN Administration Insulin Human Lispro 0 unit 03/08/25 12:30 03/10/25 17:05 Insulin Lispro (Humalog) 100 Unit/Ml 10 Ml Vl SQ Not Given AC-TID [facility] Protocol Isosorbide Dinitrate 20 mg 03/08/25 09:15 03/10/25 16:39 Isosorbide Dinitrate 20 Mg Tab PO 20 mg TID JORDEN Administration Levothyroxine Sodium 25 mcg 03/09/25 07:30 03/10/25 06:11 Levothyroxine 25 Mcg Tab PO 25 mcg AC-BRKFST JORDEN Administration Metformin HCl 500 mg 03/09/25 10:00 03/09/25 11:33 Metformin 500 Mg Tab PO 500 mg BID-W/MEALS JORDEN Administration Miscellaneous Information 1 each 03/10/25 09:35 Potassium Replacement Protocol 1 Each Misc MISCELLANE DAILY PRN Per Protocol Protocol Multivitamins 1 each 03/09/25 09:00 03/10/25 09:26 Multivitamins, Thera 1 Each Tab PO 1 each DAILY JORDEN Administration Naloxone HCl 0.2 mg 03/08/25 04:06 Naloxone 0.4 Mg/Ml 1 Ml Vial IV Q2M PRN Opioid Reversal Pantoprazole Sodium 40 mg 03/09/25 13:45 03/10/25 06:11 Pantoprazole 40 Mg Tablet PO 40 mg AC-BRKFST JORDEN Administration Polyethylene Glycol 17 gm 03/08/25 16:09 03/09/25 08:02 Polyethylene Glycol 3350 17 Gm Powd.Pack PO 17 gm DAILY PRN Administration Constipation Tamsulosin HCl 0.4 mg 03/08/25 21:00 03/10/25 09:26 Tamsulosin 0.4 Mg Cap.Er.24h PO 0.4 mg BID JORDEN Administration Objective - Vital Signs Vital signs: Vital Signs Temp 97.7 F 03/10/25 09:20 Pulse 72 03/10/25 12:16 Resp 18 03/10/25 09:20 BP 121/62 03/10/25 09:20 Pulse Ox 99 03/10/25 09:20 FiO2 35 03/08/25 02:29 Intake & Output 03/09/25 03/10/25 03/10/25 18:59 06:59 18:59 Intake Total 1035 340 100 Output Total 1100 Balance -65 340 100 Weight 78.3 kg Intake: IV 20 20 Invasive Line 1 20 20 Oral 1015 320 100 Output: Urine 1100 Other: Voiding Method Toilet Toilet Urinal Urinal # Voids 1 1 - Exam GENERAL: The patient is alert and oriented x3, not in any acute distress. Well developed, well nourished. HEENT: Pupils are round and equally reacting to light. EOMI. No scleral icterus. No conjunctival pallor. Normocephalic, atraumatic. No pharyngeal erythema. No thyromegaly. CARDIOVASCULAR: S1 and S2 present. No murmurs, rubs, or gallops. PULMONARY: Chest is clear to auscultation, no wheezing , no crackles. ABDOMEN: Soft, nontender, nondistended, normoactive bowel sounds. No palpable organomegaly. MUSCULOSKELETAL: No joint swelling or deformity. EXTREMITIES: No cyanosis, clubbing, or pedal edema. NEUROLOGICAL: Gross neurological examination did not reveal any focal deficits. SKIN: No rashes. no petechiae. - Labs CBC & Chem 7: 03/10/25 04:46 03/10/25 04:46 Labs: Abnormal Lab Results - Last 24 Hours (Table) 03/09/25 03/09/25 03/09/25 Range/Units 06:36 16:19 20:07 Sodium (137-145) mmol/L BUN (9-20) mg/dL Creatinine (0.66-1.25) mg/dL Glucose (74-99) mg/dL POC Glucose (mg/dL) 181 H 154 H (70-110) mg/dL Hemoglobin A1c 6.4 H (<=6.0) % 03/10/25 03/10/25 03/10/25 Range/Units 04:46 05:49 11:42 Sodium 135 L (137-145) mmol/L BUN 63 H (9-20) mg/dL Creatinine 2.52 H (0.66-1.25) mg/dL Glucose 166 H (74-99) mg/dL POC Glucose (mg/dL) 208 H 127 H (70-110) mg/dL Hemoglobin A1c (<=6.0) % Assessment and Plan Assessment: Acute hypoxic respiratory failure; related to acute on chronic CHF - Patient placed on BiPAP upon arrival to ED - Patient is currently on O2 at 3 L per nasal cannula; plan to titrate or wean as able - on room air currently , resolved Acute on chronic CHF; LVEF of 20 to 25% on last echo - Patient has been placed on Lasix 40 mg IV every 12 hours; will monitor strict TANYA's, daily weights, low-salt and fluid restricted diet - Patient has been recommended to be placed on Farxiga - 2D echo - c/w oral diurtic CKD STAGE IV, with possible mild elements of VIRGEN AND high potassium nephrology following c/w oral lasix and farxiga Elevated troponin; likely related to chronic kidney disease; rule out acute coronary syndrome -We will trend to rule out acute coronary syndrome - 2D echo showed; await further recommendations from etiology Hyperglycemia; likely new onset diabetes mellitus - Blood glucose markedly elevated upon arrival to ED; monitor Accu-Cheks q. CHS with insulin sliding scale; change diet to a consistent carbohydrate diet - Patient has been placed on Farxiga; will make further recommendations pending clinical course - Will order HbA1c Ischemic cardiomyopathy; patient is status post AICD implantation possible aucte cholecystitis Surgery team following closely Anemia, looks chronic and stable No evidence of active GI bleed Plavix remains on hold per surgery team recommendation General Surgery team following closely Valvular heart disease; patient has mild to moderate aortic and mitral regurgitation with severe tricuspid regurgitation - Follow-up with valvular disease clinic Hypertension; cardiology recommending to increase Coreg up to 12.5 mg twice daily; add hydralazine 25 mg twice daily; add Isordil 20 mg 3 times daily Hyperlipidemia; Lipitor 80 mg p.o. nightly Hypothyroidism; levothyroxine 25 mcg daily Anxiety; Xanax 0.5 mg every 8 hours as needed BPH; Flomax 0.4 mg daily
[2025-03-10 19:33] LABS: Bilirubin,Urine Negative (Negative); Blood,Urine Negative (Negative); Color,Urine Colorless; Glucose,Urine (UA) 2+ (Negative); Ketones,Urine Negative (Negative); Leukocyte Esterase,Urine Negative (Negative); Nitrite,Urine Negative (Negative); PH, Urine 5.5 (5.0-8.0); Protein,Urine Negative (Negative); Specific Gravity,Urine 1.012 (1.001-1.035); Urobilinogen,Urine <2.0 mg/dL (<2.0)
[2025-03-10 20:23] LABS: Glucose,Whole Blood 188 mg/dL (70-110)
[2025-03-11 05:54] LABS: Glucose,Whole Blood 140 mg/dL (70-110)
[2025-03-11 06:24] LABS: HCT 30.5 % (39.6-50.0); HGB 9.9 g/dL (13.0-17.0); MCH 30.6 pg (27.0-32.0); MCHC 32.5 g/dL (32.0-37.0); MCV 94.1 fL (80.0-97.0); Platelet Count 175 10*3/uL (140-440); RBC 3.24 10*6/uL (4.40-5.60); RDW 16.0 % (11.5-14.5); WBC 7.00 10*3/uL (4.50-10.00)
[2025-03-11 06:46] LABS: African American GFR (CKD) 26 (>60 ml/min/1.73 sqM); Anion Gap 8 mmol/L; Blood Urea Nitrogen 63 mg/dL (9-20); Calcium 9.0 mg/dL (8.4-10.2); Carbon Dioxide 29 mmol/L (22-30); Chloride 100 mmol/L (98-107); Glucose 127 mg/dL (74-99); Non-African American GFR(CKD) 23 (>60 ml/min/1.73 sqM); Potassium 4.6 mmol/L (3.5-5.1); Sodium 137 mmol/L (137-145)
--- NOTE | 2025-03-11 07:56 | P.PN ---
Subjective HISTORY OF PRESENT ILLNESS: This is a 79-year-old male with a past medical history significant for coronary artery disease, ischemic cardiomyopathy, AICD implantation, ventricular tachycardia, congestive heart failure, hyperlipidemia, and hypothyroidism. Patient follows in the office with Dr. Rodrigues. We have been asked to see the patient in consultation for congestive heart failure. Patient examined at the bedside. Patient presented to the hospital for chief complaint of shortness of breath. Patient states he has been feeling short of breath for the past 24 to 48 hours. He denied having any chest pain or pressure. He denies having any weight gain and states he actually has lost weight recently. He states he is not able to walk very far without being short of breath. He does report a history of COPD as well. He states he smokes about 5 cigarettes/day. It is noted that the patient was here in October 2024 for congestive heart failure. Additionally he was hospitalized at [facility] in November for congestive heart failure. He was found to have pleural effusion at that time and underwent thoracentesis during that admission. DIAGNOSTICS: - EKG reveals paced rhythm. - Chest xray cardiomegaly. Mild vascular congestion. - Laboratory data: WBC 11.32. Hemoglobin 12.5. Platelet count 253. Sodium 139. Potassium 4.9. BUN 33. Creatinine 2.01. Troponin 0.069. proBNP 16,200. - Current home cardiac medication list has not been updated at the time of dictation - Most recent echocardiogram obtained in October 2024 revealing ejection fraction 20 to 25%, severe pulmonary hypertension, mild to moderate aortic and mitral regurgitation, moderate to severe tricuspid regurgitation - Cardiac catheterization history: Unknown 03/09/2025 Patient examined this morning at the bedside. Patient currently denies chest pain or pressure. He denies shortness of breath. Blood pressure borderline at 101/44. Creatinine worsened today at 2.46. 03/10 Patient seen and examined. Patient admits to some more shortness of breath this morning however mostly improved. He admits the inhalers/nebulizers are helping. Denies any chest pain or pressure. He admits to episodes of black/dark stool for the last few days as well as continued epigastric discomfort. He admits he did have scopes scheduled with GI previously this week however has been on hold while he has been in the hospital. 03/11 Patient seen and examined. His breathing continues to improve. Denies any chest pain or pressure. He is still having epigastric pain. Gallbladder ultrasound showed some thickening and correlate for cholecystitis. Plavix has been on hold. Creatinine stable at 2.4. PHYSICAL EXAM: VITAL SIGNS: Reviewed. GENERAL: Well-developed in no acute distress. HEENT: Head is normocephalic. Pupils are equal, round. Sclerae anicteric. Mucous membranes of the mouth are moist. Neck supple. No JVD or thyromegaly LUNGS: Respirations even and unlabored. Lungs essentially clear to auscultation bilaterally. HEART: Regular rate and rhythm. S1 and S2 heard. ABDOMEN: Soft. Nondistended. Nontender. EXTREMITIES: Normal range of motion. No clubbing or cyanosis. Peripheral pulses intact. Trace bilateral lower extremity edema NEUROLOGIC: Awake and alert. Oriented x 3. ASSESSMENT: Shortness of breath Acute on chronic respiratory failure, likely in part related to heart failure however additional cough and wheezing as well as anemia. Likely multifactorial Acute on chronic heart failure with reduced EF, 20 to 25% Recurrent hospitalizations for congestive heart failure Elevated troponin secondary to chronic kidney disease, no evidence of myocardial injury or ischemia Coronary artery disease Ischemic cardiomyopathy status post AICD implantation Chronic kidney disease Severe pulmonary hypertension Valvular heart disease including mild to moderate aortic and mitral regurgitation, moderate to severe tricuspid regurgitation History of ventricular tachycardia Hyperlipidemia Hypothyroidism PLAN: No need to repeat echocardiogram as this was performed in October 2024 Continue oral Lasix 40 mg daily. Patient currently does not appear significantly volume overloaded Continue carvedilol to 6.25 mg twice a day Continue additional cardiac medications Patient with some reported dark/black stools and epigastric discomfort as well as some anemia with hemoglobin decreasing. Surgery seen patient. Continue to hold Plavix. Objective - Vital Signs Vital signs: Vital Signs Temp 98.1 F 03/11/25 03:17 Pulse 63 03/11/25 04:26 Resp 18 03/11/25 04:26 BP 117/67 03/11/25 06:13 Pulse Ox 96 03/11/25 03:17 FiO2 35 03/08/25 02:29 Intake & Output 03/10/25 03/11/25 03/11/25 18:59 06:59 18:59 Intake Total 340 Output Total 1025 600 Balance -685 -600 Weight 78.6 kg Intake: Oral 340 Output: Urine 1025 600 Other: Voiding Method Toilet Urinal - Labs CBC & Chem 7: 03/11/25 06:08 03/11/25 06:08 Labs: Abnormal Lab Results - Last 24 Hours (Table) 03/10/25 03/10/25 03/10/25 Range/Units 04:46 11:42 14:48 WBC 11.86 H (4.50-10.00) 10*3/uL RBC 3.19 L (4.40-5.60) 10*6/uL Hgb 9.9 L (13.0-17.0) g/dL Hct 30.1 L (39.6-50.0) % BUN (9-20) mg/dL Creatinine (0.66-1.25) mg/dL Glucose (74-99) mg/dL POC Glucose (mg/dL) 127 H (70-110) mg/dL Urine Glucose (UA) 2+ H (Negative) 03/10/25 03/10/25 03/11/25 Range/Units 16:44 20:21 05:53 WBC (4.50-10.00) 10*3/uL RBC (4.40-5.60) 10*6/uL Hgb (13.0-17.0) g/dL Hct (39.6-50.0) % BUN (9-20) mg/dL Creatinine (0.66-1.25) mg/dL Glucose (74-99) mg/dL POC Glucose (mg/dL) 130 H 188 H 140 H (70-110) mg/dL Urine Glucose (UA) (Negative) 03/11/25 03/11/25 Range/Units 06:08 06:08 WBC (4.50-10.00) 10*3/uL RBC 3.24 L (4.40-5.60) 10*6/uL Hgb 9.9 L (13.0-17.0) g/dL Hct 30.5 L (39.6-50.0) % BUN 63 H (9-20) mg/dL Creatinine 2.57 H (0.66-1.25) mg/dL Glucose 127 H (74-99) mg/dL POC Glucose (mg/dL) (70-110) mg/dL Urine Glucose (UA) (Negative)
--- NOTE | 2025-03-11 11:08 | P.PN ---
Subjective Patient is seen for follow-up of chronic kidney disease. Workup for abdominal pain shows cholelithiasis and possible cholecystitis. No complaints of shortness of breath Serum creatinine stable at 2.5 mg/dL. Objective - Vital Signs Vital signs: Vital Signs Temp 98.2 F 03/11/25 07:54 Pulse 60 03/11/25 08:41 Resp 18 03/11/25 07:54 BP 128/67 03/11/25 07:54 Pulse Ox 97 03/11/25 08:31 FiO2 35 03/08/25 02:29 Intake & Output 03/10/25 03/11/25 03/11/25 18:59 06:59 18:59 Intake Total 340 118 Output Total 1025 600 Balance -685 -600 118 Weight 78.6 kg Intake: Oral 340 118 Output: Urine 1025 600 Other: Voiding Method Toilet Urinal - Exam Patient is awake, comfortable, no acute distress Examination of the heart S1 and S2 Examination of the lungs show decreased breath sounds at the bases Abdomen is soft nontender Examination of lower extremities shows no significant edema [employer] exam grossly intact - Labs CBC & Chem 7: 03/11/25 06:08 03/11/25 06:08 Labs: Abnormal Lab Results - Last 24 Hours (Table) 03/10/25 03/10/25 03/10/25 Range/Units 04:46 11:42 14:48 WBC 11.86 H (4.50-10.00) 10*3/uL RBC 3.19 L (4.40-5.60) 10*6/uL Hgb 9.9 L (13.0-17.0) g/dL Hct 30.1 L (39.6-50.0) % BUN (9-20) mg/dL Creatinine (0.66-1.25) mg/dL Glucose (74-99) mg/dL POC Glucose (mg/dL) 127 H (70-110) mg/dL Urine Glucose (UA) 2+ H (Negative) 03/10/25 03/10/25 03/11/25 Range/Units 16:44 20:21 05:53 WBC (4.50-10.00) 10*3/uL RBC (4.40-5.60) 10*6/uL Hgb (13.0-17.0) g/dL Hct (39.6-50.0) % BUN (9-20) mg/dL Creatinine (0.66-1.25) mg/dL Glucose (74-99) mg/dL POC Glucose (mg/dL) 130 H 188 H 140 H (70-110) mg/dL Urine Glucose (UA) (Negative) 03/11/25 03/11/25 Range/Units 06:08 06:08 WBC (4.50-10.00) 10*3/uL RBC 3.24 L (4.40-5.60) 10*6/uL Hgb 9.9 L (13.0-17.0) g/dL Hct 30.5 L (39.6-50.0) % BUN 63 H (9-20) mg/dL Creatinine 2.57 H (0.66-1.25) mg/dL Glucose 127 H (74-99) mg/dL POC Glucose (mg/dL) (70-110) mg/dL Urine Glucose (UA) (Negative) Assessment and Plan Assessment: 1. CKD stage IV secondary to nephrosclerosis with fluctuation in creatinine related to episodes of acute kidney injury and cardiorenal syndrome. Serum creatinine close to baseline of 2 to 2.5 mg/dL. No obstruction noted on CT scan. Check UA 2. Ischemic cardiomyopathy with EF of 20 to 25% 3. Acute on chronic CHF with reduced ejection fraction 4. Acute hypoxic respiratory failure secondary to acute on chronic CHF, improved 5. Valvular heart disease with mild to moderate aortic and mitral regurgitation with severe tricuspid regurgitation 6. Abdominal pain with cholelithiasis possible acute cholecystitis Plan: Continue with Farxiga Continue with current dose of oral Lasix Continue with accurate I's and O's Repeat labs in a.m.
--- NOTE | 2025-03-11 11:36 | P.PN ---
Subjective Progress Note Date: 03/11/25 SURGICAL PROGRESS NOTE CHIEF COMPLAINT: Respiratory failure HISTORY OF PRESENT ILLNESS: Patient continues to report epigastric and right upper quadrant abdominal pain. He did have 1 black stool yesterday. His Plavix is currently on hold. Hemoglobin is stable at 9.9. He did have a gallbladder ultrasound completed that reported complex cyst in the right liver lobe gallstones and thickened gallbladder wall. PHYSICAL EXAM: VITAL SIGNS: Reviewed. GENERAL: Well-developed in no acute distress. HEENT: No sclera icterus. Extraocular movements grossly intact. Moist buccal mucosa. Head is atraumatic, normocephalic. ABDOMEN: Soft. Nondistended. Tenderness palpation right upper quadrant and e pigastric area NEUROLOGIC: Alert and oriented. Cranial nerves II through XII grossly intact. ASSESSMENT: 1. Epigastric and right upper quadrant abdominal pain. Gallbladder ultrasound did note gallstones and thickened gallbladder wall 2. Anemia with melanotic stools. HGB is stable PLAN: -HIDA scan ordered for further evaluation of gallbladder -Continue to hold Plavix -Continue to monitor hemoglobin -Continue to monitor for any signs or symptoms of bleeding -Continue PPI Physician Paste Up Copy Camera Operator note has been reviewed by physician. Signing provider agrees with the documented findings, assessment, and plan of care. Objective - Vital Signs Vital signs: Vital Signs Temp 98.2 F 03/11/25 07:54 Pulse 60 03/11/25 08:41 Resp 18 03/11/25 07:54 BP 128/67 03/11/25 07:54 Pulse Ox 97 03/11/25 08:31 FiO2 35 03/08/25 02:29 Intake & Output 03/10/25 03/11/25 03/11/25 18:59 06:59 18:59 Intake Total 340 118 Output Total 1025 600 Balance -685 -600 118 Weight 78.6 kg Intake: Oral 340 118 Output: Urine 1025 600 Other: Voiding Method Toilet Urinal - Labs CBC & Chem 7: 03/11/25 06:08 03/11/25 06:08 Labs: Abnormal Lab Results - Last 24 Hours (Table) 03/10/25 03/10/25 03/10/25 Range/Units 04:46 11:42 14:48 WBC 11.86 H (4.50-10.00) 10*3/uL RBC 3.19 L (4.40-5.60) 10*6/uL Hgb 9.9 L (13.0-17.0) g/dL Hct 30.1 L (39.6-50.0) % BUN (9-20) mg/dL Creatinine (0.66-1.25) mg/dL Glucose (74-99) mg/dL POC Glucose (mg/dL) 127 H (70-110) mg/dL Urine Glucose (UA) 2+ H (Negative) 03/10/25 03/10/25 03/11/25 Range/Units 16:44 20:21 05:53 WBC (4.50-10.00) 10*3/uL RBC (4.40-5.60) 10*6/uL Hgb (13.0-17.0) g/dL Hct (39.6-50.0) % BUN (9-20) mg/dL Creatinine (0.66-1.25) mg/dL Glucose (74-99) mg/dL POC Glucose (mg/dL) 130 H 188 H 140 H (70-110) mg/dL Urine Glucose (UA) (Negative) 03/11/25 03/11/25 Range/Units 06:08 06:08 WBC (4.50-10.00) 10*3/uL RBC 3.24 L (4.40-5.60) 10*6/uL Hgb 9.9 L (13.0-17.0) g/dL Hct 30.5 L (39.6-50.0) % BUN 63 H (9-20) mg/dL Creatinine 2.57 H (0.66-1.25) mg/dL Glucose 127 H (74-99) mg/dL POC Glucose (mg/dL) (70-110) mg/dL Urine Glucose (UA) (Negative)
[2025-03-11 11:46] LABS: Glucose,Whole Blood 130 mg/dL (70-110)
[2025-03-11 12:42] VITALS: BMI 22.8
--- NOTE | 2025-03-11 13:40 | P.PN ---
Subjective Progress Note Date: 03/11/25 Principal diagnosis: Acute hypoxic respiratory failure secondary to acute on chronic systolic congestive heart failure This is a 79-year-old male patient, hospitalized for shortness of breath. The patient is a chronic smoker is known to have COPD. At the same time, the patien t is known to have coronary artery disease, chronic systolic heart failure with impaired LV function and the patient has an AICD in place. The patient has been followed up with cardiology on outpatient basis. Patient presented with worsening shortness of breath over 48 hours. Limited cough. No significant sputum production. He has exertional dyspnea without any chest pain. He continues to smoke about 5 cigarettes a day. No pleurisy. No hemoptysis. No significant edema lower extremities. EKG showed a paced rhythm and the patient's chest x-ray showed cardiomegaly with mild pulm vascular ingestion. The white cell count was 11.3 with a hemoglobin 12.5 with a platelet count of 253. The rest of the blood work showed a sodium level of 139 with a potassium level of 4.9, BUN is 33 with a creatinine of 2.01. proBNP level was 16,200 and troponin was at 0.06 The patient's most recent echocardiogram from October 2024 showed systolic heart failure with an ejection fraction of 2024% with severe pulm hypertension and mild to moderate aortic regurgitation and mitral regurgitation with moderate to severe tricuspid regurgitation. The patient was started on diuretics. The patient is currently on IV Lasix 40 mg every 12 hours. The patient remains on aspirin and Plavix. The patient rem ains on Coreg 12.5 mg p.o. twice a day, amiodarone 200 mg p.o. daily and hydralazine 25 mg 3 times daily and Imdur 20 mg p.o. 3 times daily. Fluid balance has been negative. The patient is currently off the BiPAP and he has been transitioned to 3 L of oxygen by nasal cannula. He states that utilization of BiPAP overnight has helped quite a bit. Currently, feeling better. Free of any chest pain. Patient was seen today on lactic acid level initially was at 3.3, dropped to one 1.2. On 03/09/2025, the patient is comfortable and he seems to be less short of breath. He has been diuresed adequately and on today's blood work, the patient has a rise in the creatinine up to 2.46 with a BUN of 52. Based on that, IV Lasix was discontinued and the patient was started on oral Lasix 40 mg p.o. daily. Remains on bronchodilators. Rest of the medications are essentially unchanged. The white cell count is 14.1 with a hemoglobin 9.8 and a platelet count of 202. Sodium is at 137 and potassium level is at 3.7. The patient is hemodynamically stable. The patient is currently on room air oxygen with a pulse ox of 98 Patient was seen today on 03/10/2025, seems to be fairly comfortable, not in distress. Patient does have history of ischemic cardiomyopathy with ejection fraction of 20 to 25%, clinically however his congestive heart failure has been improving with diuresis. In addition to his cardiomyopathy, patient has valvular heart disease with mild to moderate aortic and mitral regurgitation with severe tricuspid regurgitation and secondary pulmonary hypertension. Patient is being followed by cardiology as well as nephrology for his renal failure. Remains on oral Lasix. Patient continues to have some nonspecific epigastric pain, being followed by surgery recommending ultrasound, also recommending CT angio of the abdomen to rule out mesenteric ischemia. Patient was seen today on 03/11/2025, pulmonary maldonado the patient is doing well, does not seem to be in any distress, no cough no wheezing no shortness of breath, continues to have some epigastric and right upper quadrant pain, ultrasound of gallbladder showed thickened gallbladder wall, patient is now scheduled to have a HIDA scan. At 1 point the patient had melanotic stools which has resolved. Plavix remains on hold. Patient is being closely monitored for any further signs of bleeding. Labs today show WBC count of 7 hemoglobin 9.9 electrolytes are normal BUN is 63 creatinine 2.57 Objective - Vital Signs Vital signs: Vital Signs Temp 98.2 F 03/11/25 07:54 Pulse 60 03/11/25 11:52 Resp 18 03/11/25 07:54 BP 128/67 03/11/25 07:54 Pulse Ox 97 03/11/25 08:31 FiO2 35 03/08/25 02:29 Intake & Output 03/10/25 03/11/25 03/11/25 18:59 06:59 18:59 Intake Total 340 118 Output Total 1025 600 775 Balance -655 -842 -539 Weight 78.6 kg 78.6 kg Intake: Oral 340 118 Output: Urine 1025 600 775 Other: Voiding Method Toilet Urinal - Exam Physical exam revealed a 79year-old, in no distress, on room air, O2 saturation 97% EENT: PERRLA, EOMI, nonicteric, no neck masses, no JVD, no stridor, moist mucous membranes Chest: Symmetrical chest expansion Lungs: Diminished breath sound bilaterally no crackles rhonchi or wheezes Cardiac: Normal S1-S2, no S3 gallop, 2/6 systolic murmur throughout the precordium. Abdomen: Soft nontender no megaly no rebound no guarding good bowel sounds Extremities: No clubbing 1+ bipedal edema, nocyanosis, good pulses bilaterally Musculoskeletal: No deformities and no limitation range of motion Neurologic: Alert oriented x 3 no gross focal neurologic deficit Psychiatric: Normal mood and affect and no mental status examination Skin: No rashes. - Labs CBC & Chem 7: 03/11/25 06:08 03/11/25 06:08 Labs: Abnormal Lab Results - Last 24 Hours (Table) 03/10/25 03/10/25 03/10/25 Range/Units 04:46 14:48 16:44 WBC 11.86 H (4.50-10.00) 10*3/uL RBC 3.19 L (4.40-5.60) 10*6/uL Hgb 9.9 L (13.0-17.0) g/dL Hct 30.1 L (39.6-50.0) % BUN (9-20) mg/dL Creatinine (0.66-1.25) mg/dL Glucose (74-99) mg/dL POC Glucose (mg/dL) 130 H (70-110) mg/dL Urine Glucose (UA) 2+ H (Negative) 03/10/25 03/11/25 03/11/25 Range/Units 20:21 05:53 06:08 WBC (4.50-10.00) 10*3/uL RBC 3.24 L (4.40-5.60) 10*6/uL Hgb 9.9 L (13.0-17.0) g/dL Hct 30.5 L (39.6-50.0) % BUN (9-20) mg/dL Creatinine (0.66-1.25) mg/dL Glucose (74-99) mg/dL POC Glucose (mg/dL) 188 H 140 H (70-110) mg/dL Urine Glucose (UA) (Negative) 03/11/25 03/11/25 Range/Units 06:08 11:45 WBC (4.50-10.00) 10*3/uL RBC (4.40-5.60) 10*6/uL Hgb (13.0-17.0) g/dL Hct (39.6-50.0) % BUN 63 H (9-20) mg/dL Creatinine 2.57 H (0.66-1.25) mg/dL Glucose 127 H (74-99) mg/dL POC Glucose (mg/dL) 130 H (70-110) mg/dL Urine Glucose (UA) (Negative) Assessment and Plan Assessment: Impression: Acute hypoxic respiratory failure secondary to acute on chronic systolic congestive heart failure Severe pulmonary hypertension with valvular heart disease including aortic and mitral regurgitation Underlying COPD Coronary artery disease Chronic systolic congestive heart failure with ejection fraction of 20 to 25% Chronic kidney disease stage IIIb History of ventricular tachycardia History of AICD placement Hypothyroidism Dyslipidemia History of ESBL E. coli UTI and bacteremia Type 2 diabetes Chronic medical debility and generalized weakness Recommendation: HIDA scan is pending Continue Lasix 40 mg daily Continue Coreg 12.5 twice daily Continue to monitor renal function [facility] Patient is being followed by many consultants including cardiology nephrology and general surgery Multiple comorbidities and complex issues, being followed closely Will continue to follow Time with Patient: Less than 30
[2025-03-11 16:17] LABS: Glucose,Whole Blood 134 mg/dL (70-110)
--- NOTE | 2025-03-11 19:11 | P.PN ---
Subjective 79-year-old male with past medical history of COPD, CHF who presents emergency department reporting shortness of breath. Patient has been short of breath for the past couple of days. He called EMS who found him to be saturating in the 80s with significant work of breathing. He does not have oxygen at home. He was given 324 mg of aspirin, CPAP. Patient takes Bumex as a diuretic. Denies any fevers. Does admit to some chest pain. No calf pain or swelling. No other alleviating, precipitating modifying factors -- Patient remains hemodynamically stable Vital signs are reviewed Lab reviewed indicates worsening creatinine which is up to 2.46 this morning, up from 2.01 yesterday; patient is currently on IV Lasix 40 mg every 12 hours and Farxiga; cardiology has added hydralazine and Isordil; amiodarone is decreased to 200 mg daily - Will consult nephrology 03/10 Patient still wheezing and feels congested He complains from exertional dyspnea no chest pain He has epigastric pain tenderness about 6/10 no vomiting. Appetite feels good Bowel movement no bowel movement for 2 days but he is passing gas He has little crepitation on exam and little wheezing but no leg edema pt is been followed by pulmonary and cardiology service and nephrology service. Currently mildly hypervolemic kept on oral Lasix and Farxiga Surgery team following closely for epigastric pain and anemia, anemia looks chronic with baseline 7-8 currently 9.9 and stable. Surgery team also monitoring for any evidence of GI bleed. Currently I could not see any. Plavix remains on hold per surgery team Patient had ultrasound of the liver showing complex cyst of the right lobe of the liver that needs outpatient follow-up with cholelithiasis with some thickening of the gallbladder wall suspicious for acute cholecystitis 03/11 Patient pain looks controlled Nausea vomiting improving HIDA scan to be done at afternoon Abdominal pain is the same 6/10 in the right upper quadrant and epigastric area with tenderness Bowel movement yesterday which was brown in color Active Medications Generic Name Dose Route Start Last Admin Trade Name Freq PRN Reason Stop Dose Admin Acetaminophen 650 mg 03/08/25 16:09 03/10/25 09:25 Acetaminophen Tab 325 Mg Tab PO 650 mg Q6H PRN Administration Mild Pain (Scale 1 to 3) Albuterol/Ipratropium 3 ml 03/08/25 08:00 03/11/25 15:45 Ipratropium-Albuterol 3 Ml Neb INHALATION 3 ml RT-Q4H JORDEN Administration Albuterol/Ipratropium 3 ml 03/08/25 16:09 Ipratropium-Albuterol 3 Ml Neb INHALATION RT-Q4H PRN Shortness Of Breath Or Wheezing Alprazolam 0.25 mg 03/08/25 16:09 Alprazolam 0.25 Mg Tab PO Q8H PRN Agitation Amiodarone HCl 200 mg 03/08/25 09:01 03/11/25 08:05 Amiodarone 200 Mg Tab PO 200 mg DAILY JORDEN Administration Aspirin 81 mg 03/08/25 09:00 03/11/25 08:05 Aspirin 81 Mg PO 81 mg DAILY JORDEN Administration Atorvastatin Calcium 80 mg 03/08/25 09:00 03/11/25 08:05 Atorvastatin 80 Mg Tab PO 80 mg DAILY JORDEN Administration Carvedilol 6.25 mg 03/09/25 17:30 03/11/25 17:57 Carvedilol 6.25 Mg Tab PO 6.25 mg BID-W/MEALS JORDEN Administration Dapagliflozin 10 mg 03/08/25 09:00 03/11/25 08:05 Dapagliflozin Propanediol 10 Mg Tablet PO 10 mg DAILY JORDEN Administration Docusate Sodium 100 mg 03/08/25 16:09 Docusate 100 Mg Cap PO BID PRN Constipation Famotidine 20 mg 03/08/25 21:00 03/11/25 08:05 Famotidine 20 Mg Tab PO 20 mg DAILY JORDEN Administration Fluticasone Propionate 1 spray 03/09/25 09:00 03/11/25 08:05 Fluticasone Nasal 50mcg/[place] 16gm Btl EA NOSTRIL 1 spray DAILY JORDEN Administration Folic Acid 1 mg 03/09/25 09:00 03/11/25 08:05 Folic Acid 1 Mg Tab PO 1 mg DAILY JORDEN Administration Furosemide 40 mg 03/10/25 09:00 03/11/25 08:05 Furosemide 40 Mg Tab PO 40 mg DAILY JORDEN Administration Hydralazine HCl 25 mg 03/08/25 09:15 03/11/25 08:05 Hydralazine Hcl 25 Mg Tab PO 25 mg BID JORDEN Administration Insulin Human Lispro 0 unit 03/08/25 12:30 03/11/25 16:25 Insulin Lispro (Humalog) 100 Unit/Ml 10 Ml Vl SQ Not Given AC-TID JORDEN Protocol Isosorbide Dinitrate 20 mg 03/08/25 09:15 03/11/25 17:57 Isosorbide Dinitrate 20 Mg Tab PO 20 mg TID JORDEN Administration Levothyroxine Sodium 25 mcg 03/09/25 07:30 03/11/25 06:14 Levothyroxine 25 Mcg Tab PO 25 mcg AC-BRKFST JORDEN Administration Metformin HCl 500 mg 03/09/25 10:00 03/09/25 11:33 Metformin 500 Mg Tab PO 500 mg BID-W/MEALS JORDEN Administration Miscellaneous Information 1 each 03/10/25 09:35 Potassium Replacement Protocol 1 Each Misc MISCELLANE DAILY PRN Per Protocol Protocol Multivitamins 1 each 03/09/25 09:00 03/11/25 08:05 Multivitamins, Thera 1 Each Tab PO 1 each DAILY JORDEN Administration Naloxone HCl 0.2 mg 03/08/25 04:06 Naloxone 0.4 Mg/Ml 1 Ml Vial IV Q2M PRN Opioid Reversal Pantoprazole Sodium 40 mg 03/09/25 13:45 03/11/25 06:14 Pantoprazole 40 Mg Tablet PO 40 mg AC-BRKFST JORDEN Administration Polyethylene Glycol 17 gm 03/08/25 16:09 03/09/25 08:02 Polyethylene Glycol 3350 17 Gm Powd.Pack PO 17 gm DAILY PRN Administration Constipation Tamsulosin HCl 0.4 mg 03/08/25 21:00 03/11/25 08:05 Tamsulosin 0.4 Mg Cap.Er.24h PO 0.4 mg BID JORDEN Administration Objective - Vital Signs Vital signs: Vital Signs Temp 98.2 F 03/11/25 07:54 Pulse 60 03/11/25 08:41 Resp 18 03/11/25 07:54 BP 128/67 03/11/25 07:54 Pulse Ox 97 03/11/25 08:31 FiO2 35 03/08/25 02:29 Intake & Output 03/10/25 03/11/25 03/11/25 18:59 06:59 18:59 Intake Total 340 118 Output Total 1025 600 Balance -685 -600 118 Weight 78.6 kg Intake: Oral 340 118 Output: Urine 1025 600 Other: Voiding Method Toilet Urinal - Exam GENERAL: The patient is alert and oriented x3, not in any acute distress. Well developed, well nourished. HEENT: Pupils are round and equally reacting to light. EOMI. No scleral icterus. No conjunctival pallor. Normocephalic, atraumatic. No pharyngeal erythema. No thyromegaly. CARDIOVASCULAR: S1 and S2 present. No murmurs, rubs, or gallops. PULMONARY: Chest is clear to auscultation, no wheezing , no crackles. ABDOMEN: Soft, nontender, nondistended, normoactive bowel sounds. No palpable organomegaly. MUSCULOSKELETAL: No joint swelling or deformity. EXTREMITIES: No cyanosis, clubbing, or pedal edema. NEUROLOGICAL: Gross neurological examination did not reveal any focal deficits. SKIN: No rashes. no petechiae. - Labs CBC & Chem 7: 03/11/25 06:08 03/11/25 06:08 Labs: Abnormal Lab Results - Last 24 Hours (Table) 03/10/25 03/10/25 03/10/25 Range/Units 04:46 11:42 14:48 WBC 11.86 H (4.50-10.00) 10*3/uL RBC 3.19 L (4.40-5.60) 10*6/uL Hgb 9.9 L (13.0-17.0) g/dL Hct 30.1 L (39.6-50.0) % BUN (9-20) mg/dL Creatinine (0.66-1.25) mg/dL Glucose (74-99) mg/dL POC Glucose (mg/dL) 127 H (70-110) mg/dL Urine Glucose (UA) 2+ H (Negative) 03/10/25 03/10/25 03/11/25 Range/Units 16:44 20:21 05:53 WBC (4.50-10.00) 10*3/uL RBC (4.40-5.60) 10*6/uL Hgb (13.0-17.0) g/dL Hct (39.6-50.0) % BUN (9-20) mg/dL Creatinine (0.66-1.25) mg/dL Glucose (74-99) mg/dL POC Glucose (mg/dL) 130 H 188 H 140 H (70-110) mg/dL Urine Glucose (UA) (Negative) 03/11/25 03/11/25 Range/Units 06:08 06:08 WBC (4.50-10.00) 10*3/uL RBC 3.24 L (4.40-5.60) 10*6/uL Hgb 9.9 L (13.0-17.0) g/dL Hct 30.5 L (39.6-50.0) % BUN 63 H (9-20) mg/dL Creatinine 2.57 H (0.66-1.25) mg/dL Glucose 127 H (74-99) mg/dL POC Glucose (mg/dL) (70-110) mg/dL Urine Glucose (UA) (Negative) Assessment and Plan Assessment: possible aucte cholecystitis Surgery team following closely Acute hypoxic respiratory failure; related to acute on chronic CHF - Patient placed on BiPAP upon arrival to ED - Patient is currently on O2 at 3 L per nasal cannula; plan to titrate or wean as able - on room air currently , resolved HIDA scan is pending Acute on chronic CHF; LVEF of 20 to 25% on last echo - Patient has been placed on Lasix 40 mg IV every 12 hours; will monitor strict TANYA's, daily weights, low-salt and fluid restricted diet - Patient has been recommended to be placed on Farxiga - 2D echo - c/w oral diurtic CKD STAGE IV, with possible mild elements of VIRGEN AND high potassium nephrology following c/w oral lasix and farxiga Elevated troponin; likely related to chronic kidney disease; rule out acute coronary syndrome -We will trend to rule out acute coronary syndrome - 2D echo showed; await further recommendations from etiology Hyperglycemia; likely new onset diabetes mellitus - Blood glucose markedly elevated upon arrival to ED; monitor Accu-Cheks q. CHS with insulin sliding scale; change diet to a consistent carbohydrate diet - Patient has been placed on Farxiga; will make further recommendations pending clinical course - Will order HbA1c Ischemic cardiomyopathy; patient is status post AICD implantation Anemia, looks chronic and stable No evidence of active GI bleed Plavix remains on hold per surgery team recommendation General Surgery team following closely Valvular heart disease; patient has mild to moderate aortic and mitral regurgitation with severe tricuspid regurgitation - Follow-up with valvular disease clinic Hypertension; cardiology recommending to increase Coreg up to 12.5 mg twice daily; add hydralazine 25 mg twice daily; add Isordil 20 mg 3 times daily Hyperlipidemia; Lipitor 80 mg p.o. nightly Hypothyroidism; levothyroxine 25 mcg daily Anxiety; Xanax 0.5 mg every 8 hours as needed BPH; Flomax 0.4 mg daily
[2025-03-11 20:00] LABS: Glucose,Whole Blood 226 mg/dL (70-110)
--- NOTE | 2025-03-11 21:51 | NM ---
EXAMINATION TYPE: NM hepatobiliary wo EF DATE OF EXAM: 03/11/2025 COMPARISON: NONE INDICATION: Cholecystitis TECHNIQUE: After the intravenous administration of 5.06 mCi Tc 99m Mebrofenin hepatobiliary scintigra phy is performed. Images were obtained immediately post injection. FINDINGS: There is prompt uptake and excretion of radiotracer by the liver. Extrahepatic ducts are identified at L4 minutes. The gallbladder is visualized. 2 hour 4 hour delayed images were obtained without visualization of th e gallbladder. Small bowel activity is noted within 16 minutes. IMPRESSION: 1. Cystic duct obstruction. Findings could be compatible with cholecystitis. [facility], Workstation: [facility], 03/11/2025 9:49 PM
[2025-03-12 06:12] LABS: Glucose,Whole Blood 184 mg/dL (70-110)
[2025-03-12 07:16] LABS: Basophils # (A) 0.04 10*3/uL (0.00-0.10); Basophils % (A) 0.6 %; Eosinophils # (A) 0.37 10*3/uL (0.04-0.35); Eosinophils % (A) 5.8 %; HCT 31.1 % (39.6-50.0); HGB 10.0 g/dL (13.0-17.0); Lymphocytes # (A) 1.27 10*3/uL (0.90-5.00); Lymphocytes % (A) 19.9 %; MCH 29.7 pg (27.0-32.0); MCHC 32.2 g/dL (32.0-37.0); MCV 92.3 fL (80.0-97.0); Monocytes # (A) 0.67 10*3/uL (0.20-1.00); Monocytes % (A) 10.5 %; Neutrophils # (A) 3.97 10*3/uL (1.80-7.70); Neutrophils % (A) 62.4 %; Platelet Count 195 10*3/uL (140-440); RBC 3.37 10*6/uL (4.40-5.60); RDW 16.1 % (11.5-14.5); WBC 6.37 10*3/uL (4.50-10.00)
[2025-03-12 07:36] LABS: Potassium 4.4 mmol/L (3.5-5.1)
[2025-03-12 07:37] LABS: African American GFR (CKD) 32 (>60 ml/min/1.73 sqM); Anion Gap 9 mmol/L; Blood Urea Nitrogen 61 mg/dL (9-20); Calcium 8.5 mg/dL (8.4-10.2); Carbon Dioxide 25 mmol/L (22-30); Chloride 104 mmol/L (98-107); Glucose 131 mg/dL (74-99); Non-African American GFR(CKD) 28 (>60 ml/min/1.73 sqM); Sodium 138 mmol/L (137-145)
--- NOTE | 2025-03-12 11:16 | P.PN ---
Subjective HISTORY OF PRESENT ILLNESS: This is a 79-year-old male with a past medical history significant for coronary artery disease, ischemic cardiomyopathy, AICD implantation, ventricular tachycardia, congestive heart failure, hyperlipidemia, and hypothyroidism. Patient follows in the office with Dr. Rodrigues. We have been asked to see the patient in consultation for congestive heart failure. Patient examined at the bedside. Patient presented to the hospital for chief complaint of shortness of breath. Patient states he has been feeling short of breath for the past 24 to 48 hours. He denied having any chest pain or pressure. He denies having any weight gain and states he actually has lost weight recently. He states he is not able to walk very far without being short of breath. He does report a history of COPD as well. He states he smokes about 5 cigarettes/day. It is noted that the patient was here in October 2024 for congestive heart failure. Additionally he was hospitalized at [facility] in November for congestive heart failure. He was found to have pleural effusion at that time and underwent thoracentesis during that admission. DIAGNOSTICS: - EKG reveals paced rhythm. - Chest xray cardiomegaly. Mild vascular congestion. - Laboratory data: WBC 11.32. Hemoglobin 12.5. Platelet count 253. Sodium 139. Potassium 4.9. BUN 33. Creatinine 2.01. Troponin 0.069. proBNP 16,200. - Current home cardiac medication list has not been updated at the time of dictation - Most recent echocardiogram obtained in October 2024 revealing ejection fraction 20 to 25%, severe pulmonary hypertension, mild to moderate aortic and mitral regurgitation, moderate to severe tricuspid regurgitation - Cardiac catheterization history: Unknown 03/09/2025 Patient examined this morning at the bedside. Patient currently denies chest pain or pressure. He denies shortness of breath. Blood pressure borderline at 101/44. Creatinine worsened today at 2.46. 03/10 Patient seen and examined. Patient admits to some more shortness of breath this morning however mostly improved. He admits the inhalers/nebulizers are helping. Denies any chest pain or pressure. He admits to episodes of black/dark stool for the last few days as well as continued epigastric discomfort. He admits he did have scopes scheduled with GI previously this week however has been on hold while he has been in the hospital. 03/11 Patient seen and examined. His breathing continues to improve. Denies any chest pain or pressure. He is still having epigastric pain. Gallbladder ultrasound showed some thickening and correlate for cholecystitis. Plavix has been on hold. Creatinine stable at 2.4. 03/12/2025 Patient examined this morning at the bedside. Patient reports continued abdominal pain this morning. He denies any chest pain or pressure. He denies any shortness of breath. His Plavix remains on hold. He is scheduled for cholecystectomy tomorrow. Telemetry reveals paced rhythm. PHYSICAL EXAM: VITAL SIGNS: Reviewed. GENERAL: Well-developed in no acute distress. HEENT: Head is normocephalic. Pupils are equal, round. Sclerae anicteric. Mucous membranes of the mouth are moist. Neck supple. No JVD or thyromegaly LUNGS: Respirations even and unlabored. Lungs essentially clear to auscultation bilaterally. HEART: Regular rate and rhythm. S1 and S2 heard. ABDOMEN: Soft. Nondistended. Positive abdominal pain EXTREMITIES: Normal range of motion. No clubbing or cyanosis. Peripheral pulses intact. Trace bilateral lower extremity edema NEUROLOGIC: Awake and alert. Oriented x 3. ASSESSMENT: Shortness of breath Acute on chronic respiratory failure, likely in part related to heart failure however additional cough and wheezing as well as anemia. Likely multifactorial Acute on chronic heart failure with reduced EF, 20 to 25% Recurrent hospitalizations for congestive heart failure Elevated troponin secondary to chronic kidney disease, no evidence of myocardial injury or ischemia Coronary artery disease Ischemic cardiomyopathy status post AICD implantation Chronic kidney disease Severe pulmonary hypertension Valvular heart disease including mild to moderate aortic and mitral regurgitation, moderate to severe tricuspid regurgitation History of ventricular tachycardia Hyperlipidemia Hypothyroidism PLAN: Continue current cardiac medications Patient is at high risk to undergo surgery from a cardiac standpoint. However there are no absolute contraindications from a cardiology perspective Plavix remains on hold. This does not need to be resumed upon discharge from a cardiac standpoint No further inpatient recommendations We will sign off. Please reconsult if needed. Nurse practitioner note has been reviewed by physician. Signing provider agrees with the documented findings, assessment, and plan of care documented by TORQUE TESTER as a scribe. Objective - Vital Signs Vital signs: Vital Signs Temp 98.4 F 03/12/25 04:00 Pulse 57 L 03/12/25 04:00 Resp 18 03/12/25 04:00 BP 136/70 03/12/25 04:00 Pulse Ox 98 03/12/25 04:00 FiO2 35 03/08/25 02:29 Intake & Output 03/11/25 03/12/25 03/12/25 18:59 06:59 18:59 Intake Total 458 Output Total 1250 Balance -792 Weight 78.6 kg 77.7 kg Intake: Oral 458 Output: Urine 1250 Other: Voiding Method Toilet Urinal # Voids 2 # Bowel Movements 1 - Labs CBC & Chem 7: 03/12/25 06:26 03/12/25 06:26 Labs: Abnormal Lab Results - Last 24 Hours (Table) 03/11/25 03/11/25 03/11/25 Range/Units 11:45 16:15 19:58 RBC (4.40-5.60) 10*6/uL Hgb (13.0-17.0) g/dL Hct (39.6-50.0) % Immature Gran # (0.00-0.04) 10*3/uL Eosinophils # (0.04-0.35) 10*3/uL BUN (9-20) mg/dL Creatinine (0.66-1.25) mg/dL Glucose (74-99) mg/dL POC Glucose (mg/dL) 130 H 134 H 226 H (70-110) mg/dL 03/12/25 03/12/25 03/12/25 Range/Units 06:10 06:26 06:26 RBC 3.37 L (4.40-5.60) 10*6/uL Hgb 10.0 L (13.0-17.0) g/dL Hct 31.1 L (39.6-50.0) % Immature Gran # 0.05 H (0.00-0.04) 10*3/uL Eosinophils # 0.37 H (0.04-0.35) 10*3/uL BUN 61 H (9-20) mg/dL Creatinine 2.18 H (0.66-1.25) mg/dL Glucose 131 H (74-99) mg/dL POC Glucose (mg/dL) 184 H (70-110) mg/dL
[2025-03-12 11:39] LABS: Glucose,Whole Blood 206 mg/dL (70-110)
--- NOTE | 2025-03-12 11:46 | P.PN ---
Subjective Progress Note Date: 03/12/25 SURGICAL PROGRESS NOTE CHIEF COMPLAINT: Respiratory failure HISTORY OF PRESENT ILLNESS: Patient continues to complain of the same epigastric and right upper quadrant abdominal pain. He had a brown bowel movement yesterday. No further black stools. Hemoglobin has improved from 9.9-10. HIDA scan did report cystic duct obstruction correlate for cholecystitis. He did have a gallbladder ultrasound completed that reported complex cyst in the right liver lobe gallstones and thickened gallbladder wall. Plavix was stopped on 03/10/2025 PHYSICAL EXAM: VITAL SIGNS: Reviewed. GENERAL: Well-developed in no acute distress. HEENT: No sclera icterus. Extraocular movements grossly intact. Moist buccal mucosa. Head is atraumatic, normocephalic. ABDOMEN: Soft. Nondistended. Tenderness palpation right upper quadrant and epigastric area NEUROLOGIC: Alert and oriented. Cranial nerves II through XII grossly intact. ASSESSMENT: 1. Cholecystitis with HIDA scan reporting a cystic duct obstruction 2. Anemia with melanotic stools. Stools resolved. HGB is stable PLAN: -Patient scheduled for robotic cholecystectomy tomorrow -Discussed case with cardiology service. Patient high risk but okay to proceed with surgery -Plavix has been on hold -Continue PPI -N.p.o. after midnight -Start antibiotics Physician Pile Driving Supervisor note has been reviewed by physician. Signing provider agrees with the documented findings, assessment, and plan of care. Objective - Vital Signs Vital signs: Vital Signs Temp 98.0 F 03/12/25 08:00 Pulse 60 03/12/25 08:36 Resp 18 03/12/25 08:00 BP 117/57 03/12/25 08:00 Pulse Ox 98 03/12/25 08:26 FiO2 35 03/08/25 02:29 Intake & Output 03/11/25 03/12/25 03/12/25 18:59 06:59 18:59 Intake Total 458 240 Output Total 1250 Balance -792 240 Weight 78.6 kg 77.7 kg Intake: Oral 458 240 Output: Urine 1250 Other: Voiding Method Toilet Urinal # Voids 2 # Bowel Movements 1 - Labs CBC & Chem 7: 03/12/25 06:26 03/12/25 06:26 Labs: Abnormal Lab Results - Last 24 Hours (Table) 03/11/25 03/11/25 03/11/25 Range/Units 11:45 16:15 19:58 RBC (4.40-5.60) 10*6/uL Hgb (13.0-17.0) g/dL Hct (39.6-50.0) % Immature Gran # (0.00-0.04) 10*3/uL Eosinophils # (0.04-0.35) 10*3/uL BUN (9-20) mg/dL Creatinine (0.66-1.25) mg/dL Glucose (74-99) mg/dL POC Glucose (mg/dL) 130 H 134 H 226 H (70-110) mg/dL 03/12/25 03/12/25 03/12/25 Range/Units 06:10 06:26 06:26 RBC 3.37 L (4.40-5.60) 10*6/uL Hgb 10.0 L (13.0-17.0) g/dL Hct 31.1 L (39.6-50.0) % Immature Gran # 0.05 H (0.00-0.04) 10*3/uL Eosinophils # 0.37 H (0.04-0.35) 10*3/uL BUN 61 H (9-20) mg/dL Creatinine 2.18 H (0.66-1.25) mg/dL Glucose 131 H (74-99) mg/dL POC Glucose (mg/dL) 184 H (70-110) mg/dL
--- NOTE | 2025-03-12 12:08 | P.PN ---
Subjective Patient is seen for follow-up of chronic kidney disease. Scheduled for robotic cholecystectomy tomorrow. Abdominal pain is better Serum creatinine stable, decreased to 2.1. Objective - Vital Signs Vital signs: Vital Signs Temp 98.0 F 03/12/25 08:00 Pulse 60 03/12/25 08:36 Resp 18 03/12/25 08:00 BP 117/57 03/12/25 08:00 Pulse Ox 98 03/12/25 08:26 FiO2 35 03/08/25 02:29 Intake & Output 03/11/25 03/12/25 03/12/25 18:59 06:59 18:59 Intake Total 458 240 Output Total 1250 600 Balance -792 -360 Weight 78.6 kg 77.7 kg Intake: Oral 458 240 Output: Urine 1250 600 Other: Voiding Method Toilet Urinal # Voids 2 # Bowel Movements 1 - Exam Patient is awake, comfortable, no acute distress Examination of the heart S1 and S2 Examination of the lungs show decreased breath sounds at the bases Abdomen is soft nontender Examination of lower extremities shows no significant edema PHOTOGRAPH DEVELOPER exam grossly intact - Labs CBC & Chem 7: 03/12/25 06:26 03/12/25 06:26 Labs: Abnormal Lab Results - Last 24 Hours (Table) 03/11/25 03/11/25 03/12/25 Range/Units 16:15 19:58 06:10 RBC (4.40-5.60) 10*6/uL Hgb (13.0-17.0) g/dL Hct (39.6-50.0) % Immature Gran # (0.00-0.04) 10*3/uL Eosinophils # (0.04-0.35) 10*3/uL BUN (9-20) mg/dL Creatinine (0.66-1.25) mg/dL Glucose (74-99) mg/dL POC Glucose (mg/dL) 134 H 226 H 184 H (70-110) mg/dL 03/12/25 03/12/25 03/12/25 Range/Units 06:26 06:26 11:36 RBC 3.37 L (4.40-5.60) 10*6/uL Hgb 10.0 L (13.0-17.0) g/dL Hct 31.1 L (39.6-50.0) % Immature Gran # 0.05 H (0.00-0.04) 10*3/uL Eosinophils # 0.37 H (0.04-0.35) 10*3/uL BUN 61 H (9-20) mg/dL Creatinine 2.18 H (0.66-1.25) mg/dL Glucose 131 H (74-99) mg/dL POC Glucose (mg/dL) 206 H (70-110) mg/dL Assessment and Plan Assessment: 1. CKD stage IV secondary to nephrosclerosis with fluctuation in creatinine related to episodes of acute kidney injury and cardiorenal syndrome. Serum creatinine close to baseline of 2 to 2.5 mg/dL. No obstruction noted on CT scan. UA is benign. 2. Ischemic cardiomyopathy with EF of 20 to 25% 3. Acute on chronic CHF with reduced ejection fraction 4. Acute hypoxic respiratory failure secondary to acute on chronic CHF, improved 5. Valvular heart disease with mild to moderate aortic and mitral regurgitation with severe tricuspid regurgitation 6. Abdominal pain with cholelithiasis possible acute cholecystitis Plan: Continue with Farxiga Continue with current dose of oral Lasix Continue with accurate I's and O's Repeat labs in a.m.
--- NOTE | 2025-03-12 12:22 | P.PN ---
Subjective Progress Note Date: 03/12/25 This is a 79-year-old male patient, hospitalized for shortness of breath. The patient is a chronic smoker is known to have COPD. At the same time, the patient is known to have coronary artery disease, chronic systolic heart failure with impaired LV function and the patient has an AICD in place. The patient has been followed up with cardiology on outpatient basis. Patient presented with worsening shortness of breath over 48 hours. Limited cough. No significant sputum production. He has exertional dyspnea without any chest pain. He continues to smoke about 5 cigarettes a day. No pleurisy. No hemoptysis. No significant edema lower extremities. EKG showed a paced rhythm and the patient's chest x-ray showed cardiomegaly with mild pulm vascular ingestion. The white cell count was 11.3 with a hemoglobin 12.5 with a platelet count of 253. The rest of the blood work showed a sodium level of 139 with a potassium level of 4.9, BUN is 33 with a creatinine of 2.01. proBNP level was 16,200 and troponin was at 0.06 The patient's most recent echocardiogram from October 2024 showed systolic heart failure with an ejection fraction of 2024% with severe pulm hypertension and mild to moderate aortic regurgitation and mitral regurgitation with moderate to severe tricuspid regurgitation. The patient was started on diuretics. The patient is currently on IV Lasix 40 mg every 12 hours. The patient remains on aspirin and Plavix. The patient remains on Coreg 12.5 mg p.o. twice a day, amiodarone 200 mg p.o. daily and hydralazine 25 mg 3 times daily and Imdur 20 mg p.o. 3 times daily. Fluid balance has been negative. The patient is currently off the BiPAP and he has been transitioned to 3 L of oxygen by nasal cannula. He states that utilization of BiPAP overnight has helped quite a bit. Currently, feeling better. Free of any chest pain. Patient was seen today on lactic acid level initially was at 3.3, dropped to one 1.2. On 03/09/2025, the patient is comfortable and he seems to be less short of breath. He has been diuresed adequately and on today's blood work, the patient has a rise in the creatinine up to 2.46 with a BUN of 52. Based on that, IV Lasix was discontinued and the patient was started on oral Lasix 40 mg p.o. daily. Remains on bronchodilators. Rest of the medications are essentially unchanged. The white cell count is 14.1 with a hemoglobin 9.8 and a platelet count of 202. Sodium is at 137 and potassium level is at 3.7. The patient is hemodynamically stable. The patient is currently on room air oxygen with a pulse ox of 98 Patient was seen today on 03/10/2025, seems to be fairly comfortable, not in distress. Patient does have history of ischemic cardiomyopathy with ejection fraction of 20 to 25%, clinically however his congestive heart failure has been improving with diuresis. In addition to his cardiomyopathy, patient has valvular heart disease with mild to moderate aortic and mitral regurgitation with severe tricuspid regurgitation and secondary pulmonary hypertension. Patient is being followed by cardiology as well as nephrology for his renal failure. Remains on oral Lasix. Patient continues to have some nonspecific epigastric pain, being followed by surgery recommending ultrasound, also recommending CT angio of the abdomen to rule out mesenteric ischemia. Patient was seen today on 03/11/2025, pulmonary maldonado the patient is doing well, does not seem to be in any distress, no cough no wheezing no shortness of breath, continues to have some epigastric and right upper quadrant pain, ultrasound of gallbladder showed thickened gallbladder wall, patient is now scheduled to have a HIDA scan. At 1 point the patient had melanotic stools which has resolved. Plavix remains on hold. Patient is being closely monitored for any further signs of bleeding. Labs today show WBC count of 7 hemoglobin 9.9 electrolytes are normal BUN is 63 creatinine 2.57 The patient is seen today March 12, 2025 in follow-up on the selective care unit. He is currently sitting up in bed. Awake and alert in no acute distress. Maintaining good O2 saturations in the 90s on room air oxygen. Has been afebrile. Hemodynamically stable. Denies any shortness of breath, cough or congestion. Still having some abdominal discomfort but improved. HIDA scan did reveal cystic duct obstruction. Findings compatible with cholecystitis. White count 6.3. Hemoglobin 10.0. Platelets 195. Sodium 138. Potassium 4.4. Bicarb 25. BUN 61. Creatinine 2.18. Glucose 131. He remains on DuoNeb and elations. Continued on ceftriaxone and Flagyl. Remains on oral diuretics. Objective - Vital Signs Vital signs: Vital Signs Temp 98.0 F 03/12/25 08:00 Pulse 60 03/12/25 08:36 Resp 18 03/12/25 08:00 BP 117/57 03/12/25 08:00 Pulse Ox 98 03/12/25 08:26 FiO2 35 03/08/25 02:29 Intake & Output 03/11/25 03/12/25 03/12/25 18:59 06:59 18:59 Intake Total 458 240 Output Total 1250 600 Balance -792 -360 Weight 78.6 kg 77.7 kg Intake: Oral 458 240 Output: Urine 1250 600 Other: Voiding Method Toilet Urinal # Voids 2 # Bowel Movements 1 - Exam GENERAL EXAM: Alert, active, pleasant 79-year-old male, on room air oxygen, fairly comfortable in no apparent distress. HEAD: Normocephalic. EYES: Normal reaction of pupils, equal size. NOSE: Clear with pink turbinates. THROAT: No erythema or exudates. NECK: No masses, no JVD. CHEST: No chest wall deformity. LUNGS: Equal air entry with no crackles, wheeze, rhonchi or dullness. CVS: S1 and S2 normal with no audible murmur, regular rhythm. ABDOMEN: Tender to palpation right upper quadrant. No hepatosplenomegaly, n ormal bowel sounds, no guarding or rigidity. SPINE: No scoliosis or deformity SKIN: No rashes CENTRAL NERVOUS SYSTEM: No focal deficits, tone is normal in all 4 extremities. EXTREMITIES: There is no peripheral edema. No clubbing, no cyanosis. Peripheral pulses are intact. - Labs CBC & Chem 7: 03/12/25 06:26 03/12/25 06:26 Labs: Abnormal Lab Results - Last 24 Hours (Table) 03/11/25 03/11/25 03/12/25 Range/Units 16:15 19:58 06:10 RBC (4.40-5.60) 10*6/uL Hgb (13.0-17.0) g/dL Hct (39.6-50.0) % Immature Gran # (0.00-0.04) 10*3/uL Eosinophils # (0.04-0.35) 10*3/uL BUN (9-20) mg/dL Creatinine (0.66-1.25) mg/dL Glucose (74-99) mg/dL POC Glucose (mg/dL) 134 H 226 H 184 H (70-110) mg/dL 03/12/25 03/12/25 03/12/25 Range/Units 06:26 06:26 11:36 RBC 3.37 L (4.40-5.60) 10*6/uL Hgb 10.0 L (13.0-17.0) g/dL Hct 31.1 L (39.6-50.0) % Immature Gran # 0.05 H (0.00-0.04) 10*3/uL Eosinophils # 0.37 H (0.04-0.35) 10*3/uL BUN 61 H (9-20) mg/dL Creatinine 2.18 H (0.66-1.25) mg/dL Glucose 131 H (74-99) mg/dL POC Glucose (mg/dL) 206 H (70-110) mg/dL Assessment and Plan Assessment: Acute hypoxic respiratory failure secondary to acute on chronic systolic congestive heart failure recovered and on room air oxygen Acute abdominal pain. HIDA scan revealed cystic duct obstructions. Findings compatible with cholecystitis Severe pulmonary hypertension with valvular heart disease including aortic and mitral regurgitation Underlying COPD Coronary artery disease Chronic systolic congestive heart failure with ejection fraction of 20 to 25% Chronic kidney disease stage IIIb History of ventricular tachycardia History of AICD placement Hypothyroidism Dyslipidemia History of ESBL E. coli UTI and bacteremia Type 2 diabetes Chronic medical debility and generalized weakness Plan: The patient was seen and evaluated HIDA scan, labs and medications reviewed Suspect cholecystitis Surgery is following Stable and on room air oxygen Continued on bronchodilators Continued on oral diuretics Continued on ceftriaxone and Flagyl Increase his activity as tolerated We will continue to follow I have personally seen and examined the patient, performed the documentation and the assessment and plan as written. Number of minutes spent on the visit: 10 Dictation was produced using [employer] dictation software. Please excuse any grammatical, word or spelling errors.
[2025-03-12] MEDS: metroNIDAZOLE-NS PMX 500 MG in SALINE 1 100ML.BAG IVPB SCH (12:56)
[2025-03-12 16:48] LABS: Glucose,Whole Blood 216 mg/dL (70-110)
[2025-03-12 20:28] LABS: Glucose,Whole Blood 136 mg/dL (70-110)
--- NOTE | 2025-03-12 21:04 | P.PN ---
Subjective 79-year-old male with past medical history of COPD, CHF who presents emergency department reporting shortness of breath. Patient has been short of breath for the past couple of days. He called EMS who found him to be saturating in the 80s with significant work of breathing. He does not have oxygen at home. He was given 324 mg of aspirin, CPAP. Patient takes Bumex as a diuretic. Denies any fevers. Does admit to some chest pain. No calf pain or swelling. No other alleviating, precipitating modifying factors -- Patient remains hemodynamically stable Vital signs are reviewed Lab reviewed indicates worsening creatinine which is up to 2.46 this morning, up from 2.01 yesterday; patient is currently on IV Lasix 40 mg every 12 hours and Farxiga; cardiology has added hydralazine and Isordil; amiodarone is decreased to 200 mg daily - Will consult nephrology 03/10 Patient still wheezing and feels congested He complains from exertional dyspnea no chest pain He has epigastric pain tenderness about 6/10 no vomiting. Appetite feels good Bowel movement no bowel movement for 2 days but he is passing gas He has little crepitation on exam and little wheezing but no leg edema pt is been followed by pulmonary and cardiology service and nephrology service. Currently mildly hypervolemic kept on oral Lasix and Farxiga Surgery team following closely for epigastric pain and anemia, anemia looks chronic with baseline 7-8 currently 9.9 and stable. Surgery team also monitoring for any evidence of GI bleed. Currently I could not see any. Plavix remains on hold per surgery team Patient had ultrasound of the liver showing complex cyst of the right lobe of the liver that needs outpatient follow-up with cholelithiasis with some thickening of the gallbladder wall suspicious for acute cholecystitis 03/11 Patient pain looks controlled Nausea vomiting improving HIDA scan to be done at afternoon Abdominal pain is the same 6/10 in the right upper quadrant and epigastric area with tenderness Bowel movement yesterday which was brown in color 03/12 Patient today has some pain Mainly in the right upper quadrant Plan for surgical cholecystectomy tomorrow Also required some breathing treatment however no significant wheezing or crepitation Objective - Vital Signs Vital signs: Vital Signs Temp 98.0 F 03/12/25 08:00 Pulse 64 03/12/25 12:32 Resp 18 03/12/25 08:00 BP 117/57 03/12/25 08:00 Pulse Ox 98 03/12/25 08:26 FiO2 35 03/08/25 02:29 Intake & Output 03/11/25 03/12/25 03/12/25 18:59 06:59 18:59 Intake Total 458 240 Output Total 1250 600 Balance -792 -360 Weight 78.6 kg 77.7 kg Intake: Oral 458 240 Output: Urine 1250 600 Other: Voiding Method Toilet Urinal # Voids 2 # Bowel Movements 1 - Exam GENERAL: The patient is alert and oriented x3, not in any acute distress. Well developed, well nourished. HEENT: Pupils are round and equally reacting to light. EOMI. No scleral icterus. No conjunctival pallor. Normocephalic, atraumatic. No pharyngeal erythema. No thyromegaly. CARDIOVASCULAR: S1 and S2 present. No murmurs, rubs, or gallops. PULMONARY: Chest is clear to auscultation, no wheezing , no crackles. ABDOMEN: Soft, nontender, nondistended, normoactive bowel sounds. No palpable organomegaly. MUSCULOSKELETAL: No joint swelling or deformity. EXTREMITIES: No cyanosis, clubbing, or pedal edema. NEUROLOGICAL: Gross neurological examination did not reveal any focal deficits. SKIN: No rashes. no petechiae. - Labs CBC & Chem 7: 03/12/25 06:26 03/12/25 06:26 Labs: Abnormal Lab Results - Last 24 Hours (Table) 03/11/25 03/11/25 03/12/25 Range/Units 16:15 19:58 06:10 RBC (4.40-5.60) 10*6/uL Hgb (13.0-17.0) g/dL Hct (39.6-50.0) % Immature Gran # (0.00-0.04) 10*3/uL Eosinophils # (0.04-0.35) 10*3/uL BUN (9-20) mg/dL Creatinine (0.66-1.25) mg/dL Glucose (74-99) mg/dL POC Glucose (mg/dL) 134 H 226 H 184 H (70-110) mg/dL 03/12/25 03/12/25 03/12/25 Range/Units 06:26 06:26 11:36 RBC 3.37 L (4.40-5.60) 10*6/uL Hgb 10.0 L (13.0-17.0) g/dL Hct 31.1 L (39.6-50.0) % Immature Gran # 0.05 H (0.00-0.04) 10*3/uL Eosinophils # 0.37 H (0.04-0.35) 10*3/uL BUN 61 H (9-20) mg/dL Creatinine 2.18 H (0.66-1.25) mg/dL Glucose 131 H (74-99) mg/dL POC Glucose (mg/dL) 206 H (70-110) mg/dL Assessment and Plan Assessment: possible aucte cholecystitis Surgery team following closely - surgical cholecystectomy on 03/13 Acute hypoxic respiratory failure; related to acute on chronic CHF - Patient placed on BiPAP upon arrival to ED - Patient is currently on O2 at 3 L per nasal cannula; plan to titrate or wean as able - on room air currently , resolved HIDA scan is pending Acute on chronic CHF; LVEF of 20 to 25% on last echo - Patient has been placed on Lasix 40 mg IV every 12 hours; will monitor strict TANYA's, daily weights, low-salt and fluid restricted diet - Patient has been recommended to be placed on Farxiga - 2D echo - c/w oral diurtic CKD STAGE IV, with possible mild elements of VIRGEN AND high potassium nephrology following c/w oral lasix and farxiga Elevated troponin; likely related to chronic kidney disease; rule out acute coronary syndrome -We will trend to rule out acute coronary syndrome - 2D echo showed; await further recommendations from etiology Hyperglycemia; likely new onset diabetes mellitus - Blood glucose markedly elevated upon arrival to ED; monitor Accu-Cheks q. CHS with insulin sliding scale; change diet to a consistent carbohydrate diet - Patient has been placed on Farxiga; will make further recommendations pending clinical course - Will order HbA1c Ischemic cardiomyopathy; patient is status post AICD implantation Anemia, looks chronic and stable No evidence of active GI bleed Plavix remains on hold per surgery team recommendation General Surgery team following closely Valvular heart disease; patient has mild to moderate aortic and mitral regurgitation with severe tricuspid regurgitation - Follow-up with valvular disease clinic Hypertension; cardiology recommending to increase Coreg up to 12.5 mg twice daily; add hydralazine 25 mg twice daily; add Isordil 20 mg 3 times daily Hyperlipidemia; Lipitor 80 mg p.o. nightly Hypothyroidism; levothyroxine 25 mcg daily Anxiety; Xanax 0.5 mg every 8 hours as needed BPH; Flomax 0.4 mg daily
[2025-03-13 06:09] LABS: Glucose,Whole Blood 141 mg/dL (70-110)
[2025-03-13] MEDS: IPRATROPIUM-ALBUTEROL 3 ML NEB INHALATION SCH (08:08)
[2025-03-13 09:19] LABS: HCT 30.4 % (39.6-50.0); HGB 9.8 g/dL (13.0-17.0); MCH 29.8 pg (27.0-32.0); MCHC 32.2 g/dL (32.0-37.0); MCV 92.4 fL (80.0-97.0); Platelet Count 188 10*3/uL (140-440); RBC 3.29 10*6/uL (4.40-5.60); RDW 16.0 % (11.5-14.5); WBC 6.37 10*3/uL (4.50-10.00)
[2025-03-13 09:36] LABS: African American GFR (CKD) 28 (>60 ml/min/1.73 sqM); Anion Gap 10 mmol/L; Blood Urea Nitrogen 60 mg/dL (9-20); Calcium 8.7 mg/dL (8.4-10.2); Carbon Dioxide 25 mmol/L (22-30); Chloride 102 mmol/L (98-107); Glucose 110 mg/dL (74-99); Non-African American GFR(CKD) 24 (>60 ml/min/1.73 sqM); Potassium 4.4 mmol/L (3.5-5.1); Sodium 137 mmol/L (137-145)
[2025-03-13 11:36] LABS: Glucose,Whole Blood 138 mg/dL (70-110)
--- NOTE | 2025-03-13 11:45 | P.PN ---
Progress Note - Text Progress Note Date: 03/13/25 Case discussed in depth with patient. Patient continues to have epigastric and right upper quadrant pain with finding consistent with acute cholecystitis with cystic duct obstruction. Recommendation was made for cholecystectomy. Patient is notably high risk of per cardiology and this was also discussed with the patient based on his cardiac history. Patient has opted for moving forward with cholecystectomy after this discussion. All questions were answered.
[2025-03-13] MEDS: LACTATED RINGERS 1,000 ML BAG IV STA (12:22)
[2025-03-13] MEDS: IV FLUID CONTINUATION 1,000 ML IV ONE (12:24)
--- NOTE | 2025-03-13 12:38 | P.PN ---
Subjective Progress Note Date: 03/13/25 Principal diagnosis: Acute hypoxic respiratory failure secondary to acute on chronic systolic congestive heart failure This is a 79-year-old male patient, hospitalized for shortness of breath. The patient is a chronic smoker is known to have COPD. At the same time, the patien t is known to have coronary artery disease, chronic systolic heart failure with impaired LV function and the patient has an AICD in place. The patient has been followed up with cardiology on outpatient basis. Patient presented with worsening shortness of breath over 48 hours. Limited cough. No significant sputum production. He has exertional dyspnea without any chest pain. He continues to smoke about 5 cigarettes a day. No pleurisy. No hemoptysis. No significant edema lower extremities. EKG showed a paced rhythm and the patient's chest x-ray showed cardiomegaly with mild pulm vascular ingestion. The white cell count was 11.3 with a hemoglobin 12.5 with a platelet count of 253. The rest of the blood work showed a sodium level of 139 with a potassium level of 4.9, BUN is 33 with a creatinine of 2.01. proBNP level was 16,200 and troponin was at 0.06 The patient's most recent echocardiogram from October 2024 showed systolic heart failure with an ejection fraction of 2024% with severe pulm hypertension and mild to moderate aortic regurgitation and mitral regurgitation with moderate to severe tricuspid regurgitation. The patient was started on diuretics. The patient is currently on IV Lasix 40 mg every 12 hours. The patient remains on aspirin and Plavix. The patient rem ains on Coreg 12.5 mg p.o. twice a day, amiodarone 200 mg p.o. daily and hydralazine 25 mg 3 times daily and Imdur 20 mg p.o. 3 times daily. Fluid balance has been negative. The patient is currently off the BiPAP and he has been transitioned to 3 L of oxygen by nasal cannula. He states that utilization of BiPAP overnight has helped quite a bit. Currently, feeling better. Free of any chest pain. Patient was seen today on lactic acid level initially was at 3.3, dropped to one 1.2. On 03/09/2025, the patient is comfortable and he seems to be less short of breath. He has been diuresed adequately and on today's blood work, the patient has a rise in the creatinine up to 2.46 with a BUN of 52. Based on that, IV Lasix was discontinued and the patient was started on oral Lasix 40 mg p.o. daily. Remains on bronchodilators. Rest of the medications are essentially unchanged. The white cell count is 14.1 with a hemoglobin 9.8 and a platelet count of 202. Sodium is at 137 and potassium level is at 3.7. The patient is hemodynamically stable. The patient is currently on room air oxygen with a pulse ox of 98 Patient was seen today on 03/10/2025, seems to be fairly comfortable, not in distress. Patient does have history of ischemic cardiomyopathy with ejection fraction of 20 to 25%, clinically however his congestive heart failure has been improving with diuresis. In addition to his cardiomyopathy, patient has valvular heart disease with mild to moderate aortic and mitral regurgitation with severe tricuspid regurgitation and secondary pulmonary hypertension. Patient is being followed by cardiology as well as nephrology for his renal failure. Remains on oral Lasix. Patient continues to have some nonspecific epigastric pain, being followed by surgery recommending ultrasound, also recommending CT angio of the abdomen to rule out mesenteric ischemia. Patient was seen today on 03/11/2025, pulmonary maldonado the patient is doing well, does not seem to be in any distress, no cough no wheezing no shortness of breath, continues to have some epigastric and right upper quadrant pain, ultrasound of gallbladder showed thickened gallbladder wall, patient is now scheduled to have a HIDA scan. At 1 point the patient had melanotic stools which has resolved. Plavix remains on hold. Patient is being closely monitored for any further signs of bleeding. Labs today show WBC count of 7 hemoglobin 9.9 electrolytes are normal BUN is 63 creatinine 2.57 Seen today on 03/09/2025, patient is doing well, relatively asymptomatic, patient is being followed by surgery for acute cholecystitis, may undergo laparoscopic cholecystectomy today. Apparently he was cleared by cardiology. Patient has no active pulmonary symptoms no cough no wheezing no shortness of breath and no chest pain. WBC 6.3 hemoglobin 9.8 electrolytes are normal BUN is 60 creatinine 2.45 Objective - Vital Signs Vital signs: Vital Signs Temp 97.5 F L 03/13/25 12:24 Pulse 60 03/13/25 12:24 Resp 16 03/13/25 12:24 BP 122/64 03/13/25 12:24 Pulse Ox 94 L 03/13/25 12:24 FiO2 35 03/08/25 02:29 Intake & Output 03/12/25 03/13/25 03/13/25 18:59 06:59 18:59 Intake Total 1200 20 10 Output Total 975 675 Balance 225 20 -665 Weight 81 kg Intake: IV 20 10 Invasive Line 1 10 Invasive Line 2 10 10 Oral 1200 Output: Urine 975 675 Other: Voiding Method Toilet Toilet # Voids 2 - Exam Physical exam revealed a 79year-old, in no distress, on room air, O2 sat is 98% EENT: PERRLA, EOMI, nonicteric, no neck masses, no JVD, no stridor, moist mucous membranes Chest: Symmetrical chest expansion Lungs: Diminished breath sound bilaterally no crackles rhonchi or wheezes Cardiac: Normal S1-S2, no S3 gallop, 2/6 systolic murmur throughout the precordium. Abdomen: Soft nontender no megaly no rebound no guarding good bowel sounds Extremities: No clubbing 1+ bipedal edema, nocyanosis, good pulses bilaterally Musculoskeletal: No deformities and no limitation range of motion Neurologic: Alert oriented x 3 no gross focal neurologic deficit Psychiatric: Normal mood and affect and no mental status examination Skin: No rashes. - Labs CBC & Chem 7: 03/13/25 08:25 03/13/25 08:21 Labs: Abnormal Lab Results - Last 24 Hours (Table) 03/12/25 03/12/25 03/13/25 Range/Units 16:43 20:27 06:07 RBC (4.40-5.60) 10*6/uL Hgb (13.0-17.0) g/dL Hct (39.6-50.0) % BUN (9-20) mg/dL Creatinine (0.66-1.25) mg/dL Glucose (74-99) mg/dL POC Glucose (mg/dL) 216 H 136 H 141 H (70-110) mg/dL 03/13/25 03/13/25 03/13/25 Range/Units 08:21 08:25 11:28 RBC 3.29 L (4.40-5.60) 10*6/uL Hgb 9.8 L (13.0-17.0) g/dL Hct 30.4 L (39.6-50.0) % BUN 60 H (9-20) mg/dL Creatinine 2.45 H (0.66-1.25) mg/dL Glucose 110 H (74-99) mg/dL POC Glucose (mg/dL) 138 H (70-110) mg/dL Assessment and Plan Assessment: Impression: Acute hypoxic respiratory failure secondary to acute on chronic systolic congestive heart failure Severe pulmonary hypertension with valvular heart disease including aortic and mitral regurgitation Underlying COPD Coronary artery disease Chronic systolic congestive heart failure with ejection fraction of 20 to 25% Chronic kidney disease stage IIIb History of ventricular tachycardia History of AICD placement Hypothyroidism Dyslipidemia History of ESBL E. coli UTI and bacteremia Type 2 diabetes Chronic medical debility and generalized weakness Recommendation: Continue present supportive care measures Patient is having laparoscopic cholecystectomy today. Continue Lasix 40 mg daily Continue Coreg 12.5 twice daily Continue to monitor renal function Continue updrafts for underlying COPD Multiple comorbidities as noted above, relatively high surgical risk. But no absolute contraindication to surgery Will continue to follow Time with Patient: Less than 30
[2025-03-13] MEDS ORDERED: ROCURONIUM 10 MG/ML (5 ML VIAL) IV ONE (12:41)
[2025-03-13] MEDS ORDERED: SUGAMMADEX SODIUM 100 MG/ML SYR IV ONE (12:41)
[2025-03-13] MEDS ORDERED: NEOSTIGMINE 1 MG/ML 10 ML VIAL ONE (12:41)
[2025-03-13] MEDS ORDERED: SUCCINYLCHOLINE CHLORIDE 200 MG/10 ML VIAL IV ONE (12:41)
[2025-03-13] MEDS ORDERED: PHENYLEPHRINE 10 MG/ML VIAL ONE (12:41)
[2025-03-13] MEDS ORDERED: GLYCOPYRROLATE 0.2 MG/ML 2 ML VIAL ONE (12:41)
[2025-03-13] MEDS ORDERED: fentaNYL (PF) 50 MCG/ML 2 ML AMP ONE (12:41)
[2025-03-13] MEDS ORDERED: ETOMIDATE 2 MG/ML 10 ML VIAL ONE (12:41)
[2025-03-13] MEDS ORDERED: LIDOCAINE 1% INJ 10MG/ML (20 ML MDV) ONE (12:41)
[2025-03-13] MEDS: LIDOCAINE 1%-EPI 1:100,000 20 ML VIAL SQ ONE ×3 (12:42→13:00)
--- NOTE | 2025-03-13 12:45 | P.PN ---
Subjective Patient is seen for follow-up of chronic kidney disease. Scheduled for robotic cholecystectomy today Complaining of mild abdominal pain Serum creatinine at 2.45 today Objective - Vital Signs Vital signs: Vital Signs Temp 97.5 F L 03/13/25 12:24 Pulse 60 03/13/25 12:24 Resp 16 03/13/25 12:24 BP 122/64 03/13/25 12:24 Pulse Ox 94 L 03/13/25 12:24 FiO2 35 03/08/25 02:29 Intake & Output 03/12/25 03/13/25 03/13/25 18:59 06:59 18:59 Intake Total 1200 20 10 Output Total 975 675 Balance 225 20 -665 Weight 81 kg Intake: IV 20 10 Invasive Line 1 10 Invasive Line 2 10 10 Oral 1200 Output: Urine 975 675 Other: Voiding Method Toilet Toilet # Voids 2 - Exam Patient is awake, comfortable, no acute distress Examination of the heart S1 and S2 Examination of the lungs show decreased breath sounds at the bases Abdomen is soft nontender Examination of lower extremities shows no significant edema [employer] exam grossly intact - Labs CBC & Chem 7: 03/13/25 08:25 03/13/25 08:21 Labs: Abnormal Lab Results - Last 24 Hours (Table) 03/12/25 03/12/25 03/13/25 Range/Units 16:43 20:27 06:07 RBC (4.40-5.60) 10*6/uL Hgb (13.0-17.0) g/dL Hct (39.6-50.0) % BUN (9-20) mg/dL Creatinine (0.66-1.25) mg/dL Glucose (74-99) mg/dL POC Glucose (mg/dL) 216 H 136 H 141 H (70-110) mg/dL 03/13/25 03/13/25 03/13/25 Range/Units 08:21 08:25 11:28 RBC 3.29 L (4.40-5.60) 10*6/uL Hgb 9.8 L (13.0-17.0) g/dL Hct 30.4 L (39.6-50.0) % BUN 60 H (9-20) mg/dL Creatinine 2.45 H (0.66-1.25) mg/dL Glucose 110 H (74-99) mg/dL POC Glucose (mg/dL) 138 H (70-110) mg/dL Assessment and Plan Assessment: 1. CKD stage IV secondary to nephrosclerosis with fluctuation in creatinine related to episodes of acute kidney injury and cardiorenal syndrome. Serum c reatinine close to baseline of 2 to 2.5 mg/dL. No obstruction noted on CT scan. UA is benign. 2. Ischemic cardiomyopathy with EF of 20 to 25% 3. Acute on chronic CHF with reduced ejection fraction 4. Acute hypoxic respiratory failure secondary to acute on chronic CHF, improved 5. Valvular heart disease with mild to moderate aortic and mitral regurgitation with severe tricuspid regurgitation 6. Abdominal pain with cholelithiasis possible acute cholecystitis, scheduled for laparoscopic cholecystectomy Plan: Continue with Farxiga Hold Lasix Continue with accurate I's and O's Repeat labs in a.m.
--- NOTE | 2025-03-13 14:01 | P.OP ---
Date of Procedure: 03/13/25 Preoperative Diagnosis: Acute cholecystitis Postoperative Diagnosis: Acute cholecystitis Procedure(s) Performed: Robotic cholecystectomy Anesthesia: NARA Surgeon: Alexsander Sandoval Pathology: other (Gallbladder) Condition: stable Disposition: floor Indications for Procedure: 79-year-old male admitted with complaints of abdominal and epigastric pain. On workup, patient is found to have cholelithiasis along with cystic duct obstruction concerning for cholecystitis. Plan is for robotic cholecystectomy. He has been evaluated pulmonology and cardiology with high risk stratification for surgical intervention. This was discussed in depth with the patient and he is agreeable with surgical intervention. All questions answered prior to attending the operating suite Operative Findings: Contracted and edematous gallbladder Description of Procedure: Patient was brought to the operating suite and placed in supine position on the operating table. Sedation was provided by anesthesia and the patient underwent endotracheal intubation. The patient was then prepped and draped in regular sterile fashion. An infraumbilical incision was made and dissection was carried to the fascia. The fascia was incised and an 8 mm trocar was placed. Pneumoperitoneum was achieved. The patient was then placed in appropriate position. 2 additional 8 mm trocars were placed in the right upper quadrant and 1 in the left upper quadrant. Robot was then docked. The gallbladder was then grasped and retracted superiorly and laterally. The gallbladder appeared contracted and somewhat edematous. Dissection was carried along the infundibulum towards the cystic duct and the cystic duct was skeletonized. The cystic artery was similarly skeletonized and critical view was obtained. ICG was used to confirm anatomy. 2 clips were placed proximally on the cystic duct and 1 was placed distally and the cystic duct was ligated. Similarly, 2 clips were placed proximally on the cystic artery and 1 was placed distally and the cystic artery was ligated. Cautery was then used to dissect the gallbladder off of the gallbladder fossa. The gallbladder was then placed in an Endo Catch bag and removed from the abdomen from the infraumbilical incision site. Hemostasis was noted to be maintained. No bile leakage was noted. The infraumbilical fascial incision was closed under direct visualization using an 0 Vicryl suture and Rojas-Shanti device. Pneumoperitoneum was released. All ports removed from the abdomen. All port sites were closed with 4-0 Vicryl subcuticular suture. Sterile dressing was applied. The patient was taken to postanesthesia care unit in stable condition. Sponge and instrument count correct x 2.
[2025-03-13] MEDS: ALBUTEROL NEBULIZED 2.5 MG/3 ML INHALATION STA (14:06)
[2025-03-13 14:33] LABS: Glucose,Whole Blood 158 mg/dL (70-110)
--- NOTE | 2025-03-13 15:05 | PN ---
PROGRESS NOTE DATE OF SERVICE: 03/13/2025 SUBJECTIVE: This is a 79-year-old gentleman, admitted with shortness of breath, possibly secondary to COPD and CHF, also was complaining of abdominal pain. HIDA scan is positive and the patient is stated to go for cholecystectomy. At this time, no chest pain. No palpitation. PAST MEDICAL HISTORY: Reviewed. REVIEW OF SYSTEMS: A 14-point review of systems negative except as mentioned earlier. CURRENT MEDICATIONS: Reviewed. PHYSICAL EXAMINATION: VITAL SIGNS: Pulse is 60, blood pressure 140/70, and respirations 18. HEENT: Conjunctivae normal. NECK: No JVD. CARDIOVASCULAR: S1, S2. RESPIRATION: Breath sounds diminished at the bases. A few scattered rhonchi. ABDOMEN: Soft. NERVOUS SYSTEM: Nonfocal. LABORATORY DATA: Creatinine is 2.45. stable. ASSESSMENT: 1. Acute cholecystitis for cholecystectomy. 2. Shortness of breath, possibly secondary to combination of chronic obstructive pulmonary disease and congestive heart failure. 3. Ejection fraction 20% to 25% with [id number] systolic dysfunction. 4. Chronic kidney disease, stage 4. 5. Ischemic cardiomyopathy, status post AICD. 6. Anemia. 7. Multiple complex medical issues. RECOMMENDATIONS AND DISCUSSION: This is a 79-year-old gentleman presented with multiple complex medical issues. We will monitor the patient closely. Continue the current treatment with antibiotics. Monitor fluid electrolyte balance closely. Monitor creatinine closely. Recommend repeat labs and repeat chest x-ray. Also, incentive spirometry, DVT prophylaxis. Guarded prognosis, because of multiple complex medical issues. Further recommendations to follow. MMODL / IJN: [id number] / DEION
[2025-03-13] MEDS: INDOCYANINE GREEN 25 MG VIAL IV STA (16:09)
[2025-03-13 17:03] LABS: Glucose,Whole Blood 185 mg/dL (70-110)
[2025-03-13 19:31] LABS: Glucose,Whole Blood 194 mg/dL (70-110)
[2025-03-13 20:07] LABS: Glucose,Whole Blood 168 mg/dL (70-110)
[2025-03-14 06:08] LABS: Glucose,Whole Blood 132 mg/dL (70-110)
[2025-03-14 07:15] LABS: Basophils # (A) 0.03 10*3/uL (0.00-0.10); Basophils % (A) 0.5 %; Eosinophils # (A) 0.30 10*3/uL (0.04-0.35); Eosinophils % (A) 5.1 %; HCT 29.5 % (39.6-50.0); HGB 9.6 g/dL (13.0-17.0); Lymphocytes # (A) 1.04 10*3/uL (0.90-5.00); Lymphocytes % (A) 17.8 %; MCH 30.7 pg (27.0-32.0); MCHC 32.5 g/dL (32.0-37.0); MCV 94.2 fL (80.0-97.0); Monocytes # (A) 0.67 10*3/uL (0.20-1.00); Monocytes % (A) 11.5 %; Neutrophils # (A) 3.75 10*3/uL (1.80-7.70); Neutrophils % (A) 64.2 %; Platelet Count 167 10*3/uL (140-440); RBC 3.13 10*6/uL (4.40-5.60); RDW 16.0 % (11.5-14.5); WBC 5.84 10*3/uL (4.50-10.00)
[2025-03-14 07:37] LABS: African American GFR (CKD) 33 (>60 ml/min/1.73 sqM); Anion Gap 7 mmol/L; Blood Urea Nitrogen 49 mg/dL (9-20); Calcium 8.3 mg/dL (8.4-10.2); Carbon Dioxide 26 mmol/L (22-30); Chloride 104 mmol/L (98-107); Glucose 119 mg/dL (74-99); Non-African American GFR(CKD) 29 (>60 ml/min/1.73 sqM); Potassium 4.8 mmol/L (3.5-5.1); Sodium 137 mmol/L (137-145)
--- NOTE | 2025-03-14 08:23 | XR ---
EXAMINATION TYPE: XR chest 1V portable DATE OF EXAM: 03/14/2025 5:33 AM COMPARISON: 03/08/2029 CLINICAL INDICATION: Male, 79 years old with history of chf, TECHNIQUE: XR chest 1V portable view(s) obtained. FINDINGS: The heart size is mildly prominent. The pulmonary vasculature is prominent. Diffuse increased lung markings are present bilaterally. There is infiltrate with small right pleural effusion at the right lung base. Correlate for some atel ectasis. Atypical pulmonary edema and pneumonia could be considered. IMPRESSION: 1. Clinical correlation recommended for congestive heart failure. 2. Atelectasis small right pleural effusion. Atypical pulmonary edema and pneumonia could be consider ed. [facility], , 03/14/2025 8:21 AM
[2025-03-14] MEDS: DOCUSATE 100 MG CAP PO PRN (08:44)
[2025-03-14 11:22] LABS: Glucose,Whole Blood 173 mg/dL (70-110)
[2025-03-14] MEDS: FUROSEMIDE 10 MG/ML 2 ML VIAL IV ONE (12:30)
--- NOTE | 2025-03-14 14:57 | P.PN ---
Subjective Progress Note Date: 03/14/25 Principal diagnosis: Acute hypoxic respiratory failure secondary to acute on chronic systolic congestive heart failure This is a 79-year-old male patient, hospitalized for shortness of breath. The patient is a chronic smoker is known to have COPD. At the same time, the patien t is known to have coronary artery disease, chronic systolic heart failure with impaired LV function and the patient has an AICD in place. The patient has been followed up with cardiology on outpatient basis. Patient presented with worsening shortness of breath over 48 hours. Limited cough. No significant sputum production. He has exertional dyspnea without any chest pain. He continues to smoke about 5 cigarettes a day. No pleurisy. No hemoptysis. No significant edema lower extremities. EKG showed a paced rhythm and the patient's chest x-ray showed cardiomegaly with mild pulm vascular ingestion. The white cell count was 11.3 with a hemoglobin 12.5 with a platelet count of 253. The rest of the blood work showed a sodium level of 139 with a potassium level of 4.9, BUN is 33 with a creatinine of 2.01. proBNP level was 16,200 and troponin was at 0.06 The patient's most recent echocardiogram from October 2024 showed systolic heart failure with an ejection fraction of 2024% with severe pulm hypertension and mild to moderate aortic regurgitation and mitral regurgitation with moderate to severe tricuspid regurgitation. The patient was started on diuretics. The patient is currently on IV Lasix 40 mg every 12 hours. The patient remains on aspirin and Plavix. The patient rem ains on Coreg 12.5 mg p.o. twice a day, amiodarone 200 mg p.o. daily and hydralazine 25 mg 3 times daily and Imdur 20 mg p.o. 3 times daily. Fluid balance has been negative. The patient is currently off the BiPAP and he has been transitioned to 3 L of oxygen by nasal cannula. He states that utilization of BiPAP overnight has helped quite a bit. Currently, feeling better. Free of any chest pain. Patient was seen today on lactic acid level initially was at 3.3, dropped to one 1.2. On 03/09/2025, the patient is comfortable and he seems to be less short of breath. He has been diuresed adequately and on today's blood work, the patient has a rise in the creatinine up to 2.46 with a BUN of 52. Based on that, IV Lasix was discontinued and the patient was started on oral Lasix 40 mg p.o. daily. Remains on bronchodilators. Rest of the medications are essentially unchanged. The white cell count is 14.1 with a hemoglobin 9.8 and a platelet count of 202. Sodium is at 137 and potassium level is at 3.7. The patient is hemodynamically stable. The patient is currently on room air oxygen with a pulse ox of 98 Patient was seen today on 03/10/2025, seems to be fairly comfortable, not in distress. Patient does have history of ischemic cardiomyopathy with ejection fraction of 20 to 25%, clinically however his congestive heart failure has been improving with diuresis. In addition to his cardiomyopathy, patient has valvular heart disease with mild to moderate aortic and mitral regurgitation with severe tricuspid regurgitation and secondary pulmonary hypertension. Patient is being followed by cardiology as well as nephrology for his renal failure. Remains on oral Lasix. Patient continues to have some nonspecific epigastric pain, being followed by surgery recommending ultrasound, also recommending CT angio of the abdomen to rule out mesenteric ischemia. Patient was seen today on 03/11/2025, pulmonary maldonado the patient is doing well, does not seem to be in any distress, no cough no wheezing no shortness of breath, continues to have some epigastric and right upper quadrant pain, ultrasound of gallbladder showed thickened gallbladder wall, patient is now scheduled to have a HIDA scan. At 1 point the patient had melanotic stools which has resolved. Plavix remains on hold. Patient is being closely monitored for any further signs of bleeding. Labs today show WBC count of 7 hemoglobin 9.9 electrolytes are normal BUN is 63 creatinine 2.57 Seen today on 03/13/2025, patient is doing well, relatively asymptomatic, patient is being followed by surgery for acute cholecystitis, may undergo laparoscopic cholecystectomy today. Apparently he was cleared by cardiology. Patient has no active pulmonary symptoms no cough no wheezing no shortness of breath and no chest pain. WBC 6.3 hemoglobin 9.8 electrolytes are normal BUN is 60 creatinine 2.45 Seen today on 03/14/2025, patient is doing well, he underwent uneventful laparoscopic cholecystectomy yesterday. Patient is relatively asymptomatic his chest x-ray showed mild congestive heart failure patient received a dose of Lasix today. Otherwise no major issues over the last 24 hours. WBC count is 5.84 hemoglobin 9.6 electrolytes abnormal BUN is 49 creatinine 2.14. Improved compared to yesterday's creatinine. Objective - Vital Signs Vital signs: Vital Signs Temp 98.0 F 03/14/25 11:20 Pulse 60 03/14/25 11:20 Resp 18 03/14/25 11:20 BP 94/41 03/14/25 11:20 Pulse Ox 100 03/14/25 11:20 FiO2 35 03/08/25 02:29 Intake & Output 03/13/25 03/14/25 03/14/25 18:59 06:59 18:59 Intake Total 1110 10 445 Output Total 980 450 650 Balance 130 -440 -205 Weight 81 kg Intake: IV 510 10 Invasive Line 2 10 10 Oral 600 445 Output: Urine 975 450 650 Estimated Blood Loss 5 Other: Voiding Method Toilet Toilet Toilet # Voids 1 - Exam Physical exam revealed a 79year-old, in no distress, on 2 L nasal cannula with O2 sat of 100% EENT: PERRLA, EOMI, nonicteric, no neck masses, no JVD, no stridor, moist mucous membranes Chest: Symmetrical chest expansion Lungs: Fine crackles at the bases Cardiac: Normal S1-S2, no S3 gallop, 2/6 systolic murmur throughout the precordium. Abdomen: Postsurgical soft nontender no megaly no rebound no guarding Extremities: No clubbing 1+ bipedal edema, nocyanosis, good pulses bilaterally Musculoskeletal: No deformities and no limitation range of motion Neurologic: Alert oriented x 3 no gross focal neurologic deficit Psychiatric: Normal mood and affect and no mental status examination Skin: No rashes. - Labs CBC & Chem 7: 03/14/25 06:49 03/14/25 06:49 Labs: Abnormal Lab Results - Last 24 Hours (Table) 03/13/25 03/13/25 03/13/25 Range/Units 16:58 19:30 20:05 RBC (4.40-5.60) 10*6/uL Hgb (13.0-17.0) g/dL Hct (39.6-50.0) % Immature Gran # (0.00-0.04) 10*3/uL BUN (9-20) mg/dL Creatinine (0.66-1.25) mg/dL Glucose (74-99) mg/dL POC Glucose (mg/dL) 185 H 194 H 168 H (70-110) mg/dL Calcium (8.4-10.2) mg/dL 03/14/25 03/14/25 03/14/25 Range/Units 06:06 06:49 06:49 RBC 3.13 L (4.40-5.60) 10*6/uL Hgb 9.6 L (13.0-17.0) g/dL Hct 29.5 L (39.6-50.0) % Immature Gran # 0.05 H (0.00-0.04) 10*3/uL BUN 49 H (9-20) mg/dL Creatinine 2.14 H (0.66-1.25) mg/dL Glucose 119 H (74-99) mg/dL POC Glucose (mg/dL) 132 H (70-110) mg/dL Calcium 8.3 L (8.4-10.2) mg/dL 03/14/25 Range/Units 11:18 RBC (4.40-5.60) 10*6/uL Hgb (13.0-17.0) g/dL Hct (39.6-50.0) % Immature Gran # (0.00-0.04) 10*3/uL BUN (9-20) mg/dL Creatinine (0.66-1.25) mg/dL Glucose (74-99) mg/dL POC Glucose (mg/dL) 173 H (70-110) mg/dL Calcium (8.4-10.2) mg/dL Assessment and Plan Assessment: Impression: Acute hypoxic respiratory failure secondary to acute on chronic systolic congestive heart failure Severe pulmonary hypertension with valvular heart disease including aortic and mitral regurgitation Underlying COPD Coronary artery disease Chronic systolic congestive heart failure with ejection fraction of 20 to 25% Chronic kidney disease stage IIIb History of ventricular tachycardia History of AICD placement Hypothyroidism Dyslipidemia History of ESBL E. coli UTI and bacteremia Type 2 diabetes Chronic medical debility and generalized weakness Status post laparoscopic cholecystectomy Recommendation: Gentle diuresis Incentive spirometry Continue present supportive care measures Continue Coreg 12.5 twice daily Continue to monitor renal function Continue updrafts for underlying COPD Will continue to follow Time with Patient: Less than 30
--- NOTE | 2025-03-14 15:47 | P.PN ---
Subjective Patient is seen for follow-up of chronic kidney disease. Status post robotic cholecystectomy on 03/13/2025 No significant complaints. Postop abdominal pain is controlled Serum creatinine at 2.1 today. Lasix was held yesterday. Objective - Vital Signs Vital signs: Vital Signs Temp 98.0 F 03/14/25 11:20 Pulse 60 03/14/25 11:20 Resp 18 03/14/25 11:20 BP 94/41 03/14/25 11:20 Pulse Ox 100 03/14/25 11:20 FiO2 35 03/08/25 02:29 Intake & Output 03/13/25 03/14/25 03/14/25 18:59 06:59 18:59 Intake Total 1110 10 445 Output Total 980 450 650 Balance 130 -440 -205 Weight 81 kg Intake: IV 510 10 Invasive Line 2 10 10 Oral 600 445 Output: Urine 975 450 650 Estimated Blood Loss 5 Other: Voiding Method Toilet Toilet Toilet # Voids 1 - Exam Patient is awake, comfortable, no acute distress Examination of the heart S1 and S2 Examination of the lungs show decreased breath sounds at the bases Abdomen is soft tender Examination of lower extremities shows no significant edema CRESTER exam grossly intact - Labs CBC & Chem 7: 03/14/25 06:49 03/14/25 06:49 Labs: Abnormal Lab Results - Last 24 Hours (Table) 03/13/25 03/13/25 03/13/25 Range/Units 16:58 19:30 20:05 RBC (4.40-5.60) 10*6/uL Hgb (13.0-17.0) g/dL Hct (39.6-50.0) % Immature Gran # (0.00-0.04) 10*3/uL BUN (9-20) mg/dL Creatinine (0.66-1.25) mg/dL Glucose (74-99) mg/dL POC Glucose (mg/dL) 185 H 194 H 168 H (70-110) mg/dL Calcium (8.4-10.2) mg/dL 03/14/25 03/14/25 03/14/25 Range/Units 06:06 06:49 06:49 RBC 3.13 L (4.40-5.60) 10*6/uL Hgb 9.6 L (13.0-17.0) g/dL Hct 29.5 L (39.6-50.0) % Immature Gran # 0.05 H (0.00-0.04) 10*3/uL BUN 49 H (9-20) mg/dL Creatinine 2.14 H (0.66-1.25) mg/dL Glucose 119 H (74-99) mg/dL POC Glucose (mg/dL) 132 H (70-110) mg/dL Calcium 8.3 L (8.4-10.2) mg/dL 03/14/25 Range/Units 11:18 RBC (4.40-5.60) 10*6/uL Hgb (13.0-17.0) g/dL Hct (39.6-50.0) % Immature Gran # (0.00-0.04) 10*3/uL BUN (9-20) mg/dL Creatinine (0.66-1.25) mg/dL Glucose (74-99) mg/dL POC Glucose (mg/dL) 173 H (70-110) mg/dL Calcium (8.4-10.2) mg/dL Assessment and Plan Assessment: 1. CKD stage IV secondary to nephrosclerosis with fluctuation in creatinine related to episodes of acute kidney injury and cardiorenal syndrome. Serum creatinine close to baseline of 2 to 2.5 mg/dL. No obstruction noted on CT scan. UA is benign. 2. Ischemic cardiomyopathy with EF of 20 to 25% 3. Acute on chronic CHF with reduced ejection fraction 4. Acute hypoxic respiratory failure secondary to acute on chronic CHF, improved 5. Valvular heart disease with mild to moderate aortic and mitral regurgitation with severe tricuspid regurgitation 6. Abdominal pain with cholelithiasis possible acute cholecystitis, scheduled for laparoscopic cholecystectomy Plan: Resume Lasix. Patient received fluids with surgery. Continue Farxiga Continue with accurate I's and O's Repeat labs in a.m.
[2025-03-14 16:21] LABS: Glucose,Whole Blood 108 mg/dL (70-110)
[2025-03-14] MEDS: FUROSEMIDE 40 MG TAB PO SCH (16:30)
[2025-03-14 20:26] LABS: Glucose,Whole Blood 211 mg/dL (70-110)
[2025-03-14] MEDS: DOCUSATE 100 MG CAP PO SCH (20:28)
--- NOTE | 2025-03-14 22:29 | P.PN ---
Subjective Patient seen and evalauted at bedside. Patient doing well, tired, admits to some abdominal discomfort in the right upper quadrant. No nausea or vomiting, passing flatus Objective - Vital Signs Vital signs: Vital Signs Temp 97.6 F 03/14/25 19:26 Pulse 64 03/14/25 19:26 Resp 18 03/14/25 19:26 BP 113/61 03/14/25 19:26 Pulse Ox 97 03/14/25 19:26 FiO2 35 03/08/25 02:29 Intake & Output 03/14/25 03/14/25 03/15/25 06:59 18:59 06:59 Intake Total 10 555 10 Output Total 450 1150 300 Balance -440 -595 -290 Weight 81 kg Intake: IV 10 10 Invasive Line 2 10 10 Oral 555 Output: Urine 450 1150 300 Other: Voiding Method Toilet Toilet Toilet Urinal # Voids 1 - Exam No acute distress alert and oriented x 3 Cardiovascular regular rhythm Pulmonary nonlabored breathing Abdomen is soft, tender to palpation epigastric region, no rebound tenderness not a surgical abdomen not peritoneal - Labs CBC & Chem 7: 03/14/25 06:49 03/14/25 06:49 Labs: Abnormal Lab Results - Last 24 Hours (Table) 03/14/25 03/14/25 03/14/25 Range/Units 06:06 06:49 06:49 RBC 3.13 L (4.40-5.60) 10*6/uL Hgb 9.6 L (13.0-17.0) g/dL Hct 29.5 L (39.6-50.0) % Immature Gran # 0.05 H (0.00-0.04) 10*3/uL BUN 49 H (9-20) mg/dL Creatinine 2.14 H (0.66-1.25) mg/dL Glucose 119 H (74-99) mg/dL POC Glucose (mg/dL) 132 H (70-110) mg/dL Calcium 8.3 L (8.4-10.2) mg/dL 03/14/25 03/14/25 Range/Units 11:18 20:25 RBC (4.40-5.60) 10*6/uL Hgb (13.0-17.0) g/dL Hct (39.6-50.0) % Immature Gran # (0.00-0.04) 10*3/uL BUN (9-20) mg/dL Creatinine (0.66-1.25) mg/dL Glucose (74-99) mg/dL POC Glucose (mg/dL) 173 H 211 H (70-110) mg/dL Calcium (8.4-10.2) mg/dL Assessment and Plan Assessment: 79-year-old male status postcholecystectomy Doing well tolerating diet advance to low-fat diet Encourage ambulation Follow-up a.m. labs Time with Patient: Less than 30
--- NOTE | 2025-03-15 01:01 | PN ---
PROGRESS NOTE DATE OF SERVICE: 03/14/2025 SUBJECTIVE: This is a 79-year-old gentleman, who was admitted after multiple complex medical issues, had a cholecystectomy. The patient is still complaining of some abdominal discomfort. Multiple consultants are following the patient closely. The most recent chest x-ray, which I reviewed personally, showed some increased bronchovascular markings. PAST MEDICAL HISTORY: Reviewed. REVIEW OF SYSTEMS: A 14-point review of systems negative except as mentioned earlier. PHYSICAL EXAMINATION: VITAL SIGNS: Pulse is 60, blood pressure 94/41, respirations 18. CHEST: Few scattered rhonchi and crackles. ABDOMEN: Soft. Status post surgery. NERVOUS SYSTEM: Nonfocal. LABORATORY DATA: Creatinine is 2.14. ASSESSMENT: 1. Acute cholecystitis status post cholecystectomy. 2. Shortness of breath, possibly secondary to combination of chronic obstructive pulmonary disease and congestive heart failure acute exacerbation. 3. Ejection fraction of 20% to 25% with [id number] systolic dysfunction. 4. Chronic kidney disease, stage 4. 5. Ischemic cardiomyopathy status post AICD. 6. Anemia. 7. Multiple complex medical issues. RECOMMENDATIONS: Recommend to continue current management and continue symptomatic treatment. Otherwise, repeat labs. Adjust medication. Continue with antibiotics. Closely monitor. Avoid nephrotoxic medications. Prognosis guarded. Further recommendations to follow. MMODL / IJN: [id number] /
[2025-03-15 06:07] LABS: Glucose,Whole Blood 151 mg/dL (70-110)
[2025-03-15 07:29] LABS: Basophils # (A) 0.04 10*3/uL (0.00-0.10); Basophils % (A) 0.6 %; Eosinophils # (A) 0.30 10*3/uL (0.04-0.35); Eosinophils % (A) 4.6 %; HCT 31.8 % (39.6-50.0); HGB 10.1 g/dL (13.0-17.0); Lymphocytes # (A) 1.13 10*3/uL (0.90-5.00); Lymphocytes % (A) 17.3 %; MCH 30.0 pg (27.0-32.0); MCHC 31.8 g/dL (32.0-37.0); MCV 94.4 fL (80.0-97.0); Monocytes # (A) 0.72 10*3/uL (0.20-1.00); Monocytes % (A) 11.0 %; Neutrophils # (A) 4.28 10*3/uL (1.80-7.70); Neutrophils % (A) 65.4 %; Platelet Count 194 10*3/uL (140-440); RBC 3.37 10*6/uL (4.40-5.60); RDW 15.9 % (11.5-14.5); WBC 6.54 10*3/uL (4.50-10.00)
[2025-03-15 07:33] LABS: African American GFR (CKD) 30 (>60 ml/min/1.73 sqM); Anion Gap 8 mmol/L; Blood Urea Nitrogen 43 mg/dL (9-20); Calcium 8.5 mg/dL (8.4-10.2); Carbon Dioxide 26 mmol/L (22-30); Chloride 106 mmol/L (98-107); Glucose 128 mg/dL (74-99); Non-African American GFR(CKD) 26 (>60 ml/min/1.73 sqM); Potassium 4.4 mmol/L (3.5-5.1); Sodium 140 mmol/L (137-145)
--- NOTE | 2025-03-15 07:43 | P.PN ---
Subjective Patient seen and evalauted at bedside. Patient doing well, no overnight issues or complaints. Objective - Vital Signs Vital signs: Vital Signs Temp 98.0 F 03/15/25 03:51 Pulse 60 03/15/25 03:51 Resp 18 03/15/25 03:51 BP 145/65 03/15/25 06:18 Pulse Ox 95 03/15/25 03:51 FiO2 35 03/08/25 02:29 Intake & Output 03/14/25 03/15/25 03/15/25 18:59 06:59 18:59 Intake Total 555 10 Output Total 1150 750 Balance -595 -740 Weight 79.6 kg Intake: IV 10 Invasive Line 2 10 Oral 555 Output: Urine 1150 750 Other: Voiding Method Toilet Toilet Urinal - Exam No acute distress alert and oriented x 3 Cardiovascular regular rhythm Pulmonary nonlabored breathing Abdomen is soft, tender to palpation epigastric region, no rebound tenderness not a surgical abdomen not peritoneal - Labs CBC & Chem 7: 03/15/25 06:24 03/15/25 06:24 Labs: Abnormal Lab Results - Last 24 Hours (Table) 03/14/25 03/14/25 03/15/25 Range/Units 11:18 20:25 06:04 RBC (4.40-5.60) 10*6/uL Hgb (13.0-17.0) g/dL Hct (39.6-50.0) % MCHC (32.0-37.0) g/dL Immature Gran # (0.00-0.04) 10*3/uL BUN (9-20) mg/dL Creatinine (0.66-1.25) mg/dL Glucose (74-99) mg/dL POC Glucose (mg/dL) 173 H 211 H 151 H (70-110) mg/dL 03/15/25 03/15/25 Range/Units 06:24 06:24 RBC 3.37 L (4.40-5.60) 10*6/uL Hgb 10.1 L (13.0-17.0) g/dL Hct 31.8 L (39.6-50.0) % MCHC 31.8 L (32.0-37.0) g/dL Immature Gran # 0.07 H (0.00-0.04) 10*3/uL BUN 43 H (9-20) mg/dL Creatinine 2.30 H (0.66-1.25) mg/dL Glucose 128 H (74-99) mg/dL POC Glucose (mg/dL) (70-110) mg/dL Assessment and Plan Assessment: 79-year-old male status postcholecystectomy Doing well tolerating low-fat diet ok for dc Time with Patient: Less than 30
--- NOTE | 2025-03-15 07:53 | XR ---
EXAMINATION TYPE: XR chest 1V portable DATE OF EXAM: 03/15/2025 5:57 AM COMPARISON: 03/14/2025 CLINICAL INDICATION: Male, 79 years old with history of chf, TECHNIQUE: XR chest 1V portable views of the chest are obtained. FINDINGS: Demonstrated are scattered senescent parenchymal change. Right basilar discoid atelectasis and/or infiltrate. The heart is stable. Hilar and mediastinal structures are within normal limits. Degenerative changes are seen of the dorsal spine. IMPRESSION: 1. Right basilar discoid atelectasis and/or infiltrate. [facility], , 03/15/2025 7:51 AM
--- NOTE | 2025-03-15 10:21 | P.PN ---
Subjective Progress Note Date: 03/15/25 Patient is seen for follow-up of chronic kidney disease. Status post robotic cholecystectomy on 03/13/2025 No significant complaints. Postop abdominal pain is controlled. possible discharge today Serum creatinine at 2.3 today. Objective - Vital Signs Vital signs: Vital Signs Temp 98 F 03/15/25 08:14 Pulse 78 03/15/25 08:58 Resp 16 03/15/25 08:14 BP 123/62 03/15/25 08:14 Pulse Ox 95 03/15/25 08:14 FiO2 35 03/08/25 02:29 Intake & Output 03/14/25 03/15/25 03/15/25 18:59 06:59 18:59 Intake Total 555 10 240 Output Total 1150 750 Balance -595 -740 240 Weight 79.6 kg Intake: IV 10 Invasive Line 2 10 Oral 555 240 Output: Urine 1150 750 Other: Voiding Method Toilet Toilet Urinal - Exam Patient is awake, comfortable, no acute distress Examination of the heart S1 and S2 Examination of the lungs show decreased breath sounds at the bases Abdomen is soft tender Examination of lower extremities shows no significant edema BOOMBOAT OPERATOR exam grossly intact - Labs CBC & Chem 7: 03/15/25 06:24 03/15/25 06:24 Labs: Abnormal Lab Results - Last 24 Hours (Table) 03/14/25 03/14/25 03/15/25 Range/Units 11:18 20: 06:04 RBC (4.40-5.60) 10*6/uL Hgb (13.0-17.0) g/dL Hct (39.6-50.0) % MCHC (32.0-37.0) g/dL Immature Gran # (0.00-0.04) 10*3/uL BUN (9-20) mg/dL Creatinine (0.66-1.25) mg/dL Glucose (74-99) mg/dL POC Glucose (mg/dL) 173 H 211 H 151 H (70-110) mg/dL 03/15/25 03/15/25 Range/Units 06:24 06:24 RBC 3.37 L (4.40-5.60) 10*6/uL Hgb 10.1 L (13.0-17.0) g/dL Hct 31.8 L (39.6-50.0) % MCHC 31.8 L (32.0-37.0) g/dL Immature Gran # 0.07 H (0.00-0.04) 10*3/uL BUN 43 H (9-20) mg/dL Creatinine 2.30 H (0.66-1.25) mg/dL Glucose 128 H (74-99) mg/dL POC Glucose (mg/dL) (70-110) mg/dL Assessment and Plan Assessment: 1. CKD stage IV secondary to nephrosclerosis with fluctuation in creatinine related to episodes of acute kidney injury and cardiorenal syndrome. Serum cr eatinine close to baseline of 2 to 2.5 mg/dL. No obstruction noted on CT scan. UA is benign. 2. Ischemic cardiomyopathy with EF of 20 to 25% 3. Acute on chronic CHF with reduced ejection fraction 4. Acute hypoxic respiratory failure secondary to acute on chronic CHF, improved 5. Valvular heart disease with mild to moderate aortic and mitral regurgitation with severe tricuspid regurgitation 6. Abdominal pain with cholelithiasis possible acute cholecystitis, scheduled for laparoscopic cholecystectomy Plan: Continue Lasix 40 mg daily Continue Farxiga Continue with accurate I's and O's Repeat labs in a.m. stable from nephrology stand point , op follow up in 2 weeks.
[2025-03-15 11:38] LABS: Glucose,Whole Blood 162 mg/dL (70-110)
[2025-03-15 16:47] LABS: Glucose,Whole Blood 138 mg/dL (70-110)
[2025-03-15 19:59] LABS: Glucose,Whole Blood 141 mg/dL (70-110)
--- NOTE | 2025-03-16 02:14 | PN ---
PROGRESS NOTE DATE OF SERVICE: 03/15/2025 SUBJECTIVE: This 79-year-old gentleman admitted with multiple complex medical issues. Underwent laparoscopic cholecystectomy today. No chest pain. No palpitation. The most recent chest x-ray, which I reviewed personally showed still some minimal fluid overload. OBJECTIVE: VITAL SIGNS: On exam, pulse is 60, blood pressure 110/86, respirations 16. CHEST: Few scattered rhonchi and crackles. ABDOMEN: Soft. Status post surgery. NERVOUS SYSTEM: Nonfocal. LABS: Creatinine 2.30. ASSESSMENT: 1. Acute cholecystitis, status post laparoscopic cholecystectomy. 2. Shortness of breath, possibly secondary to combination of COPD acute exacerbation, CHF acute exacerbation. 3. Ejection fraction of 20 to 25% with acute on chronic systolic dysfunction. 4. Chronic kidney disease, stage IV. 5. Ischemic cardiomyopathy, status post AICD. 6. Anemia. 7. Multiple complex medical issues. RECOMMENDATIONS: Recommend to continue current management and treatment. Avoid nephrotoxic medications. The patient is on empiric antibiotics. Continue with cautious diuresis. Monitor creatinine closely. Repeat labs in the morning. Further recommendations to follow. MMODL / IJN: [id number] /
[2025-03-16 06:29] LABS: Glucose,Whole Blood 153 mg/dL (70-110)
[2025-03-16 07:16] LABS: Basophils # (A) 0.03 10*3/uL (0.00-0.10); Basophils % (A) 0.5 %; Eosinophils # (A) 0.28 10*3/uL (0.04-0.35); Eosinophils % (A) 4.4 %; HCT 30.3 % (39.6-50.0); HGB 9.8 g/dL (13.0-17.0); Lymphocytes # (A) 1.19 10*3/uL (0.90-5.00); Lymphocytes % (A) 18.6 %; MCH 30.5 pg (27.0-32.0); MCHC 32.3 g/dL (32.0-37.0); MCV 94.4 fL (80.0-97.0); Monocytes # (A) 0.91 10*3/uL (0.20-1.00); Monocytes % (A) 14.2 %; Neutrophils # (A) 3.94 10*3/uL (1.80-7.70); Neutrophils % (A) 61.7 %; Platelet Count 187 10*3/uL (140-440); RBC 3.21 10*6/uL (4.40-5.60); RDW 15.9 % (11.5-14.5); WBC 6.39 10*3/uL (4.50-10.00)
[2025-03-16 07:42] LABS: African American GFR (CKD) 33 (>60 ml/min/1.73 sqM); Anion Gap 9 mmol/L; Blood Urea Nitrogen 37 mg/dL (9-20); Calcium 8.4 mg/dL (8.4-10.2); Carbon Dioxide 23 mmol/L (22-30); Chloride 106 mmol/L (98-107); Glucose 127 mg/dL (74-99); Non-African American GFR(CKD) 29 (>60 ml/min/1.73 sqM); Potassium 4.6 mmol/L (3.5-5.1); Sodium 138 mmol/L (137-145)
--- NOTE | 2025-03-16 09:55 | P.PN ---
Subjective Progress Note Date: 03/16/25 Patient is seen for follow-up of chronic kidney disease. Status post robotic cholecystectomy on 03/13/2025 No significant complaints. Serum creatinine at 2.1 today. Objective - Vital Signs Vital signs: Vital Signs Temp 98.1 F 03/16/25 07:43 Pulse 60 03/16/25 08:10 Resp 16 03/16/25 07:43 BP 122/61 03/16/25 07:43 Pulse Ox 95 03/16/25 08:02 FiO2 21 03/16/25 08:02 Intake & Output 03/15/25 03/16/25 03/16/25 18:59 06:59 18:59 Intake Total 476 20 250 Output Total 825 750 250 Balance -349 -730 0 Weight 79.9 kg Intake: IV 20 10 .9 10 Invasive Line 3 10 Invasive Line 4 10 Oral 476 240 Output: Urine 825 750 250 Other: Voiding Method Toilet Urinal - Exam Patient is awake, comfortable, no acute distress Examination of the heart S1 and S2 Examination of the lungs show decreased breath sounds at the bases Abdomen is soft tender Examination of lower extremities shows no significant edema COLLECTION ADVISOR exam grossly intact - Labs CBC & Chem 7: 03/16/25 06:28 03/16/25 06:28 Labs: Abnormal Lab Results - Last 24 Hours (Table) 03/15/25 03/15/25 03/15/25 Range/Units 11:36 16:46 19:57 RBC (4.40-5.60) 10*6/uL Hgb (13.0-17.0) g/dL Hct (39.6-50.0) % BUN (9-20) mg/dL Creatinine (0.66-1.25) mg/dL Glucose (74-99) mg/dL POC Glucose (mg/dL) 162 H 138 H 141 H (70-110) mg/dL 03/16/25 03/16/25 03/16/25 Range/Units 06:27 06:28 06:28 RBC 3.21 L (4.40-5.60) 10*6/uL Hgb 9.8 L (13.0-17.0) g/dL Hct 30.3 L (39.6-50.0) % BUN 37 H (9-20) mg/dL Creatinine 2.11 H (0.66-1.25) mg/dL Glucose 127 H (74-99) mg/dL POC Glucose (mg/dL) 153 H (70-110) mg/dL Assessment and Plan Assessment: 1. CKD stage IV secondary to nephrosclerosis with fluctuation in creatinine related to episodes of acute kidney injury and cardiorenal syndrome. Serum creatinine close to baseline of 2 to 2.5 mg/dL. No obstruction noted on CT scan. UA is benign. 2. Ischemic cardiomyopathy with EF of 20 to 25% 3. Acute on chronic CHF with reduced ejection fraction 4. Acute hypoxic respiratory failure secondary to acute on chronic CHF, improved 5. Valvular heart disease with mild to moderate aortic and mitral regurgitation with severe tricuspid regurgitation 6. Abdominal pain with cholelithiasis possible acute cholecystitis, scheduled for laparoscopic cholecystectomy Plan: Continue Lasix 40 mg daily and Farxiga Continue with accurate I's and O's Repeat labs in a.m. stable from nephrology stand point , op follow up in 2 weeks.
[2025-03-16 12:00] LABS: Glucose,Whole Blood 131 mg/dL (70-110)
--- NOTE | 2025-03-16 15:24 | P.PN ---
Progress Note - Text Progress Note Date: 03/16/25 No acute events overnight VSS General-NAD Abdomen-soft, appropriate TTP, ND 79 year old male s/p Cholecystectomy -Ok for discharge from surgical perspective. Rest of care per medicine Sam Solorio DO [facility] [phone]
--- NOTE | 2025-03-16 16:37 | PN ---
PROGRESS NOTE DATE OF SERVICE: 03/16/2025 SUBJECTIVE: This 79-year-old gentleman who was admitted with multiple complex medical issues, underwent acute laparoscopic cholecystectomy for acute cholecystectomy. No chest pain. No palpitation. OBJECTIVE: VITAL SIGNS: Pulse is 57, blood pressure 120/56, and respirations 18. CHEST: Few scattered rhonchi and crackles. ABDOMEN: Soft. NERVOUS SYSTEM: Nonfocal. LABORATORY DATA: Reviewed. ASSESSMENT: 1. Acute cholecystitis status post laparoscopic cholecystectomy. 2. Shortness of breath, possibly a combination of chronic obstructive pulmonary disease and congestive heart failure acute exacerbation. 3. Ejection fraction 20% to 25% with [id number] systolic dysfunction. 4. Chronic kidney disease, stage IV. 5. Ischemic cardiomyopathy status post AICD. 6. Anemia. 7. Multiple complex medical issues. RECOMMENDATIONS: Recommend to continue current management and continue symptomatic treatment. Otherwise, closely monitor, closely follow with multiple consultants. Monitor fluid electrolyte balance closely. Possible discharge in the next 24 hours. MMODL / IJN: [id number] /
[2025-03-16 17:01] LABS: Glucose,Whole Blood 190 mg/dL (70-110)
[2025-03-16 20:06] LABS: Glucose,Whole Blood 170 mg/dL (70-110)
[2025-03-17 06:05] LABS: Glucose,Whole Blood 160 mg/dL (70-110)
[2025-03-17 08:09] LABS: Basophils # (A) 0.03 10*3/uL (0.00-0.10); Basophils % (A) 0.4 %; Eosinophils # (A) 0.28 10*3/uL (0.04-0.35); Eosinophils % (A) 3.6 %; HCT 30.2 % (39.6-50.0); HGB 9.7 g/dL (13.0-17.0); Lymphocytes # (A) 1.31 10*3/uL (0.90-5.00); Lymphocytes % (A) 16.9 %; MCH 30.3 pg (27.0-32.0); MCHC 32.1 g/dL (32.0-37.0); MCV 94.4 fL (80.0-97.0); Monocytes # (A) 0.92 10*3/uL (0.20-1.00); Monocytes % (A) 11.9 %; Neutrophils # (A) 5.16 10*3/uL (1.80-7.70); Neutrophils % (A) 66.7 %; Platelet Count 180 10*3/uL (140-440); RBC 3.20 10*6/uL (4.40-5.60); RDW 16.1 % (11.5-14.5); WBC 7.74 10*3/uL (4.50-10.00)
[2025-03-17 08:52] LABS: African American GFR (CKD) 33 (>60 ml/min/1.73 sqM); Anion Gap 9 mmol/L; Blood Urea Nitrogen 35 mg/dL (9-20); Calcium 8.4 mg/dL (8.4-10.2); Carbon Dioxide 23 mmol/L (22-30); Chloride 104 mmol/L (98-107); Glucose 142 mg/dL (74-99); Non-African American GFR(CKD) 29 (>60 ml/min/1.73 sqM); Potassium 4.5 mmol/L (3.5-5.1); Sodium 136 mmol/L (137-145)
[2025-03-17 11:30] LABS: Glucose,Whole Blood 97 mg/dL (70-110)
[2025-03-17 11:58] VITALS: RESP 18
--- NOTE | 2025-03-17 15:58 | P.PN ---
Subjective Progress Note Date: 03/17/25 SURGICAL PROGRESS NOTE CHIEF COMPLAINT: Respiratory failure HISTORY OF PRESENT ILLNESS: Patient status post robotic cholecystectomy on 03/13. Patient's pain is controlled. Tolerating low-fat diet. He did have a bowel movement. He is up and ambulating. He is afebrile. WBC 7.7 Hgb 9.7 PHYSICAL EXAM: VITAL SIGNS: Reviewed. GENERAL: Well-developed in no acute distress. ABDOMEN: Soft. Nondistended. Incision sites clean dry and intact NEUROLOGIC: Alert and oriented. Cranial nerves II through XII grossly intact. ASSESSMENT: 1. Acute cholecystitis 2. Anemia with melanotic stools. Black stools resolved. Hemoglobin stable. PLAN: -Patient stable for discharge from surgical standpoint -As noted per cardiology Plavix does not need to be resumed upon discharge. If medicine service feels that Plavix is needed. Okay to resume Plavix from surgical standpoint. Monitor hemoglobin outpatient. Physician Soil Scientist note has been reviewed by physician. Signing provider agrees with the documented findings, assessment, and plan of care. Attestation Patient seen and examined at bedside. Denies any pain. Tolerating diet. Stable from surgical standpoint for discharge. Alexsander Sandoval, Objective - Vital Signs Vital signs: Vital Signs Temp 98.5 F 03/17/25 11:55 Pulse 60 03/17/25 12:37 Resp 18 03/17/25 11:55 BP 142/71 03/17/25 11:55 Pulse Ox 96 03/17/25 11:55 FiO2 21 03/16/25 08:02 Intake & Output 03/16/25 03/17/25 03/17/25 18:59 06:59 18:59 Intake Total 548 475 Output Total 250 775 Balance 298 -300 Weight 79.7 kg Intake: IV 40 10 .9 40 Invasive Line 4 10 Intake, IV Titration 150 Amount cefTRIAXone 1 gm In 50 Sodium Chloride 0.9% 50 ml @ 100 mls/hr IVPB Q24HR JORDEN Rx#:[id number] metroNIDAZOLE-NS PMX 500 100 mg In Saline 1 100ml.bag @ 100 mls/hr IVPB Q8H JORDEN Rx#:[id number] Oral 358 465 Output: Urine 250 775 Other: Voiding Method Toilet Toilet Urinal Urinal # Voids 1 2 # Bowel Movements 1 1 - Labs CBC & Chem 7: 07/28/25 06:42 03/17/25 06:42 Labs: Abnormal Lab Results - Last 24 Hours (Table) 03/16/25 03/16/25 03/17/25 Range/Units 16:59 20:04 06:02 RBC (4.40-5.60) 10*6/uL Hgb (13.0-17.0) g/dL Hct (39.6-50.0) % Sodium (137-145) mmol/L BUN (9-20) mg/dL Creatinine (0.66-1.25) mg/dL Glucose (74-99) mg/dL POC Glucose (mg/dL) 190 H 170 H 160 H (70-110) mg/dL 03/17/25 03/17/25 Range/Units 06:42 06:42 RBC 3.20 L (4.40-5.60) 10*6/uL Hgb 9.7 L (13.0-17.0) g/dL Hct 30.2 L (39.6-50.0) % Sodium 136 L (137-145) mmol/L BUN 35 H (9-20) mg/dL Creatinine 2.14 H (0.66-1.25) mg/dL Glucose 142 H (74-99) mg/dL POC Glucose (mg/dL) (70-110) mg/dL
[2025-03-17 16:17] LABS: Glucose,Whole Blood 147 mg/dL (70-110)
[2025-03-17 16:35] VITALS: BP 123/57; PULSE 70; TEMP 98
--- NOTE | 2025-03-17 21:58 | P.PN ---
Subjective Patient is seen for follow-up of chronic kidney disease. Status post robotic cholecystectomy on 03/13/2025 No significant complaints. Postop abdominal pain is controlled Serum creatinine stable at 2.1 Maintained on low-dose loop diuretics. Objective - Vital Signs Vital signs: Vital Signs Temp 98 F 03/17/25 16:33 Pulse 70 03/17/25 16:33 Resp 18 03/17/25 16:33 BP 123/57 03/17/25 16:33 Pulse Ox 95 03/17/25 16:33 FiO2 21 03/16/25 08:02 Intake & Output 03/17/25 03/17/25 03/18/25 06:59 18:59 06:59 Intake Total 565 Output Total 775 Balance -210 Weight 79.7 kg Intake: IV 10 Invasive Line 4 10 Oral 555 Output: Urine 775 Other: Voiding Method Toilet Toilet Urinal Urinal # Voids 1 2 # Bowel Movements 1 1 - Exam Patient is awake, comfortable, no acute distress Examination of the heart S1 and S2 Examination of the lungs show decreased breath sounds at the bases Abdomen is soft tender Examination of lower extremities shows no significant edema COLLATING MACHINE OPERATOR exam grossly intact - Labs CBC & Chem 7: 03/17/25 06:42 03/17/25 06:42 Labs: Abnormal Lab Results - Last 24 Hours (Table) 03/17/25 03/17/25 03/17/25 Range/Units 06:02 06:42 06:42 RBC 3.20 L (4.40-5.60) 10*6/uL Hgb 9.7 L (13.0-17.0) g/dL Hct 30.2 L (39.6-50.0) % Sodium 136 L (137-145) mmol/L BUN 35 H (9-20) mg/dL Creatinine 2.14 H (0.66-1.25) mg/dL Glucose 142 H (74-99) mg/dL POC Glucose (mg/dL) 160 H (70-110) mg/dL 03/17/25 Range/Units 16:16 RBC (4.40-5.60) 10*6/uL Hgb (13.0-17.0) g/dL Hct (39.6-50.0) % Sodium (137-145) mmol/L BUN (9-20) mg/dL Creatinine (0.66-1.25) mg/dL Glucose (74-99) mg/dL POC Glucose (mg/dL) 147 H (70-110) mg/dL Assessment and Plan Assessment: 1. CKD stage IV secondary to nephrosclerosis with fluctuation in creatinine r elated to episodes of acute kidney injury and cardiorenal syndrome. Serum creatinine close to baseline of 2 to 2.5 mg/dL. No obstruction noted on CT scan. UA is benign. 2. Ischemic cardiomyopathy with EF of 20 to 25% 3. Acute on chronic CHF with reduced ejection fraction 4. Acute hypoxic respiratory failure secondary to acute on chronic CHF, improved 5. Valvular heart disease with mild to moderate aortic and mitral regurgitation with severe tricuspid regurgitation 6. Abdominal pain with cholelithiasis possible acute cholecystitis, status post laparoscopic cholecystectomy Plan: Continue current dose of Lasix Continue Farxiga Follow-up as outpatient in about 2 to 3 weeks
== END 2025-03-17 17:46 | disposition home health service (06) | DRG 417 ==
LOC: EC 02:16 → 3SCARD 04:06
PROVIDERS: ADMIT Hospitalist; ATTEND Hospitalist
PROC: 8E0W4CZ Robotic Assisted Procedure of Trunk Region, Percutaneous Endoscopic Approach (ICD-10-PCS; principal; 2025-03-08)
PROC: 0FT44ZZ Resection of Gallbladder, Percutaneous Endoscopic Approach (ICD-10-PCS; principal; 2025-03-08)
PROC: 5A09357 Assistance with Respiratory Ventilation, Less than 24 Consecutive Hours, Continuous Positive Airway Pressure (ICD-10-PCS; 2025-03-08)
DX: K80.01 Calculus of gallbladder with acute cholecystitis with obstruction (principal); I50.23 Acute on chronic systolic (congestive) heart failure; J96.21 Acute and chronic respiratory failure with hypoxia; I27.20 Pulmonary hypertension, unspecified; N17.9 Acute kidney failure, unspecified; D63.1 Anemia in chronic kidney disease; I13.0 Hypertensive heart and chronic kidney disease with heart failure and stage 1 through stage 4 chronic kidney disease, or unspecified chronic kidney disease; N18.4 Chronic kidney disease, stage 4 (severe); J44.9 Chronic obstructive pulmonary disease, unspecified; E11.22 Type 2 diabetes mellitus with diabetic chronic kidney disease; K76.89 Other specified diseases of liver; E03.9 Hypothyroidism, unspecified; I08.3 Combined rheumatic disorders of mitral, aortic and tricuspid valves; E11.65 Type 2 diabetes mellitus with hyperglycemia; I25.5 Ischemic cardiomyopathy; K59.00 Constipation, unspecified; N40.0 Benign prostatic hyperplasia without lower urinary tract symptoms; Z79.02 Long term (current) use of antithrombotics/antiplatelets; E78.5 Hyperlipidemia, unspecified; F17.210 Nicotine dependence, cigarettes, uncomplicated; R53.81 Other malaise; R79.89 Other specified abnormal findings of blood chemistry; F41.9 Anxiety disorder, unspecified; I25.10 Atherosclerotic heart disease of native coronary artery without angina pectoris; I25.2 Old myocardial infarction; Z86.79 Personal history of other diseases of the circulatory system; Z95.810 Presence of automatic (implantable) cardiac defibrillator; Z87.440 Personal history of urinary (tract) infections; Z79.899 Other long term (current) drug therapy; Z79.82 Long term (current) use of aspirin; Z79.890 Hormone replacement therapy; Z86.19 Personal history of other infectious and parasitic diseases; Z79.84 Long term (current) use of oral hypoglycemic drugs
CPT/HCPCS: 36415; 71045; 74018; 74176; 76705; 78226; 80048; 80053; 81003; 83036; 83605; 83735; 83880; 84484; 85025; 85027; 85610; 85730; 88304; 93005; 94640; 94660; 94760; 96374; 96375; 99285